=== PATIENT | female | born 1955 | race African-American/Black ===

== ENCOUNTER 2017-02-14 10:30 | Inpatient (IN) | payer BC ==
[2017-02-09 10:42] VITALS: BMI 22.9
[2017-02-24] MEDS ORDERED: ceFAZolin SODIUM 1 GM VIAL ONE (11:12)
[2017-02-24] MEDS ORDERED: TRANEXAMIC ACID 1000 MG/10 ML VIAL ONE (11:14)
[2017-02-24] MEDS ORDERED: ROPIVICAINE 0.2%/MORPH PF/KETOROLAC - 51ML DISP.SYRINGE IA ONE ×2 (11:14→11:28)
[2017-02-24] MEDS ORDERED: VANCOMYCIN 1,000 MG VIAL (RESTRICTED TO ID ONLY) ONE (11:14)
[2017-02-24] MEDS ORDERED: CEFAZOLIN 1 GM/D5W 50 ML IVPB ONE (11:28)
[2017-02-24] MEDS ORDERED: CELECOXIB 200 MG CAPSULE PO ONE (11:28)
[2017-02-24] MEDS ORDERED: GABAPENTIN 300 MG CAPSULE (FP) PO ONE (11:28)
[2017-02-24] MEDS ORDERED: TRANEXAMIC ACID 1000 MG/10 ML VIAL IVPUSH ONE (11:28)
[2017-02-24] MEDS: oxyCODONE HCL 10 MG SUSTAINED ACTING TABLET PO ONE ×2 (11:45→20:48)
[2017-02-24] MEDS ORDERED: EPINEPHrine/PF 1 MG/1 ML (1:1,000) AMPULE ONE (11:47)
[2017-02-24] MEDS ORDERED: LIDOCAINE 1% P/F 10 MG/ML VIAL ONE (11:48)
[2017-02-24] MEDS ORDERED: MIDAZOLAM HCL 2 MG/2 ML SINGLE DOSE VIAL ONE (11:48)
[2017-02-24] MEDS ORDERED: DEXAMETHASONE SOD PHOSPHATE/PF 10 MG/ML SDV ONE (11:48)
[2017-02-24] MEDS ORDERED: oxyCODONE HCL 5 MG TABLET PO PRN ×2 (13:41)
[2017-02-24] MEDS ORDERED: ONDANSETRON 4 MG/2 ML VIAL IVPUSH PRN (13:41)
[2017-02-24] MEDS ORDERED: ACETAMINOPHEN 1000 MG/100 ML VIAL (NON FORMULARY) IVPB ONE (13:41)
[2017-02-24] MEDS ORDERED: MAG HYDROX/AL HYDROX/SIMETH 30 ML UNIT-DOSE CUP PO PRN (18:01)
[2017-02-24] MEDS ORDERED: ONDANSETRON 4 MG/2 ML VIAL IVPB PRN (18:01)
[2017-02-24] MEDS ORDERED: MAGNESIUM HYDROX 2400MG/30ML ORAL SUSPENSION 30 ML CUP PO PRN (18:01)
[2017-02-24] MEDS ORDERED: LACTATED RINGERS SOLUTION 1,000 ML IV SCH (18:15)
--- NOTE | 2017-02-24 18:15 | OP ---
Operative Note - Note: Operative Date: 02/24/17 Pre-Operative Diagnosis: right hip avascular necrosis Operation: right total hip replacement Post-Operative Diagnosis: Same as Pre-op Surgeon: Beka Vuong Medical Parasitologist: Odalys Wright Anesthesia: Spinal Estimated Blood Loss (mls): 200
[2017-02-24] MEDS ORDERED: ACETAMINOPHEN INJECTION 100 ML IVPB ONE (18:40)
[2017-02-24] MEDS: traMADol HCL 50 MG TABLET PO SCH (18:40)
[2017-02-24] MEDS: KETOROLAC TROMETHAMINE 30 MG/1 ML VIAL IVPUSH SCH (18:40)
[2017-02-24] MEDS: LACTATED RINGERS SOLUTION 1,000 ML IV SCH (20:49)
[2017-02-24] MEDS: ACETAMINOPHEN 325 MG TABLET (FP) PO SCH (20:49)
[2017-02-24] MEDS: oxyCODONE HCL 10 MG SUSTAINED ACTING TABLET PO SCH (21:26)
[2017-02-24] MEDS: SENNOSIDES/DOCUSATE COMBO (SENNA PLUS) TABLET (UD) PO SCH (21:26)
[2017-02-24] MEDS: FERROUS SO4 325 MG TABLET (FP) PO SCH (21:27)
[2017-02-24] MEDS: ASCORBIC ACID 500 MG TABLET (FP) PO SCH (21:27)
[2017-02-24] MEDS: GABAPENTIN 300 MG CAPSULE (FP) PO SCH (21:27)
[2017-02-24] MEDS: CEFAZOLIN 1 GM/D5W 50 ML IVPB SCH (21:28)
[2017-02-24] MEDS ORDERED: GABAPENTIN 300 MG CAPSULE (FP) PO SCH (22:00)
[2017-02-25] MEDS: KETOROLAC TROMETHAMINE 30 MG/1 ML VIAL IVPUSH SCH ×3 (00:15→12:15)
[2017-02-25] MEDS: ACETAMINOPHEN 325 MG TABLET (FP) PO SCH ×4 (00:20→20:12)
[2017-02-25] MEDS: traMADol HCL 50 MG TABLET PO SCH ×4 (00:20→18:37)
[2017-02-25] MEDS: CEFAZOLIN 1 GM/D5W 50 ML IVPB SCH (05:25)
[2017-02-25 08:59] LABS: MCH 25.2 pg (25.7-33.7); MCHC 31.7 g/dl (32.0-36.0); MEAN CELL VOLUME 79.5 fl (80-96); MEAN PLT VOLUME 8.8 fl (7.5-11.1); PLATELET COUNT 286 K/MM3 (134-434); RDW 15.3 % (11.6-15.6); WHITE BLOOD COUNT 16.8 K/mm3 (4.0-10.0)
[2017-02-25 09:11] LABS: CALCIUM 10.1 mg/dl (8.4-10.2); CREATININE 1.1 mg/dl (0.6-1.3)
[2017-02-25] MEDS: SENNOSIDES/DOCUSATE COMBO (SENNA PLUS) TABLET (UD) PO SCH ×2 (10:56→21:30)
[2017-02-25] MEDS: MULTIVITAMINS (DAILY MVI) TABLET (FP) PO SCH (10:56)
[2017-02-25] MEDS: ASCORBIC ACID 500 MG TABLET (FP) PO SCH ×2 (10:56→21:28)
[2017-02-25] MEDS: PANTOPRAZOLE 40 MG TABLET (FP) PO SCH (10:57)
[2017-02-25] MEDS: amLODIPine BESYLATE 5 MG TABLET (FP) PO SCH (10:57)
[2017-02-25] MEDS: oxyCODONE HCL 10 MG SUSTAINED ACTING TABLET PO SCH ×2 (10:57→21:30)
[2017-02-25] MEDS: APIXABAN 5 MG TABLET PO SCH ×2 (10:57→21:29)
[2017-02-25] MEDS: FERROUS SO4 325 MG TABLET (FP) PO SCH ×2 (10:57→21:29)
[2017-02-25] MEDS: FOLIC ACID 1 MG TABLET (FP) PO SCH (10:57)
[2017-02-25] MEDS: METOPROLOL SUCCINATE 25 MG TAB.SR.24H (FP) PO SCH (10:59)
[2017-02-25] MEDS: GABAPENTIN 300 MG CAPSULE (FP) PO SCH ×2 (10:59→21:29)
[2017-02-25] MEDS: predniSONE 5 MG TABLET (UD) PO SCH (10:59)
[2017-02-25] MEDS: LACTATED RINGERS SOLUTION 1,000 ML IV SCH (13:56)
--- NOTE | 2017-02-25 14:47 | PN ---
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 (short form) - Note 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: pod #1 s/p THR, with paravert block pt ambulating, with min ginger pain no nausea avss 5/5 motor hip and knee con't with orals for pain
[2017-02-26] MEDS: ACETAMINOPHEN 325 MG TABLET (FP) PO SCH ×3 (01:59→15:07)
[2017-02-26] MEDS: traMADol HCL 50 MG TABLET PO SCH ×3 (02:00→12:00)
--- NOTE | 2017-02-26 06:59 | PN ---
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 (short form) - Note 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: Pt seen and examined yesterday evening (Tuesday). Doing well, pain 5/5. Ambulated several hundred feet. AVSS Selected Entries 02/26/17 05:49 Temperature 99.0 F Pulse Rate 85 Respiratory 18 Rate Blood Pressure 97/50 O2 Sat by Pulse 95 Oximetry (%) Laboratory Tests 02/25/17 02/25/17 08:20 08:20 WBC 16.8 H D Hgb 10.1 L Hct 31.9 L Plt Count 286 Sodium 131 L Potassium 5.5 H D Chloride 97 L Carbon Dioxide 23 Anion Gap 11 BUN 22 H D Creatinine 1.1 Random Glucose 114 H Calcium 10.1 Gen: NAD, AAO RLE: c/d/i, NVID A/P 61yo female s/p right GARY for AVN 1. PT/OOB - WBAT RLE 2. Eliquis BID x 35 days for DVT ppx 3. D/C home after PT today. F/U in office in 2 weeks.
--- NOTE | 2017-02-26 07:18 | DS ---
Physical Examination Vital Signs: Vital Signs Temperature 99.0 F 02/26/17 05:49 Pulse Rate 85 02/26/17 05:49 Respiratory Rate 18 02/26/17 05:49 Blood Pressure 97/50 02/26/17 05:49 O2 Sat by Pulse Oximetry (%) 95 02/26/17 05:49 Labs: CBC, BMP 02/25/17 08:20 02/25/17 08:20 Discharge Summary Reason For Visit: UNILATERAL PRIMARY OSTEOARTHRITIS, LEFT HIP right hip AVN Procedures: Principal: right total hip replacement Hospital Course: Admitted for elective surgery. Procedure performed without complications. Pt received postoperative antibiotic prophylaxis and DVT ppx. Ambulated with physical therapy. Stable for discharge home with outpatient followup. Condition: Stable - Instructions Diet, Activity, Other Instructions: Dr Vuong - Hip Replacement Instructions Keep the Aquacel dressing on until removed by Dr. Vuong in 10-14 days - it is antibacterial and waterproof and you can shower with it on. Call the office for a follow-up appointment with Dr. Vuong in 10-14 days. [phone] Take ELIQUIS twice daily for 35 days to prevent blood clots in your legs. Take one Pantoprazole (instead of omeprazole) 40mg daily for 6 weeks to protect against heartburn and ulcers. For pain: *Mild pain (1-3/10): Take 1 Tramadol tablet every 4 hours as needed. Moderate pain (4-6/10): Take 1 Tramadol tablet and 1 Percocet tablet every 4 hours as needed. Severe pain (7-10/10): Take 1 Tramadol tablet and 2 Percocet tablets every 4 hours as needed. Activity: You can put as much weight on the operative leg as you want. For the first 6 weeks, all you need to do is walk around the house, go up/down stairs, and sit down/get up. After 6 weeks when everything is healed (and bone has grown into the implant) you will be sent for more intensive outpatient physical therapy. Always use a walker or cane for balance and to prevent falls. Disposition: VNS/HOME HEALTH CARE - Home Medications Comprehensive Discharge Medication List: Ambulatory Orders Prednisone 2.5 mg PO DAILY tablet 06/19/13 Amlodipine Besylate [Norvasc -] 5 mg PO DAILY 08/27/16 Apixaban [Eliquis -] 5 mg PO BID 08/27/16 Folic Acid - 1 mg PO DAILY 08/27/16 Metoprolol Succinate [Toprol XL -] 12.5 mg PO DAILY 08/27/16 Methotrexate Sodium [Methotrexate] 2.5 mg PO ASDIR 02/09/17 Apixaban [Eliquis -] 5 mg PO BID #35 tablet 02/26/17 Ascorbic Acid [Vitamin C -] 500 mg PO BID tablet 02/26/17 Multivitamins [Multivit ([facility] Formulary)] 1 tab PO DAILY tab 02/26/17 Oxycodone HCl/Acetaminophen [Percocet 5-325 mg Tablet] 1 - 2 tab PO Q4H PRN #60 tablet MDD 8 02/26/17 Pantoprazole Sodium [Protonix -] 40 mg PO DAILY #40 tablet.ec 02/26/17 Sennosides/Docusate Sodium [Pericolace -] 1 tablet PO BID tablet 02/26/17 Tramadol HCl [Ultram -] 50 mg PO Q4H PRN #90 tablet MDD 6 02/26/17
[2017-02-26] MEDS: APIXABAN 5 MG TABLET PO SCH (11:00)
[2017-02-26] MEDS: amLODIPine BESYLATE 5 MG TABLET (FP) PO SCH (11:00)
[2017-02-26] MEDS: SENNOSIDES/DOCUSATE COMBO (SENNA PLUS) TABLET (UD) PO SCH (11:00)
[2017-02-26] MEDS: GABAPENTIN 300 MG CAPSULE (FP) PO SCH (11:00)
[2017-02-26] MEDS: FERROUS SO4 325 MG TABLET (FP) PO SCH (11:00)
[2017-02-26] MEDS: ASCORBIC ACID 500 MG TABLET (FP) PO SCH (11:00)
[2017-02-26] MEDS: oxyCODONE HCL 10 MG SUSTAINED ACTING TABLET PO SCH (11:00)
[2017-02-26] MEDS: MULTIVITAMINS (DAILY MVI) TABLET (FP) PO SCH (11:00)
[2017-02-26] MEDS: FOLIC ACID 1 MG TABLET (FP) PO SCH (11:00)
[2017-02-26] MEDS: predniSONE 5 MG TABLET (UD) PO SCH (11:48)
[2017-02-26] MEDS: PANTOPRAZOLE 40 MG TABLET (FP) PO SCH (11:51)
[2017-02-26] MEDS: METOPROLOL SUCCINATE 25 MG TAB.SR.24H (FP) PO SCH (11:52)
[2017-02-26 18:37] VITALS: BP 125/62; PULSE 86; TEMP 98.6
--- NOTE | 2017-02-28 11:37 | SURG ---
Surgery Baseball Player Note Baseball Player: Odalys Wright PA-C Date of Service: 02/24/17 Diagnosis: right hip avascular necrosis Procedure: right total hip replacement I was present for the entirety of the operative procedure. For further detail, please refer to operative report. Visit type - Case Type Case Type: Scheduled Admission
--- NOTE | 2017-03-01 11:15 | PATH ---
Surgical Pathology Report Patient Name: KATIE DUVALL Med. Rec. #: [id number] /Age/Gender: 1955 (Age: 61) / F Account: [id number] Location: [facility] MED-SURG Taken: 02/24/2017 Received: 02/24/2017 Reported: 03/01/2017 Physicians: Beka Vuong M.D. Specimen(s) Received RIGHT FEMORAL HEAD Clinical History Unilateral primary osteoarthritis right hip Final Diagnosis BONE, RIGHT FEMORAL HEAD, REPLACEMENT: DEGENERATIVE JOINT DISEASE. Electronically Signed Ralf Conner M.D. Gross Description Received in formalin, labeled "right femoral head," is a 4.0 x 4.0 x 3.6 cm. femoral head with a 1.0 cm in length portion of femoral neck attached. The margin of resection is smooth. No areas of eburnation are identified. The remaining articular surface is marino-yellow and focally granular. The underlying trabecular bone is yellow and hard. A field representatives director section is submitted in one cassette, following decalcification. 02/28/2017 [facility]02/28/2017
--- NOTE | 2017-04-14 20:43 | SPEC ---
DATE OF OPERATION: 02/24/2017 PREOPERATIVE DIAGNOSIS: Right hip avascular necrosis. POSTOPERATIVE DIAGNOSIS: Right hip avascular necrosis. PROCEDURE: Right total hip replacement with MAKOplasty robotic navigation. ATTENDING: Bandar Drummond MD LOAN SECRETARY: SERVANDO Dean ANESTHESIA: Spinal plus sedation. ESTIMATED BLOOD LOSS: 200 mL. INDICATIONS: This is a 61-year-old female who is a long-time patient of mine, who initially presented to the office with severe right hip pain. Radiographs and MRI showed avascular necrosis of the right hip without collapse. The patient has a history of rheumatoid arthritis and long-term steroid use and this was thought to be the causative factor which led to the osteonecrosis. The patient initially underwent a core decompression of the right hip to try to restore blood flow to the femoral head and prevent collapse. She did well postoperatively though she did develop a deep venous thrombosis in the ipsilateral lower leg. The patient continued to have hip pain and, although it was slowly improving, 8 months after the onset she still could not return to work and could barely walk. Radiographs showed no collapse of the femoral head, though there was evidence of mild osteoarthritis. Because of the patient's severe pain and ambulatory dysfunction, we elected to proceed with a total hip replacement rather than continuing to wait for the hip to recover because at the rate at which it was improving, it would take potentially years before she would walk normally without pain and she would be unable to work until that time. In addition, the patient was losing muscle mass and becoming weak because of her limited mobility. The risks, benefits and alternatives to the hip replacement were explained to the patient and her entire family in several conversations at length and in great detail and they elected to proceed with the surgery. On the day of surgery, the patient was taken to the operating room and placed on the OR table. Spinal anesthesia was administered by the anesthesiologist. The patient was then positioned in the lateral decubitus position on the table and all bony prominences were padded. An axillary roll was placed. The operative hip was then prepped and draped in the usual sterile fashion and intravenous antibiotics were given for infection prophylaxis. A surgical time-out was then performed with the team, and the patients identity, procedure, side, availability of implants, and the administration of antibiotics was confirmed. An approximately 15cm longitudinal incision was made through the skin centered on the greater trochanter of the hip. This dissection was carried down through the subcutaneous tissues to the deep fascia. This fascia was then incised and a cobra was placed around the inferior femoral neck. Electrocautery was used to reflect the anterior 40% of the gluteus medius and minimus starting at the musculotendinous junction and leaving a cuff for closure. This was reflected to reveal the capsule of the hip joint. An anterior capsulectomy was performed and the femoral head and neck was visualized. Grade 4 changes were noted diffusely throughout the joint. At this point, three small stab incisions were made superior to the main incision along the iliac crest. Three self-drilling Trinity pins were then placed and the [employer] pelvic array was attached. Reference points on the limb were then entered into the robotic device and the limb length deficiency, offset, and femoral neck resection level were then calculated by the software. The hip was then dislocated with traction and external rotation, an oscillating saw was used to make the femoral neck cut at the level previously templated, and the femoral head was removed. Attention was then turned to the acetabulum. Retractors were then placed around the acetabulum and the labrum was removed. An acetabular checkpoint pin and the [employer] software was used to register the contours of the acetabulum. The acetabulum was then reamed in a single stage to the preoperatively templated size using the [employer] robotic arm. The appropriately sized cup was then impacted and had solid fixation as well as the preset inclination and version of 40 and 20 degrees, respectively. A polyethylene liner was then placed in the cup. Attention was then turned back to the femur, which was externally rotated for improved visualization. A femoral neck elevator was used to present the femoral neck cut, a box osteotome was used to enter the femoral canal, and a canal finder was used to go down the femoral shaft. The Frantz broaches were used sequentially until the optimal scratch fit was achieved. This correlated to the preoperatively templated size. From here, several different offset head and neck configurations were tested until excellent stability and length was obtained. These measurements were quantified using the [employer] software. All trial components were then removed, the femur was copiously irrigated, and the final components were placed. Leg length and stability were checked again and found to be excellent. Irrigation was performed again. Wound closure was started by repairing the abductor muscles with a No. 2 Fiberwire stitch in a [place] configuration passed through bone tunnels in the greater trochanter and tied over a bony bridge. This repair was then reinforced with a 0 VLoc 180 barbed suture. Next, No. 1 Polysorb and 0 VLoc 180 was used to close the fascia. The deep subcutaneous tissue was closed with No. 1 Polysorb sutures, and 2-0 Polysorb was used for the superficial subcutaneous tissue. The skin was closed using both 3-0 VLoc 90 suture in a running subcuticular fashion and SwiftSet skin adhesive. The Frantz array and pins were removed from the iliac crest and the stab incision sites were irrigated and closed with 4-0 Polysorb sutures and Swift[employer] skin adhesive. Once this was completed a sterile dressing was applied. The patient was then awakened and taken to the PACU in stable condition. ADDENDUM: After placement of final implants, the hip was thoroughly irrigated with normal saline via pulsatile lavage. A 3-minute dilute Betadine lavage was then performed according to the BALL[facility] protocol. The wound was again thoroughly irrigated with normal saline after this, and then wound closure was begun. BANDAR DRUMMOND M.D. [id number]
== END 2017-02-26 18:30 | disposition home health service (06) | DRG 470 ==
LOC: FM/S 02-24 10:27
PROVIDERS: ADMIT Student in an Organized Health Care Education/Training Program; ATTEND Student in an Organized Health Care Education/Training Program
PROC: 8E0Y0CZ Robotic Assisted Procedure of Lower Extremity, Open Approach (ICD-10-PCS; 2017-02-24)
PROC: 0SR902A Replacement of Right Hip Joint with Metal on Polyethylene Synthetic Substitute, Uncemented, Open Approach (ICD-10-PCS; principal; 2017-02-24 12:30)
DX: M87.851 Other osteonecrosis, right femur (principal); M06.9 Rheumatoid arthritis, unspecified; D64.9 Anemia, unspecified; I48.0 Paroxysmal atrial fibrillation; Z86.718 Personal history of other venous thrombosis and embolism; Z79.01 Long term (current) use of anticoagulants; I10 Essential (primary) hypertension; K21.9 Gastro-esophageal reflux disease without esophagitis
CPT/HCPCS: 36415; 73502-TC-RT; 80048; 85027; 88304-TC; 88311-TC; 94010; 94760; 97116-GP; 97162-PG

== ENCOUNTER 2020-08-18 16:05 | Inpatient (IN) | payer OTHER, BC ==
--- NOTE | 2020-08-18 17:47 | PDOC ---
History of Present Illness - General Chief Complaint: Altered Mental Status Stated Complaint: Diarrhea Time Seen by Provider: 08/18/20 17:31 Past History - Medical History Allergies/Adverse Reactions: Allergies Allergy/AdvReac Type Severity Reaction Status Date / Time No Known Drug Allergies Allergy Verified 08/27/16 15:07 Home Medications: Ambulatory Orders Folic Acid - 1 mg PO DAILY 08/27/16 Metoprolol Succinate [Toprol XL -] 12.5 mg PO DAILY 08/27/16 Methotrexate Sodium [Methotrexate] 2.5 mg PO ASDIR 02/09/17 Apixaban [Eliquis -] 5 mg PO BID #35 tablet 02/26/17 Multivitamins [Multivit ([facility] Formulary)] 1 tab PO DAILY tab 02/26/17 Pantoprazole Sodium [Protonix -] 40 mg PO DAILY #40 tablet.ec 02/26/17 Acetaminophen [Tylenol .Regular Strength -] 650 mg PO Q6H PRN tablet 08/29/20 Metoprolol Succinate [Toprol XL -] 25 mg PO DAILY tab.sr.24h 08/29/20 Sertraline HCl [Zoloft -] 50 mg PO DAILY tablet 08/29/20 Anemia: No Asthma: No Cancer: No Cardiac Disorders: Yes (HX "FAST" ARRYTHMIA) CVA: No COPD: No CHF: No Dementia: No Diabetes: No GI Disorders: Yes (GERD) Disorders: No HTN: Yes Hypercholesterolemia: No Liver Disease: No Psychiatric Problems: Yes (ANXIETY) Seizures: No Thyroid Disease: No - Surgical History Abdominal Surgery: No Appendectomy: No Cardiac Surgery: No Cholecystectomy: No Lung Surgery: No Neurologic Surgery: No Orthopedic Surgery: No - Reproductive History Is Patient Now?: No - Immunization History Immunization Up to Date: Yes - Psycho-Social/Smoking History Smoking History: Never smoked Have you smoked in the past 12 months: No Information on smoking cessation initiated: No - Substance Abuse Hx (Audit-C & DAST Scrn) How often the patient has a drink containing alcohol: Never Score: In Men: 4 or > Positive; In Women: 3 or > Positive: 0 Screen Result (Pos requires Nsg. Audit-10AR): Negative In the last yr the pt used illegal drug/Rx for NonMed reason: No Score: Yes response is considered Positive: 0 Screen Result (Positive result requires Nsg. DAST-10): Negative *Physical Exam - Vital Signs Last Vital Signs Temp Pulse Resp BP Pulse Ox 99.8 F H 107 H 20 125/81 94 L 08/18/20 16:38 08/18/20 16:38 08/18/20 16:38 08/18/20 16:38 08/18/20 16:38 ED Treatment Course - LABORATORY CBC & Chemistry Diagram: 08/29/20 05:58 08/29/20 05:58 Medical Decision Making - Medical Decision Making 08/18/20 17:45 HPI: 64yo F hx RA, DVTs on eliquis, spinal stenosis and multiple spinal surgeries presents to ED from home with sister for 1 day difficulty following commands and confusion. Baseline alert and completely oriented; no hx dementia. Endorses ch ills, constipation x3 days then diarrhea today, and months thigh pain. 1x emesis today after eating. History per sister, pt unaware why here. PCP - Beka De La Torre ROS: unable to assess 2/2 AMS PE: Gen: Alert, NAD, comfortable-appearing, warm skin HEENT: PERRL, EOMI, dry MM, NCAT. No conjunctival pallor. Sclera are non- icteric. CV: Regular rate and rhythm. No murmurs, rubs, or gallops. PULM: No resp distress. CTAB, no wheezes, rales, or rhonchi. ABD: soft, NT/ND, no rebound tenderness or guarding, no CVA tenderness. BACK: No TTP of c/t/l-spine. No step-offs or deformities. MSK: No bony deformities. 2+ pulses in all extremities. NEURO: Alert. Slow to follow commands, oriented to place and person but not to situation or date. PERRL. CN 2-12 intact. 5/5 strength in all extremities. Sensation to light touch intact in all extremities. No abnormal nystagmus. EXTREMITIES: No cyanosis. No clubbing. No edema. No calf tenderness. TTP inner thighs. PSYCH: Normal mood and thought pattern. SKIN: Warm and dry. Normal capillary refill. L anterior suarez 2cm scab/healing ulcer. No jaundice. MDM: Ddx: infection, metabolic derangement, anemia Tachycardic, 94% on RA, otherwise hemodynamically stable, afebrile, slow to follow commands, oriented to place and person but not to situation or date but otherwise neurologically intact. -EKG -CTH -CTAP -Sepsis labs -1L NS -Ofirmev -Dispo: likely admit Lact elevated 3.4 -2nd L NS Admit AMS CTH neg -Vanc/Zosyn for presumed infection []CTAP read, signed out to Dr Coe Discharge - Discharge Information Problems reviewed: Yes Clinical Impression/Diagnosis: AMS (altered mental status), Vomiting, Diarrhea, Elevated lactic acid level Condition: Good - Admission Yes - Follow up/Referral - Patient Discharge Instructions - Post Discharge Activity
--- NOTE | 2020-08-18 18:39 | PDOC ---
Documentation entered by Cecilia Mace SCRIBE, acting as scribe for Jovita Fink MD. Jovita Fink MD: This documentation has been prepared by the scribe, Cecilia Do SCRIBE, under my direction and personally reviewed by me in its entirety. I confirm that the documentation accurately reflects all work, treatment, procedures, and medical decision making performed by me. Attending Attestation - Resident Resident Name: Dianna Rodas - ED Attending Attestation I have performed the following: I have examined & evaluated the patient, The case was reviewed & discussed with the resident, I agree w/resident's findings & plan, Exceptions are as noted - HPI HPI: 08/18/20 18:08 The patient is a 64 year old with a significant PMH of RA, DVTs (on eliquis) and spinal stenosis (with multiple spinal surgeries) who presents to the ED for evaluation of 1 day of not following commands and being progressively more confused. The patient is accompanied by sister on the bedside, who gave the history. Patient endorses 3 days of chills and constipation however had diarrhea today and 1 episode of vomiting. Social Hx: Coming from home, no hx of dementia PCP: Marie - Physicial Exam PE: 08/18/20 18:35 General: non-toxic appearing HEENT: NCAT Neck: supple, FROM Abdomen: soft, nt, no rebound, no guarding Neuro: Aox2, no focal deficits - Medical Decision Making 08/18/20 18:36 64 yo F with n/v/d, report of fever at home and AMS, no headache or nuchal rigidity to suggest bacterial meningitis, possible gastroenteritis vs. UTI vs. PNA (O2 sat 94% although patient denies cough or SOB) vs. ICH (pt is on eliquis but denies headache) vs. lower suspicion for viral meningitis or encephalitis as patient without headache) vs. COVID. Plan: -labs -COVID testing -urine -cxr -CT head -if cxr negative likely CT a/p -IVF -rectal temp -reassess This clinical encounter is taking place during a federal and state health care emergency attributable to the novel [place] Virus pandemic. The Leasing Consultant of the Department of Health and Human Services has declared, pursuant to the Public Health Service Act 319F-3 (42 U.S.C. 247d-6d), that a covered persons activities related to medical countermeasures against COVID-19 will be immune from liability under Federal and State law. Pt. signed out to incoming night team. Discharge - Discharge Information Problems reviewed: Yes Clinical Impression/Diagnosis: AMS (altered mental status), Vomiting, Diarrhea, Elevated lactic acid level Condition: Fair - Follow up/Referral - Patient Discharge Instructions - Post Discharge Activity
[2020-08-18] MEDS ORDERED: ACETAMINOPHEN 1000 MG/100 ML VIAL (NON FORMULARY) IVPB ONE (19:01)
[2020-08-18] MEDS ORDERED: SODIUM CHLORIDE 0.9% 500 ML INFUS.BAG IV ONE ×2 (19:01→21:05)
[2020-08-18 19:40] LABS: URINE APPEARANCE CLEAR; URINE BILIRUBIN NEGATIVE (NEGATIVE); URINE COLOR YELLOW; URINE GLUCOSE (UA) NEGATIVE (NEGATIVE); URINE KETONE NEGATIVE (NEGATIVE); URINE LEUK ESTERASE NEGATIVE (NEGATIVE); URINE NITRITE NEGATIVE (NEGATIVE); URINE PROTEIN NEGATIVE (NEGATIVE); URINE UROBILINOGEN 0.2 mg/dL (0.2-1.0)
[2020-08-18 19:41] LABS: BASO % 0.5 % (0-2.0); EOS % 0.3 % (0-4.5); HEMATOCRIT 37.3 % (32.4-45.2); HEMOGLOBIN 11.9 GM/dL (10.7-15.3); LYMPH % 7.4 % (8-40); MCH 26.4 pg (25.7-33.7); MEAN CELL VOLUME 82.5 fl (80-96); MEAN PLT VOLUME 8.7 fl (7.5-11.1); MONO % 12.1 % (3.8-10.2); NEUT % 79.7 % (42.8-82.8); PLATELET COUNT 134 K/MM3 (134-434); RBC 4.51 M/mm3 (3.60-5.2); RDW 18.5 % (11.6-15.6); WHITE BLOOD COUNT 11.3 K/mm3 (4.0-10.0)
[2020-08-18 20:11] LABS: ALBUMIN 3.7 g/dl (3.4-5.0); BILIRUBIN,TOTAL 0.5 mg/dL (0.2-1); BLOOD UREA NITROGEN 20.1 mg/dL (7-18); CALCIUM 9.8 mg/dL (8.5-10.1); CREATININE 1.2 mg/dL (0.55-1.3); POTASSIUM 4.4 mmol/L (3.5-5.1); TOT PROT 6.9 g/dl (6.4-8.2)
[2020-08-18 20:38] LABS: MAGNESIUM 2.1 mg/dL (1.8-2.4); PHOSPHOROUS 2.5 mg/dL (2.5-4.9)
[2020-08-18] MEDS ORDERED: ACETAMINOPHEN INJECTION 100 ML IVPB ONE (20:57)
[2020-08-18 21:30] LABS: ANISOCYTOSIS 2+; PLATELET ESTIMATE DECREASED
--- OUTSIDE RECORDS SUMMARY | 2020-08-19 00:31 | XMS ---
:1955 [facility] Name Relationship Address Phone RE, RETIRED Unavailable Unavailable Unavailable RE Unavailable Unavailable Unavailable SAMUEL DUVALL SISTER [address] [place] [address] Re-disclosure Warning The records that you are about to access may contain information from federally- assisted alcohol or drug abuse programs. If such information is present, then the following federally mandated warning applies: This information has been disclosed to you from records protected by federal confidentiality rules (42 CFR part 2). The federal rules prohibit you from making any further disclosure of this information unless further disclosure is expressly permitted by the written consent of the person to whom it pertains or as otherwise permitted by 42 CFR part 2. A general authorization for the release of medical or other information is NOT sufficient for this purpose. The Federal rules restrict any use of the information to criminally investigate or prosecute any alcohol or drug abuse patient.The records that you are about to access may contain highly sensitive health information, the redisclosure of which is protected by Article 27-F of the [facility] Public Health law. If you continue you may haveaccess to information: Regarding HIV / AIDS; Provided by facilities licensed or operated by the [facility] Office of Mental Health; or Provided by the [facility] Office for People With Developmental Disabilities. If such information is present, then the following [facility] mandated warning applies: This information has been disclosed to you from confidential records which are protected by state law. State law prohibits you from making any further disclosure of this information without the specific written consent of the person to whom it pertains, or as otherwise permitted by law. Any unauthorized further disclosure in violation of state law may result in a fine or mcc sentence or both. A general authorization for the release of medical or other information is NOT sufficient authorization for further disclosure. Insurance Providers Payer name Policy type Policy ID Covered Covered republican's Policy P shahnaz / Coverage republican ID relationship to To Inf ormation type to BC PPO [id number] SP [id number] MEDICARE [id number] SP [id number] Results ID Date Data Source [id number] 07/30/2020 02:35:00 PM EDT [facility] Name Value Range Interpretation Description Data Sup porting Code Source(s) Document(s ) 2019 Novel [facility] Coronavirus RNA Interpretation Unspecified Specimen Qualitative CHASE Probe Detection This lab was ordered by [facility] and reported by [facility]. Procedure
[2020-08-19] MEDS ORDERED: PIPERACILLIN/TAZOB 3.375 GM 3.375 GM in DEXTROSE 5%-WATER - 50 ML IVPB ONE (00:37)
[2020-08-19] MEDS ORDERED: VANCOMYCIN 1,000 MG in DEXTROSE 5%-WATER - 250 ML IVPB ONE (00:37)
[2020-08-19] MEDS ORDERED: PIPERACILLIN/TAZOB 3.375 GM 3.375 GM/50 ML BAG IVPB ONE ×3 (00:55→17:49)
[2020-08-19] MEDS ORDERED: VANCOMYCIN 1 GRAM (PRE-DOCKED) 1,000 MG/250 ML BAG IVPB ONE ×2 (01:51→13:12)
[2020-08-19 01:59] LABS: INR 1.14 (0.83-1.09); PROTHROMBIN TIME (PATIENT) 13.5 SEC (9.7-13.0)
[2020-08-19 02:02] LABS: ACTIVATED PTT 25.4 SECONDS (25.2-36.5)
[2020-08-19] MEDS ORDERED: traMADol HCL 50 MG TABLET PO PRN (05:09)
[2020-08-19] MEDS ORDERED: traMADol HCL 50 MG TABLET ONE (05:13)
[2020-08-19] MEDS ORDERED: VANCOMYCIN 1 GM PREMIX - 1 GM/200 ML BAG IVPB SCH (05:15)
[2020-08-19] MEDS ORDERED: VANCOMYCIN 1 GRAM (PRE-DOCKED) 1,000 MG/250 ML BAG IVPB SCH ×2 (06:00→13:00)
[2020-08-19] MEDS ORDERED: PANTOPRAZOLE 40 MG TABLET ONE (06:02)
[2020-08-19] MEDS: PANTOPRAZOLE 40 MG TABLET PO SCH (06:06)
[2020-08-19] MEDS: DEXTROSE 5%-0.45% SALINE 1,000 ML IV SCH (06:06)
[2020-08-19] MEDS: ONDANSETRON 4 MG/2 ML VIAL IVPUSH PRN (07:49)
[2020-08-19] MEDS ORDERED: APIXABAN 5 MG TABLET ONE (09:08)
[2020-08-19] MEDS ORDERED: MULTIVITAMINS (DAILY MVI) TABLET (FP) ONE (09:08)
[2020-08-19] MEDS ORDERED: metoPROLOL SUCCINATE 25 MG TAB.SR.24H (FP) ONE (09:09)
[2020-08-19] MEDS ORDERED: FOLIC ACID 1 MG TABLET (FP) ONE (09:09)
[2020-08-19] MEDS: metoPROLOL SUCCINATE 25 MG TAB.SR.24H (FP) PO SCH (09:32)
[2020-08-19] MEDS: APIXABAN 2.5 MG TABLET PO SCH (09:32)
[2020-08-19] MEDS: FOLIC ACID 1 MG TABLET (FP) PO SCH (09:32)
[2020-08-19] MEDS: MULTIVITAMINS (DAILY MVI) TABLET (FP) PO SCH (09:32)
[2020-08-19] MEDS: PIPERACILLIN/TAZOB 3.375 GM 3.375 GM in DEXTROSE 5%-WATER - 50 ML IVPB SCH ×2 (09:33→17:54)
--- NOTE | 2020-08-19 09:39 | EKG ---
Test Reason : Blood Pressure : / mmHG Vent. Rate : 120 BPM Atrial Rate : 120 BPM P-R Int : 144 ms QRS Dur : 058 ms QT Int : 304 ms P-R-T Axes : 068 031 054 degrees QTc Int : 429 ms POOR DATA QUALITY, INTERPRETATION MAY BE ADVERSELY AFFECTED SINUS TACHYCARDIA POSSIBLE LEFT ATRIAL ENLARGEMENT BORDERLINE ECG WHEN COMPARED WITH ECG OF 27-AUG-2016 15:17, NO SIGNIFICANT CHANGE WAS FOUND Confirmed by Matt Nguyen ([id number]) on 08/19/2020 9:39:17 AM Referred By: Confirmed By:Matt Nguyen
[2020-08-19] MEDS ORDERED: PIPERACILLIN/TAZOB 3.375 GM 3.375 GM in DEXTROSE 5%-WATER - 50 ML IVPB SCH (10:00)
[2020-08-19] MEDS ORDERED: morphine CARPU-JECT 2 MG/1 ML DISP.SYRIN IVPUSH ONE (10:21)
[2020-08-19] MEDS ORDERED: MORPHINE SULFATE 2 MG/ML VIAL ONE (10:34)
[2020-08-19 11:10] LABS: BASO % 0.6 % (0-2.0); EOS % 0.5 % (0-4.5); HEMATOCRIT 33.3 % (32.4-45.2); HEMOGLOBIN 10.4 GM/dL (10.7-15.3); LYMPH % 3.5 % (8-40); MCH 25.6 pg (25.7-33.7); MCHC 31.3 g/dl (32.0-36.0); MEAN CELL VOLUME 81.8 fl (80-96); MEAN PLT VOLUME 7.9 fl (7.5-11.1); MONO % 10.3 % (3.8-10.2); NEUT % 85.1 % (42.8-82.8); PLATELET COUNT 125 K/MM3 (134-434); RBC 4.07 M/mm3 (3.60-5.2); WHITE BLOOD COUNT 10.6 K/mm3 (4.0-10.0)
[2020-08-19 11:33] LABS: BILIRUBIN,TOTAL 0.7 mg/dL (0.2-1); BLOOD UREA NITROGEN 14.1 mg/dL (7-18); CALCIUM 8.9 mg/dL (8.5-10.1); CREATININE 1.3 mg/dL (0.55-1.3); POTASSIUM 4.5 mmol/L (3.5-5.1)
--- NOTE | 2020-08-19 15:02 | CON.ID ---
Consult Consult Specialty:: infectious diseases Referred by:: Reason for Consultation:: ams,confusion,r/o uti - History of Present Illness Chief Complaint: confusion History of Present Illness: 64 year old with a significant PMH of RA, DVTs (on eliquis) and spinal stenosis (with multiple spinal surgeries) who presents to the ED for evaluation of 1 day of not following commands and being progressively more confused. The patient is accompanied by sister on the bedside, who gave the history. Patient endorses 3 days of chills and constipation however had diarrhea today and 1 episode of vomiting. patient still a bit confused and not able to give much more history - History Source History Provided By: Medical Record Limitations to Obtaining History: Other (confusion) - Past Medical History Cardio/Vascular: Yes: HTN, Other (Carotid plaque/stenosis, PSVT) ...: No Rheumatology: Yes: Rheumatoid Arthritis - Past Surgical History Past Surgical History: Yes: None - Alcohol/Substance Use Hx Alcohol Use: No - Smoking History Smoking history: Never smoked Have you smoked in the past 12 months: No Home Medications - Allergies Allergies/Adverse Reactions: Allergies Allergy/AdvReac Type Severity Reaction Status Date / Time No Known Drug Allergies Allergy Verified 08/27/16 15:07 - Home Medications Home Medications: Ambulatory Orders Prednisone 2.5 mg PO DAILY tablet 06/19/13 Folic Acid - 1 mg PO DAILY 08/27/16 Metoprolol Succinate [Toprol XL -] 12.5 mg PO DAILY 08/27/16 Methotrexate Sodium [Methotrexate] 2.5 mg PO ASDIR 02/09/17 Apixaban [Eliquis -] 5 mg PO BID #35 tablet 02/26/17 Multivitamins [Multivit ([facility])] 1 tab PO DAILY tab 02/26/17 Pantoprazole Sodium [Protonix -] 40 mg PO DAILY #40 tablet.ec 02/26/17 traMADol HCL [Ultram -] 50 mg PO Q4H PRN #90 tablet MDD 6 02/26/17 Review of Systems Unable to obtain ROS, reason: unable to obtain Physical Exam Vital Signs: Vital Signs Temperature 98.8 F 08/19/20 08:20 Pulse Rate 83 08/19/20 14:16 Respiratory Rate 14 08/19/20 14:16 Blood Pressure 130/80 08/19/20 14:16 O2 Sat by Pulse Oximetry (%) 95 08/19/20 14:16 Constitutional: Yes: No Distress, Calm Eyes: Yes: Conjunctiva Clear HENT: Yes: Atraumatic, Normocephalic Neck: Yes: Supple, Trachea Midline Cardiovascular: Yes: Regular Rate and Rhythm Respiratory: Yes: Regular, CTA Bilaterally Gastrointestinal: Yes: Normal Bowel Sounds, Soft Musculoskeletal: Yes: WNL Extremities: Yes: WNL Neurological: Yes: Alert, Confusion Psychiatric: Yes: Other Labs: CBC, BMP 08/19/20 10:35 08/19/20 10:35 Imaging - Results Chest X-ray: Report Reviewed, Image Reviewed Cat Scan: Report Reviewed, Image Reviewed Assessment/Plan confusion fever weakness plan will start empiric abx await for all cx reports rest as per the team
--- NOTE | 2020-08-19 17:44 | HP ---
Admitting History and Physical - Past Medical History Cardiovascular: Yes: HTN, Other (Carotid plaque/stenosis, PSVT) ...: No Rheumatology: Yes: Rheumatoid Arthritis - Past Surgical History Past Surgical History: Yes: None - Smoking History Smoking history: Never smoked Have you smoked in the past 12 months: No - Alcohol/Substance Use Hx Alcohol Use: No Home Medications - Allergies Allergies/Adverse Reactions: Allergies Allergy/AdvReac Type Severity Reaction Status Date / Time No Known Drug Allergies Allergy Verified 08/27/16 15:07 - Home Medications Home Medications: Ambulatory Orders Prednisone 2.5 mg PO DAILY tablet 06/19/13 Folic Acid - 1 mg PO DAILY 08/27/16 Metoprolol Succinate [Toprol XL -] 12.5 mg PO DAILY 08/27/16 Methotrexate Sodium [Methotrexate] 2.5 mg PO ASDIR 02/09/17 Apixaban [Eliquis -] 5 mg PO BID #35 tablet 02/26/17 Multivitamins [Multivit ([facility])] 1 tab PO DAILY tab 02/26/17 Pantoprazole Sodium [Protonix -] 40 mg PO DAILY #40 tablet.ec 02/26/17 traMADol HCL [Ultram -] 50 mg PO Q4H PRN #90 tablet MDD 6 02/26/17 Physical Examination Vital Signs: Vital Signs Temperature 98.8 F 08/19/20 08:20 Pulse Rate 83 08/19/20 14:16 Respiratory Rate 14 08/19/20 14:16 Blood Pressure 130/80 08/19/20 14:16 O2 Sat by Pulse Oximetry (%) 95 08/19/20 14:16 Labs: CBC, BMP 08/19/20 10:35 08/19/20 10:35
[2020-08-20] MEDS: DEXTROSE 5%-0.45% SALINE 1,000 ML IV SCH ×3 (00:14→22:58)
[2020-08-20] MEDS: APIXABAN 2.5 MG TABLET PO SCH ×3 (00:15→21:30)
[2020-08-20] MEDS ORDERED: PIPERACILLIN/TAZOBACTAM 3.375 GM VIAL IVPB ONE ×4 (01:51→17:09)
[2020-08-20] MEDS ORDERED: DEXTROSE 5%-WATER - 50 ML IVPB ONE ×4 (01:52→17:09)
[2020-08-20] MEDS: PIPERACILLIN/TAZOB 3.375 GM 3.375 GM in DEXTROSE 5%-WATER - 50 ML IVPB SCH ×3 (02:01→17:24)
[2020-08-20] MEDS: ACETAMINOPHEN 1000 MG/100 ML VIAL (NON FORMULARY) IVPB PRN ×3 (03:12→17:18)
[2020-08-20] MEDS: PANTOPRAZOLE 40 MG TABLET PO SCH (06:17)
--- NOTE | 2020-08-20 11:16 | PN ---
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, Physician History of Present Illness: patient feels slightly better spiked a fever cx reports noted - Current Medication List Current Medications: Active Medications Acetaminophen (Ofirmev Injection -) 1,000 mg IVPB Q6H PRN PRN Reason: PAIN LEVEL 1-5 Stop: 08/20/20 19:27 Last Admin: 08/20/20 03:12 Dose: 1,000 mg Documented by: Apixaban (Eliquis -) 5 mg PO BID [facility] Last Admin: 08/20/20 00:15 Dose: 5 mg Documented by: Folic Acid (Folic Acid -) 1 mg PO DAILY [facility] Last Admin: 08/19/20 09:32 Dose: 1 mg Documented by: Dextrose/Sodium Chloride (D5-1/2ns -) 1,000 mls @ 75 mls/hr IV ASDIR [facility] Last Admin: 08/20/20 06:15 Dose: Not Given Documented by: Piperacillin Sod/Tazobactam (Sod 3.375 gm/ Dextrose) 50 mls @ 100 mls/hr IVPB Q8H-IV [facility]; Protocol Metoprolol Succinate (Toprol Xl -) 12.5 mg PO DAILY [facility] Last Admin: 08/19/20 09:32 Dose: 12.5 mg Documented by: Multivitamins/Minerals/Vitamin C (Tab-A-Vit -) 1 tab PO DAILY [facility] Last Admin: 08/19/20 09:32 Dose: 1 tab Documented by: Ondansetron HCl (Zofran Injection) 4 mg IVPUSH Q6H PRN PRN Reason: NAUSEA Last Admin: 08/19/20 07:49 Dose: 4 mg Documented by: Pantoprazole Sodium (Protonix -) 40 mg PO ACBK [facility] Last Admin: 08/20/20 06:17 Dose: 40 mg Documented by: - Objective Vital Signs: Vital Signs Temperature 98.9 F 08/20/20 06:00 Pulse Rate 94 H 08/20/20 06:00 Respiratory Rate 18 08/20/20 06:00 Blood Pressure 142/81 08/20/20 06:00 O2 Sat by Pulse Oximetry (%) 93 L 08/20/20 06:00 Constitutional: Yes: No Distress Cardiovascular: Yes: S1, S2 Respiratory: Yes: Regular, CTA Bilaterally Gastrointestinal: Yes: Normal Bowel Sounds, Soft Musculoskeletal: Yes: WNL Extremities: Yes: WNL Neurological: Yes: Alert Psychiatric: Yes: Alert Labs: CBC, BMP 08/19/20 10:35 08/19/20 10:35 INR, PTT INR 1.14 (0.83-1.09) H 08/19/20 01:07 Assessment/Plan confusion fever weakness plan continue abx for now monitor fever nutrition rest as per the team
[2020-08-20] MEDS: FOLIC ACID 1 MG TABLET (FP) PO SCH (11:38)
[2020-08-20] MEDS: MULTIVITAMINS (DAILY MVI) TABLET (FP) PO SCH (11:38)
[2020-08-20] MEDS: metoPROLOL SUCCINATE 25 MG TAB.SR.24H (FP) PO SCH (11:39)
[2020-08-20 11:48] LABS: BASO % 0.7 % (0-2.0); EOS % 2.1 % (0-4.5); HEMATOCRIT 35.9 % (32.4-45.2); HEMOGLOBIN 11.4 GM/dL (10.7-15.3); LYMPH % 8.6 % (8-40); MCH 26.6 pg (25.7-33.7); MCHC 31.8 g/dl (32.0-36.0); MEAN CELL VOLUME 83.8 fl (80-96); MEAN PLT VOLUME 8.3 fl (7.5-11.1); MONO % 15.1 % (3.8-10.2); NEUT % 73.5 % (42.8-82.8); PLATELET COUNT 117 K/MM3 (134-434); RBC 4.29 M/mm3 (3.60-5.2); RDW 18.4 % (11.6-15.6); WHITE BLOOD COUNT 8.1 K/mm3 (4.0-10.0)
[2020-08-20 12:15] LABS: ALBUMIN 3.1 g/dl (3.4-5.0); BILIRUBIN,TOTAL 0.6 mg/dL (0.2-1); BLOOD UREA NITROGEN 11.9 mg/dL (7-18); CALCIUM 9.5 mg/dL (8.5-10.1); CREATININE 1.3 mg/dL (0.55-1.3); POTASSIUM 4.2 mmol/L (3.5-5.1); TOT PROT 6.2 g/dl (6.4-8.2)
--- NOTE | 2020-08-20 17:23 | PN ---
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, Physician History of Present Illness: feeling better no diarrhea or vomitting - Current Medication List Current Medications: Active Medications Acetaminophen (Ofirmev Injection -) 1,000 mg IVPB Q6H PRN PRN Reason: PAIN LEVEL 1-5 Stop: 08/20/20 19:27 Last Admin: 08/20/20 11:40 Dose: 1,000 mg Documented by: Apixaban (Eliquis -) 5 mg PO BID [facility] Last Admin: 08/20/20 11:38 Dose: 5 mg Documented by: Folic Acid (Folic Acid -) 1 mg PO DAILY [facility] Last Admin: 08/20/20 11:38 Dose: 1 mg Documented by: Dextrose/Sodium Chloride (D5-1/2ns -) 1,000 mls @ 75 mls/hr IV ASDIR [facility] Last Admin: 08/20/20 06:15 Dose: Not Given Documented by: Piperacillin Sod/Tazobactam (Sod 3.375 gm/ Dextrose) 50 mls @ 100 mls/hr IVPB Q8H-IV [facility]; Protocol Last Admin: 08/20/20 11:39 Dose: 100 mls/hr Documented by: Metoprolol Succinate (Toprol Xl -) 12.5 mg PO DAILY [facility] Last Admin: 08/20/20 11:39 Dose: 12.5 mg Documented by: Multivitamins/Minerals/Vitamin C (Tab-A-Vit -) 1 tab PO DAILY [facility] Last Admin: 08/20/20 11:38 Dose: 1 tab Documented by: Ondansetron HCl (Zofran Injection) 4 mg IVPUSH Q6H PRN PRN Reason: NAUSEA Last Admin: 08/19/20 07:49 Dose: 4 mg Documented by: Pantoprazole Sodium (Protonix -) 40 mg PO ACBK [facility] Last Admin: 08/20/20 06:17 Dose: 40 mg Documented by: - Objective Vital Signs: Vital Signs Temperature 98.4 F 08/20/20 14:51 Pulse Rate 94 H 08/20/20 14:51 Respiratory Rate 08/20/20 14:51 Blood Pressure 133/73 08/20/20 14:51 O2 Sat by Pulse Oximetry (%) 95 08/20/20 14:51 Constitutional: Yes: No Distress HENT: Yes: Atraumatic Neck: Yes: Supple Cardiovascular: Yes: Regular Rate and Rhythm Respiratory: Yes: CTA Bilaterally Gastrointestinal: Yes: Normal Bowel Sounds Extremities: Yes: WNL Neurological: Yes: Alert, Oriented Labs: CBC, BMP 08/20/20 10:55 08/20/20 10:55 INR, PTT INR 1.14 (0.83-1.09) H 08/19/20 01:07 Problem List - Problems (1) AMS (altered mental status) Assessment/Plan: doing much better awaiting neuro consult Code(s): R41.82 - ALTERED MENTAL STATUS, UNSPECIFIED (2) Diarrhea Assessment/Plan: resolved Code(s): R19.7 - DIARRHEA, UNSPECIFIED (3) Vomiting Assessment/Plan: resolved Code(s): R11.10 - VOMITING, UNSPECIFIED (4) Hypertension Assessment/Plan: on meds stable Code(s): I10 - ESSENTIAL (PRIMARY) HYPERTENSION Qualifiers: Hypertension type: essential hypertension Qualified Code(s): I10 - Essential (primary) hypertension Assessment/Plan Cxs negative to date COVERING FOR DR RUBI TODAY
--- NOTE | 2020-08-20 20:39 | CONSULT ---
Consult - text type - Consultation Consultation Note: NEUROLOGY CONSULTATION is greatly appreciated: Events reviewed and discussed with RN. Patient examined. This 64 yo RH, s female lives with her father, sister and daughter. PMH sig for HTN, AFib, "arthritis" and chronic Low back pain, receiving epidurals by "pain management." Maintained on: Prednisone 2.5; Amlodipine; Apixaban; Metoprolol; Methotrexate; Oxycodone Pantoprazole; Docusate; and traMADol HCL 50 mg Q4H Admitted with temps to 101.4, WBC= 11K, lactic acidosis and confusion- No on Zosyn. However, Patient claims she came to the ED because of increased LBP radiating into the left leg and the development of weakness in the left leg. CT of brain (reviewed): Moderate, diffuse weakness with moderate ventricular enlargement and diffuse, chronic, periventricular microvascular disease. SALLY: No head trauma.No fruits. Cor reg, Healed ulcer left medial calf. Neg Bk. Neg Onofre's. + SLR on left at 45 NEURO: Awake, alert, cooperative. Fluent speech O x [place], 2019, Trump. Poor reversals. Recalls 1 of 3 @ 3 mins. CN II-XII: normal Motor: No drift or tremor. Isolated weakness of left knee extension. Normal ankle DF. Reduced left KJ vs R. Reduced AJ's B/L. Toes downgoing. Coord: No FTN dystaxia Sensory: Normal vibration both feet. IMP: 1. Mild B/L cerebral dysfunction (OMS, chronic features) 2, Will worsen with fever/infection- Toxic Metabolic encephalopathy Source of fever still obscure. With left suarez ulcer would consider osteomyelitis? Activation of RA? 3. Left L4 Radiculopathy. SUGGEST: Check ESR, CRP, TSH, B12, RPR, RAINER. RF. Continue antibiotics. Agree with MRI of Brain and LS Spine (Both C-). Bedside PT. Review prior Rheum w/u. Consider Rheum consult. Thank you very much, Neo Thakkar MD
[2020-08-21] MEDS ORDERED: DEXTROSE 5%-WATER - 50 ML IVPB ONE ×2 (02:08→23:22)
[2020-08-21] MEDS ORDERED: PIPERACILLIN/TAZOBACTAM 3.375 GM VIAL IVPB ONE ×2 (02:08→23:22)
[2020-08-21] MEDS: PIPERACILLIN/TAZOB 3.375 GM 3.375 GM in DEXTROSE 5%-WATER - 50 ML IVPB SCH ×2 (02:23→22:15)
[2020-08-21] MEDS ORDERED: ACETAMINOPHEN 1000 MG/100 ML VIAL (NON FORMULARY) IVPB ONE (03:01)
[2020-08-21] MEDS: DEXTROSE 5%-0.45% SALINE 1,000 ML IV SCH (06:04)
[2020-08-21] MEDS: PANTOPRAZOLE 40 MG TABLET PO SCH (06:49)
--- NOTE | 2020-08-21 08:35 | PN ---
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, Physician History of Present Illness: confusion still present slightly better - Current Medication List Current Medications: Active Medications Apixaban (Eliquis -) 5 mg PO BID [facility]PL[facility] BY [facility] Last Admin: 08/20/20 21:30 Dose: 5 mg Documented by: Folic Acid (Folic Acid -) 1 mg PO DAILY [facility] Last Admin: 08/20/20 11:38 Dose: 1 mg Documented by: Dextrose/Sodium Chloride (D5-1/2ns -) 1,000 mls @ 75 mls/hr IV ASDIR REPLACED BY [facility] Last Admin: 08/21/20 06:04 Dose: Not Given Documented by: Piperacillin Sod/Tazobactam (Sod 3.375 gm/ Dextrose) 50 mls @ 100 mls/hr IVPB Q8H-IV [facility]PL[facility]ED [facility]; Protocol Last Admin: 08/21/20 02:23 Dose: 100 mls/hr Documented by: Metoprolol Succinate (Toprol Xl -) 12.5 mg PO DAILY [facility]PL[facility]ED BY [facility] Last Admin: 08/20/20 11:39 Dose: 12.5 mg Documented by: Multivitamins/Minerals/Vitamin C (Tab-A-Vit -) 1 tab PO DAILY REPLACED [facility] Last Admin: 08/20/20 11:38 Dose: 1 tab Documented by: Ondansetron HCl (Zofran Injection) 4 mg IVPUSH Q6H PRN PRN Reason: NAUSEA Last Admin: 08/19/20 07:49 Dose: 4 mg Documented by: Pantoprazole Sodium (Protonix -) 40 mg PO ACBK REPLACED [facility] Last Admin: 08/21/20 06:49 Dose: 40 mg Documented by: - Objective Vital Signs: Vital Signs Temperature 100.2 F H 08/21/20 05:00 Pulse Rate 101 H 08/21/20 05:00 Respiratory Rate 18 08/21/20 05:00 Blood Pressure 118/73 08/21/20 05:00 O2 Sat by Pulse Oximetry (%) 91 L 08/21/20 05:00 Constitutional: Yes: No Distress, Calm Cardiovascular: Yes: S1, S2 Respiratory: Yes: Regular, CTA Bilaterally Gastrointestinal: Yes: Normal Bowel Sounds, Soft Musculoskeletal: Yes: WNL Extremities: Yes: WNL Neurological: Yes: Alert, Confusion Labs: CBC, BMP 08/20/20 10:55 08/20/20 10:55 INR, PTT INR 1.14 (0.83-1.09) H 08/19/20 01:07 Assessment/Plan confusion fever weakness plan will stop abx and monitor rest as per the team
[2020-08-21 10:40] VITALS: BMI 24.7
--- NOTE | 2020-08-21 10:45 | CONSULT ---
Consult - text type - Consultation Consultation Note: NEUROSURGERY CONSULTATION Whitney Beard is a 64 year old female with multiple medical problems and a history of RA who has a history of multiple spine surgeries who is admitted for acute and progressing Left leg radicular pain. Patient has plain films which demonstrate Lumbar degenerative scoliosis. MRI Cervical and Lumbar pending. Will follow
[2020-08-21] MEDS: FOLIC ACID 1 MG TABLET (FP) PO SCH (11:15)
[2020-08-21] MEDS: MULTIVITAMINS (DAILY MVI) TABLET (FP) PO SCH (11:15)
[2020-08-21] MEDS: metoPROLOL SUCCINATE 25 MG TAB.SR.24H (FP) PO SCH (11:15)
[2020-08-21] MEDS: APIXABAN 2.5 MG TABLET PO SCH ×2 (11:15→22:00)
[2020-08-21] MEDS ORDERED: SODIUM CHLORIDE 1,000 ML IV SCH (14:15)
--- NOTE | 2020-08-21 14:20 | PN.NIHSS ---
NIH Stroke Scale - Last Known Well Date/Time & Onset Date Last Known Well: 08/21/20 - Initial Evaluation Level of consciousness: Not alert, requires repeat stimulation to attend Ask patient the month and their age: Both incorrect Ask patient to open & close eyes; make fist and let go: Both incorrect Best gaze (horizontal eye movement): Normal Visual field testing: No visual field loss Facial paresis (Show teeth/raise eyebrows/close eyes tight): Complete paralysis of one or both sides (Upper and lower face) Motor Function: Left Arm: No movement Motor Function: Right Arm: No effort against gravity Motor Function: Left Leg: No movement Motor Function: Right Leg: No effort against gravity Limb Ataxia: Untestable (Joint fused or limb amputated), explain: (pt not responsive) Sensory(Use pinprick test arms,legs,trunk,face/side to side): Normal Best language (Describe picture, name items, read sentences): Mute Dysarthria (read several words): Near unintelligible or unable to speak Extinction and Inattention: Profound xi-inattention or extinction to more than one modality - Total Score NIH Stroke Scale Score: 30
--- NOTE | 2020-08-21 14:30 | RAPID ---
Physical Examination Vital Signs: Vital Signs Temperature 100.2 F H 08/21/20 05:00 Pulse Rate 101 H 08/21/20 05:00 Respiratory Rate 18 08/21/20 05:00 Blood Pressure 118/73 08/21/20 05:00 O2 Sat by Pulse Oximetry (%) 91 L 08/21/20 05:00 Labs: CBC, BMP 08/20/20 10:55 08/20/20 10:55 Rapid Response - Rapid Response Assessment: Rapid response called overhead at 14:01. ICE CRUSHER responded immediately. RN notes that patient was not speaking when the patient was speaking at baseline. Patient was awake and alert but NOT following commands upon arrival. Code Kit was called and stroke protocol was initiated. NIH stroke scale was performed and patient scored 30. Vitals: BP: 148/104 Pulse: 104 O2: 95% A/P CVS vs Seizure vs Metabolic Derangement/Sepsis -stat head CT ordered -blood cultures ordered -stat chest x-ray -urine culture ordered -1 time 1 G Vancomycin given considering recent fever while on Zosyn -Primary team made aware -Family made aware
[2020-08-21] MEDS ORDERED: VANCOMYCIN 1 GM in D5W (PRE-DOCKED) 1,000 MG/250 ML IVPB ONE (15:30)
--- NOTE | 2020-08-21 15:49 | CONSULT ---
Consultation: REQUESTING PROVIDER: Dr. Vigil CONSULT REQUEST: We have been asked to medically evaluate this patient for stroke. HISTORY OF PRESENT ILLNESS: 64F w/ pmhx of rheumatoid arthritis, HTN, Afib, hx of DVT, chronic low back pain presents admitted to the hospital for altered mental status, vomiting/diarrhea, as well as inability to ambulate. Daughter was present at bedside for further history. Pt has a history of worsening b/l lower extremity mobility over the past month requiring use of a rolling walker. She had been receiving epidural injections in her lumbar spine as an outpatient at [facility] due to lower back pain. She had planned surgery in the future. Upon admission, she was found to be febrile at 101.4, WBC 11.3. She was COVID neg. Head CT was neg. In the ED, she was treated empirically with Vanc/Zosyn for her fever, although blood culture and urine cultures were both neg. She was seen by neurology who recommended MRI of brain as well as LC spine; both still pending. Rapid response was called today because pt was found by nursing staff not responding to commands, which was different from her baseline mental status yesterday. Pt was awake and alert during time of rapid. Per rapid response note, NIHSS 30. Repeat CT head was neg for acute pathology. Request for ICU consult wa s made by primary team for further evaluation. PSh: R hip replacement FHx: DM, HTN, CHF; no hx of stroke, cancer, or heart disease All: NKDA REVIEW OF SYSTEMS: Unable to obtain as patient is minimally conversational during interview. PHYSICAL EXAMINATION Vital Signs - 24 hr 08/20/20 08/20/20 08/20/20 18:00 21:00 21:40 Temperature 98.6 F 99.7 F H Pulse Rate 99 H 93 H Respiratory 96 H 18 Rate Blood Pressure 125/83 132/74 O2 Sat by Pulse 96 98 98 Oximetry (%) 08/21/20 08/21/20 01:52 05:00 Temperature 102.8 F H 100.2 F H Pulse Rate 116 H 101 H Respiratory 18 18 Rate Blood Pressure 147/81 118/73 O2 Sat by Pulse 94 L 91 L Oximetry (%) GENERAL: AAOx3 (name, place, time - knows [facility], own name, and 2020). NAD. Resting comfortably in bed. Slurred speech. HEENT: AT/NC. EOMI. Closes and opens eyes spontaneously, but does not follow commands when asked when assessing facial muscles NECK: Normal range of motion, supple without lymphadenopathy, JVD, or masses. - nuchal rigidity LUNGS: CTA b/l, No wheezes/rales noted. HEART: RRR, normal S1, S2. No murmurs noted. ABDOMEN: Soft, NT/ND. normoactive bowel sounds noted. MUSCULOSKELETAL: +2/5 muscle strength b/l u/l LE; weak b/l hand hub bander, L weaker than R UPPER EXTREMITIES: 2+ pulses, warm, well-perfused. No cyanosis. No clubbing. Cap refill <2 seconds. No peripheral edema. LOWER EXTREMITIES: 2+ DP pulses b/l, moves b/l toes upon command; +2/5 b/l hip extension. B/l sensation intact NEUROLOGICAL: Minimally conversational. -Kernig sign, -Brudzinski sign SKIN: Quarter-sized circumferential dry hyperpigmented lesion on L anterior suarez, non-erythematous, non-purulent. Laboratory Results - last 24 hr 08/21/20 08/21/20 08/21/20 07:29 07:29 07:29 ESR 22 POC Glucometer C-Reactive Protein 6.6 H Vitamin B12 352 TSH 0.82 Syphilis Serology Non-reactive 08/21/20 14:02 ESR POC Glucometer 93 C-Reactive Protein Vitamin B12 TSH Syphilis Serology Active Medications Generic Name Dose Route Start Last Admin Trade Name Freq PRN Reason Stop Dose Admin Apixaban 5 mg 08/19/20 10:00 08/21/20 11:15 Eliquis - PO 5 mg BID JESSICA Administration Folic Acid 1 mg 08/19/20 10:00 08/21/20 11:15 Folic Acid - PO 1 mg DAILY JESSICA Administration Sodium Chloride 1,000 mls @ 42 mls/hr 08/21/20 14:15 Normal Saline - IV ASDIR JESSICA Metoprolol Succinate 12.5 mg 08/19/20 10:00 08/21/20 11:15 Toprol Xl - PO 12.5 mg DAILY JESSICA Administration Multivitamins/Minerals/Vitamin C 1 tab 08/19/20 10:00 08/21/20 11:15 Tab-A-Vit - PO 1 tab DAILY JESSICA Administration Ondansetron HCl 4 mg 08/19/20 05:12 08/19/20 07:49 Zofran Injection IVPUSH 4 mg Q6H PRN Administration NAUSEA Pantoprazole Sodium 40 mg 08/19/20 07:00 08/21/20 06:49 Protonix - PO 40 mg ACBK JESSICA Administration ASSESSMENT/PLAN: 64F w/ pmhx of rheumatoid arthritis, HTN, Afib, hx of DVT, chronic low back pain presents admitted to the hospital for altered mental status/aphasia, vomiting/diarrhea, as well as inability to ambulate. Neurology #Acute Metabolic Encephalopathy #R/o Stroke #Lower Back Pain #Left L4 Radiculopathy -Neuro checks -Neurosurg following -Neuro following -Repeat CT head neg -Brain MRI, C-spine, LS-spine pending -Echo, carotid duplex -NPO, bedside PT -Syphilis serology neg, B12 nl, lipid panel nl Cardiology #Hx of HTN #Hx of Afib -Rate-controlled -Cont home meds: Eliquis 5 BID, Metoprolol 12.5 BID Pulmonary #Hx of COPD; stable. ID #Fever, unknown origin -Remains febrile 101.9 -BCx/UCx/UA neg, lactate 2.6 -Was given Vanc/Zosyn -ID following; cont Zosyn GI -Speech and swallow eval -NPO Heme #Hx of DVT #Thrombocytopenia -Cont to monitor Pl -Cont home med: Eliquis 5 BID Rheumatology #RA -Elevated CRP -Currently on MTX and Prednisone -Consider rheum consult Prophylaxis DVT: Cont home Eliquis GI: Cont home Protonix FEN -IVf -recheck lytes in AM -Bedside swallow eval prior to restarting PO diet Dispo -Pt does not need ICU level of care at this time and can be monitored on telemetry unit. If pt requires pressor support due to hemodynamic instability or respiratory support, please reconsult Visit type - Medication Review Med list reviewed for High Risk Meds patients 65 and older: Yes - Emergency Visit Emergency Visit: Yes ED Registration Date: 08/18/20 Care time: The patient presented to the Emergency Department on the above date and was hospitalized for further evaluation of their emergent condition. - New Patient This patient is new to me today: Yes Date on this admission: 08/20/20 - Critical Care Critical Care patient: No ATTENDING PHYSICIAN STATEMENT I saw and evaluated the patient. I reviewed the resident's note and discussed the case with the resident. I agree with the resident's findings and plan as documented. SUBJECTIVE: OBJECTIVE: ASSESSMENT AND PLAN:
--- NOTE | 2020-08-21 16:10 | EKG ---
Test Reason : Blood Pressure : / mmHG Vent. Rate : 107 BPM Atrial Rate : 107 BPM P-R Int : 154 ms QRS Dur : 062 ms QT Int : 320 ms P-R-T Axes : 071 012 033 degrees QTc Int : 427 ms SINUS TACHYCARDIA SEPTAL INFARCT , AGE UNDETERMINED ABNORMAL ECG WHEN COMPARED WITH ECG OF 18-AUG-2020 18:13, NO SIGNIFICANT CHANGE WAS FOUND Confirmed by TONJA GUDINO MD ([id number]) on 08/21/2020 4:09:57 PM Referred By: Confirmed By:TONJA GUDINO MD
[2020-08-21] MEDS: SODIUM CHLORIDE 1,000 ML IV SCH (17:00)
[2020-08-21 17:53] LABS: INR 1.68 (0.83-1.09); PROTHROMBIN TIME (PATIENT) 19.9 SEC (9.7-13.0)
[2020-08-21 17:57] LABS: ACTIVATED PTT 29.4 SECONDS (25.2-36.5)
--- NOTE | 2020-08-21 21:43 | PN ---
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, Physician - Current Medication List Current Medications: Active Medications Apixaban (Eliquis -) 5 mg PO BID [facility] Last Admin: 08/21/20 11:15 Dose: 5 mg Documented by: Folic Acid (Folic Acid -) 1 mg PO DAILY [facility] Last Admin: 08/21/20 11:15 Dose: 1 mg Documented by: Sodium Chloride (Normal Saline -) 1,000 mls @ 75 mls/hr IV ASDIR [facility] Metoprolol Succinate (Toprol Xl -) 12.5 mg PO DAILY [facility] Last Admin: 08/21/20 11:15 Dose: 12.5 mg Documented by: Multivitamins/Minerals/Vitamin C (Tab-A-Vit -) 1 tab PO DAILY [facility] Last Admin: 08/21/20 11:15 Dose: 1 tab Documented by: Ondansetron HCl (Zofran Injection) 4 mg IVPUSH Q6H PRN PRN Reason: NAUSEA Last Admin: 08/19/20 07:49 Dose: 4 mg Documented by: Pantoprazole Sodium (Protonix -) 40 mg PO ACBK [facility] Last Admin: 08/21/20 06:49 Dose: 40 mg Documented by: - Objective Vital Signs: Vital Signs Temperature 101.9 F H 08/21/20 15:30 Pulse Rate 101 H 08/21/20 18:00 Respiratory Rate 22 H 08/21/20 18:00 Blood Pressure 134/89 08/21/20 18:00 O2 Sat by Pulse Oximetry (%) 100 08/21/20 18:00 Labs: CBC, BMP 08/20/20 10:55 08/20/20 10:55 INR, PTT INR 1.68 (0.83-1.09) H 08/21/20 17:00
[2020-08-22] MEDS: PIPERACILLIN/TAZOB 3.375 GM 3.375 GM in DEXTROSE 5%-WATER - 50 ML IVPB SCH ×3 (02:00→16:59)
[2020-08-22] MEDS ORDERED: PIPERACILLIN/TAZOBACTAM 3.375 GM VIAL IVPB ONE ×3 (04:12→16:53)
[2020-08-22] MEDS ORDERED: DEXTROSE 5%-WATER - 50 ML IVPB ONE ×3 (04:13→16:53)
[2020-08-22] MEDS: PANTOPRAZOLE 40 MG TABLET PO SCH (07:35)
[2020-08-22] MEDS: APIXABAN 2.5 MG TABLET PO SCH ×2 (09:11→21:21)
[2020-08-22] MEDS: MULTIVITAMINS (DAILY MVI) TABLET (FP) PO SCH (09:12)
[2020-08-22] MEDS: metoPROLOL SUCCINATE 25 MG TAB.SR.24H (FP) PO SCH (09:12)
[2020-08-22] MEDS: FOLIC ACID 1 MG TABLET (FP) PO SCH (09:18)
[2020-08-22] MEDS ORDERED: ASPIRIN 81 MG CHEWABLE TABLETS PO SCH (10:00)
--- NOTE | 2020-08-22 11:52 | PN ---
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, Physician - Current Medication List Current Medications: Active Medications Apixaban (Eliquis -) 5 mg PO BID [facility] Last Admin: 08/22/20 09:11 Dose: 5 mg Documented by: Folic Acid (Folic Acid -) 1 mg PO DAILY [facility] Last Admin: 08/22/20 09:18 Dose: 1 mg Documented by: Sodium Chloride (Normal Saline -) 1,000 mls @ 75 mls/hr IV ASDIR [facility] Last Admin: 08/21/20 17:00 Dose: 75 mls/hr Documented by: Piperacillin Sod/Tazobactam (Sod 3.375 gm/ Dextrose) 50 mls @ 100 mls/hr IVPB Q8H-IV JESSICA; Protocol Last Admin: 08/22/20 09:11 Dose: 100 mls/hr Documented by: Metoprolol Succinate (Toprol Xl -) 12.5 mg PO DAILY [facility] Last Admin: 08/22/20 09:12 Dose: 12.5 mg Documented by: Multivitamins/Minerals/Vitamin C (Tab-A-Vit -) 1 tab PO DAILY [facility] Last Admin: 08/22/20 09:12 Dose: 1 tab Documented by: Ondansetron HCl (Zofran Injection) 4 mg IVPUSH Q6H PRN PRN Reason: NAUSEA Last Admin: 08/19/20 07:49 Dose: 4 mg Documented by: Pantoprazole Sodium (Protonix -) 40 mg PO ACBK [facility] Last Admin: 08/22/20 07:35 Dose: 40 mg Documented by: - Objective Vital Signs: Vital Signs Temperature 97.5 F L 08/22/20 06:00 Pulse Rate 94 H 08/22/20 06:00 Respiratory Rate 22 H 08/22/20 06:00 Blood Pressure 120/76 08/22/20 06:00 O2 Sat by Pulse Oximetry (%) 100 08/22/20 06:00 Labs: CBC, BMP 08/20/20 10:55 08/20/20 10:55 INR, PTT INR 1.68 (0.83-1.09) H 08/21/20 17:00
--- NOTE | 2020-08-22 12:23 | PN ---
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 (short form) - Note 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: 64 F, rheumatoid arthritis, HTN, Afib, hx of DVT, and chronic low back pain. Admitted via the ER due to altered mental status, vomiting/diarrhea, as well as inability to ambulate. Acute CVA not suspcted by Neuro. Suspected metabolic encephalopathy due to a febrile illness possibly due to osteomyelitis. CT Head (-). Intake & Output 08/19/20 08/20/20 08/21/20 08/22/20 23:59 23:59 23:59 23:59 Intake Total 625 622 2761 1000 Output Total 550 200 Balance 320 273 0210 1000 Weight 149 lb 8 oz 149 lb Last Vital Signs Temp Pulse Resp BP Pulse Ox 97.5 F L 94 H 22 H 120/76 100 08/22/20 06:00 08/22/20 06:00 08/22/20 06:00 08/22/20 06:00 08/22/20 06:00 Active Medications Apixaban (Eliquis -) 5 mg PO BID [facility] Last Admin: 08/22/20 09:11 Dose: 5 mg Documented by: Folic Acid (Folic Acid -) 1 mg PO DAILY [facility] Last Admin: 08/22/20 09:18 Dose: 1 mg Documented by: Sodium Chloride (Normal Saline -) 1,000 mls @ 75 mls/hr IV ASDIR [facility] Last Admin: 08/21/20 17:00 Dose: 75 mls/hr Documented by: Piperacillin Sod/Tazobactam (Sod 3.375 gm/ Dextrose) 50 mls @ 100 mls/hr IVPB Q8H-IV JESSICA; Protocol Last Admin: 08/22/20 09:11 Dose: 100 mls/hr Documented by: Metoprolol Succinate (Toprol Xl -) 12.5 mg PO DAILY [facility] Last Admin: 08/22/20 09:12 Dose: 12.5 mg Documented by: Multivitamins/Minerals/Vitamin C (Tab-A-Vit -) 1 tab PO DAILY [facility] Last Admin: 08/22/20 09:12 Dose: 1 tab Documented by: Ondansetron HCl (Zofran Injection) 4 mg IVPUSH Q6H PRN PRN Reason: NAUSEA Last Admin: 08/19/20 07:49 Dose: 4 mg Documented by: Pantoprazole Sodium (Protonix -) 40 mg PO ACBK [facility] Last Admin: 08/22/20 07:35 Dose: 40 mg Documented by: GENERAL: Awake, confused, non-focal HEENT: AT/NC. EOMI. Closes and opens eyes spontaneously, but does not follow commands when asked when assessing facial muscles NECK: Normal range of motion, supple without lymphadenopathy, JVD, or masses. - nuchal rigidity LUNGS: CTA b/l, No wheezes/rales noted. HEART: RRR, normal S1, S2. No murmurs noted. ABDOMEN: Soft, NT/ND. normoactive bowel sounds noted. MUSCULOSKELETAL: +2/5 muscle strength b/l u/l LE; weak b/l hand grape crusher, L weaker than R UPPER EXTREMITIES: 2+ pulses, warm, well-perfused. No cyanosis. No clubbing. Cap refill <2 seconds. No peripheral edema. LOWER EXTREMITIES: 2+ DP pulses b/l, moves b/l toes upon command; +2/5 b/l hip extension. B/l sensation intact NEUROLOGICAL: Confused, non-focal SKIN: Quarter-sized circumferential dry hyperpigmented lesion on L anterior suarez, non-erythematous, non-purulent. Laboratory Results - last 24 hr 08/21/20 08/21/20 08/21/20 07:29 14:02 15:50 ESR PT with INR INR PTT (Actin FS) POC Glucometer 93 158 C-Reactive Protein 6.6 H Triglycerides 115 Cholesterol 164 Total LDL Cholesterol 91 HDL Cholesterol 54 Vitamin B12 352 TSH 0.82 08/21/20 08/22/20 17:00 05:36 ESR 37 H PT with INR 19.90 H INR 1.68 H PTT (Actin FS) 29.4 POC Glucometer C-Reactive Protein Triglycerides Cholesterol Total LDL Cholesterol HDL Cholesterol Vitamin B12 TSH ASSESSMENT/PLAN: Suspected Metabolic Encephalopathy due to infetcion (R/O Osteomyelitis). Rheumatoid arthritis HTN AFib Hx of DVT Chronic low back pain ABX per ID Aspiration precautions Supplemental O2 as needed Follow Neuro exam VTE prophylaxis Dr Perez
--- NOTE | 2020-08-22 14:04 | PN ---
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 (short form) - Note 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: NEUROLOGY PROGRESS: Patient in MRI last night, unavailable for exam. Patient examined this AM. Events and imaging reviewed and discussed with Ana Lamas and Moira Dubon RN. On Zosyn for lactic acidosis, Leukocytosis Patient had episode of reduced responsiveness last PM and "didn't follow commands." Transferred to telemetry after Code [place]. Vital signs normal throughout. MRI of brain (reviewed): Moderately severe, diffuse atrophy, cavum septum pellucidum, severe, diffuse chronic microvascular changes. B12= 352 pf%; TSH= 0.82; ESR= 37 mm/hr; CRP= 6.6 mg% MRI of LS spine: Right lumbar scoliosis. Severe, diffuse, DJD. Moderately severe LS Spinal stenosis at L2L3 and L3L4 SALLY: Neck supple. Neg Kernigs, Healing scar left suarez. NEURO: Awake, but lethargic. Poorly attentive Ox [facility]. Sparse, fluent speech. Full max to threat. Full EOM's. No facial No drift. Symmetrical grasps. Pt cannot cooperate with muscle testing in the legs. IMP: Moderately severe, B/L cerebral dysfunction No obvious focality to suggest CVA. Suspect worsening Toxic-Metabolic encephalopathy. SUGGEST: Continue hydration and antibiotics. Await blood culture results. Thank you very much, Neo Thakkar MD
[2020-08-22] MEDS: ACETAMINOPHEN 1000 MG/100 ML VIAL (NON FORMULARY) IVPB PRN ×2 (14:15→22:06)
--- NOTE | 2020-08-22 15:57 | PN ---
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, Physician - Current Medication List Current Medications: Active Medications Acetaminophen (Ofirmev Injection -) 1,000 mg IVPB Q6H PRN PRN Reason: PAIN Stop: 08/23/20 13:46 Last Admin: 08/22/20 14:15 Dose: 1,000 mg Documented by: Apixaban (Eliquis -) 5 mg PO BID [facility] Last Admin: 08/22/20 09:11 Dose: 5 mg Documented by: Folic Acid (Folic Acid -) 1 mg PO DAILY [facility] Last Admin: 08/22/20 09:18 Dose: 1 mg Documented by: Sodium Chloride (Normal Saline -) 1,000 mls @ 75 mls/hr IV ASDIR [facility] Last Admin: 08/21/20 17:00 Dose: 75 mls/hr Documented by: Piperacillin Sod/Tazobactam (Sod 3.375 gm/ Dextrose) 50 mls @ 100 mls/hr IVPB Q8H-IV JESSICA; Protocol Last Admin: 08/22/20 09:11 Dose: 100 mls/hr Documented by: Metoprolol Succinate (Toprol Xl -) 12.5 mg PO DAILY [facility] Last Admin: 08/22/20 09:12 Dose: 12.5 mg Documented by: Multivitamins/Minerals/Vitamin C (Tab-A-Vit -) 1 tab PO DAILY [facility] Last Admin: 08/22/20 09:12 Dose: 1 tab Documented by: Ondansetron HCl (Zofran Injection) 4 mg IVPUSH Q6H PRN PRN Reason: NAUSEA Last Admin: 08/19/20 07:49 Dose: 4 mg Documented by: Pantoprazole Sodium (Protonix -) 40 mg PO ACBK [facility] Last Admin: 08/22/20 07:35 Dose: 40 mg Documented by: - Objective Vital Signs: Vital Signs Temperature 97.6 F 08/22/20 10:00 Pulse Rate 102 H 08/22/20 12:00 Respiratory Rate 20 08/22/20 12:00 Blood Pressure 115/94 08/22/20 12:00 O2 Sat by Pulse Oximetry (%) 95 08/22/20 12:00 HENT: Yes: Atraumatic Neck: Yes: Supple Cardiovascular: Yes: Regular Rate and Rhythm Respiratory: Yes: CTA Bilaterally Gastrointestinal: Yes: Normal Bowel Sounds Extremities: Yes: WNL Neurological: Yes: Alert, Oriented Labs: CBC, BMP 08/20/20 10:55 08/20/20 10:55 INR, PTT INR 1.68 (0.83-1.09) H 08/21/20 17:00 Problem List - Problems (1) AMS (altered mental status) Assessment/Plan: doing well Code(s): R41.82 - ALTERED MENTAL STATUS, UNSPECIFIED (2) Diarrhea Assessment/Plan: resolved Code(s): R19.7 - DIARRHEA, UNSPECIFIED (3) Vomiting Assessment/Plan: resolved Code(s): R11.10 - VOMITING, UNSPECIFIED (4) Hypertension Assessment/Plan: on meds stable Code(s): I10 - ESSENTIAL (PRIMARY) HYPERTENSION Qualifiers: Hypertension type: essential hypertension Qualified Code(s): I10 - Essential (primary) hypertension Assessment/Plan Cxs negative to date COVERING FOR DR RUBI TODAY
[2020-08-22] MEDS: SODIUM CHLORIDE 1,000 ML IV SCH ×2 (16:59→23:00)
[2020-08-22] MEDS ORDERED: ATORVASTATIN CA 80 MG TABLET (FP) PO ONE (22:00)
[2020-08-23] MEDS ORDERED: DEXTROSE 5%-WATER - 50 ML IVPB ONE ×3 (01:09→16:39)
[2020-08-23] MEDS ORDERED: PIPERACILLIN/TAZOBACTAM 3.375 GM VIAL IVPB ONE ×3 (01:09→16:39)
[2020-08-23] MEDS: PIPERACILLIN/TAZOB 3.375 GM 3.375 GM in DEXTROSE 5%-WATER - 50 ML IVPB SCH ×3 (01:14→17:35)
[2020-08-23] MEDS: PANTOPRAZOLE 40 MG TABLET PO SCH (06:06)
[2020-08-23] MEDS: ACETAMINOPHEN 1000 MG/100 ML VIAL (NON FORMULARY) IVPB PRN ×2 (06:34→14:36)
--- NOTE | 2020-08-23 07:25 | CON.CARD ---
Consult Consult Specialty:: Cardiology - History of Present Illness History of Present Illness: 64F w/ pmhx of rheumatoid arthritis, HTN, Afib, hx of DVT, chronic low back pain presents admitted to the hospital for altered mental status, vomiting/diarrhea, as well as inability to ambulate. Daughter was present at bedside for further history. Pt has a history of worsening b/l lower extremity mobility over the past month requiring use of a rolling walker. She had been receiving epidural injections in her lumbar spine as an outpatient at [facility] due to lower back pain. She had planned surgery in the future. Upon admission, she was found to be febrile at 101.4, WBC 11.3. She was COVID neg. Head CT was neg. In the ED, she was treated empirically with Vanc/Zosyn for her fever, although blood culture and urine cultures were both neg. She was seen by neurology who recommended MRI of brain as well as LC spine; both still pending. Rapid response was called today because pt was found by nursing staff not responding to commands, which was different from her baseline mental status yesterday. Pt was awake and alert during time of rapid. Per rapid response note, NIHSS 30. Repeat CT head was neg for acute pathology. Request for ICU consult was made by primary team for further evaluation. - History Source History Provided By: Patient, Medical Record - Past Medical History Cardio/Vascular: Yes: AFIB, HTN, Other (Carotid plaque/stenosis, PSVT) ...: No Rheumatology: Yes: Rheumatoid Arthritis - Past Surgical History Past Surgical History: Yes: None - Alcohol/Substance Use Hx Alcohol Use: No - Smoking History Smoking history: Never smoked Have you smoked in the past 12 months: No Home Medications - Allergies Allergies/Adverse Reactions: Allergies Allergy/AdvReac Type Severity Reaction Status Date / Time No Known Drug Allergies Allergy Verified 08/27/16 15:07 - Home Medications Home Medications: Ambulatory Orders Prednisone 2.5 mg PO DAILY tablet 06/19/13 Folic Acid - 1 mg PO DAILY 08/27/16 Metoprolol Succinate [Toprol XL -] 12.5 mg PO DAILY 08/27/16 Methotrexate Sodium [Methotrexate] 2.5 mg PO ASDIR 02/09/17 Apixaban [Eliquis -] 5 mg PO BID #35 tablet 02/26/17 Multivitamins [Multivit ([facility] Formulary)] 1 tab PO DAILY tab 02/26/17 Pantoprazole Sodium [Protonix -] 40 mg PO DAILY #40 tablet.ec 02/26/17 traMADol HCL [Ultram -] 50 mg PO Q4H PRN #90 tablet MDD 6 02/26/17 Review of Systems - Review of Systems Constitutional: reports: No Symptoms Eyes: reports: No Symptoms HENT: reports: No Symptoms Neck: reports: No Symptoms Cardiovascular: reports: No Symptoms Gastrointestinal: reports: No Symptoms Genitourinary: reports: No Symptoms Breasts: reports: No Symptoms Reported Musculoskeletal: reports: No Symptoms Integumentary: reports: No Symptoms Neurological: reports: Confusion Endocrine: reports: No Symptoms Hematology/Lymphatic: reports: No Symptoms Psychiatric: reports: No Symptoms Vital Signs: Vital Signs Temperature 101.1 F H 08/23/20 06:00 Pulse Rate 106 H 08/23/20 06:00 Respiratory Rate 21 H 08/23/20 06:00 Blood Pressure 144/81 08/23/20 06:00 O2 Sat by Pulse Oximetry (%) 94 L 08/23/20 06:00 Constitutional: Yes: Well Nourished, No Distress, Calm Eyes: Yes: WNL, Conjunctiva Clear, EOM Intact HENT: Yes: WNL, Atraumatic, Normocephalic Neck: Yes: WNL, Supple, Trachea Midline Respiratory: Yes: WNL, Regular, CTA Bilaterally Gastrointestinal: Yes: WNL, Normal Bowel Sounds Renal/: Yes: WNL Cardiovascular: Yes: WNL, Regular Rate and Rhythm Musculoskeletal: Yes: WNL Extremities: Yes: Erythema Integumentary: Yes: WNL Neurological: Yes: Alert Psychiatric: Yes: Alert - Other Data Labs, Other Data: CBC, BMP 08/20/20 10:55 08/20/20 10:55 INR, PTT INR 1.68 (0.83-1.09) H 08/21/20 17:00 Imaging - Results Chest X-ray: Image Reviewed (cm increased markings) EKG: Image Reviewed ( s tachycardia , septal infarct) Problem List - Problems (1) AMS (altered mental status) Code(s): R41.82 - ALTERED MENTAL STATUS, UNSPECIFIED (2) Diarrhea Code(s): R19.7 - DIARRHEA, UNSPECIFIED (3) Elevated lactic acid level Code(s): R79.89 - OTHER SPECIFIED ABNORMAL FINDINGS OF BLOOD CHEMISTRY (4) Vomiting Code(s): R11.10 - VOMITING, UNSPECIFIED (5) Abnormal CT of the chest Code(s): R93.8 - ABNORMAL FINDINGS ON DIAGNOSTIC IMAGING OF FABIAN * DO NOT USE * (6) Atypical chest pain Code(s): R07.89 - OTHER CHEST PAIN (7) Avascular necrosis of bone of right hip Code(s): M87.051 - IDIOPATHIC ASEPTIC NECROSIS OF RIGHT FEMUR (8) Dehydration, mild Code(s): E86.0 - DEHYDRATION (9) Hypertension Code(s): I10 - ESSENTIAL (PRIMARY) HYPERTENSION Qualifiers: Hypertension type: essential hypertension Qualified Code(s): I10 - Esse ntial (primary) hypertension (10) Palpitations Code(s): R00.2 - PALPITATIONS (11) Syncope Code(s): R55 - SYNCOPE AND COLLAPSE Assessment/Plan Metabolic Encephalopathy due to infection (R/O Osteomyelitis) Sepsis Lactic Acidosis Rheumatoid arthritis HTN AFib Hx of DVT Chronic low back pain Plan; Cont AC Increase Toprol to 25 QD ABX per ID ICU monitoring DVT PLX CC time spent 70 min
[2020-08-23] MEDS: APIXABAN 2.5 MG TABLET PO SCH ×2 (11:34→21:04)
[2020-08-23] MEDS: MULTIVITAMINS (DAILY MVI) TABLET (FP) PO SCH (11:34)
[2020-08-23] MEDS: FOLIC ACID 1 MG TABLET (FP) PO SCH (11:34)
[2020-08-23] MEDS: metoPROLOL SUCCINATE 25 MG TAB.SR.24H (FP) PO SCH ×2 (11:35→14:37)
--- NOTE | 2020-08-23 11:52 | PN ---
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, Physician History of Present Illness: 64F w/ pmhx of rheumatoid arthritis, HTN, Afib, hx of DVT, chronic low back pain presents admitted to the hospital for altered mental status, vomiting/diarrhea, as well as inability to ambulate. Daughter was present at bedside for further history. Pt has a history of worsening b/l lower extremity mobility over the past month requiring use of a rolling walker. She had been receiving epidural injections in her lumbar spine as an outpatient at [facility] due to lower back pain. She had planned surgery in the future. Upon admission, she was found to be febrile at 101.4, WBC 11.3. She was COVID neg. Head CT was neg. In the ED, she was treated empirically with Vanc/Zosyn for her fever, although blood culture and urine cultures were both neg. She was seen by neurology who recommended MRI of brain as well as LC spine; both still pending. Rapid response was called today because pt was found by nursing staff not responding to commands, which was different from her baseline mental status yesterday. Pt was awake and alert during time of rapid. Per rapid response note, NIHSS 30. Repeat CT head was neg for acute pathology. Request for ICU consult was made by primary team for further evaluation. - Current Medication List Current Medications: Active Medications Acetaminophen (Ofirmev Injection -) 1,000 mg IVPB Q6H PRN PRN Reason: PAIN Stop: 08/23/20 13:46 Last Admin: 08/23/20 06:34 Dose: 1,000 mg Documented by: Apixaban (Eliquis -) 5 mg PO BID [facility] Last Admin: 08/23/20 11:34 Dose: 5 mg Documented by: Folic Acid (Folic Acid -) 1 mg PO DAILY [facility] Last Admin: 08/23/20 11:34 Dose: 1 mg Documented by: Sodium Chloride (Normal Saline -) 1,000 mls @ 75 mls/hr IV ASDIR [facility] Last Admin: 08/22/20 23:00 Dose: 75 mls/hr Documented by: Piperacillin Sod/Tazobactam (Sod 3.375 gm/ Dextrose) 50 mls @ 100 mls/hr IVPB Q8H-IV JESSICA; Protocol Last Admin: 08/23/20 11:35 Dose: 100 mls/hr Documented by: Metoprolol Succinate (Toprol Xl -) 25 mg PO DAILY [facility] Multivitamins/Minerals/Vitamin C (Tab-A-Vit -) 1 tab PO DAILY [facility] Last Admin: 08/23/20 11:34 Dose: 1 tab Documented by: Ondansetron HCl (Zofran Injection) 4 mg IVPUSH Q6H PRN PRN Reason: NAUSEA Last Admin: 08/19/20 07:49 Dose: 4 mg Documented by: Pantoprazole Sodium (Protonix -) 40 mg PO ACBK [facility] Last Admin: 08/23/20 06:06 Dose: 40 mg Documented by: - Objective Vital Signs: Vital Signs Temperature 101.1 F H 08/23/20 06:00 Pulse Rate 106 H 08/23/20 06:00 Respiratory Rate 21 H 08/23/20 06:00 Blood Pressure 144/81 08/23/20 06:00 O2 Sat by Pulse Oximetry (%) 94 L 08/23/20 06:00 Eyes: Yes: WNL, Conjunctiva Clear, EOM Intact HENT: Yes: WNL, Atraumatic, Normocephalic Neck: Yes: WNL, Supple, Trachea Midline Cardiovascular: Yes: WNL, Regular Rate and Rhythm Respiratory: Yes: WNL, Regular, CTA Bilaterally Gastrointestinal: Yes: WNL, Normal Bowel Sounds Genitourinary: Yes: WNL Musculoskeletal: Yes: WNL Extremities: Yes: WNL, Erythema Edema: No Integumentary: Yes: WNL Neurological: Yes: Alert Psychiatric: Yes: Alert Labs: CBC, BMP 08/20/20 10:55 08/20/20 10:55 INR, PTT INR 1.68 (0.83-1.09) H 08/21/20 17:00 Problem List - Problems (1) AMS (altered mental status) Code(s): R41.82 - ALTERED MENTAL STATUS, UNSPECIFIED (2) Diarrhea Code(s): R19.7 - DIARRHEA, UNSPECIFIED (3) Elevated lactic acid level Code(s): R79.89 - OTHER SPECIFIED ABNORMAL FINDINGS OF BLOOD CHEMISTRY (4) Vomiting Code(s): R11.10 - VOMITING, UNSPECIFIED (5) Abnormal CT of the chest Code(s): R93.8 - ABNORMAL FINDINGS ON DIAGNOSTIC IMAGING OF FABIAN * DO NOT USE * (6) Atypical chest pain Code(s): R07.89 - OTHER CHEST PAIN (7) Avascular necrosis of bone of right hip Code(s): M87.051 - IDIOPATHIC ASEPTIC NECROSIS OF RIGHT FEMUR (8) Dehydration, mild Code(s): E86.0 - DEHYDRATION (9) Hypertension Code(s): I10 - ESSENTIAL (PRIMARY) HYPERTENSION Qualifiers: Hypertension type: essential hypertension Qualified Code(s): I10 - Essential (primary) hypertension (10) Palpitations Code(s): R00.2 - PALPITATIONS (11) Syncope Code(s): R55 - SYNCOPE AND COLLAPSE Assessment/Plan Metabolic Encephalopathy due to infection (R/O Osteomyelitis) Sepsis Lactic Acidosis Rheumatoid arthritis HTN AFib Hx of DVT Chronic low back pain Plan; Cont AC Increase Toprol to 25 QD ABX per ID ICU monitoring DVT PLX CC time spent 35 min
[2020-08-23] MEDS: traMADol HCL 50 MG TABLET PO PRN ×2 (14:36→19:48)
[2020-08-23] MEDS: VANCOMYCIN 1 GRAM (PRE-DOCKED) 1,000 MG/250 ML BAG IVPB SCH (17:16)
--- NOTE | 2020-08-23 18:01 | PN ---
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, Physician History of Present Illness: Events noted. Pt seen in ICU, daughter at bedside. Currently patient is fully responsive, AAO x 3 and states she feels well. Daughter states that her mother is back to her normal mental status. Fevers still recurrent. All culture results/imaging reviewed. Pt denies abd pain/n/v/d, SOB/cough, RODRIGUEZ, dysuria. - Current Medication List Current Medications: Active Medications Apixaban (Eliquis -) 5 mg PO BID [facility] Last Admin: 08/23/20 11:34 Dose: 5 mg Documented by: Folic Acid (Folic Acid -) 1 mg PO DAILY [facility] Last Admin: 08/23/20 11:34 Dose: 1 mg Documented by: Sodium Chloride (Normal Saline -) 1,000 mls @ 75 mls/hr IV ASDIR [facility] Last Admin: 08/22/20 23:00 Dose: 75 mls/hr Documented by: Piperacillin Sod/Tazobactam (Sod 3.375 gm/ Dextrose) 50 mls @ 100 mls/hr IVPB Q8H-IV [facility]; Protocol Last Admin: 08/23/20 17:35 Dose: 100 mls/hr Documented by: Vancomycin HCl (Vancomycin (Pre-Docked)) 1,000 mg in 250 mls @ 166.667 mls/hr IVPB 0500,1700 [facility]; Protocol Last Admin: 08/23/20 17:16 Dose: 166.667 mls/hr Documented by: Metoprolol Succinate (Toprol Xl -) 25 mg PO DAILY [facility] Last Admin: 08/23/20 14:37 Dose: 25 mg Documented by: Multivitamins/Minerals/Vitamin C (Tab-A-Vit -) 1 tab PO DAILY [facility] Last Admin: 08/23/20 11:34 Dose: 1 tab Documented by: Ondansetron HCl (Zofran Injection) 4 mg IVPUSH Q6H PRN PRN Reason: NAUSEA Last Admin: 08/19/20 07:49 Dose: 4 mg Documented by: Pantoprazole Sodium (Protonix -) 40 mg PO ACBK [facility] Last Admin: 08/23/20 06:06 Dose: 40 mg Documented by: Tramadol HCl (Ultram -) 50 mg PO Q4H PRN PRN Reason: PAIN LEVEL 6-10 Last Admin: 08/23/20 14:36 Dose: 50 mg Documented by: - Objective Vital Signs: Vital Signs Temperature 101.1 F H 08/23/20 06:00 Pulse Rate 95 H 08/23/20 16:00 Respiratory Rate 20 08/23/20 16:00 Blood Pressure 133/72 08/23/20 16:00 O2 Sat by Pulse Oximetry (%) 100 08/23/20 16:00 Constitutional: Yes: No Distress, Calm Eyes: Yes: Conjunctiva Clear HENT: Yes: Atraumatic Neck: Yes: Supple Cardiovascular: Yes: Regular Rate and Rhythm Respiratory: Yes: CTA Bilaterally, Other (although poor inspiratory effort) Gastrointestinal: Yes: Normal Bowel Sounds, Soft Genitourinary: Yes: WNL Musculoskeletal: Yes: Back Pain Extremities: Yes: WNL Wound/Incision: Yes: Other (Lt suarez ulcer dry without drainage or surrounding erythema/edema/pain) Neurological: Yes: Alert, Oriented Labs: CBC, BMP 08/20/20 10:55 08/20/20 10:55 INR, PTT INR 1.68 (0.83-1.09) H 08/21/20 17:00 Microbiology 08/21/20 17:00 Blood - Peripheral Venous Blood Culture - Preliminary NO GROWTH OBTAINED AFTER 48 HOURS, INCUBATION TO CONTINUE FOR 3 DAYS. 08/21/20 17:00 Blood - Peripheral Venous Blood Culture - Preliminary NO GROWTH OBTAINED AFTER 48 HOURS, INCUBATION TO CONTINUE FOR 3 DAYS. 08/18/20 18:30 Blood - Peripheral Venous Blood Culture - Preliminary NO GROWTH OBTAINED AFTER 96 HOURS, INCUBATION TO CONTINUE FOR 1 DAYS. 08/18/20 18:30 Blood - Peripheral Venous Blood Culture - Preliminary NO GROWTH OBTAINED AFTER 96 HOURS, INCUBATION TO CONTINUE FOR 1 DAYS. 08/18/20 18:30 Urine - Urine - Catheterized Urine Culture - Final NO GROWTH OBTAINED Laboratory Last Values WBC 8.1 K/mm3 (4.0-10.0) 08/20/20 10:55 RBC 4.29 M/mm3 (3.60-5.2) 08/20/20 10:55 Hgb 11.4 GM/dL (10.7-15.3) 08/20/20 10:55 Hct 35.9 % (32.4-45.2) 08/20/20 10:55 MCV 83.8 fl (80-96) 08/20/20 10:55 MCH 26.6 pg (25.7-33.7) 08/20/20 10:55 MCHC 31.8 g/dl (32.0-36.0) L 08/20/20 10:55 RDW 18.4 % (11.6-15.6) H 08/20/20 10:55 Plt Count 117 K/MM3 (134-434) L 08/20/20 10:55 MPV 8.3 fl (7.5-11.1) 08/20/20 10:55 Absolute Neuts (auto) 5.9 K/mm3 (1.5-8.0) 08/20/20 10:55 Total Counted 100 08/18/20 18:30 Neutrophils % 73.5 % (42.8-82.8) 08/20/20 10:55 Neutrophils % (Manual) 72.0 % (42.8-82.8) 08/18/20 18:30 Band Neutrophils % 5.0 % 08/18/20 18:30 Lymphocytes % 8.6 % (8-40) D 08/20/20 10:55 Lymphocytes % (Manual) 12.0 % (8-40) 08/18/20 18:30 Monocytes % 15.1 % (3.8-10.2) H 08/20/20 10:55 Monocytes % (Manual) 11 % (3.8-10.2) H 08/18/20 18:30 Eosinophils % 2.1 % (0-4.5) D 08/20/20 10:55 Basophils % 0.7 % (0-2.0) 08/20/20 10:55 Nucleated RBC % 0 % (0-0) 08/20/20 10:55 Hypochromia 1+ 08/18/20 18:30 Platelet Estimate Decreased 08/18/20 18:30 Platelet Comment No clumping noted 08/18/20 18:30 Polychromasia 1+ 08/18/20 18:30 Anisocytosis 2+ 08/18/20 18:30 Microcytosis 1+ 08/18/20 18:30 ESR 37 mm/hr (0-30) H 08/22/20 05:36 PT with INR 19.90 SEC (9.7-13.0) H 08/21/20 17:00 INR 1.68 (0.83-1.09) H 08/21/20 17:00 PTT (Actin FS) 29.4 SECONDS (25.2-36.5) 08/21/20 17:00 Sodium 141 mmol/L (136-145) 08/20/20 10:55 Potassium 4.2 mmol/L (3.5-5.1) 08/20/20 10:55 Chloride 107 mmol/L (98-107) 08/20/20 10:55 Carbon Dioxide 25 mmol/L (21-32) 08/20/20 10:55 Anion Gap 9 MMOL/L (8-16) 08/20/20 10:55 BUN 11.9 mg/dL (7-18) 08/20/20 10:55 Creatinine 1.3 mg/dL (0.55-1.3) 08/20/20 10:55 Est GFR (CKD-EPI)AfAm 49.86 08/20/20 10:55 Est GFR (CKD-EPI)NonAf 43.02 08/20/20 10:55 POC Glucometer 158 UNITS (80-120) 08/21/20 15:50 Random Glucose 96 mg/dL (74-106) 08/20/20 10:55 Lactic Acid 2.6 mmol/L (0.4-2.0) H* 08/20/20 09:46 Calcium 9.5 mg/dL (8.5-10.1) 08/20/20 10:55 Phosphorus 2.5 mg/dL (2.5-4.9) 08/18/20 18:30 Magnesium 2.1 mg/dL (1.8-2.4) 08/18/20 18:30 Total Bilirubin 0.6 mg/dL (0.2-1) 08/20/20 10:55 AST 41 U/L (15-37) H 08/20/20 10:55 ALT 34 U/L (13-61) 08/20/20 10:55 Alkaline Phosphatase 54 U/L (45-117) 08/20/20 10:55 Creatine Kinase 180 U/L (26-192) 08/18/20 17:52 Creatine Kinase Index 1.9 % (0.0-5.0) 08/18/20 17:52 CK-MB (CK-2) 3.5 ng/mL (0.5-3.6) 08/18/20 17:52 Troponin I 0.03 ng/ml (0.00-0.05) 08/18/20 18:30 C-Reactive Protein 6.6 MG/DL (0.00-0.3) H 08/21/20 07:29 Total Protein 6.2 g/dl (6.4-8.2) L 08/20/20 10:55 Albumin 3.1 g/dl (3.4-5.0) L 08/20/20 10:55 Triglycerides 115 mg/dL (0-150) 08/21/20 07:29 Cholesterol 164 mg/dL (50-200) 08/21/20 07:29 Total LDL Cholesterol 91 mg/dL (5-100) 08/21/20 07: HDL Cholesterol 54 mg/dL (40-60) 08/21/20 07: Lipase 81 U/L (73-393) 08/18/20 18:30 Vitamin B12 352 pg/ml (193-986) 08/21/20 07: TSH 0.82 uIU/ml (0.358-3.74) 08/21/20 07:29 Urine Color Yellow 08/18/20 18:30 Urine Appearance Clear 08/18/20 18:30 Urine pH 6.0 (5.0-8.0) 08/18/20 18:30 Ur Specific [place] 1.023 (1.010-1.035) 08/18/20 18:30 Urine Protein Negative (NEGATIVE) 08/18/20 18:30 Urine Glucose (UA) Negative (NEGATIVE) 08/18/20 18:30 Urine Ketones Negative (NEGATIVE) 08/18/20 18:30 Urine Blood Negative (NEGATIVE) 08/18/20 18:30 Urine Nitrite Negative (NEGATIVE) 08/18/20 18:30 Urine Bilirubin Negative (NEGATIVE) 08/18/20 18:30 Urine Urobilinogen 0.2 mg/dL (0.2-1.0) 08/18/20 18:30 Ur Leukocyte Esterase Negative (NEGATIVE) 08/18/20 18:30 Rheumatoid Arth Biomark 14.3 IU/mL (0.0-13.9) H 08/22/20 05:36 Syphilis Serology Non-reactive (NONREACTIVE) 08/21/20 07:29 COVID-19 (CHASE) Not detected (Not Detected) 08/19/20 01:07 - ....Imaging Chest X-ray: Report Reviewed Cat Scan: Report Reviewed MRI: Report Reviewed Problem List - Problems (1) AMS (altered mental status) Code(s): R41.82 - ALTERED MENTAL STATUS, UNSPECIFIED (2) Elevated lactic acid level Code(s): R79.89 - OTHER SPECIFIED ABNORMAL FINDINGS OF BLOOD CHEMISTRY (3) Avascular necrosis of bone of right hip Code(s): M87.051 - IDIOPATHIC ASEPTIC NECROSIS OF RIGHT FEMUR (4) Hypertension Code(s): I10 - ESSENTIAL (PRIMARY) HYPERTENSION Qualifiers: Hypertension type: essential hypertension Qualified Code(s): I10 - Essential (primary) hypertension Assessment/Plan AMS Recurrent fevers - unclear etiology Lactic acidosis Spinal stenosis/Chronic back pain RA DVT -- chart and imaging results reviewed -- Pt with fever today 101.1F, but currently fully alert and responsive, without leukocytosis -- Lumbar imaging without evidence of abscess/OM, CT abd/Pelvis neg, MRI of brain results noted. No acute infarcts per Neurology -- cultures negative to date -- Lt suarez ulcer healed, no evidence of infection at site -- CXR with possible early infiltrate, ? PNA -- continue Zosyn for now, will add Vancomycin empirically, monitor closely cc: 38 min
--- NOTE | 2020-08-23 22:10 | PN ---
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, Physician - Current Medication List Current Medications: Active Medications Apixaban (Eliquis -) 5 mg PO BID [facility] Last Admin: 08/23/20 21:04 Dose: 5 mg Documented by: Folic Acid (Folic Acid -) 1 mg PO DAILY [facility] Last Admin: 08/23/20 11:34 Dose: 1 mg Documented by: Sodium Chloride (Normal Saline -) 1,000 mls @ 75 mls/hr IV ASDIR [facility] Last Admin: 08/22/20 23:00 Dose: 75 mls/hr Documented by: Piperacillin Sod/Tazobactam (Sod 3.375 gm/ Dextrose) 50 mls @ 100 mls/hr IVPB Q8H-IV [facility]; Protocol Last Admin: 08/23/20 17:35 Dose: 100 mls/hr Documented by: Vancomycin HCl (Vancomycin (Pre-Docked)) 1,000 mg in 250 mls @ 166.667 mls/hr IVPB 0500,1700 [facility]; Protocol Last Admin: 08/23/20 17:16 Dose: 166.667 mls/hr Documented by: Metoprolol Succinate (Toprol Xl -) 25 mg PO DAILY [facility] Last Admin: 08/23/20 14:37 Dose: 25 mg Documented by: Multivitamins/Minerals/Vitamin C (Tab-A-Vit -) 1 tab PO DAILY [facility] Last Admin: 08/23/20 11:34 Dose: 1 tab Documented by: Ondansetron HCl (Zofran Injection) 4 mg IVPUSH Q6H PRN PRN Reason: NAUSEA Last Admin: 08/19/20 07:49 Dose: 4 mg Documented by: Pantoprazole Sodium (Protonix -) 40 mg PO ACBK [facility] Last Admin: 08/23/20 06:06 Dose: 40 mg Documented by: Tramadol HCl (Ultram -) 50 mg PO Q4H PRN PRN Reason: PAIN LEVEL 6-10 Last Admin: 08/23/20 19:48 Dose: 50 mg Documented by: - Objective Vital Signs: Vital Signs Temperature 101.1 F H 08/23/20 06:00 Pulse Rate 97 H 08/23/20 20:00 Respiratory Rate 22 H 08/23/20 20:00 Blood Pressure 142/86 08/23/20 20:00 O2 Sat by Pulse Oximetry (%) 96 08/23/20 20:33 Labs: CBC, BMP 08/20/20 10:55 08/20/20 10:55 INR, PTT INR 1.68 (0.83-1.09) H 08/21/20 17:00
[2020-08-24] MEDS ORDERED: DEXTROSE 5%-WATER - 50 ML IVPB ONE ×3 (01:05→17:14)
[2020-08-24] MEDS ORDERED: PIPERACILLIN/TAZOBACTAM 3.375 GM VIAL IVPB ONE ×3 (01:05→17:14)
[2020-08-24] MEDS: PIPERACILLIN/TAZOB 3.375 GM 3.375 GM in DEXTROSE 5%-WATER - 50 ML IVPB SCH ×3 (01:17→17:31)
[2020-08-24] MEDS: VANCOMYCIN 1 GRAM (PRE-DOCKED) 1,000 MG/250 ML BAG IVPB SCH ×2 (05:55→17:31)
[2020-08-24] MEDS: PANTOPRAZOLE 40 MG TABLET PO SCH (06:12)
[2020-08-24 06:57] LABS: BASO % 0.9 % (0-2.0); EOS % 2.8 % (0-4.5); HEMATOCRIT 28.9 % (32.4-45.2); HEMOGLOBIN 9.1 GM/dL (10.7-15.3); LYMPH % 30.6 % (8-40); MCH 25.9 pg (25.7-33.7); MCHC 31.5 g/dl (32.0-36.0); MEAN CELL VOLUME 82.2 fl (80-96); MEAN PLT VOLUME 8.4 fl (7.5-11.1); MONO % 14.5 % (3.8-10.2); NEUT % 51.2 % (42.8-82.8); PLATELET COUNT 169 K/MM3 (134-434); RBC 3.52 M/mm3 (3.60-5.2); WHITE BLOOD COUNT 8.5 K/mm3 (4.0-10.0)
[2020-08-24 07:17] LABS: ALBUMIN 2.1 g/dl (3.4-5.0); BILIRUBIN,TOTAL 0.3 mg/dL (0.2-1); BLOOD UREA NITROGEN 9.2 mg/dL (7-18); CALCIUM 8.6 mg/dL (8.5-10.1); POTASSIUM 3.7 mmol/L (3.5-5.1); TOT PROT 5.1 g/dl (6.4-8.2)
[2020-08-24 08:26] LABS: ANISOCYTOSIS 1+; MACROCYTOSIS 0; PLATELET ESTIMATE NORMAL
[2020-08-24] MEDS: MULTIVITAMINS (DAILY MVI) TABLET (FP) PO SCH (09:22)
[2020-08-24] MEDS: FOLIC ACID 1 MG TABLET (FP) PO SCH (09:22)
[2020-08-24] MEDS: metoPROLOL SUCCINATE 25 MG TAB.SR.24H (FP) PO SCH (09:22)
[2020-08-24] MEDS: APIXABAN 2.5 MG TABLET PO SCH ×2 (09:22→22:10)
--- NOTE | 2020-08-24 10:18 | PN ---
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, Physician History of Present Illness: 64F w/ pmhx of rheumatoid arthritis, HTN, Afib, hx of DVT, chronic low back pain presents admitted to the hospital for altered mental status, vomiting/diarrhea, as well as inability to ambulate. Daughter was present at bedside for further history. Pt has a history of worsening b/l lower extremity mobility over the past month requiring use of a rolling walker. She had been receiving epidural injections in her lumbar spine as an outpatient at [facility] due to lower back pain. She had planned surgery in the future. Upon admission, she was found to be febrile at 101.4, WBC 11.3. She was COVID neg. Head CT was neg. In the ED, she was treated empirically with Vanc/Zosyn for her fever, although blood culture and urine cultures were both neg. She was seen by neurology who recommended MRI of brain as well as LC spine; both still pending. Rapid response was called today because pt was found by nursing staff not responding to commands, which was different from her baseline mental status yesterday. Pt was awake and alert during time of rapid. Per rapid response note, NIHSS 30. Repeat CT head was neg for acute pathology. Request for ICU consult was made by primary team for further evaluation. - Current Medication List Current Medications: Active Medications Apixaban (Eliquis -) 5 mg PO BID [facility] Last Admin: 08/24/20 09:22 Dose: 5 mg Documented by: Folic Acid (Folic Acid -) 1 mg PO DAILY [facility] Last Admin: 08/24/20 09:22 Dose: 1 mg Documented by: Sodium Chloride (Normal Saline -) 1,000 mls @ 75 mls/hr IV ASDIR [facility] Last Admin: 08/22/20 23:00 Dose: 75 mls/hr Documented by: Piperacillin Sod/Tazobactam (Sod 3.375 gm/ Dextrose) 50 mls @ 100 mls/hr IVPB Q8H-IV [facility]; Protocol Last Admin: 08/24/20 09:22 Dose: 100 mls/hr Documented by: Vancomycin HCl (Vancomycin (Pre-Docked)) 1,000 mg in 250 mls @ 166.667 mls/hr IVPB 0500,1700 [facility]; Protocol Last Admin: 08/24/20 05:55 Dose: 166.667 mls/hr Documented by: Metoprolol Succinate (Toprol Xl -) 25 mg PO DAILY [facility] Last Admin: 08/24/20 09:22 Dose: 25 mg Documented by: Multivitamins/Minerals/Vitamin C (Tab-A-Vit -) 1 tab PO DAILY [facility] Last Admin: 08/24/20 09:22 Dose: 1 tab Documented by: Ondansetron HCl (Zofran Injection) 4 mg IVPUSH Q6H PRN PRN Reason: NAUSEA Last Admin: 08/19/20 07:49 Dose: 4 mg Documented by: Pantoprazole Sodium (Protonix -) 40 mg PO ACBK [facility] Last Admin: 08/24/20 06:12 Dose: 40 mg Documented by: Tramadol HCl (Ultram -) 50 mg PO Q4H PRN PRN Reason: PAIN LEVEL 6-10 Last Admin: 08/23/20 19:48 Dose: 50 mg Documented by: - Objective Vital Signs: Vital Signs Temperature 98.9 F 08/24/20 06:00 Pulse Rate 97 H 08/24/20 08:00 Respiratory Rate 20 08/24/20 08:00 Blood Pressure 125/73 08/24/20 08:00 O2 Sat by Pulse Oximetry (%) 95 08/24/20 08:55 Eyes: Yes: WNL, Conjunctiva Clear, EOM Intact HENT: Yes: WNL, Atraumatic, Normocephalic Neck: Yes: WNL, Supple, Trachea Midline Cardiovascular: Yes: WNL, Regular Rate and Rhythm Respiratory: Yes: WNL, Regular, CTA Bilaterally Gastrointestinal: Yes: WNL, Normal Bowel Sounds Genitourinary: Yes: WNL Musculoskeletal: Yes: WNL Extremities: Yes: WNL Edema: No Integumentary: Yes: WNL Neurological: Yes: WNL, Alert, Oriented ...Motor Strength: WNL Psychiatric: Yes: WNL Labs: CBC, BMP 08/24/20 05:55 08/24/20 05:55 INR, PTT INR 1.68 (0.83-1.09) H 08/21/20 17:00 Problem List - Problems (1) AMS (altered mental status) Code(s): R41.82 - ALTERED MENTAL STATUS, UNSPECIFIED (2) Diarrhea Code(s): R19.7 - DIARRHEA, UNSPECIFIED (3) Elevated lactic acid level Code(s): R79.89 - OTHER SPECIFIED ABNORMAL FINDINGS OF BLOOD CHEMISTRY (4) Vomiting Code(s): R11.10 - VOMITING, UNSPECIFIED (5) Abnormal CT of the chest Code(s): R93.8 - ABNORMAL FINDINGS ON DIAGNOSTIC IMAGING OF FABIAN * DO NOT USE * (6) Atypical chest pain Code(s): R07.89 - OTHER CHEST PAIN (7) Avascular necrosis of bone of right hip Code(s): M87.051 - IDIOPATHIC ASEPTIC NECROSIS OF RIGHT FEMUR (8) Dehydration, mild Code(s): E86.0 - DEHYDRATION (9) Hypertension Code(s): I10 - ESSENTIAL (PRIMARY) HYPERTENSION Qualifiers: Hypertension type: essential hypertension Qualified Code(s): I10 - Essential (primary) hypertension (10) Palpitations Code(s): R00.2 - PALPITATIONS (11) Syncope Code(s): R55 - SYNCOPE AND COLLAPSE Assessment/Plan Metabolic Encephalopathy due to infection (R/O Osteomyelitis) Sepsis Lactic Acidosis Rheumatoid arthritis HTN AFib Hx of DVT Chronic low back pain Plan; Cont AC Cont Toprol to 25 QD ABX per ID ICU monitoring DVT PLX CC time spent 35 min
[2020-08-24] MEDS: traMADol HCL 50 MG TABLET PO PRN ×3 (11:58→22:10)
--- NOTE | 2020-08-24 13:33 | PN ---
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, Physician History of Present Illness: Pt is alert and fully responsive, currently eating lunch. Tmax 99.9F, afebrile today. Vancomycin IV added yesterday empirically due to temp of >101 the night before. No distress noted. Denies diarrhea/vomiting/abd pain. No SOB. - Current Medication List Current Medications: Active Medications Apixaban (Eliquis -) 5 mg PO BID [facility] Last Admin: 08/24/20 09:22 Dose: 5 mg Documented by: Folic Acid (Folic Acid -) 1 mg PO DAILY [facility] Last Admin: 08/24/20 09:22 Dose: 1 mg Documented by: Sodium Chloride (Normal Saline -) 1,000 mls @ 75 mls/hr IV ASDIR [facility] Last Admin: 08/22/20 23:00 Dose: 75 mls/hr Documented by: Piperacillin Sod/Tazobactam (Sod 3.375 gm/ Dextrose) 50 mls @ 100 mls/hr IVPB Q8H-IV [facility]; Protocol Last Admin: 08/24/20 09:22 Dose: 100 mls/hr Documented by: Vancomycin HCl (Vancomycin (Pre-Docked)) 1,000 mg in 250 mls @ 166.667 mls/hr IVPB 0500,1700 [facility]; Protocol Last Admin: 08/24/20 05:55 Dose: 166.667 mls/hr Documented by: Metoprolol Succinate (Toprol Xl -) 25 mg PO DAILY [facility] Last Admin: 08/24/20 09:22 Dose: 25 mg Documented by: Multivitamins/Minerals/Vitamin C (Tab-A-Vit -) 1 tab PO DAILY [facility] Last Admin: 08/24/20 09:22 Dose: 1 tab Documented by: Ondansetron HCl (Zofran Injection) 4 mg IVPUSH Q6H PRN PRN Reason: NAUSEA Last Admin: 08/19/20 07:49 Dose: 4 mg Documented by: Pantoprazole Sodium (Protonix -) 40 mg PO ACBK [facility] Last Admin: 08/24/20 06:12 Dose: 40 mg Documented by: Tramadol HCl (Ultram -) 50 mg PO Q4H PRN PRN Reason: PAIN LEVEL 6-10 Last Admin: 08/24/20 11:58 Dose: 50 mg Documented by: - Objective Vital Signs: Vital Signs Temperature 98 F 08/24/20 10:00 Pulse Rate 99 H 08/24/20 12:00 Respiratory Rate 22 H 08/24/20 12:00 Blood Pressure 148/92 08/24/20 12:00 O2 Sat by Pulse Oximetry (%) 96 08/24/20 12:00 Constitutional: Yes: No Distress, Calm Cardiovascular: Yes: Regular Rate and Rhythm Respiratory: Yes: CTA Bilaterally Gastrointestinal: Yes: Normal Bowel Sounds, Soft Genitourinary: Yes: WNL Edema: No Integumentary: Yes: Other (healed Lt suarez ulcer) Neurological: Yes: Alert, Oriented Labs: CBC, BMP 08/24/20 05:55 08/24/20 05:55 INR, PTT INR 1.68 (0.83-1.09) H 08/21/20 17:00 Laboratory Last Values WBC 8.5 K/mm3 (4.0-10.0) 08/24/20 05:55 RBC 3.52 M/mm3 (3.60-5.2) L 08/24/20 05:55 Hgb 9.1 GM/dL (10.7-15.3) L 08/24/20 05:55 Hct 28.9 % (32.4-45.2) L D 08/24/20 05:55 MCV 82.2 fl (80-96) 08/24/20 05:55 MCH 25.9 pg (25.7-33.7) 08/24/20 05:55 MCHC 31.5 g/dl (32.0-36.0) L 08/24/20 05:55 RDW 18.0 % (11.6-15.6) H 08/24/20 05:55 Plt Count 169 K/MM3 (134-434) D 08/24/20 05:55 MPV 8.4 fl (7.5-11.1) 08/24/20 05:55 Absolute Neuts (auto) 4.3 K/mm3 (1.5-8.0) 08/24/20 05:55 Total Counted 100 08/18/20 18:30 Neutrophils % 51.2 % (42.8-82.8) D 08/24/20 05:55 Neutrophils % (Manual) 57.0 % (42.8-82.8) 08/24/20 05:55 Band Neutrophils % 0.0 % 08/24/20 05:55 Lymphocytes % 30.6 % (8-40) D 08/24/20 05:55 Lymphocytes % (Manual) 20.0 % (8-40) D 08/24/20 05:55 Monocytes % 14.5 % (3.8-10.2) H 08/24/20 05:55 Monocytes % (Manual) 13 % (3.8-10.2) H 08/24/20 05:55 Eosinophils % 2.8 % (0-4.5) 08/24/20 05:55 Eosinophils % (Manual) 4.0 % (0-4.5) 08/24/20 05:55 Basophils % 0.9 % (0-2.0) 08/24/20 05:55 Basophils % (Manual) 0.0 % (0-2.0) 08/24/20 05:55 Myelocytes % (Man) 0 % (0-2) 08/24/20 05:55 Promyelocytes % (Man) 0 % (0-2) 08/24/20 05:55 Blast Cells % (Manual) 0 % (0-0) 08/24/20 05:55 Nucleated RBC % 1 % (0-0) H 08/24/20 05:55 Metamyelocytes 0 % (0-2) 08/24/20 05:55 Hypochromia 0 08/24/20 05:55 Platelet Estimate Normal 08/24/20 05:55 Platelet Comment No clumping noted 08/18/20 18:30 Polychromasia 1+ 08/24/20 05:55 Poikilocytosis 0 08/24/20 05:55 Anisocytosis 1+ 08/24/20 05:55 Microcytosis 1+ 08/24/20 05:55 Macrocytosis 0 08/24/20 05:55 ESR 37 mm/hr (0-30) H 08/22/20 05:36 PT with INR 19.90 SEC (9.7-13.0) H 08/21/20 17:00 INR 1.68 (0.83-1.09) H 08/21/20 17:00 PTT (Actin FS) 29.4 SECONDS (25.2-36.5) 08/21/20 17:00 Sodium 139 mmol/L (136-145) 08/24/20 05:55 Potassium 3.7 mmol/L (3.5-5.1) 08/24/20 05:55 Chloride 106 mmol/L (98-107) 08/24/20 05:55 Carbon Dioxide 24 mmol/L (21-32) 08/24/20 05:55 Anion Gap 8 MMOL/L (8-16) 08/24/20 05:55 BUN 9.2 mg/dL (7-18) 08/24/20 05:55 Creatinine 1.0 mg/dL (0.55-1.3) 08/24/20 05:55 Est GFR (CKD-EPI)AfAm 68.47 08/24/20 05:55 Est GFR (CKD-EPI)NonAf 59.07 08/24/20 05:55 POC Glucometer 158 UNITS (80-120) 08/21/20 15:50 Random Glucose 88 mg/dL (74-106) 08/24/20 05:55 Lactic Acid 1.3 mmol/L (0.4-2.0) 08/24/20 05:55 Calcium 8.6 mg/dL (8.5-10.1) 08/24/20 05:55 Phosphorus 2.5 mg/dL (2.5-4.9) 08/18/20 18:30 Magnesium 2.1 mg/dL (1.8-2.4) 08/18/20 18:30 Total Bilirubin 0.3 mg/dL (0.2-1) 08/24/20 05:55 AST 28 U/L (15-37) 08/24/20 05:55 ALT 35 U/L (13-61) 08/24/20 05:55 Alkaline Phosphatase 41 U/L (45-117) L 08/24/20 05:55 Creatine Kinase 180 U/L (26-192) 08/18/20 17:52 Creatine Kinase Index 1.9 % (0.0-5.0) 08/18/20 17:52 CK-MB (CK-2) 3.5 ng/mL (0.5-3.6) 08/18/20 17:52 Troponin I 0.03 ng/ml (0.00-0.05) 08/18/20 18:30 C-Reactive Protein 6.6 MG/DL (0.00-0.3) H 08/21/20 07:29 Total Protein 5.1 g/dl (6.4-8.2) L 08/24/20 05:55 Albumin 2.1 g/dl (3.4-5.0) L 08/24/20 05:55 Triglycerides 115 mg/dL (0-150) 08/21/20 07:29 Cholesterol 164 mg/dL (50-200) 08/21/20 07:29 Total LDL Cholesterol 91 mg/dL (5-100) 08/21/20 07:29 HDL Cholesterol 54 mg/dL (40-60) 08/21/20 07:29 Lipase 81 U/L (73-393) 08/18/20 18:30 Vitamin B12 352 pg/ml (193-986) 08/21/20 07: TSH 0.82 uIU/ml (0.358-3.74) 08/21/20 07:29 Urine Color Yellow 08/18/20 18:30 Urine Appearance Clear 08/18/20 18:30 Urine pH 6.0 (5.0-8.0) 08/18/20 18:30 Ur Specific [place] 1.023 (1.010-1.035) 08/18/20 18:30 Urine Protein Negative (NEGATIVE) 08/18/20 18:30 Urine Glucose (UA) Negative (NEGATIVE) 08/18/20 18:30 Urine Ketones Negative (NEGATIVE) 08/18/20 18:30 Urine Blood Negative (NEGATIVE) 08/18/20 18:30 Urine Nitrite Negative (NEGATIVE) 08/18/20 18:30 Urine Bilirubin Negative (NEGATIVE) 08/18/20 18:30 Urine Urobilinogen 0.2 mg/dL (0.2-1.0) 08/18/20 18:30 Ur Leukocyte Esterase Negative (NEGATIVE) 08/18/20 18:30 Rheumatoid Arth Biomark 14.3 IU/mL (0.0-13.9) H 08/22/20 05:36 RAINER Screen Negative (.) 08/22/20 05:36 Syphilis Serology Non-reactive (NONREACTIVE) 08/21/20 07:29 COVID-19 (CHASE) Not detected (Not Detected) 08/19/20 01:07 Microbiology 08/18/20 18:30 Blood - Peripheral Venous Blood Culture - Final NO GROWTH AFTER 5 DAYS INCUBATION 08/18/20 18:30 Blood - Peripheral Venous Blood Culture - Final NO GROWTH AFTER 5 DAYS INCUBATION 08/21/20 17:00 Blood - Peripheral Venous Blood Culture - Preliminary NO GROWTH OBTAINED AFTER 48 HOURS, INCUBATION TO CONTINUE FOR 3 DAYS. 08/21/20 17:00 Blood - Peripheral Venous Blood Culture - Preliminary NO GROWTH OBTAINED AFTER 48 HOURS, INCUBATION TO CONTINUE FOR 3 DAYS. 08/18/20 18:30 Urine - Urine - Catheterized Urine Culture - Final NO GROWTH OBTAINED Problem List - Problems (1) AMS (altered mental status) Code(s): R41.82 - ALTERED MENTAL STATUS, UNSPECIFIED (2) Elevated lactic acid level Code(s): R79.89 - OTHER SPECIFIED ABNORMAL FINDINGS OF BLOOD CHEMISTRY (3) Avascular necrosis of bone of right hip Code(s): M87.051 - IDIOPATHIC ASEPTIC NECROSIS OF RIGHT FEMUR (4) Hypertension Code(s): I10 - ESSENTIAL (PRIMARY) HYPERTENSION Qualifiers: Hypertension type: essential hypertension Qualified Code(s): I10 - Essential (primary) hypertension Assessment/Plan AMS Recurrent fevers - unclear etiology Lactic acidosis Spinal stenosis/Chronic back pain RA DVT -- pt with Tmax 99F, lactic acid/wbc normal -- Lumbar imaging without evidence of abscess/OM, CT abd/Pelvis neg, MRI of brain results noted. No acute infarcts per Neurology -- routine cultures negative to date -- Lt suarez ulcer healed, no evidence of infection at site -- ? early infiltrate per latest CXR -- continue Zosyn and Vancomycin IV for now with monitoring of renal function cc time: 35 min
--- NOTE | 2020-08-24 15:03 | EKG ---
Test Reason : Blood Pressure : / mmHG Vent. Rate : 088 BPM Atrial Rate : 088 BPM P-R Int : 168 ms QRS Dur : 078 ms QT Int : 360 ms P-R-T Axes : 072 009 034 degrees QTc Int : 435 ms SINUS RHYTHM WITH PREMATURE ATRIAL COMPLEXES SEPTAL INFARCT (CITED ON OR BEFORE 21-AUG-2020) ABNORMAL ECG WHEN COMPARED WITH ECG OF 21-AUG-2020 15:13, PREMATURE ATRIAL COMPLEXES ARE NOW PRESENT Confirmed by MD Trent, Colby ([id number]) on 08/24/2020 3:03:14 PM Referred By: Nenita KRISHNAMURTHY Confirmed By:Colby Newman MD
[2020-08-24] MEDS: SODIUM CHLORIDE 1,000 ML IV SCH ×2 (18:07→18:08)
--- NOTE | 2020-08-24 22:23 | PN ---
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, Physician History of Present Illness: Pt still febrile Pt complains of a cough - Current Medication List Current Medications: Active Medications Apixaban (Eliquis -) 5 mg PO BID [facility] Last Admin: 08/24/20 22:10 Dose: 5 mg Documented by: Folic Acid (Folic Acid -) 1 mg PO DAILY [facility] Last Admin: 08/24/20 09:22 Dose: 1 mg Documented by: Sodium Chloride (Normal Saline -) 1,000 mls @ 75 mls/hr IV ASDIR [facility] Last Admin: 08/24/20 18:08 Dose: 75 mls/hr Documented by: Piperacillin Sod/Tazobactam (Sod 3.375 gm/ Dextrose) 50 mls @ 100 mls/hr IVPB Q8H-IV [facility]; Protocol Last Admin: 08/24/20 17:31 Dose: 100 mls/hr Documented by: Vancomycin HCl (Vancomycin (Pre-Docked)) 1,000 mg in 250 mls @ 166.667 mls/hr IVPB 0500,1700 [facility]; Protocol Last Admin: 08/24/20 17:31 Dose: 166.667 mls/hr Documented by: Metoprolol Succinate (Toprol Xl -) 25 mg PO DAILY [facility] Last Admin: 08/24/20 09:22 Dose: 25 mg Documented by: Multivitamins/Minerals/Vitamin C (Tab-A-Vit -) 1 tab PO DAILY [facility] Last Admin: 08/24/20 09:22 Dose: 1 tab Documented by: Ondansetron HCl (Zofran Injection) 4 mg IVPUSH Q6H PRN PRN Reason: NAUSEA Last Admin: 08/19/20 07:49 Dose: 4 mg Documented by: Pantoprazole Sodium (Protonix -) 40 mg PO ACBK [facility] Last Admin: 08/24/20 06:12 Dose: 40 mg Documented by: Tramadol HCl (Ultram -) 50 mg PO Q4H PRN PRN Reason: PAIN LEVEL 6-10 Last Admin: 08/24/20 22:10 Dose: 50 mg Documented by: - Objective Vital Signs: Vital Signs Temperature 98.7 F 08/24/20 18:00 Pulse Rate 109 H 08/24/20 18:00 Respiratory Rate 28 H 08/24/20 18:00 Blood Pressure 142/86 08/24/20 18:00 O2 Sat by Pulse Oximetry (%) 95 08/24/20 16:00 Neck: Yes: WNL, Supple Cardiovascular: Yes: WNL, Regular Rate and Rhythm Respiratory: Yes: WNL, Regular, CTA Bilaterally Gastrointestinal: Yes: WNL, Normal Bowel Sounds, Soft Labs: CBC, BMP 08/24/20 05:55 08/24/20 05:55 INR, PTT INR 1.68 (0.83-1.09) H 08/21/20 17:00 Problem List - Problems (1) AMS (altered mental status) Assessment/Plan: MRI brain showed 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9 - DORSALGIA, UNSPECIFIED; G89.29 - OTHER CHRONIC PAIN
[2020-08-25] MEDS ORDERED: DEXTROSE 5%-WATER - 50 ML IVPB ONE ×3 (01:52→16:06)
[2020-08-25] MEDS ORDERED: PIPERACILLIN/TAZOBACTAM 3.375 GM VIAL IVPB ONE ×3 (01:52→16:06)
[2020-08-25] MEDS: PIPERACILLIN/TAZOB 3.375 GM 3.375 GM in DEXTROSE 5%-WATER - 50 ML IVPB SCH ×3 (02:22→17:29)
[2020-08-25] MEDS: VANCOMYCIN 1 GRAM (PRE-DOCKED) 1,000 MG/250 ML BAG IVPB SCH ×2 (05:15→16:39)
[2020-08-25] MEDS: PANTOPRAZOLE 40 MG TABLET PO SCH (06:19)
[2020-08-25 06:44] LABS: BASO % 0.9 % (0-2.0); EOS % 3.9 % (0-4.5); HEMATOCRIT 29.1 % (32.4-45.2); HEMOGLOBIN 9.2 GM/dL (10.7-15.3); LYMPH % 31.3 % (8-40); MCH 25.9 pg (25.7-33.7); MCHC 31.6 g/dl (32.0-36.0); MEAN PLT VOLUME 8.2 fl (7.5-11.1); MONO % 15.1 % (3.8-10.2); NEUT % 48.8 % (42.8-82.8); PLATELET COUNT 189 K/MM3 (134-434); RBC 3.55 M/mm3 (3.60-5.2); RDW 18.4 % (11.6-15.6); WHITE BLOOD COUNT 8.6 K/mm3 (4.0-10.0)
[2020-08-25 07:36] LABS: ALBUMIN 2.2 g/dl (3.4-5.0); BILIRUBIN,TOTAL 0.4 mg/dL (0.2-1); BLOOD UREA NITROGEN 7.4 mg/dL (7-18); CALCIUM 8.7 mg/dL (8.5-10.1); CREATININE 0.9 mg/dL (0.55-1.3); POTASSIUM 3.6 mmol/L (3.5-5.1); TOT PROT 5.3 g/dl (6.4-8.2)
--- NOTE | 2020-08-25 09:19 | PN ---
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, Physician History of Present Illness: 64F w/ pmhx of rheumatoid arthritis, HTN, Afib, hx of DVT, chronic low back pain presents admitted to the hospital for altered mental status, vomiting/diarrhea, as well as inability to ambulate. Daughter was present at bedside for further history. Pt has a history of worsening b/l lower extremity mobility over the past month requiring use of a rolling walker. She had been receiving epidural injections in her lumbar spine as an outpatient at [facility] due to lower back pain. She had planned surgery in the future. Upon admission, she was found to be febrile at 101.4, WBC 11.3. She was COVID neg. Head CT was neg. In the ED, she was treated empirically with Vanc/Zosyn for her fever, although blood culture and urine cultures were both neg. She was seen by neurology who recommended MRI of brain as well as LC spine; both still pending. Rapid response was called today because pt was found by nursing staff not responding to commands, which was different from her baseline mental status yesterday. Pt was awake and alert during time of rapid. Per rapid response note, NIHSS 30. Repeat CT head was neg for acute pathology. Request for ICU consult was made by primary team for further evaluation. - Current Medication List Current Medications: Active Medications Apixaban (Eliquis -) 5 mg PO BID [facility] Last Admin: 08/24/20 22:10 Dose: 5 mg Documented by: Folic Acid (Folic Acid -) 1 mg PO DAILY [facility] Last Admin: 08/24/20 09:22 Dose: 1 mg Documented by: Piperacillin Sod/Tazobactam (Sod 3.375 gm/ Dextrose) 50 mls @ 100 mls/hr IVPB Q8H-IV [facility]; Protocol Last Admin: 08/25/20 02:22 Dose: 100 mls/hr Documented by: Vancomycin HCl (Vancomycin (Pre-Docked)) 1,000 mg in 250 mls @ 166.667 mls/hr IVPB 0500,1700 [facility]; Protocol Last Admin: 08/25/20 05:15 Dose: 166.667 mls/hr Documented by: Metoprolol Succinate (Toprol Xl -) 25 mg PO DAILY [facility] Last Admin: 08/24/20 09:22 Dose: 25 mg Documented by: Multivitamins/Minerals/Vitamin C (Tab-A-Vit -) 1 tab PO DAILY [facility] Last Admin: 08/24/20 09:22 Dose: 1 tab Documented by: Ondansetron HCl (Zofran Injection) 4 mg IVPUSH Q6H PRN PRN Reason: NAUSEA Last Admin: 08/19/20 07:49 Dose: 4 mg Documented by: Pantoprazole Sodium (Protonix -) 40 mg PO ACBK [facility] Last Admin: 08/25/20 06:19 Dose: 40 mg Documented by: Tramadol HCl (Ultram -) 50 mg PO Q4H PRN PRN Reason: PAIN LEVEL 6-10 Last Admin: 08/24/20 22:10 Dose: 50 mg Documented by: - Objective Vital Signs: Vital Signs Temperature 98.8 F 08/25/20 06:00 Pulse Rate 93 H 08/25/20 08:00 Respiratory Rate 22 H 08/25/20 08:00 Blood Pressure 142/89 08/25/20 08:00 O2 Sat by Pulse Oximetry (%) 95 08/25/20 08:00 Eyes: Yes: WNL, Conjunctiva Clear, EOM Intact HENT: Yes: WNL, Atraumatic, Normocephalic Neck: Yes: WNL, Supple, Trachea Midline Cardiovascular: Yes: WNL, Regular Rate and Rhythm Respiratory: Yes: WNL, Regular, CTA Bilaterally Gastrointestinal: Yes: WNL, Normal Bowel Sounds Genitourinary: Yes: WNL Musculoskeletal: Yes: WNL Extremities: Yes: WNL Edema: No Integumentary: Yes: WNL Neurological: Yes: WNL, Alert, Oriented ...Motor Strength: WNL Psychiatric: Yes: WNL Labs: CBC, BMP 08/25/20 05:25 08/25/20 05:25 INR, PTT INR 1.68 (0.83-1.09) H 08/21/20 17:00 Problem List - Problems (1) AMS (altered mental status) Code(s): R41.82 - ALTERED MENTAL STATUS, UNSPECIFIED (2) Diarrhea Code(s): R19.7 - DIARRHEA, UNSPECIFIED (3) Elevated lactic acid level Code(s): R79.89 - OTHER SPECIFIED ABNORMAL FINDINGS OF BLOOD CHEMISTRY (4) Vomiting Code(s): R11.10 - VOMITING, UNSPECIFIED (5) Abnormal CT of the chest Code(s): R93.8 - ABNORMAL FINDINGS ON DIAGNOSTIC IMAGING OF FABIAN * DO NOT USE * (6) Atypical chest pain Code(s): R07.89 - OTHER CHEST PAIN (7) Avascular necrosis of bone of right hip Code(s): M87.051 - IDIOPATHIC ASEPTIC NECROSIS OF RIGHT FEMUR (8) Dehydration, mild Code(s): E86.0 - DEHYDRATION (9) Hypertension Code(s): I10 - ESSENTIAL (PRIMARY) HYPERTENSION Qualifiers: Hypertension type: essential hypertension Qualified Code(s): I10 - Essential (primary) hypertension (10) Palpitations Code(s): R00.2 - PALPITATIONS (11) Syncope Code(s): R55 - SYNCOPE AND COLLAPSE Assessment/Plan Metabolic Encephalopathy due to infection (R/O Osteomyelitis) Sepsis Lactic Acidosis Rheumatoid arthritis HTN AFib Hx of DVT Chronic low back pain Plan; Cont AC Cont Toprol to 25 QD ABX per ID ICU monitoring DVT PLX CC time spent 35 min
[2020-08-25] MEDS: APIXABAN 2.5 MG TABLET PO SCH ×2 (09:21→21:11)
[2020-08-25] MEDS: FOLIC ACID 1 MG TABLET (FP) PO SCH (09:22)
[2020-08-25] MEDS: MULTIVITAMINS (DAILY MVI) TABLET (FP) PO SCH (09:22)
[2020-08-25] MEDS: metoPROLOL SUCCINATE 25 MG TAB.SR.24H (FP) PO SCH (09:22)
--- NOTE | 2020-08-25 14:49 | PN ---
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, Physician - Current Medication List Current Medications: Active Medications Apixaban (Eliquis -) 5 mg PO BID [facility] Last Admin: 08/25/20 09:21 Dose: 5 mg Documented by: Folic Acid (Folic Acid -) 1 mg PO DAILY [facility] Last Admin: 08/25/20 09:22 Dose: 1 mg Documented by: Piperacillin Sod/Tazobactam (Sod 3.375 gm/ Dextrose) 50 mls @ 100 mls/hr IVPB Q8H-IV [facility]; Protocol Last Admin: 08/25/20 09:21 Dose: 100 mls/hr Documented by: Vancomycin HCl (Vancomycin (Pre-Docked)) 1,000 mg in 250 mls @ 166.667 mls/hr IVPB 0500,1700 [facility]; Protocol Last Admin: 08/25/20 05:15 Dose: 166.667 mls/hr Documented by: Metoprolol Succinate (Toprol Xl -) 25 mg PO DAILY [facility] Last Admin: 08/25/20 09:22 Dose: 25 mg Documented by: Multivitamins/Minerals/Vitamin C (Tab-A-Vit -) 1 tab PO DAILY [facility] Last Admin: 08/25/20 09:22 Dose: 1 tab Documented by: Ondansetron HCl (Zofran Injection) 4 mg IVPUSH Q6H PRN PRN Reason: NAUSEA Last Admin: 08/19/20 07:49 Dose: 4 mg Documented by: Pantoprazole Sodium (Protonix -) 40 mg PO ACBK [facility] Last Admin: 08/25/20 06:19 Dose: 40 mg Documented by: Tramadol HCl (Ultram -) 50 mg PO Q4H PRN PRN Reason: PAIN LEVEL 6-10 Last Admin: 08/24/20 22:10 Dose: 50 mg Documented by: - Objective Vital Signs: Vital Signs Temperature 98 F 08/25/20 10:00 Pulse Rate 100 H 08/25/20 12:00 Respiratory Rate 20 08/25/20 12:00 Blood Pressure 141/97 08/25/20 12:00 O2 Sat by Pulse Oximetry (%) 95 08/25/20 12:00 Labs: CBC, BMP 08/25/20 05:25 08/25/20 05:25 INR, PTT INR 1.68 (0.83-1.09) H 08/21/20 17:00
--- NOTE | 2020-08-25 15:26 | ECHO ---
Name: KATIE DUVALL Exam:Adult Echocardiogram Study Date: 08/25/2020 11:20 AM Age: 64 yrs Height: 65 in Weight: 149 lb BSA: 1.7 m2 BP: 130/80 mmHg MMode/2D Measurements & Calculations RVDd: 2.5 cm Ao root diam: 2.7 cm IVSd: 0.82 cm LA dimension: 1.8 cm LVIDd: 3.2 cm ACS: 1.9 cm LVIDs: 2.0 cm LVPWd: 0.81 cm EDV(Teich): 42.5 ml LVOT diam: 2.0 cm ESV(Teich): 13.5 ml TAPSE: 1.7 cm RV S Luis: 16.5 cm/sec Doppler Measurements & Calculations MV E max luis: 111.1 cm/sec Ao V2 max: 115.4 cm/sec MV A max luis: 122.6 cm/sec Ao max P.3 mmHg MV E/A: 0.91 Ao V2 mean: 82.4 cm/sec MV dec time: 0.17 sec Ao mean P.0 mmHg Ao V2 VTI: 19.2 cm KENNETH(I,D): 3.4 cm2 KENNETH(V,D): 3.2 cm2 LV V1 max P.1 mmHg SV(LVOT): 64.4 ml LV V1 mean P.2 mmHg LV V1 max: 112.9 cm/sec LV V1 mean: 69.9 cm/sec LV V1 VTI: 19.9 cm TR max luis: 241.6 cm/sec PA V2 max: 86.9 cm/sec TR max P.4 mmHg PA max P.0 mmHg PA acc slope: 881.1 cm/sec2 PA acc time: 0.07 sec Med Peak E' Luis: 5.0 cm/sec PA pr(Accel): 45.7 mmHg Med E/e': 22.4 Lat Peak E' Luis: 8.5 cm/sec Lat E/e': 13.1 Tech Comments TDS. Patient scanned sitting up. Possible extra-cardiac structure vs. Ao outside of LA. Procedure A complete two-dimensional transthoracic echocardiogram was performed (2D, M-mode, Doppler and color flow Doppler). Left Ventricle The left ventricle is normal in size. Left ventricular systolic function is normal. Ejection Fraction = 65- 70%. LV diastology reveals impaired relaxation with elevated filling pressure (E/e' 20). No regional wall motion abnormalities noted. Right Ventricle The right ventricle is normal size. The right ventricular systolic function is normal. Atria The left atrial size is normal. Right atrial size is normal. Mitral Valve There is mild mitral valve thickening. There is mild mitral regurgitation. Tricuspid Valve The tricuspid valve is normal in structure and function. There is mild tricuspid regurgitation. Right ventricular systolic pressure is normal. Aortic Valve There is mild aortic sclerosis.;. No aortic regurgitation is present. Pulmonic Valve The pulmonic valve is not well visualized. Great Vessels The aortic root is normal size. Pericardium/Pleura There is no pericardial effusion. There is a pleural effusion present. Interpretation Summary The left ventricle is normal in size. Left ventricular systolic function is normal. No regional wall motion abnormalities noted. Ejection Fraction = 65-70%. LV diastology reveals impaired relaxation with elevated filling pressure (E/e' 20) There is mild mitral valve thickening. There is mild mitral regurgitation. There is mild tricuspid regurgitation. There is mild aortic sclerosis. There is no pericardial effusion. There is a pleural effusion present. Bebeto Avalos MD 08/25/2020 03:25 PM
[2020-08-25] MEDS: traMADol HCL 50 MG TABLET PO PRN (17:25)
[2020-08-25] MEDS ORDERED: PNEUMOC 13-VAL CONJ-DIP CRM/PF 0.5 ML DISP.SYRIN IM ONE (17:30)
[2020-08-25] MEDS ORDERED: ACETAMINOPHEN 325 MG TABLET (FP) PO ONE (20:00)
--- NOTE | 2020-08-25 20:06 | PN ---
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, Physician History of Present Illness: feeling better no diarrhea or vomitting - Current Medication List Current Medications: Active Medications Apixaban (Eliquis -) 5 mg PO BID [facility] Last Admin: 08/25/20 09:21 Dose: 5 mg Documented by: Folic Acid (Folic Acid -) 1 mg PO DAILY [facility] Last Admin: 08/25/20 09:22 Dose: 1 mg Documented by: Piperacillin Sod/Tazobactam (Sod 3.375 gm/ Dextrose) 50 mls @ 100 mls/hr IVPB Q8H-IV [facility]; Protocol Last Admin: 08/25/20 17:29 Dose: 100 mls/hr Documented by: Vancomycin HCl (Vancomycin (Pre-Docked)) 1,000 mg in 250 mls @ 166.667 mls/hr IVPB 0500,1700 [facility]; Protocol Last Admin: 08/25/20 16:39 Dose: 166.667 mls/hr Documented by: Metoprolol Succinate (Toprol Xl -) 25 mg PO DAILY [facility] Last Admin: 08/25/20 09:22 Dose: 25 mg Documented by: Multivitamins/Minerals/Vitamin C (Tab-A-Vit -) 1 tab PO DAILY [facility] Last Admin: 08/25/20 09:22 Dose: 1 tab Documented by: Ondansetron HCl (Zofran Injection) 4 mg IVPUSH Q6H PRN PRN Reason: NAUSEA Last Admin: 08/19/20 07:49 Dose: 4 mg Documented by: Pantoprazole Sodium (Protonix -) 40 mg PO ACBK [facility] Last Admin: 08/25/20 06:19 Dose: 40 mg Documented by: Tramadol HCl (Ultram -) 50 mg PO Q4H PRN PRN Reason: PAIN LEVEL 6-10 Last Admin: 08/25/20 17:25 Dose: 50 mg Documented by: - Objective Vital Signs: Vital Signs Temperature 98.2 F 08/25/20 14:00 Pulse Rate 97 H 08/25/20 14:00 Respiratory Rate 08/25/20 16:00 Blood Pressure 138/82 08/25/20 16:00 O2 Sat by Pulse Oximetry (%) 98 08/25/20 14:00 Constitutional: Yes: No Distress HENT: Yes: Atraumatic Neck: Yes: Supple Cardiovascular: Yes: Regular Rate and Rhythm Respiratory: Yes: Rhonchi Gastrointestinal: Yes: Normal Bowel Sounds Extremities: Yes: WNL Edema: LLE: Trace, RLE: Trace Peripheral Pulses WNL: Yes Neurological: Yes: Alert, Oriented Labs: CBC, BMP 08/25/20 05:25 08/25/20 05:25 INR, PTT INR 1.68 (0.83-1.09) H 08/21/20 17:00 Problem List - Problems (1) AMS (altered mental status) Assessment/Plan: doing well Code(s): R41.82 - ALTERED MENTAL STATUS, UNSPECIFIED (2) Diarrhea Assessment/Plan: resolved Code(s): R19.7 - DIARRHEA, UNSPECIFIED (3) Vomiting Assessment/Plan: resolved Code(s): R11.10 - VOMITING, UNSPECIFIED (4) Hypertension Assessment/Plan: on meds stable Code(s): I10 - ESSENTIAL (PRIMARY) HYPERTENSION Qualifiers: Hypertension type: essential hypertension Qualified Code(s): I10 - Essentia l (primary) hypertension (5) Chronic back pain Code(s): M54.9 - DORSALGIA, UNSPECIFIED; G89.29 - OTHER CHRONIC PAIN (6) DVT (deep venous thrombosis) Assessment/Plan: on eliquis Code(s): I82.409 - ACUTE EMBOLISM AND THOMBOS UNSP DEEP VN UNSP LOWER EXTREMITY Assessment/Plan Cxs negative to date COVERING FOR DR RUBI TODAY....CC TIME 35 MIN
[2020-08-26] MEDS ORDERED: DEXTROSE 5%-WATER - 50 ML IVPB ONE ×3 (02:34→16:56)
[2020-08-26] MEDS ORDERED: PIPERACILLIN/TAZOBACTAM 3.375 GM VIAL IVPB ONE ×3 (02:34→16:56)
[2020-08-26] MEDS: traMADol HCL 50 MG TABLET PO PRN (02:49)
[2020-08-26] MEDS: PIPERACILLIN/TAZOB 3.375 GM 3.375 GM in DEXTROSE 5%-WATER - 50 ML IVPB SCH ×3 (03:40→18:05)
[2020-08-26] MEDS: VANCOMYCIN 1 GRAM (PRE-DOCKED) 1,000 MG/250 ML BAG IVPB SCH ×2 (05:39→17:00)
[2020-08-26] MEDS: PANTOPRAZOLE 40 MG TABLET PO SCH (06:31)
[2020-08-26 08:33] LABS: N-TERMINAL BNP 882.7 pg/ml (5-125)
[2020-08-26] MEDS: APIXABAN 2.5 MG TABLET PO SCH ×2 (09:15→22:40)
[2020-08-26] MEDS: FOLIC ACID 1 MG TABLET (FP) PO SCH (09:15)
[2020-08-26] MEDS: MULTIVITAMINS (DAILY MVI) TABLET (FP) PO SCH (09:15)
[2020-08-26] MEDS: metoPROLOL SUCCINATE 25 MG TAB.SR.24H (FP) PO SCH (09:21)
[2020-08-26] MEDS: ONDANSETRON 4 MG/2 ML VIAL IVPUSH PRN (09:25)
[2020-08-26 18:05] LABS: BASO % 0.7 % (0-2.0); EOS % 1.8 % (0-4.5); HEMATOCRIT 32.5 % (32.4-45.2); LYMPH % 30.7 % (8-40); MCH 25.7 pg (25.7-33.7); MCHC 30.9 g/dl (32.0-36.0); MEAN CELL VOLUME 83.2 fl (80-96); NEUT % 53.8 % (42.8-82.8); PLATELET COUNT 240 K/MM3 (134-434); RDW 18.2 % (11.6-15.6); WHITE BLOOD COUNT 11.7 K/mm3 (4.0-10.0)
[2020-08-26 18:29] LABS: ALBUMIN 2.5 g/dl (3.4-5.0); BILIRUBIN,TOTAL 0.5 mg/dL (0.2-1); BLOOD UREA NITROGEN 7.5 mg/dL (7-18); CALCIUM 9.6 mg/dL (8.5-10.1); POTASSIUM 3.8 mmol/L (3.5-5.1); TOT PROT 6.6 g/dl (6.4-8.2)
--- NOTE | 2020-08-26 22:30 | PN ---
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, Physician - Current Medication List Current Medications: Active Medications Acetaminophen (Tylenol -) 650 mg PO Q6H PRN PRN Reason: FEVER Apixaban (Eliquis -) 5 mg PO BID [facility] Last Admin: 08/26/20 09:15 Dose: 5 mg Documented by: Folic Acid (Folic Acid -) 1 mg PO DAILY [facility] Last Admin: 08/26/20 09:15 Dose: 1 mg Documented by: Piperacillin Sod/Tazobactam (Sod 3.375 gm/ Dextrose) 50 mls @ 100 mls/hr IVPB Q8H-IV [facility]; Protocol Last Admin: 08/26/20 18:05 Dose: 100 mls/hr Documented by: Vancomycin HCl (Vancomycin (Pre-Docked)) 1,000 mg in 250 mls @ 166.667 mls/hr IVPB 0500,1700 [facility]; Protocol Last Admin: 08/26/20 17:00 Dose: 166.667 mls/hr Documented by: Metoprolol Succinate (Toprol Xl -) 25 mg PO DAILY [facility] Last Admin: 08/26/20 09:21 Dose: 25 mg Documented by: Multivitamins/Minerals/Vitamin C (Tab-A-Vit -) 1 tab PO DAILY [facility] Last Admin: 08/26/20 09:15 Dose: 1 tab Documented by: Ondansetron HCl (Zofran Injection) 4 mg IVPUSH Q6H PRN PRN Reason: NAUSEA Last Admin: 08/26/20 09:25 Dose: 4 mg Documented by: Pantoprazole Sodium (Protonix -) 40 mg PO ACBK [facility] Last Admin: 08/26/20 06:31 Dose: 40 mg Documented by: - Objective Vital Signs: Vital Signs Temperature 98.5 F 08/26/20 16:00 Pulse Rate 98 H 08/26/20 20:00 Respiratory Rate 17 08/26/20 20:00 Blood Pressure 128/60 08/26/20 20:00 O2 Sat by Pulse Oximetry (%) 95 08/26/20 20:00 Labs: CBC, BMP 08/26/20 17:00 08/26/20 17:00 INR, PTT INR 1.68 (0.83-1.09) H 08/21/20 17:00 Problem List - Problems (1) AMS (altered mental status) Code(s): R41.82 - ALTERED MENTAL STATUS, UNSPECIFIED (2) Lactic acid acidosis Code(s): E87.2 - ACIDOSIS (3) Hypertension Code(s): I10 - ESSENTIAL (PRIMARY) HYPERTENSION Qualifiers: Hypertension type: essential hypertension Qualified Code(s): I10 - Essential (primary) hypertension (4) DVT (deep venous thrombosis) Code(s): I82.409 - ACUTE EMBOLISM AND THOMBOS UNSP DEEP VN UNSP LOWER EXTREMITY (5) Chronic back pain Code(s): M54.9 - DORSALGIA, UNSPECIFIED; G89.29 - OTHER CHRONIC PAIN
[2020-08-27] MEDS ORDERED: PIPERACILLIN/TAZOBACTAM 3.375 GM VIAL IVPB ONE ×2 (01:59→09:01)
[2020-08-27] MEDS ORDERED: DEXTROSE 5%-WATER - 50 ML IVPB ONE ×2 (02:00→09:02)
[2020-08-27] MEDS: PIPERACILLIN/TAZOB 3.375 GM 3.375 GM in DEXTROSE 5%-WATER - 50 ML IVPB SCH ×2 (02:44→09:04)
[2020-08-27] MEDS: VANCOMYCIN 1 GRAM (PRE-DOCKED) 1,000 MG/250 ML BAG IVPB SCH (04:27)
[2020-08-27] MEDS: PANTOPRAZOLE 40 MG TABLET PO SCH (06:23)
[2020-08-27 07:39] LABS: BASO % 1.2 % (0-2.0); EOS % 2.2 % (0-4.5); HEMATOCRIT 27.9 % (32.4-45.2); HEMOGLOBIN 9.1 GM/dL (10.7-15.3); LYMPH % 27.6 % (8-40); MCH 26.8 pg (25.7-33.7); MCHC 32.5 g/dl (32.0-36.0); MEAN CELL VOLUME 82.4 fl (80-96); MEAN PLT VOLUME 8.2 fl (7.5-11.1); MONO % 13.9 % (3.8-10.2); NEUT % 55.1 % (42.8-82.8); PLATELET COUNT 239 K/MM3 (134-434); RBC 3.38 M/mm3 (3.60-5.2); RDW 17.6 % (11.6-15.6); WHITE BLOOD COUNT 9.6 K/mm3 (4.0-10.0)
--- NOTE | 2020-08-27 07:43 | PN ---
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, Physician - Current Medication List Current Medications: Active Medications Acetaminophen (Tylenol -) 650 mg PO Q6H PRN PRN Reason: FEVER Apixaban (Eliquis -) 5 mg PO BID [facility] Last Admin: 08/26/20 22:40 Dose: 5 mg Documented by: Folic Acid (Folic Acid -) 1 mg PO DAILY [facility] Last Admin: 08/26/20 09:15 Dose: 1 mg Documented by: Piperacillin Sod/Tazobactam (Sod 3.375 gm/ Dextrose) 50 mls @ 100 mls/hr IVPB Q8H-IV [facility]; Protocol Last Admin: 08/27/20 02:44 Dose: 100 mls/hr Documented by: Vancomycin HCl (Vancomycin (Pre-Docked)) 1,000 mg in 250 mls @ 166.667 mls/hr IVPB 0500,1700 [facility]; Protocol Last Admin: 08/27/20 04:27 Dose: 166.667 mls/hr Documented by: Metoprolol Succinate (Toprol Xl -) 25 mg PO DAILY [facility] Last Admin: 08/26/20 09:21 Dose: 25 mg Documented by: Multivitamins/Minerals/Vitamin C (Tab-A-Vit -) 1 tab PO DAILY [facility] Last Admin: 08/26/20 09:15 Dose: 1 tab Documented by: Ondansetron HCl (Zofran Injection) 4 mg IVPUSH Q6H PRN PRN Reason: NAUSEA Last Admin: 08/26/20 09:25 Dose: 4 mg Documented by: Pantoprazole Sodium (Protonix -) 40 mg PO ACBK [facility] Last Admin: 08/27/20 06:23 Dose: 40 mg Documented by: - Objective Vital Signs: Vital Signs Temperature 99.8 F H 08/27/20 06:00 Pulse Rate 90 08/27/20 06:00 Respiratory Rate 18 08/27/20 06:00 Blood Pressure 110/78 08/27/20 06:00 O2 Sat by Pulse Oximetry (%) 98 08/27/20 07:16 Constitutional: Yes: Calm Eyes: Yes: WNL HENT: Yes: WNL Neck: Yes: Supple Cardiovascular: Yes: S1, S2 Respiratory: Yes: Regular Gastrointestinal: Yes: Soft ...Rectal Exam: Yes: Deferred Genitourinary: No: Anuria Breast(s): Yes: WNL Musculoskeletal: Yes: Joint Stiffness, Muscle Weakness Extremities: Yes: Cool Edema: No Peripheral Pulses WNL: Yes Integumentary: Yes: WNL Neurological: Yes: Alert, Oriented Psychiatric: Yes: WNL, Alert, Oriented Labs: INR, PTT INR 1.68 (0.83-1.09) H 08/21/20 17:00 - ....Imaging Chest X-ray: Image Reviewed EKG: Image Reviewed Assessment/Plan Metabolic Encephalopathy due to infection (R/O Osteomyelitis) Sepsis Lactic Acidosis anemia Diastolic CHF AF; hx DVT Rheumatoid arthritis HTN Chronic low back pain Plan; Cont AC (on apixaban). Cont Toprol 25 QD for HR and BP control. Antibiotics per ID Is and Os, daily weight; BUN/Cr; electrolytes. CC time spent 35 min
[2020-08-27 08:02] LABS: ALBUMIN 2.1 g/dl (3.4-5.0); BILIRUBIN,TOTAL 0.8 mg/dL (0.2-1); BLOOD UREA NITROGEN 11.2 mg/dL (7-18); CALCIUM 9.2 mg/dL (8.5-10.1); CREATININE 1.7 mg/dL (0.55-1.3); POTASSIUM 3.5 mmol/L (3.5-5.1); TOT PROT 5.6 g/dl (6.4-8.2)
[2020-08-27] MEDS: metoPROLOL SUCCINATE 25 MG TAB.SR.24H (FP) PO SCH (09:03)
[2020-08-27] MEDS: APIXABAN 2.5 MG TABLET PO SCH ×2 (09:03→21:27)
[2020-08-27] MEDS: MULTIVITAMINS (DAILY MVI) TABLET (FP) PO SCH (09:03)
[2020-08-27] MEDS: FOLIC ACID 1 MG TABLET (FP) PO SCH (09:03)
--- NOTE | 2020-08-27 10:25 | PN ---
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, Physician History of Present Illness: stable confusion improving - Current Medication List Current Medications: Active Medications Acetaminophen (Tylenol -) 650 mg PO Q6H PRN PRN Reason: FEVER Apixaban (Eliquis -) 5 mg PO BID [facility] Last Admin: 08/27/20 09:03 Dose: 5 mg Documented by: Folic Acid (Folic Acid -) 1 mg PO DAILY [facility] Last Admin: 08/27/20 09:03 Dose: 1 mg Documented by: Piperacillin Sod/Tazobactam (Sod 3.375 gm/ Dextrose) 50 mls @ 100 mls/hr IVPB Q8H-IV [facility]; Protocol Last Admin: 08/27/20 09:04 Dose: 100 mls/hr Documented by: Vancomycin HCl (Vancomycin (Pre-Docked)) 1,000 mg in 250 mls @ 166.667 mls/hr IVPB 0500,1700 [facility]; Protocol Last Admin: 08/27/20 04:27 Dose: 166.667 mls/hr Documented by: Metoprolol Succinate (Toprol Xl -) 25 mg PO DAILY [facility] Last Admin: 08/27/20 09:03 Dose: 25 mg Documented by: Multivitamins/Minerals/Vitamin C (Tab-A-Vit -) 1 tab PO DAILY [facility] Last Admin: 08/27/20 09:03 Dose: 1 tab Documented by: Ondansetron HCl (Zofran Injection) 4 mg IVPUSH Q6H PRN PRN Reason: NAUSEA Last Admin: 08/26/20 09:25 Dose: 4 mg Documented by: Pantoprazole Sodium (Protonix -) 40 mg PO ACBK [facility] Last Admin: 08/27/20 06:23 Dose: 40 mg Documented by: - Objective Vital Signs: Vital Signs Temperature 99.6 F 08/27/20 09:54 Pulse Rate 84 08/27/20 09:54 Respiratory Rate 18 08/27/20 09:54 Blood Pressure 130/79 08/27/20 08:00 O2 Sat by Pulse Oximetry (%) 98 08/27/20 07:16 Constitutional: Yes: No Distress, Calm Cardiovascular: Yes: S1, S2 Respiratory: Yes: Regular, CTA Bilaterally Gastrointestinal: Yes: Normal Bowel Sounds, Soft Musculoskeletal: Yes: WNL Extremities: Yes: WNL Neurological: Yes: Alert, Confusion Labs: CBC, BMP 08/27/20 05:45 08/27/20 05:45 INR, PTT INR 1.68 (0.83-1.09) H 08/21/20 17:00 Assessment/Plan confusion fever weakness plan continue current mgmt rest as per the team
--- NOTE | 2020-08-27 10:26 | PN ---
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, Physician History of Present Illness: patient looking much better looks like abck to baseline - Current Medication List Current Medications: Active Medications Acetaminophen (Tylenol -) 650 mg PO Q6H PRN PRN Reason: FEVER Apixaban (Eliquis -) 5 mg PO BID [facility] Last Admin: 08/27/20 09:03 Dose: 5 mg Documented by: Folic Acid (Folic Acid -) 1 mg PO DAILY [facility] Last Admin: 08/27/20 09:03 Dose: 1 mg Documented by: Metoprolol Succinate (Toprol Xl -) 25 mg PO DAILY [facility] Last Admin: 08/27/20 09:03 Dose: 25 mg Documented by: Multivitamins/Minerals/Vitamin C (Tab-A-Vit -) 1 tab PO DAILY [facility] Last Admin: 08/27/20 09:03 Dose: 1 tab Documented by: Ondansetron HCl (Zofran Injection) 4 mg IVPUSH Q6H PRN PRN Reason: NAUSEA Last Admin: 08/26/20 09:25 Dose: 4 mg Documented by: Pantoprazole Sodium (Protonix -) 40 mg PO ACBK [facility] Last Admin: 08/27/20 06:23 Dose: 40 mg Documented by: - Objective Vital Signs: Vital Signs Temperature 99.6 F 08/27/20 09:54 Pulse Rate 84 08/27/20 09:54 Respiratory Rate 18 08/27/20 09:54 Blood Pressure 130/79 08/27/20 08:00 O2 Sat by Pulse Oximetry (%) 98 08/27/20 07:16 Constitutional: Yes: No Distress, Calm HENT: Yes: Atraumatic, Normocephalic Neck: Yes: Supple, Trachea Midline Cardiovascular: Yes: S1, S2 Respiratory: Yes: Regular, CTA Bilaterally Gastrointestinal: Yes: Normal Bowel Sounds, Soft Musculoskeletal: Yes: WNL Extremities: Yes: WNL Labs: CBC, BMP 08/27/20 05:45 08/27/20 05:45 INR, PTT INR 1.68 (0.83-1.09) H 08/21/20 17:00 Assessment/Plan Problem List - Problems (1) AMS (altered mental status) Assessment/Plan: doing well Code(s): R41.82 - ALTERED MENTAL STATUS, UNSPECIFIED (2) Diarrhea Assessment/Plan: resolved Code(s): R19.7 - DIARRHEA, UNSPECIFIED (3) Vomiting Assessment/Plan: resolved Code(s): R11.10 - VOMITING, UNSPECIFIED (4) Hypertension Assessment/Plan: on meds stable Code(s): I10 - ESSENTIAL (PRIMARY) HYPERTENSION Qualifiers: Hypertension type: essential hypertension Qualified Code(s): I10 - Essential (primary) hypertension (5) Chronic back pain Code(s): M54.9 - DORSALGIA, UNSPECIFIED; G89.29 - OTHER CHRONIC PAIN (6) DVT (deep venous thrombosis) Assessment/Plan: on eliquis Code(s): I82.409 - ACUTE EMBOLISM AND THOMBOS UNSP DEEP VN UNSP LOWER EXTREMITY Assessment/Plan all cx reports negative will stop all abx and monitor rest as per the team
[2020-08-27 10:35] LABS: ANISOCYTOSIS 1+; MACROCYTOSIS 0; PLATELET ESTIMATE NORMAL; TEAR DROP CELLS 1+
--- NOTE | 2020-08-27 11:15 | PN ---
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, Physician History of Present Illness: 64F w/ pmhx of rheumatoid arthritis, HTN, Afib, hx of DVT, chronic low back pain presents admitted to the hospital for altered mental status, vomiting/diarrhea, as well as inability to ambulate. Daughter was present at bedside for further history. Pt has a history of worsening b/l lower extremity mobility over the past month requiring use of a rolling walker. She had been receiving epidural injections in her lumbar spine as an outpatient at [facility] due to lower back pain. She had planned surgery in the future. Upon admission, she was found to be febrile at 101.4, WBC 11.3. She was COVID neg. Head CT was neg. In the ED, she was treated empirically with Vanc/Zosyn for her fever, although blood culture and urine cultures were both neg. She was seen by neurology who recommended MRI of brain as well as LC spine; both still pending. Rapid response was called today because pt was found by nursing staff not responding to commands, which was different from her baseline mental status yesterday. Pt was awake and alert during time of rapid. Per rapid response note, NIHSS 30. Repeat CT head was neg for acute pathology. Request for ICU consult was made by primary team for further evaluation. - Current Medication List Current Medications: Active Medications Acetaminophen (Tylenol -) 650 mg PO Q6H PRN PRN Reason: FEVER Apixaban (Eliquis -) 5 mg PO BID [facility] Last Admin: 08/27/20 09:03 Dose: 5 mg Documented by: Folic Acid (Folic Acid -) 1 mg PO DAILY [facility] Last Admin: 08/27/20 09:03 Dose: 1 mg Documented by: Metoprolol Succinate (Toprol Xl -) 25 mg PO DAILY [facility] Last Admin: 08/27/20 09:03 Dose: 25 mg Documented by: Multivitamins/Minerals/Vitamin C (Tab-A-Vit -) 1 tab PO DAILY [facility] Last Admin: 08/27/20 09:03 Dose: 1 tab Documented by: Ondansetron HCl (Zofran Injection) 4 mg IVPUSH Q6H PRN PRN Reason: NAUSEA Last Admin: 08/26/20 09:25 Dose: 4 mg Documented by: Pantoprazole Sodium (Protonix -) 40 mg PO ACBK [facility] Last Admin: 08/27/20 06:23 Dose: 40 mg Documented by: - Objective Vital Signs: Vital Signs Temperature 99.6 F 08/27/20 09:54 Pulse Rate 84 08/27/20 09:54 Respiratory Rate 18 08/27/20 09:54 Blood Pressure 130/79 08/27/20 08:00 O2 Sat by Pulse Oximetry (%) 98 08/27/20 07:16 Eyes: Yes: WNL, Conjunctiva Clear, EOM Intact HENT: Yes: WNL, Atraumatic, Normocephalic Neck: Yes: WNL, Supple, Trachea Midline Cardiovascular: Yes: WNL, Regular Rate and Rhythm Respiratory: Yes: WNL, Regular, CTA Bilaterally Gastrointestinal: Yes: WNL, Normal Bowel Sounds Genitourinary: Yes: WNL Musculoskeletal: Yes: WNL Extremities: Yes: WNL Edema: No Integumentary: Yes: WNL Neurological: Yes: WNL, Alert, Oriented ...Motor Strength: WNL Psychiatric: Yes: WNL Labs: CBC, BMP 08/27/20 05:45 08/27/20 05:45 INR, PTT INR 1.68 (0.83-1.09) H 08/21/20 17:00 Problem List - Problems (1) AMS (altered mental status) Code(s): R41.82 - ALTERED MENTAL STATUS, UNSPECIFIED (2) Diarrhea Code(s): R19.7 - DIARRHEA, UNSPECIFIED (3) Elevated lactic acid level Code(s): R79.89 - OTHER SPECIFIED ABNORMAL FINDINGS OF BLOOD CHEMISTRY (4) Vomiting Code(s): R11.10 - VOMITING, UNSPECIFIED (5) Abnormal CT of the chest Code(s): R93.8 - ABNORMAL FINDINGS ON DIAGNOSTIC IMAGING OF FABIAN * DO NOT USE * (6) Atypical chest pain Code(s): R07.89 - OTHER CHEST PAIN (7) Avascular necrosis of bone of right hip Code(s): M87.051 - IDIOPATHIC ASEPTIC NECROSIS OF RIGHT FEMUR (8) Dehydration, mild Code(s): E86.0 - DEHYDRATION (9) Hypertension Code(s): I10 - ESSENTIAL (PRIMARY) HYPERTENSION Qualifiers: Hypertension type: essential hypertension Qualified Code(s): I10 - Essential (primary) hypertension (10) Palpitations Code(s): R00.2 - PALPITATIONS (11) Syncope Code(s): R55 - SYNCOPE AND COLLAPSE Assessment/Plan Metabolic Encephalopathy due to infection (R/O Osteomyelitis) Sepsis Lactic Acidosis anemia Diastolic CHF AF; hx DVT Rheumatoid arthritis HTN Chronic low back pain ECHO nl EF diastolic dysfunction Plan; Cont AC (on apixaban). Cont Toprol 25 QD for HR and BP control. Antibiotics per ID Is and Os, daily weight; BUN/Cr; electrolytes. CC time spent 35 min
--- NOTE | 2020-08-27 18:08 | CON.PSY ---
Psychiatry Consult Chief Complaint: Asked to see Mrs Beard for rule out depression/anxiety History of Present Problem: Med chart reviewed RN input provided Meds reviewed sister at bedside who gave supplemental information Ms. Beard is a 64 year old female with many medical issues . Sister states that she was driving prior to this hospitalization Patient is crying, depressed "I can't walk!" she says. Reports adequate sleep. poor appetite. Sister reports that patient has been depressed over several months now when her health started to fail. Symptoms: reports: Depressed Mood, Appetite Disturbance - Current Medications Current Medications: Active Medications Acetaminophen (Tylenol -) 650 mg PO Q6H PRN PRN Reason: FEVER Apixaban (Eliquis -) 5 mg PO BID [facility] Last Admin: 08/27/20 09:03 Dose: 5 mg Documented by: Folic Acid (Folic Acid -) 1 mg PO DAILY [facility] Last Admin: 08/27/20 09:03 Dose: 1 mg Documented by: Metoprolol Succinate (Toprol Xl -) 25 mg PO DAILY [facility] Last Admin: 08/27/20 09:03 Dose: 25 mg Documented by: Multivitamins/Minerals/Vitamin C (Tab-A-Vit -) 1 tab PO DAILY [facility] Last Admin: 08/27/20 09:03 Dose: 1 tab Documented by: Ondansetron HCl (Zofran Injection) 4 mg IVPUSH Q6H PRN PRN Reason: NAUSEA Last Admin: 08/26/20 09:25 Dose: 4 mg Documented by: Pantoprazole Sodium (Protonix -) 40 mg PO ACBK [facility] Last Admin: 08/27/20 06:23 Dose: 40 mg Documented by: - Allergies Allergies: Allergies Allergy/AdvReac Type Severity Reaction Status Date / Time No Known Drug Allergies Allergy Verified 08/27/16 15:07 - Current Living Status Usual Living Arrangement: Other (lives with her sister, her daughter and her 97 year old father) - Current Mental Status Evaluation Appearance: Other (Lying in bed tearful at times. ) Attitude: Other - Affect Appropriateness: Appropriate to Content - Mood Mood: Depressed - Speech/Language Expressive: Coherent, Delayed (able to talk in short sentences. not spontaneous.) Receptive: Age Appropriate Comprehension of Spoken Words (s/p cva ) - Psychomotor Activity Psychomotor Activity: Other (cva) - Thought Content Hallucinations: Absent Delusions: Absent - Self Perception Self Perception: No Impairment - Cognition Attention: Alert Orientation: Time, Person, Place Memory, Immediate Recall: Impaired - Concentration Simple Calculations Intact: Yes - Insight Insight: Intact - Suicidal Ideation Suicidal Ideation: No (not cooperative with further assess.) Assessment/Plan Patient is depressed - lost of independence . Expecting to get admitted to [facility]. SSIR lexapro for now
--- NOTE | 2020-08-27 22:08 | PN ---
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, Physician History of Present Illness: No new complaints - Current Medication List Current Medications: Active Medications Acetaminophen (Tylenol -) 650 mg PO Q6H PRN PRN Reason: FEVER Apixaban (Eliquis -) 5 mg PO BID [facility] Last Admin: 08/27/20 21:27 Dose: 5 mg Documented by: Folic Acid (Folic Acid -) 1 mg PO DAILY [facility] Last Admin: 08/27/20 09:03 Dose: 1 mg Documented by: Metoprolol Succinate (Toprol Xl -) 25 mg PO DAILY [facility] Last Admin: 08/27/20 09:03 Dose: 25 mg Documented by: Multivitamins/Minerals/Vitamin C (Tab-A-Vit -) 1 tab PO DAILY [facility] Last Admin: 08/27/20 09:03 Dose: 1 tab Documented by: Ondansetron HCl (Zofran Injection) 4 mg IVPUSH Q6H PRN PRN Reason: NAUSEA Last Admin: 08/26/20 09:25 Dose: 4 mg Documented by: Pantoprazole Sodium (Protonix -) 40 mg PO ACBK [facility] Last Admin: 08/27/20 06:23 Dose: 40 mg Documented by: Sertraline HCl (Zoloft -) 50 mg PO DAILY [facility] - Objective Vital Signs: Vital Signs Temperature 98.9 F 08/27/20 20:00 Pulse Rate 103 H 08/27/20 20:00 Respiratory Rate 21 H 08/27/20 20:00 Blood Pressure 124/81 08/27/20 20:00 O2 Sat by Pulse Oximetry (%) 94 L 08/27/20 21:00 Neck: Yes: WNL, Supple Cardiovascular: Yes: WNL, Regular Rate and Rhythm Respiratory: Yes: WNL, Regular, CTA Bilaterally Gastrointestinal: Yes: WNL, Normal Bowel Sounds, Soft Labs: CBC, BMP 08/27/20 05:45 08/27/20 05:45 INR, PTT INR 1.68 (0.83-1.09) H 08/21/20 17:00 Problem List - Problems (1) AMS (altered mental status) Assessment/Plan: Due to CVA MRI brain showed acute frontal verdin radiata b/l and lt post temproal cortex infarcts Monitor BP Physical therapy Toxic Metabolic Encephalopathy Code(s): R41.82 - ALTERED MENTAL STATUS, UNSPECIFIED (2) Lactic acid acidosis Assessment/Plan: Resolved Code(s): E87.2 - ACIDOSIS (3) Hypertension Code(s): I10 - ESSENTIAL (PRIMARY) HYPERTENSION Qualifiers: Hypertension type: essential hypertension Qualified Code(s): I10 - Essential (primary) hypertension (4) DVT (deep venous thrombosis) Assessment/Plan: Cont eliquis Code(s): I82.409 - ACUTE EMBOLISM AND THOMBOS UNSP DEEP VN UNSP LOWER EXTREMITY (5) Chronic back pain Assessment/Plan: Physical therapy Code(s): M54.9 - DORSALGIA, UNSPECIFIED; G89.29 - OTHER CHRONIC PAIN
[2020-08-27] MEDS: ACETAMINOPHEN 325 MG TABLET (FP) PO PRN (22:47)
[2020-08-28] MEDS: PANTOPRAZOLE 40 MG TABLET PO SCH (06:05)
--- NOTE | 2020-08-28 07:29 | PN ---
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, Physician Chief Complaint: Pt alert; denies chest pain or dyspnea History of Present Illness: Ms. Beard is a 64 black woman w/ pmhx of rheumatoid arthritis, HTN, Afib, hx of DVT, diastolic CHF, chronic low back pain, now admitted for altered mental status, vomiting/diarrhea, inability to ambulate. Daughter was present at bedside for further history in ER. Worsening b/l lower extremity mobility over the past month requiring use of a rolling walker. She had been receiving epidural injections in her lumbar spine as an outpatient at [facility] due to lower back pain. She had planned surgery in the future. Upon admission, she was found to be febrile at 101.4, WBC 11.3. She was COVID neg. Head CT was neg. In the ED, she was treated empirically with Vanc/Zosyn for her fever, although blood culture and urine cultures were both neg. She was seen by neurology who recommended MRI of brain as well as LC spine. Rapid response was called 08/21/20 because pt was found by nursing staff not responding to commands, which was different from her baseline mental status. Pt was awake and alert during time of rapid response; NIHSS 30. Repeat CT head was neg for acute pathology. Pt was transferred to ICU. - Current Medication List Current Medications: Active Medications Acetaminophen (Tylenol -) 650 mg PO Q6H PRN PRN Reason: FEVER Last Admin: 08/27/20 22:47 Dose: 650 mg Documented by: Apixaban (Eliquis -) 5 mg PO BID [facility] Last Admin: 08/27/20 21:27 Dose: 5 mg Documented by: Folic Acid (Folic Acid -) 1 mg PO DAILY [facility] Last Admin: 08/27/20 09:03 Dose: 1 mg Documented by: Metoprolol Succinate (Toprol Xl -) 25 mg PO DAILY [facility] Last Admin: 08/27/20 09:03 Dose: 25 mg Documented by: Multivitamins/Minerals/Vitamin C (Tab-A-Vit -) 1 tab PO DAILY [facility] Last Admin: 08/27/20 09:03 Dose: 1 tab Documented by: Ondansetron HCl (Zofran Injection) 4 mg IVPUSH Q6H PRN PRN Reason: NAUSEA Last Admin: 08/26/20 09:25 Dose: 4 mg Documented by: Pantoprazole Sodium (Protonix -) 40 mg PO ACBK [facility] Last Admin: 08/28/20 06:05 Dose: 40 mg Documented by: Sertraline HCl (Zoloft -) 50 mg PO DAILY [facility] - Objective Vital Signs: Vital Signs Temperature 98.7 F 08/28/20 06:00 Pulse Rate 87 08/28/20 06:00 Respiratory Rate 17 08/28/20 06:00 Blood Pressure 111/74 08/28/20 06:00 O2 Sat by Pulse Oximetry (%) 95 08/28/20 06:00 Constitutional: Yes: Anxious Eyes: Yes: WNL HENT: Yes: WNL Neck: Yes: Decreased ROM Cardiovascular: Yes: Regular Rate and Rhythm Respiratory: Yes: Regular Gastrointestinal: Yes: Soft ...Rectal Exam: Yes: Deferred Genitourinary: No: Anuria Breast(s): Yes: WNL Musculoskeletal: Yes: Muscle Weakness Extremities: Yes: Cool Edema: No Peripheral Pulses WNL: Yes Integumentary: Yes: WNL Neurological: Yes: Alert, Oriented, Weakness Psychiatric: Yes: Alert, Oriented, Other (depression) Labs: CBC, BMP 08/27/20 05:45 08/27/20 05:45 INR, PTT INR 1.68 (0.83-1.09) H 08/21/20 17:00 Abnormal Lab Results 08/28/20 08/28/20 08/29/20 07:37 09:29 05:58 WBC 12.2 H RBC 3.57 L Hgb 9.7 L Hct 30.2 L RDW 17.6 H Monocytes % 11.4 H Nucleated RBC % 1 H Anion Gap 7 L 6 L BUN 20.6 H 23.1 H Creatinine 2.6 H 2.8 H Random Glucose 112 H Total Protein 6.2 L Albumin 2.2 L 08/29/20 05:58 WBC 12.2 H RBC 3.17 L Hgb 8.9 L Hct 27.8 L RDW 17.6 H Monocytes % Nucleated RBC % Anion Gap BUN Creatinine Random Glucose Total Protein Albumin - ....Imaging Chest X-ray: Image Reviewed EKG: Image Reviewed Assessment/Plan Acute renal dysfunction Metabolic Encephalopathy due to infection (R/O Osteomyelitis) Sepsis Lactic Acidosis anemia Diastolic CHF AF; hx DVT Rheumatoid arthritis HTN Chronic low back pain depression Plan: Is and Os, daily weight; BUN/Cr (acute increase in Cr 08/27/20); electrolytes, UA. Continue AC (on apixaban). Continue Toprol 25 QD for HR and BP control. F/u EKG Antibiotics per ID; temp 99.9F overnight Now on SSRI per psychiatrist CC time spent 35 min
[2020-08-28] MEDS: APIXABAN 2.5 MG TABLET PO SCH ×2 (09:24→21:47)
[2020-08-28] MEDS: SERTRALINE HCL 50 MG TABLET (FP) PO SCH (09:25)
[2020-08-28] MEDS: FOLIC ACID 1 MG TABLET (FP) PO SCH (09:25)
[2020-08-28] MEDS: MULTIVITAMINS (DAILY MVI) TABLET (FP) PO SCH (09:25)
[2020-08-28] MEDS: metoPROLOL SUCCINATE 25 MG TAB.SR.24H (FP) PO SCH (09:25)
[2020-08-28 09:39] LABS: BASO % 0.7 % (0-2.0); EOS % 1.9 % (0-4.5); HEMATOCRIT 30.2 % (32.4-45.2); HEMOGLOBIN 9.7 GM/dL (10.7-15.3); LYMPH % 24.3 % (8-40); MCH 27.1 pg (25.7-33.7); MEAN CELL VOLUME 84.7 fl (80-96); MEAN PLT VOLUME 8.2 fl (7.5-11.1); MONO % 11.4 % (3.8-10.2); NEUT % 61.7 % (42.8-82.8); PLATELET COUNT 262 K/MM3 (134-434); RBC 3.57 M/mm3 (3.60-5.2); RDW 17.6 % (11.6-15.6); WHITE BLOOD COUNT 12.2 K/mm3 (4.0-10.0)
--- NOTE | 2020-08-28 09:53 | EKG ---
Test Reason : Blood Pressure : / mmHG Vent. Rate : 093 BPM Atrial Rate : 093 BPM P-R Int : 160 ms QRS Dur : 064 ms QT Int : 348 ms P-R-T Axes : 058 001 020 degrees QTc Int : 432 ms NORMAL SINUS RHYTHM CANNOT RULE OUT ANTERIOR INFARCT (CITED ON OR BEFORE 21-AUG-2020) ABNORMAL ECG WHEN COMPARED WITH ECG OF 24-AUG-2020 09:09, PREMATURE ATRIAL COMPLEXES ARE NO LONGER PRESENT Confirmed by TONJA GUDINO MD ([id number]) on 08/28/2020 9:53:11 AM Referred By: LOKI Confirmed By:TONJA GUDINO MD
--- NOTE | 2020-08-28 10:01 | PN ---
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, Physician - Current Medication List Current Medications: Active Medications Acetaminophen (Tylenol -) 650 mg PO Q6H PRN PRN Reason: FEVER Last Admin: 08/27/20 22:47 Dose: 650 mg Documented by: Apixaban (Eliquis -) 5 mg PO BID [facility] Last Admin: 08/28/20 09:24 Dose: 5 mg Documented by: Folic Acid (Folic Acid -) 1 mg PO DAILY [facility] Last Admin: 08/28/20 09:25 Dose: 1 mg Documented by: Metoprolol Succinate (Toprol Xl -) 25 mg PO DAILY [facility] Last Admin: 08/28/20 09:25 Dose: 25 mg Documented by: Multivitamins/Minerals/Vitamin C (Tab-A-Vit -) 1 tab PO DAILY [facility] Last Admin: 08/28/20 09:25 Dose: 1 tab Documented by: Ondansetron HCl (Zofran Injection) 4 mg IVPUSH Q6H PRN PRN Reason: NAUSEA Last Admin: 08/26/20 09:25 Dose: 4 mg Documented by: Pantoprazole Sodium (Protonix -) 40 mg PO ACBK [facility] Last Admin: 08/28/20 06:05 Dose: 40 mg Documented by: Sertraline HCl (Zoloft -) 50 mg PO DAILY [facility] Last Admin: 08/28/20 09:25 Dose: 50 mg Documented by: - Objective Vital Signs: Vital Signs Temperature 98.7 F 08/28/20 06:00 Pulse Rate 87 08/28/20 06:00 Respiratory Rate 17 08/28/20 06:00 Blood Pressure 111/74 08/28/20 06:00 O2 Sat by Pulse Oximetry (%) 95 08/28/20 06:00 Labs: CBC, BMP 08/28/20 09:29 INR, PTT INR 1.68 (0.83-1.09) H 08/21/20 17:00
[2020-08-28 10:05] LABS: BLOOD UREA NITROGEN 20.6 mg/dL (7-18); CALCIUM 9.7 mg/dL (8.5-10.1); CREATININE 2.6 mg/dL (0.55-1.3); MAGNESIUM 2.4 mg/dL (1.8-2.4); POTASSIUM 3.5 mmol/L (3.5-5.1)
[2020-08-28 12:08] LABS: ANISOCYTOSIS 1+; MACROCYTOSIS 0; OVALOCYTE 1+; PLATELET ESTIMATE NORMAL; TEAR DROP CELLS 1+
[2020-08-28] MEDS: ACETAMINOPHEN 325 MG TABLET (FP) PO PRN (15:22)
--- NOTE | 2020-08-28 17:56 | PN ---
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, Physician History of Present Illness: feeling better - Current Medication List Current Medications: Active Medications Acetaminophen (Tylenol -) 650 mg PO Q6H PRN PRN Reason: FEVER Last Admin: 08/28/20 15:22 Dose: 650 mg Documented by: Apixaban (Eliquis -) 5 mg PO BID [facility] Last Admin: 08/28/20 09:24 Dose: 5 mg Documented by: Folic Acid (Folic Acid -) 1 mg PO DAILY [facility] Last Admin: 08/28/20 09:25 Dose: 1 mg Documented by: Metoprolol Succinate (Toprol Xl -) 25 mg PO DAILY [facility] Last Admin: 08/28/20 09:25 Dose: 25 mg Documented by: Multivitamins/Minerals/Vitamin C (Tab-A-Vit -) 1 tab PO DAILY [facility] Last Admin: 08/28/20 09:25 Dose: 1 tab Documented by: Ondansetron HCl (Zofran Injection) 4 mg IVPUSH Q6H PRN PRN Reason: NAUSEA Last Admin: 08/26/20 09:25 Dose: 4 mg Documented by: Pantoprazole Sodium (Protonix -) 40 mg PO ACBK [facility] Last Admin: 08/28/20 06:05 Dose: 40 mg Documented by: Sertraline HCl (Zoloft -) 50 mg PO DAILY [facility] Last Admin: 08/28/20 09:25 Dose: 50 mg Documented by: - Objective Vital Signs: Vital Signs Temperature 99.4 F 08/28/20 10:00 Pulse Rate 91 H 08/28/20 12:00 Respiratory Rate 18 08/28/20 12:00 Blood Pressure 134/80 08/28/20 12:00 O2 Sat by Pulse Oximetry (%) 95 08/28/20 10:00 Constitutional: Yes: No Distress HENT: Yes: Atraumatic Neck: Yes: Supple Cardiovascular: Yes: Regular Rate and Rhythm Respiratory: Yes: Rhonchi Gastrointestinal: Yes: Normal Bowel Sounds Extremities: Yes: WNL Neurological: Yes: Alert, Oriented Labs: CBC, BMP 08/28/20 09:29 08/28/20 07:37 INR, PTT INR 1.68 (0.83-1.09) H 08/21/20 17:00 Problem List - Problems (1) AMS (altered mental status) Assessment/Plan: stable s/p cva supra/infra tentorial infarcT metabolic encephalopathy awaiting to be placed at [facility] Code(s): R41.82 - ALTERED MENTAL STATUS, UNSPECIFIED (2) Diarrhea Assessment/Plan: resolved Code(s): R19.7 - DIARRHEA, UNSPECIFIED (3) Vomiting Assessment/Plan: resolved Code(s): R11.10 - VOMITING, UNSPECIFIED (4) Hypertension Assessment/Plan: on meds stable Code(s): I10 - ESSENTIAL (PRIMARY) HYPERTENSION Qualifiers: Hypertension type: essential hypertension Qualified Code(s): I10 - Essential (primary) hypertension (5) Chronic back pain Code(s): M54.9 - DORSALGIA, UNSPECIFIED; G89.29 - OTHER CHRONIC PAIN (6) DVT (deep venous thrombosis) Assessment/Plan: on eliquis Code(s): I82.409 - ACUTE EMBOLISM AND THOMBOS UNSP DEEP VN UNSP LOWER EXTREMITY Assessment/Plan Cxs negative to date COVERING FOR DR RUBI TODAY.... critical care time spent in reviewing chart, evaluating patient and formulating plan 35 min
[2020-08-29] MEDS: PANTOPRAZOLE 40 MG TABLET PO SCH (06:25)
[2020-08-29 06:36] LABS: HEMATOCRIT 27.8 % (32.4-45.2); HEMOGLOBIN 8.9 GM/dL (10.7-15.3); MCH 28.1 pg (25.7-33.7); MCHC 32.1 g/dl (32.0-36.0); MEAN CELL VOLUME 87.5 fl (80-96); PLATELET COUNT 261 K/MM3 (134-434); RBC 3.17 M/mm3 (3.60-5.2); RDW 17.6 % (11.6-15.6); WHITE BLOOD COUNT 12.2 K/mm3 (4.0-10.0)
[2020-08-29 06:59] LABS: ALBUMIN 2.2 g/dl (3.4-5.0); BILIRUBIN,TOTAL 0.4 mg/dL (0.2-1); BLOOD UREA NITROGEN 23.1 mg/dL (7-18); CALCIUM 9.4 mg/dL (8.5-10.1); CREATININE 2.8 mg/dL (0.55-1.3); MAGNESIUM 2.3 mg/dL (1.8-2.4); PHOSPHOROUS 4.1 mg/dL (2.5-4.9); POTASSIUM 3.7 mmol/L (3.5-5.1); TOT PROT 6.2 g/dl (6.4-8.2)
[2020-08-29] MEDS: APIXABAN 2.5 MG TABLET PO SCH ×2 (09:14→21:24)
[2020-08-29] MEDS: SERTRALINE HCL 50 MG TABLET (FP) PO SCH (09:14)
[2020-08-29] MEDS: MULTIVITAMINS (DAILY MVI) TABLET (FP) PO SCH (09:14)
[2020-08-29] MEDS: metoPROLOL SUCCINATE 25 MG TAB.SR.24H (FP) PO SCH (09:15)
[2020-08-29] MEDS: FOLIC ACID 1 MG TABLET (FP) PO SCH (09:15)
--- NOTE | 2020-08-29 09:33 | PN ---
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, Physician History of Present Illness: 64F w/ pmhx of rheumatoid arthritis, HTN, Afib, hx of DVT, chronic low back pain presents admitted to the hospital for altered mental status, vomiting/diarrhea, as well as inability to ambulate. Daughter was present at bedside for further history. Pt has a history of worsening b/l lower extremity mobility over the past month requiring use of a rolling walker. She had been receiving epidural injections in her lumbar spine as an outpatient at [facility] due to lower back pain. She had planned surgery in the future. Upon admission, she was found to be febrile at 101.4, WBC 11.3. She was COVID neg. Head CT was neg. In the ED, she was treated empirically with Vanc/Zosyn for her fever, although blood culture and urine cultures were both neg. She was seen by neurology who recommended MRI of brain as well as LC spine; both still pending. Rapid response was called today because pt was found by nursing staff not responding to commands, which was different from her baseline mental status yesterday. Pt was awake and alert during time of rapid. Per rapid response note, NIHSS 30. Repeat CT head was neg for acute pathology. Request for ICU consult was made by primary team for further evaluation. - Current Medication List Current Medications: Active Medications Acetaminophen (Tylenol -) 650 mg PO Q6H PRN PRN Reason: FEVER Last Admin: 08/28/20 15:22 Dose: 650 mg Documented by: Apixaban (Eliquis -) 5 mg PO BID [facility] Last Admin: 08/29/20 09:14 Dose: 5 mg Documented by: Folic Acid (Folic Acid -) 1 mg PO DAILY [facility] Last Admin: 08/29/20 09:15 Dose: 1 mg Documented by: Metoprolol Succinate (Toprol Xl -) 25 mg PO DAILY [facility] Last Admin: 08/29/20 09:15 Dose: 25 mg Documented by: Multivitamins/Minerals/Vitamin C (Tab-A-Vit -) 1 tab PO DAILY [facility] Last Admin: 08/29/20 09:14 Dose: 1 tab Documented by: Ondansetron HCl (Zofran Injection) 4 mg IVPUSH Q6H PRN PRN Reason: NAUSEA Last Admin: 08/26/20 09:25 Dose: 4 mg Documented by: Pantoprazole Sodium (Protonix -) 40 mg PO ACBK [facility] Last Admin: 10/02/20 06:25 Dose: 40 mg Documented by: Sertraline HCl (Zoloft -) 50 mg PO DAILY [facility] Last Admin: 08/29/20 09:14 Dose: 50 mg Documented by: - Objective Vital Signs: Vital Signs Temperature 98.9 F 08/28/20 19:11 Pulse Rate 99 H 08/29/20 06:34 Respiratory Rate 19 08/29/20 09:00 Blood Pressure 134/84 08/29/20 06:34 O2 Sat by Pulse Oximetry (%) 96 08/29/20 09:00 Eyes: Yes: WNL, Conjunctiva Clear, EOM Intact HENT: Yes: WNL, Atraumatic, Normocephalic Neck: Yes: WNL, Supple, Trachea Midline Cardiovascular: Yes: WNL, Regular Rate and Rhythm Respiratory: Yes: WNL, Regular, CTA Bilaterally Gastrointestinal: Yes: WNL, Normal Bowel Sounds Genitourinary: Yes: WNL Musculoskeletal: Yes: WNL Extremities: Yes: WNL Edema: No Integumentary: Yes: WNL Neurological: Yes: WNL, Alert, Oriented ...Motor Strength: WNL Psychiatric: Yes: WNL Labs: CBC, BMP 08/29/20 05:58 08/29/20 05:58 INR, PTT INR 1.68 (0.83-1.09) H 08/21/20 17:00 Problem List - Problems (1) AMS (altered mental status) Code(s): R41.82 - ALTERED MENTAL STATUS, UNSPECIFIED (2) Diarrhea Code(s): R19.7 - DIARRHEA, UNSPECIFIED (3) Elevated lactic acid level Code(s): R79.89 - OTHER SPECIFIED ABNORMAL FINDINGS OF BLOOD CHEMISTRY (4) Vomiting Code(s): R11.10 - VOMITING, UNSPECIFIED (5) Abnormal CT of the chest Code(s): R93.8 - ABNORMAL FINDINGS ON DIAGNOSTIC IMAGING OF FABIAN * DO NOT USE * (6) Atypical chest pain Code(s): R07.89 - OTHER CHEST PAIN (7) Avascular necrosis of bone of right hip Code(s): M87.051 - IDIOPATHIC ASEPTIC NECROSIS OF RIGHT FEMUR (8) Dehydration, mild Code(s): E86.0 - DEHYDRATION (9) Hypertension Code(s): I10 - ESSENTIAL (PRIMARY) HYPERTENSION Qualifiers: Hypertension type: essential hypertension Qualified Code(s): I10 - Esse ntial (primary) hypertension (10) Palpitations Code(s): R00.2 - PALPITATIONS (11) Syncope Code(s): R55 - SYNCOPE AND COLLAPSE Assessment/Plan Acute renal dysfunction Metabolic Encephalopathy due to infection (R/O Osteomyelitis) Sepsis Lactic Acidosis anemia Diastolic CHF AF; hx DVT Rheumatoid arthritis HTN Chronic low back pain depression Plan: Is and Os, daily weight; BUN/Cr (acute increase in Cr 08/27/20); electrolytes, UA. Continue AC (on apixaban). Continue Toprol 25 QD for HR and BP control. F/u EKG Antibiotics per ID; temp 99.9F overnight Now on SSRI per psychiatrist CC time spent 35 min
--- NOTE | 2020-08-29 11:42 | DS ---
Physical Examination Vital Signs: Vital Signs Temperature 98.7 F 08/29/20 08:00 Pulse Rate 94 H 08/29/20 08:00 Respiratory Rate 19 08/29/20 09:00 Blood Pressure 123/74 08/29/20 08:00 O2 Sat by Pulse Oximetry (%) 96 08/29/20 09:00 Labs: CBC, BMP 08/29/20 05:58 08/29/20 05:58 Discharge Summary Problems reviewed: Yes Reason For Visit: DIARRHEA, ALTERED MENTAL STATUS, INCREASED LACTIC Current Active Problems AMS (altered mental status) (Acute) Chronic back pain (Acute) DVT (deep venous thrombosis) (Acute) Diarrhea (Acute) Lactic acid acidosis (Acute) Vomiting (Acute) CVA RA HTN Hospital Course: pT IS A 64 Y/O FEMALE W/ pmh SIGNIFIACNT FOR htn, afib, dvt, ra, CHRONIC back pain/spinal stenosis and has received multiple epidural injections for this. Pt presented to ER w/ her sister bc of altered mental status, weakness in her legs and diarrhea. Pt initially had CT scan head wc did not show any acute pathology. However pt than again had altered mental status and MRI brain was done wc showed acute infarct frontal verdin radiata b/l and lt post temporal cortex infarcts. Pt was on tele and was seen by neuro/cardio/infectious dz. pt was febrile and had elevated lactic acid. pt treated w/ IV antibxs however BC and urine culture/CXR were all negative. Antibiotics were stopped and pt has been afebrile Condition: Good - Instructions Diet, Activity, Other Instructions: 2 GRAM SODIUM DIET Referrals: Dianna Vigil MD [Primary Care Provider] - Disposition: [facility] - Home Medications Comprehensive Discharge Medication List: Ambulatory Orders Folic Acid - 1 mg PO DAILY 08/27/16 Metoprolol Succinate [Toprol XL -] 12.5 mg PO DAILY 08/27/16 Methotrexate Sodium [Methotrexate] 2.5 mg PO ASDIR 02/09/17 Apixaban [Eliquis -] 5 mg PO BID #35 tablet 02/26/17 Multivitamins [Multivit ([facility] Formulary)] 1 tab PO DAILY tab 02/26/17 Pantoprazole Sodium [Protonix -] 40 mg PO DAILY #40 tablet.ec 02/26/17 Acetaminophen [Tylenol .Regular Strength -] 650 mg PO Q6H PRN tablet 08/29/20 Metoprolol Succinate [Toprol XL -] 25 mg PO DAILY tab.sr.24h 08/29/20 Sertraline HCl [Zoloft -] 50 mg PO DAILY tablet 08/29/20
--- NOTE | 2020-08-29 12:38 | PN ---
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, Physician History of Present Illness: stable no new issues - Current Medication List Current Medications: Active Medications Acetaminophen (Tylenol -) 650 mg PO Q6H PRN PRN Reason: FEVER Last Admin: 08/28/20 15:22 Dose: 650 mg Documented by: Apixaban (Eliquis -) 5 mg PO BID [facility] Last Admin: 08/29/20 09:14 Dose: 5 mg Documented by: Folic Acid (Folic Acid -) 1 mg PO DAILY [facility] Last Admin: 08/29/20 09:15 Dose: 1 mg Documented by: Metoprolol Succinate (Toprol Xl -) 25 mg PO DAILY [facility] Last Admin: 08/29/20 09:15 Dose: 25 mg Documented by: Multivitamins/Minerals/Vitamin C (Tab-A-Vit -) 1 tab PO DAILY [facility] Last Admin: 08/29/20 09:14 Dose: 1 tab Documented by: Ondansetron HCl (Zofran Injection) 4 mg IVPUSH Q6H PRN PRN Reason: NAUSEA Last Admin: 08/26/20 09:25 Dose: 4 mg Documented by: Pantoprazole Sodium (Protonix -) 40 mg PO ACBK [facility] Last Admin: 08/29/20 06:25 Dose: 40 mg Documented by: Sertraline HCl (Zoloft -) 50 mg PO DAILY [facility] Last Admin: 08/29/20 09:14 Dose: 50 mg Documented by: - Objective Vital Signs: Vital Signs Temperature 98.7 F 08/29/20 08:00 Pulse Rate 94 H 08/29/20 08:00 Respiratory Rate 19 08/29/20 09:00 Blood Pressure 123/74 08/29/20 08:00 O2 Sat by Pulse Oximetry (%) 96 08/29/20 09:00 Constitutional: Yes: No Distress, Calm Cardiovascular: Yes: S1, S2 Respiratory: Yes: Regular, CTA Bilaterally Gastrointestinal: Yes: Normal Bowel Sounds, Soft Musculoskeletal: Yes: WNL Extremities: Yes: WNL Neurological: Yes: Alert Labs: CBC, BMP 08/29/20 05:58 08/29/20 05:58 INR, PTT INR 1.68 (0.83-1.09) H 08/21/20 17:00 Assessment/Plan Problem List - Problems (1) AMS (altered mental status) Assessment/Plan: doing well Code(s): R41.82 - ALTERED MENTAL STATUS, UNSPECIFIED (2) Diarrhea Assessment/Plan: resolved Code(s): R19.7 - DIARRHEA, UNSPECIFIED (3) Vomiting Assessment/Plan: resolved Code(s): R11.10 - VOMITING, UNSPECIFIED (4) Hypertension Assessment/Plan: on meds stable Code(s): I10 - ESSENTIAL (PRIMARY) HYPERTENSION Qualifiers: Hypertension type: essential hypertension Qualified Code(s): I10 - Essential (primary) hypertension (5) Chronic back pain Code(s): M54.9 - DORSALGIA, UNSPECIFIED; G89.29 - OTHER CHRONIC PAIN (6) DVT (deep venous thrombosis) Assessment/Plan: on eliquis Code(s): I82.409 - ACUTE EMBOLISM AND THOMBOS UNSP DEEP VN UNSP LOWER EXTREMITY Assessment/Plan continue current mgmt 'rest as per the team
--- NOTE | 2020-08-29 21:24 | PN ---
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, Physician - Current Medication List Current Medications: Active Medications Acetaminophen (Tylenol -) 650 mg PO Q6H PRN PRN Reason: FEVER Last Admin: 08/28/20 15:22 Dose: 650 mg Documented by: Apixaban (Eliquis -) 5 mg PO BID [facility] Last Admin: 08/29/20 09:14 Dose: 5 mg Documented by: Folic Acid (Folic Acid -) 1 mg PO DAILY [facility] Last Admin: 08/29/20 09:15 Dose: 1 mg Documented by: Metoprolol Succinate (Toprol Xl -) 25 mg PO DAILY [facility] Last Admin: 08/29/20 09:15 Dose: 25 mg Documented by: Multivitamins/Minerals/Vitamin C (Tab-A-Vit -) 1 tab PO DAILY [facility] Last Admin: 08/29/20 09:14 Dose: 1 tab Documented by: Ondansetron HCl (Zofran Injection) 4 mg IVPUSH Q6H PRN PRN Reason: NAUSEA Last Admin: 08/26/20 09:25 Dose: 4 mg Documented by: Pantoprazole Sodium (Protonix -) 40 mg PO ACBK [facility] Last Admin: 08/29/20 06:25 Dose: 40 mg Documented by: Sertraline HCl (Zoloft -) 50 mg PO DAILY [facility] Last Admin: 08/29/20 09:14 Dose: 50 mg Documented by: - Objective Vital Signs: Vital Signs Temperature 100.4 F H 08/29/20 19:24 Pulse Rate 102 H 08/29/20 19:24 Respiratory Rate 29 H 08/29/20 19:26 Blood Pressure 140/82 08/29/20 19:24 O2 Sat by Pulse Oximetry (%) 97 08/29/20 19:26 Labs: CBC, BMP 08/29/20 05:58 08/29/20 05:58 INR, PTT INR 1.68 (0.83-1.09) H 08/21/20 17:00 Problem List - Problems (1) AMS (altered mental status) Code(s): R41.82 - ALTERED MENTAL STATUS, UNSPECIFIED (2) Lactic acid acidosis Code(s): E87.2 - ACIDOSIS (3) Hypertension Code(s): I10 - ESSENTIAL (PRIMARY) HYPERTENSION Qualifiers: Hypertension type: essential hypertension Qualified Code(s): I10 - Essential (primary) hypertension (4) DVT (deep venous thrombosis) Code(s): I82.409 - ACUTE EMBOLISM AND THOMBOS UNSP DEEP VN UNSP LOWER EXTREMITY (5) Chronic back pain Code(s): M54.9 - DORSALGIA, UNSPECIFIED; G89.29 - OTHER CHRONIC PAIN
[2020-08-30] MEDS: PANTOPRAZOLE 40 MG TABLET PO SCH (06:33)
[2020-08-30] MEDS: APIXABAN 2.5 MG TABLET PO SCH ×2 (09:11→22:14)
[2020-08-30] MEDS: SERTRALINE HCL 50 MG TABLET (FP) PO SCH (09:12)
[2020-08-30] MEDS: FOLIC ACID 1 MG TABLET (FP) PO SCH (09:12)
[2020-08-30] MEDS: metoPROLOL SUCCINATE 25 MG TAB.SR.24H (FP) PO SCH (09:12)
[2020-08-30] MEDS: MULTIVITAMINS (DAILY MVI) TABLET (FP) PO SCH (09:12)
--- NOTE | 2020-08-30 12:20 | PN ---
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, Physician - Current Medication List Current Medications: Active Medications Acetaminophen (Tylenol -) 650 mg PO Q6H PRN PRN Reason: FEVER Last Admin: 08/28/20 15:22 Dose: 650 mg Documented by: Apixaban (Eliquis -) 5 mg PO BID [facility] Last Admin: 08/30/20 09:11 Dose: 5 mg Documented by: Folic Acid (Folic Acid -) 1 mg PO DAILY [facility] Last Admin: 08/30/20 09:12 Dose: 1 mg Documented by: Metoprolol Succinate (Toprol Xl -) 25 mg PO DAILY [facility] Last Admin: 08/30/20 09:12 Dose: 25 mg Documented by: Multivitamins/Minerals/Vitamin C (Tab-A-Vit -) 1 tab PO DAILY [facility] Last Admin: 08/30/20 09:12 Dose: 1 tab Documented by: Ondansetron HCl (Zofran Injection) 4 mg IVPUSH Q6H PRN PRN Reason: NAUSEA Last Admin: 08/26/20 09:25 Dose: 4 mg Documented by: Pantoprazole Sodium (Protonix -) 40 mg PO ACBK [facility] Last Admin: 08/30/20 06:33 Dose: 40 mg Documented by: Sertraline HCl (Zoloft -) 50 mg PO DAILY [facility] Last Admin: 08/30/20 09:12 Dose: 50 mg Documented by: - Objective Vital Signs: Vital Signs Temperature 99.8 F H 08/29/20 22:50 Pulse Rate 84 08/30/20 08:00 Respiratory Rate 18 08/30/20 09:00 Blood Pressure 142/76 08/30/20 08:00 O2 Sat by Pulse Oximetry (%) 96 08/30/20 09:00 Labs: CBC, BMP 08/29/20 05:58 08/29/20 05:58 INR, PTT INR 1.68 (0.83-1.09) H 08/21/20 17:00
[2020-08-30] MEDS ORDERED: PT OWN MED DRAWER 7, Y5N ONE (20:04)
[2020-08-30] MEDS: DEXTROSE 5%-0.45% SALINE 1,000 ML IV SCH (22:14)
--- NOTE | 2020-08-30 23:34 | PN ---
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, Physician History of Present Illness: No new complaints - Current Medication List Current Medications: Active Medications Acetaminophen (Tylenol -) 650 mg PO Q6H PRN PRN Reason: FEVER Last Admin: 08/28/20 15:22 Dose: 650 mg Documented by: Apixaban (Eliquis -) 5 mg PO BID [facility] Last Admin: 08/30/20 22:14 Dose: 5 mg Documented by: Folic Acid (Folic Acid -) 1 mg PO DAILY [facility] Last Admin: 08/30/20 09:12 Dose: 1 mg Documented by: Dextrose/Sodium Chloride (D5-1/2ns -) 1,000 mls @ 75 mls/hr IV ASDIR [facility] Last Admin: 08/30/20 22:14 Dose: 75 mls/hr Documented by: Metoprolol Succinate (Toprol Xl -) 25 mg PO DAILY [facility] Last Admin: 08/30/20 09:12 Dose: 25 mg Documented by: Multivitamins/Minerals/Vitamin C (Tab-A-Vit -) 1 tab PO DAILY [facility] Last Admin: 08/30/20 09:12 Dose: 1 tab Documented by: Ondansetron HCl (Zofran Injection) 4 mg IVPUSH Q6H PRN PRN Reason: NAUSEA Last Admin: 08/26/20 09:25 Dose: 4 mg Documented by: Pantoprazole Sodium (Protonix -) 40 mg PO ACBK [facility] Last Admin: 08/30/20 06:33 Dose: 40 mg Documented by: Sertraline HCl (Zoloft -) 50 mg PO DAILY [facility] Last Admin: 08/30/20 09:12 Dose: 50 mg Documented by: - Objective Vital Signs: Vital Signs Temperature 99.8 F H 08/29/20 22:50 Pulse Rate 98 H 08/30/20 22:00 Respiratory Rate 19 08/30/20 22:00 Blood Pressure 159/84 08/30/20 22:00 O2 Sat by Pulse Oximetry (%) 94 L 08/30/20 21:00 Cardiovascular: Yes: WNL, Regular Rate and Rhythm Respiratory: Yes: WNL, Regular, CTA Bilaterally Gastrointestinal: Yes: WNL, Normal Bowel Sounds, Soft Labs: CBC, BMP 08/29/20 05:58 08/29/20 05:58 INR, PTT INR 1.68 (0.83-1.09) H 08/21/20 17:00 Problem List - Problems (1) ARF (acute renal failure) Assessment/Plan: Increae bun/creatinine Pt on IVF Renal consult Monitor labs Code(s): N17.9 - ACUTE KIDNEY FAILURE, UNSPECIFIED (2) Leukocytosis Assessment/Plan: Monitor WBC Pt is now off antibxs Cultures have been negative Code(s): D72.829 - ELEVATED WHITE BLOOD CELL COUNT, UNSPECIFIED (3) AMS (altered mental status) Assessment/Plan: Due to CVA MRI brain showed acute frontal verdin radiata b/l and lt post temproal cortex infarcts Monitor BP Physical therapy Toxic Metabolic Encephalopathy Code(s): R41.82 - ALTERED MENTAL STATUS, UNSPECIFIED (4) Lactic acid acidosis Assessment/Plan: Resolved Code(s): E87.2 - ACIDOSIS (5) Hypertension Code(s): I10 - ESSENTIAL (PRIMARY) HYPERTENSION Qualifiers: Hypertension type: essential hypertension Qualified Code(s): I10 - Essential (primary) hypertension (6) DVT (deep venous thrombosis) Assessment/Plan: Cont eliquis Code(s): I82.409 - ACUTE EMBOLISM AND THOMBOS UNSP DEEP VN UNSP LOWER EXTREMITY (7) Chronic back pain Assessment/Plan: Physical therapy Code(s): M54.9 - DORSALGIA, UNSPECIFIED; G89.29 - OTHER CHRONIC PAIN
[2020-08-31] MEDS ORDERED: PT OWN MED DRAWER 7, Y5N ONE ×2 (01:39→22:16)
[2020-08-31] MEDS: PANTOPRAZOLE 40 MG TABLET PO SCH (06:38)
[2020-08-31 06:49] LABS: EOS % 1.3 % (0-4.5); HEMATOCRIT 26.2 % (32.4-45.2); HEMOGLOBIN 8.5 GM/dL (10.7-15.3); MCHC 32.4 g/dl (32.0-36.0); MEAN CELL VOLUME 86.3 fl (80-96); MEAN PLT VOLUME 8.2 fl (7.5-11.1); MONO % 11.6 % (3.8-10.2); NEUT % 67.1 % (42.8-82.8); PLATELET COUNT 289 K/MM3 (134-434); RBC 3.03 M/mm3 (3.60-5.2); WHITE BLOOD COUNT 10.6 K/mm3 (4.0-10.0)
[2020-08-31 06:56] LABS: ALBUMIN 2.2 g/dl (3.4-5.0); BILIRUBIN,TOTAL 0.4 mg/dL (0.2-1); BLOOD UREA NITROGEN 26.9 mg/dL (7-18); CALCIUM 9.6 mg/dL (8.5-10.1); CREATININE 2.9 mg/dL (0.55-1.3); POTASSIUM 3.9 mmol/L (3.5-5.1); TOT PROT 6.6 g/dl (6.4-8.2)
[2020-08-31] MEDS: MULTIVITAMINS (DAILY MVI) TABLET (FP) PO SCH (09:23)
[2020-08-31] MEDS: SERTRALINE HCL 50 MG TABLET (FP) PO SCH (09:23)
[2020-08-31] MEDS: APIXABAN 2.5 MG TABLET PO SCH ×2 (09:23→22:13)
[2020-08-31] MEDS: FOLIC ACID 1 MG TABLET (FP) PO SCH (09:23)
[2020-08-31] MEDS: metoPROLOL SUCCINATE 25 MG TAB.SR.24H (FP) PO SCH (09:23)
--- NOTE | 2020-08-31 15:22 | CONSULT ---
Consult Consult Specialty:: Nephrology Reason for Consultation:: KWAN - History of Present Illness Chief Complaint: initially presented with altered mental status History of Present Illness: Pt is a 64 year old female with pmhx of RA, DVT, a-fib, spinal stenosis who initially presents with confusion. SHe was found to have an acute cva. A few days it was noted that her guest associate started to rise. She was started on fluids but did not respond. I was called to evaluate her. She denies history of ckd. She denies dysuria or hematuria. She denies chest pain or shortness of breath. - History Source History Provided By: Patient, Medical Record - Past Medical History Cardio/Vascular: Yes: AFIB, HTN, Other (Carotid plaque/stenosis, PSVT) ...: No Rheumatology: Yes: Rheumatoid Arthritis - Past Surgical History Past Surgical History: Yes: None - Alcohol/Substance Use Hx Alcohol Use: No - Smoking History Smoking history: Never smoked Have you smoked in the past 12 months: No - Social History Usual Living Arrangement: Other (lives with her sister, her daughter and her 97 year old father) Home Medications - Allergies Allergies/Adverse Reactions: Allergies Allergy/AdvReac Type Severity Reaction Status Date / Time No Known Drug Allergies Allergy Verified 08/27/16 15:07 - Home Medications Home Medications: Ambulatory Orders Folic Acid - 1 mg PO DAILY 08/27/16 Metoprolol Succinate [Toprol XL -] 12.5 mg PO DAILY 08/27/16 Methotrexate Sodium [Methotrexate] 2.5 mg PO ASDIR 02/09/17 Apixaban [Eliquis -] 5 mg PO BID #35 tablet 02/26/17 Multivitamins [Multivit ([facility] Formulary)] 1 tab PO DAILY tab 02/26/17 Pantoprazole Sodium [Protonix -] 40 mg PO DAILY #40 tablet.ec 02/26/17 Acetaminophen [Tylenol .Regular Strength -] 650 mg PO Q6H PRN tablet 08/29/20 Metoprolol Succinate [Toprol XL -] 25 mg PO DAILY tab.sr.24h 08/29/20 Sertraline HCl [Zoloft -] 50 mg PO DAILY tablet 08/29/20 Family Medical History Family History: Denies Review of Systems - Review of Systems Constitutional: reports: No Symptoms Eyes: reports: No Symptoms HENT: reports: No Symptoms Neck: reports: No Symptoms Cardiovascular: reports: No Symptoms Respiratory: reports: No Symptoms Gastrointestinal: reports: No Symptoms Genitourinary: reports: No Symptoms Musculoskeletal: reports: No Symptoms Integumentary: reports: No Symptoms Neurological: reports: No Symptoms Endocrine: reports: No Symptoms Hematology/Lymphatic: reports: No Symptoms Psychiatric: reports: No Symptoms Physical Exam Vital Signs: Vital Signs Temperature 98.2 F 08/31/20 15:00 Pulse Rate 86 08/31/20 15:00 Respiratory Rate 08/31/20 15:00 Blood Pressure 154/86 08/31/20 15:00 O2 Sat by Pulse Oximetry (%) 96 08/31/20 12:00 Constitutional: Yes: Calm Eyes: Yes: Conjunctiva Clear HENT: Yes: Atraumatic Neck: Yes: Supple Cardiovascular: Yes: S1, S2 Respiratory: Yes: CTA Bilaterally Gastrointestinal: Yes: Soft Renal/: Yes: Incontinence Edema: No Neurological: Yes: Oriented Labs: CBC, BMP 08/31/20 05:45 08/31/20 05:45 Laboratory Tests 08/25/20 08/26/20 08/27/20 05:25 17:00 05:45 Creatinine 0.9 1.0 1.7 H 08/28/20 08/29/20 08/31/20 07:37 05:58 05:45 Creatinine 2.6 H 2.8 H 2.9 H Imaging - Results MRI: Report Reviewed Problem List - Problems (1) AMS (altered mental status) Code(s): R41.82 - ALTERED MENTAL STATUS, UNSPECIFIED (2) ARF (acute renal failure) Code(s): N17.9 - ACUTE KIDNEY FAILURE, UNSPECIFIED Assessment/Plan Current Medications Generic Name Dose Route Start Last Admin Trade Name Freq PRN Reason Stop Dose Admin Acetaminophen 650 mg 08/25/20 20:52 08/28/20 15:22 Tylenol - PO 650 mg Q6H PRN Administration FEVER Apixaban 5 mg 08/19/20 10:00 08/31/20 09:23 Eliquis - PO 5 mg BID JESSICA Administration Folic Acid 1 mg 08/19/20 10:00 08/31/20 09:23 Folic Acid - PO 1 mg DAILY JESSICA Administration Dextrose/Sodium Chloride 1,000 mls @ 75 mls/hr 08/30/20 17:45 08/30/20 22:14 D5-1/2ns - IV 75 mls/hr ASDIR JESSICA Administration Metoprolol Succinate 25 mg 08/23/20 12:00 08/31/20 09:23 Toprol Xl - PO 25 mg DAILY JESSICA Administration Multivitamins/Minerals/Vitamin C 1 tab 08/19/20 10:00 08/31/20 09:23 Tab-A-Vit - PO 1 tab DAILY JESSICA Administration Ondansetron HCl 4 mg 08/19/20 05:12 08/26/20 09:25 Zofran Injection IVPUSH 4 mg Q6H PRN Administration NAUSEA Pantoprazole Sodium 40 mg 08/19/20 07:00 08/31/20 06:38 Protonix - PO Not Given ACBK JESSICA Sertraline HCl 50 mg 08/28/20 10:00 08/31/20 09:23 Zoloft - PO 50 mg DAILY JESSICA Administration Impression 1. KWAN 2. cva 3. a-fib 4. dvt 5. altered mental status 6. lactic acidosis Plan - cont fluids - check ua - check urine lytes and guest associate to calc fena - r/o obstruction - spoke to nurse to call me with results - repeat labs in am- - will order further workup depending on prelim results
[2020-08-31 19:38] LABS: EPI CELLS 18 /uL (0-25.1); HYALINE CASTS 2 /uL (0-3.1); PH,URINE 7.5 (5.0-8.0); URINE APPEARANCE CLEAR; URINE BACTERIA 128 /uL (0-1359); URINE BILIRUBIN NEGATIVE (NEGATIVE); URINE COLOR YELLOW; URINE GLUCOSE (UA) NEGATIVE (NEGATIVE); URINE KETONE NEGATIVE (NEGATIVE); URINE LEUK ESTERASE TRACE (NEGATIVE); URINE NITRITE NEGATIVE (NEGATIVE); URINE PROTEIN TRACE (NEGATIVE); URINE RBC 22 /uL (0-23.9); URINE UROBILINOGEN 0.2 mg/dL (0.2-1.0); URINE WBC 41 /uL (0-25.8)
[2020-08-31] MEDS: DEXTROSE 5%-0.45% SALINE 1,000 ML IV SCH (22:13)
--- NOTE | 2020-08-31 23:41 | PN ---
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, Physician - Current Medication List Current Medications: Active Medications Acetaminophen (Tylenol -) 650 mg PO Q6H PRN PRN Reason: FEVER Last Admin: 08/28/20 15:22 Dose: 650 mg Documented by: Apixaban (Eliquis -) 5 mg PO BID [facility] Last Admin: 08/31/20 22:13 Dose: Not Given Documented by: Folic Acid (Folic Acid -) 1 mg PO DAILY [facility] Last Admin: 08/31/20 09:23 Dose: 1 mg Documented by: Dextrose/Sodium Chloride (D5-1/2ns -) 1,000 mls @ 75 mls/hr IV ASDIR [facility] Last Admin: 08/31/20 22:13 Dose: 75 mls/hr Documented by: Metoprolol Succinate (Toprol Xl -) 25 mg PO DAILY [facility] Last Admin: 08/31/20 09:23 Dose: 25 mg Documented by: Multivitamins/Minerals/Vitamin C (Tab-A-Vit -) 1 tab PO DAILY [facility] Last Admin: 08/31/20 09:23 Dose: 1 tab Documented by: Ondansetron HCl (Zofran Injection) 4 mg IVPUSH Q6H PRN PRN Reason: NAUSEA Last Admin: 08/26/20 09:25 Dose: 4 mg Documented by: Pantoprazole Sodium (Protonix -) 40 mg PO ACBK [facility] Last Admin: 08/31/20 06:38 Dose: Not Given Documented by: Sertraline HCl (Zoloft -) 50 mg PO DAILY [facility] Last Admin: 08/31/20 09:23 Dose: 50 mg Documented by: - Objective Vital Signs: Vital Signs Temperature 98.5 F 08/31/20 18:00 Pulse Rate 84 08/31/20 23:00 Respiratory Rate 38 H 08/31/20 23:00 Blood Pressure 153/87 08/31/20 23:00 O2 Sat by Pulse Oximetry (%) 92 L 08/31/20 23:00 Labs: CBC, BMP 08/31/20 05:45 08/31/20 05:45 INR, PTT INR 1.68 (0.83-1.09) H 08/21/20 17:00 Problem List - Problems (1) ARF (acute renal failure) Code(s): N17.9 - ACUTE KIDNEY FAILURE, UNSPECIFIED (2) Leukocytosis Code(s): D72.829 - ELEVATED WHITE BLOOD CELL COUNT, UNSPECIFIED (3) AMS (altered mental status) Code(s): R41.82 - ALTERED MENTAL STATUS, UNSPECIFIED (4) Lactic acid acidosis Code(s): E87.2 - ACIDOSIS (5) Hypertension Code(s): I10 - ESSENTIAL (PRIMARY) HYPERTENSION Qualifiers: Hypertension type: essential hypertension Qualified Code(s): I10 - Es sential (primary) hypertension (6) DVT (deep venous thrombosis) Code(s): I82.409 - ACUTE EMBOLISM AND THOMBOS UNSP DEEP VN UNSP LOWER EXTREMITY (7) Chronic back pain Code(s): M54.9 - DORSALGIA, UNSPECIFIED; G89.29 - OTHER CHRONIC PAIN
[2020-09-01] MEDS ORDERED: PT OWN MED DRAWER 7, Y5N ONE (07:37)
[2020-09-01 07:56] LABS: ALBUMIN 2.2 g/dl (3.4-5.0); BILIRUBIN,TOTAL 0.4 mg/dL (0.2-1); BLOOD UREA NITROGEN 22.5 mg/dL (7-18); CALCIUM 9.5 mg/dL (8.5-10.1); CREATININE 2.5 mg/dL (0.55-1.3); TOT PROT 6.7 g/dl (6.4-8.2)
--- NOTE | 2020-09-01 09:44 | PN ---
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, Physician History of Present Illness: 64F w/ pmhx of rheumatoid arthritis, HTN, Afib, hx of DVT, chronic low back pain presents admitted to the hospital for altered mental status, vomiting/diarrhea, as well as inability to ambulate. Daughter was present at bedside for further history. Pt has a history of worsening b/l lower extremity mobility over the past month requiring use of a rolling walker. She had been receiving epidural injections in her lumbar spine as an outpatient at [facility] due to lower back pain. She had planned surgery in the future. Upon admission, she was found to be febrile at 101.4, WBC 11.3. She was COVID neg. Head CT was neg. In the ED, she was treated empirically with Vanc/Zosyn for her fever, although blood culture and urine cultures were both neg. She was seen by neurology who recommended MRI of brain as well as LC spine; both still pending. Rapid response was called today because pt was found by nursing staff not responding to commands, which was different from her baseline mental status yesterday. Pt was awake and alert during time of rapid. Per rapid response note, NIHSS 30. Repeat CT head was neg for acute pathology. Request for ICU consult was made by primary team for further evaluation. - Current Medication List Current Medications: Active Medications Acetaminophen (Tylenol -) 650 mg PO Q6H PRN PRN Reason: FEVER Last Admin: 08/28/20 15:22 Dose: 650 mg Documented by: Apixaban (Eliquis -) 5 mg PO BID [facility] Last Admin: 08/31/20 22:13 Dose: Not Given Documented by: Folic Acid (Folic Acid -) 1 mg PO DAILY [facility] Last Admin: 08/31/20 09:23 Dose: 1 mg Documented by: Dextrose/Sodium Chloride (D5-1/2ns -) 1,000 mls @ 75 mls/hr IV ASDIR [facility] Last Admin: 08/31/20 22:13 Dose: 75 mls/hr Documented by: Metoprolol Succinate (Toprol Xl -) 25 mg PO DAILY [facility] Last Admin: 08/31/20 09:23 Dose: 25 mg Documented by: Multivitamins/Minerals/Vitamin C (Tab-A-Vit -) 1 tab PO DAILY [facility] Last Admin: 08/31/20 09:23 Dose: 1 tab Documented by: Ondansetron HCl (Zofran Injection) 4 mg IVPUSH Q6H PRN PRN Reason: NAUSEA Last Admin: 08/26/20 09:25 Dose: 4 mg Documented by: Pantoprazole Sodium (Protonix -) 40 mg PO ACBK [facility] Last Admin: 08/31/20 06:38 Dose: Not Given Documented by: Sertraline HCl (Zoloft -) 50 mg PO DAILY [facility] Last Admin: 08/31/20 09:23 Dose: 50 mg Documented by: - Objective Vital Signs: Vital Signs Temperature 98.5 F 08/31/20 18:00 Pulse Rate 87 09/01/20 08:00 Respiratory Rate 22 H 09/01/20 08:00 Blood Pressure 162/97 09/01/20 08:00 O2 Sat by Pulse Oximetry (%) 92 L 08/31/20 23:00 Eyes: Yes: WNL, Conjunctiva Clear, EOM Intact HENT: Yes: WNL, Atraumatic, Normocephalic Neck: Yes: WNL, Supple, Trachea Midline Cardiovascular: Yes: WNL, Regular Rate and Rhythm Respiratory: Yes: WNL, Regular, CTA Bilaterally Gastrointestinal: Yes: WNL, Normal Bowel Sounds Genitourinary: Yes: WNL Musculoskeletal: Yes: WNL Extremities: Yes: WNL Edema: No Integumentary: Yes: WNL Neurological: Yes: WNL, Alert, Oriented ...Motor Strength: WNL Psychiatric: Yes: WNL Labs: CBC, BMP 08/31/20 05:45 09/01/20 05:46 INR, PTT INR 1.68 (0.83-1.09) H 08/21/20 17:00 Problem List - Problems (1) AMS (altered mental status) Code(s): R41.82 - ALTERED MENTAL STATUS, UNSPECIFIED (2) Diarrhea Code(s): R19.7 - DIARRHEA, UNSPECIFIED (3) Elevated lactic acid level Code(s): R79.89 - OTHER SPECIFIED ABNORMAL FINDINGS OF BLOOD CHEMISTRY (4) Vomiting Code(s): R11.10 - VOMITING, UNSPECIFIED (5) Abnormal CT of the chest Code(s): R93.8 - ABNORMAL FINDINGS ON DIAGNOSTIC IMAGING OF FABIAN * DO NOT USE * (6) Atypical chest pain Code(s): R07.89 - OTHER CHEST PAIN (7) Avascular necrosis of bone of right hip Code(s): M87.051 - IDIOPATHIC ASEPTIC NECROSIS OF RIGHT FEMUR (8) Dehydration, mild Code(s): E86.0 - DEHYDRATION (9) Hypertension Code(s): I10 - ESSENTIAL (PRIMARY) HYPERTENSION Qualifiers: Hypertension type: essential hypertension Qualified Code(s): I10 - Essential (primary) hypertension (10) Palpitations Code(s): R00.2 - PALPITATIONS (11) Syncope Code(s): R55 - SYNCOPE AND COLLAPSE Assessment/Plan Acute renal dysfunction Metabolic Encephalopathy due to infection (R/O Osteomyelitis) Sepsis Lactic Acidosis anemia Diastolic CHF AF; hx DVT Rheumatoid arthritis HTN Chronic low back pain depression Plan: Is and Os, daily weight; BUN/Cr (acute increase in Cr 08/27/20); electrolytes, UA. Continue AC (on apixaban). Continue Toprol 25 QD for HR and BP control. F/u EKG Antibiotics per ID; temp 99.9F overnight Now on SSRI per psychiatrist CC time spent 35 min
[2020-09-01] MEDS: FOLIC ACID 1 MG TABLET (FP) PO SCH (09:55)
[2020-09-01] MEDS: PANTOPRAZOLE 40 MG TABLET PO SCH (09:55)
[2020-09-01] MEDS: metoPROLOL SUCCINATE 25 MG TAB.SR.24H (FP) PO SCH (09:55)
[2020-09-01] MEDS: SERTRALINE HCL 50 MG TABLET (FP) PO SCH (09:55)
[2020-09-01] MEDS: MULTIVITAMINS (DAILY MVI) TABLET (FP) PO SCH (09:56)
--- NOTE | 2020-09-01 10:19 | CONSULT ---
Admitting History and Physical - Admission History of Present Illness: 64 year old female with pmhx of RA, DVT, a-fib, spinal stenosis who initially presented with confusion, and found to have an acute cva MRI brain showed acute frontal verdin radiata b/l and lt post temproal cortex infarcts Toxic Metabolic Encephalopathy-AMS reported to have improved. Selected Entries 08/31/20 08/31/20 08/31/20 00:00 04:00 06:00 Breakfast Diet Tolerated Fair Lunch Supper 50% Temperature 97.4 F L 97.9 F Pulse Rate 99 H 99 H 96 H Blood Pressure 141/85 150/85 154/86 08/31/20 08/31/20 08/31/20 08:00 12:00 14:26 Breakfast 50% Diet Tolerated Lunch 50% Supper Temperature 98.5 F Pulse Rate 92 H 86 Blood Pressure 149/90 159/93 08/31/20 08/31/20 08/31/20 15:00 18:00 19:41 Breakfast Diet Tolerated Lunch Supper Temperature 98.2 F 98.5 F Pulse Rate 86 80 87 Blood Pressure 154/86 148/82 136/82 08/31/20 09/01/20 09/01/20 23:00 08:00 10:00 Breakfast 50% 25% Diet Tolerated Poor Lunch 75% Supper Temperature Pulse Rate 84 87 Blood Pressure 153/87 162/97 Laboratory Tests 08/19/20 08/21/20 08/28/20 01:07 07:29 09:29 WBC 12.2 H Syphilis Serology Non-reactive COVID-19 (CHASE) Not detected 08/29/20 08/31/20 05:58 05:45 WBC 12.2 H 10.6 H Syphilis Serology COVID-19 (CHASE) on reg diet/thin liquids. Limited dentition History Source: Patient Limitations to Obtaining History: Clinical Condition - Past Medical History Cardiovascular: Yes: AFIB, HTN, Other (Carotid plaque/stenosis, PSVT) ...: No Rheumatology: Yes: Rheumatoid Arthritis - Past Surgical History Past Surgical History: Yes: None - Smoking History Smoking history: Never smoked Have you smoked in the past 12 months: No - Alcohol/Substance Use Hx Alcohol Use: No History - Admission Reason For Visit: DIARRHEA, ALTERED MENTAL STATUS, INCREASED LACTIC - Diagnostics X-ray: Report Reviewed CT Scan: Report Reviewed MRI: Report Reviewed - General Mental Status: Awake and Alert, Able to Follow Commands, Forgetful, Intermittently Confused, Flat Affect Attention: Distractible, Moderate Impairment Ability to Follow Directions: Fair Head/Neck Control: Good - Hearing Hearing: Normal Speech Evaluation - Communication Primary Language: WELSH Communication: Yes: Within Normal Limits Oral Expression Ability: Yes: No Impairment - Speech Production Able to Make Needs Known: Yes: WNL Intelligibility: Yes: WNL - Speech Characteristics Voice Loudness: Normal Voice Pitch: Yes: Normal Voice Phonatory-based Quality: Yes: Normal Speech Pattern: Normal Speech Clarity: < 100% Nasal Resonance: Normal Articulation: Yes: Precise - Language/Auditory Comprehension Follows: Yes: 1 Stage Simple Commands Observation: Able to respond to yes/no queries: Yes - Swallow Evaluation/Bedside Assessment Current Nutritional Intake: Regular, Dysphagia Pureed, Thin Liquids Dentition: Yes: Missing Teeth Facial Symmetry at Rest: Symmetrical Facial Symmetry on Retraction: Symmetrical Against Resistance Opening: Normal Against Resistance Closing: Normal Pucker Lips: Normal Smile: Normal Lingual Movement: Symmetric Lingual Speed of Movement: Normal Lingual Movement Strgth Against Opposition: Normal Lingual Movement Characteristics: Normal Laryngeal Elevation: WFL Laryngeal Movement: Able to Palpate Rate of Intake: Slow/Holding Bolus Size: Small Labial Seal: WFL Chewing: Impaired (extended for long time-Chewed small bite of banana for 3 minutes) Oral Prep Time: Increased A-P Transit: Impaired Timing of Swallow: Delayed Coughing/Throat Clear: No Change in Voice: No Recommendations - Speech Evaluation, Impression/Plan Impression: Swallows liquids well. Very distractible, missing dentition, chews indefinitely (small piece of banana chewed for 3 minutes). Pt reports that she is a "picky eater" but would try chopped foods, chicken salad - Disposition Discharge to: Care Home Facility, To be Determined - Dysphagia Impressions/Plan Swallowing Skills: Impaired Dysphagia Impressions: Mild Impairment, Moderate Impairment *Silent aspiration: cannot be R/O at bedside Dysphagia Treatment Plan: Small Bites, Clear Pocket Food, Facilitative Feeding, Safe Rate, 1/2 tsp. at a time, Elevate HOB during feed, Other (assist with meals, aleternate soft, maSHED OR CHOPPED FOOD WITH SIP OF LIQUID) - Recommendations Diet Consistency: Dysphagia Minced, 1 - 2 Soft Items, Other (add tuna, chicken salad, pancakes with syrup) Medication Administration: Crushed with applesauce Liquids: Thin Liquids Supplement: Ensure, Magic Cup, Ensure Pudding
[2020-09-01 11:20] LABS: INR 1.35 (0.83-1.09)
[2020-09-01 11:23] LABS: ACTIVATED PTT 29.3 SECONDS (25.2-36.5)
[2020-09-01 11:45] LABS: ALBUMIN 2.4 g/dl (3.4-5.0); BILIRUBIN,TOTAL 0.4 mg/dL (0.2-1); BLOOD UREA NITROGEN 21.8 mg/dL (7-18); CALCIUM 9.7 mg/dL (8.5-10.1); CREATININE 2.5 mg/dL (0.55-1.3); MAGNESIUM 2.3 mg/dL (1.8-2.4); PHOSPHOROUS 3.3 mg/dL (2.5-4.9); TOT PROT 7.2 g/dl (6.4-8.2)
[2020-09-01 12:14] LABS: BASO % 0.7 % (0-2.0); EOS % 2.4 % (0-4.5); LYMPH % 18.2 % (8-40); MCH 27.3 pg (25.7-33.7); MCHC 32.1 g/dl (32.0-36.0); MEAN CELL VOLUME 84.8 fl (80-96); MEAN PLT VOLUME 7.7 fl (7.5-11.1); MONO % 9.4 % (3.8-10.2); NEUT % 69.3 % (42.8-82.8); PLATELET COUNT 312 K/MM3 (134-434); RDW 17.5 % (11.6-15.6); WHITE BLOOD COUNT 9.4 K/mm3 (4.0-10.0)
--- NOTE | 2020-09-01 13:37 | PN ---
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, Physician History of Present Illness: Pt seen and examined at bedside. She is awake and alert. She complains of poor po intake. - Current Medication List Current Medications: Active Medications Acetaminophen (Tylenol -) 650 mg PO Q6H PRN PRN Reason: FEVER Last Admin: 08/28/20 15:22 Dose: 650 mg Documented by: Apixaban (Eliquis -) 5 mg PO BID [facility] Last Admin: 08/31/20 22:13 Dose: Not Given Documented by: Folic Acid (Folic Acid -) 1 mg PO DAILY [facility] Last Admin: 09/01/20 09:55 Dose: 1 mg Documented by: Dextrose/Sodium Chloride (D5-1/2ns -) 1,000 mls @ 75 mls/hr IV ASDIR [facility] Last Admin: 08/31/20 22:13 Dose: 75 mls/hr Documented by: Metoprolol Succinate (Toprol Xl -) 25 mg PO DAILY [facility] Last Admin: 09/01/20 09:55 Dose: 25 mg Documented by: Multivitamins/Minerals/Vitamin C (Tab-A-Vit -) 1 tab PO DAILY [facility] Last Admin: 09/01/20 09:56 Dose: Not Given Documented by: Ondansetron HCl (Zofran Injection) 4 mg IVPUSH Q6H PRN PRN Reason: NAUSEA Last Admin: 08/26/20 09:25 Dose: 4 mg Documented by: Pantoprazole Sodium (Protonix -) 40 mg PO ACBK [facility] Last Admin: 09/01/20 09:55 Dose: 40 mg Documented by: Sertraline HCl (Zoloft -) 50 mg PO DAILY [facility] Last Admin: 09/01/20 09:55 Dose: 50 mg Documented by: - Objective Vital Signs: Vital Signs Temperature 98.9 F 09/01/20 10:00 Pulse Rate 85 09/01/20 10:00 Respiratory Rate 20 09/01/20 10:00 Blood Pressure 151/97 09/01/20 10:00 O2 Sat by Pulse Oximetry (%) 95 09/01/20 09:00 Constitutional: Yes: Calm Eyes: Yes: Conjunctiva Clear HENT: Yes: Atraumatic Neck: Yes: Supple Cardiovascular: Yes: S1, S2 Respiratory: Yes: CTA Bilaterally Gastrointestinal: Yes: Normal Bowel Sounds, Soft Genitourinary: Yes: WNL Musculoskeletal: Yes: WNL Edema: No Neurological: Yes: Oriented Psychiatric: Yes: Oriented Labs: CBC, BMP 09/01/20 10:50 09/01/20 10:50 INR, PTT INR 1.35 (0.83-1.09) H 09/01/20 10:50 Problem List - Problems (1) AMS (altered mental status) Code(s): R41.82 - ALTERED MENTAL STATUS, UNSPECIFIED (2) ARF (acute renal failure) Code(s): N17.9 - ACUTE KIDNEY FAILURE, UNSPECIFIED Assessment/Plan Current Medications Generic Name Dose Route Start Last Admin Trade Name Freq PRN Reason Stop Dose Admin Acetaminophen 650 mg 08/25/20 20:52 08/28/20 15:22 Tylenol - PO 650 mg Q6H PRN Administration FEVER Apixaban 5 mg 08/19/20 10:00 08/31/20 22:13 Eliquis - PO Not Given BID [facility] Folic Acid 1 mg 08/19/20 10:00 09/01/20 09:55 Folic Acid - PO 1 mg DAILY [facility] Administration Dextrose/Sodium Chloride 1,000 mls @ 75 mls/hr 08/30/20 17:45 08/31/20 22:13 D5-1/2ns - IV 75 mls/hr ASDIR [facility] Administration Metoprolol Succinate 25 mg 08/23/20 12:00 09/01/20 09:55 Toprol Xl - PO 25 mg DAILY [facility] Administration Multivitamins/Minerals/Vitamin C 1 tab 08/19/20 10:00 09/01/20 09:56 Tab-A-Vit - PO Not Given DAILY [facility] Ondansetron HCl 4 mg 08/19/20 05:12 08/26/20 09:25 Zofran Injection IVPUSH 4 mg Q6H PRN Administration NAUSEA Pantoprazole Sodium 40 mg 08/19/20 07:00 09/01/20 09:55 Protonix - PO 40 mg ACBK [facility] Administration Sertraline HCl 50 mg 08/28/20 10:00 09/01/20 09:55 Zoloft - PO 50 mg DAILY [facility] Administration Laboratory Tests 08/22/20 08/31/20 05:36 17:40 Urine Protein Trace Urine Blood Negative RAINER Screen Negative Impression 1. KWAN 2. cva 3. a-fib 4. dvt 5. altered mental status 6. lactic acidosis Plan - ua with trace protein and neg blood - repeat labs in am - cont with fluids - renal ultrasound reviewed - fena is about 3.6 which is consistent with atn - cont to trend exercise instructor
--- NOTE | 2020-09-01 14:05 | PN ---
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, Physician - Current Medication List Current Medications: Active Medications Acetaminophen (Tylenol -) 650 mg PO Q6H PRN PRN Reason: FEVER Last Admin: 08/28/20 15:22 Dose: 650 mg Documented by: Apixaban (Eliquis -) 5 mg PO BID [facility] Last Admin: 08/31/20 22:13 Dose: Not Given Documented by: Folic Acid (Folic Acid -) 1 mg PO DAILY [facility] Last Admin: 09/01/20 09:55 Dose: 1 mg Documented by: Dextrose/Sodium Chloride (D5-1/2ns -) 1,000 mls @ 75 mls/hr IV ASDIR [facility] Last Admin: 08/31/20 22:13 Dose: 75 mls/hr Documented by: Metoprolol Succinate (Toprol Xl -) 25 mg PO DAILY [facility] Last Admin: 09/01/20 09:55 Dose: 25 mg Documented by: Multivitamins/Minerals/Vitamin C (Tab-A-Vit -) 1 tab PO DAILY [facility] Last Admin: 09/01/20 09:56 Dose: Not Given Documented by: Ondansetron HCl (Zofran Injection) 4 mg IVPUSH Q6H PRN PRN Reason: NAUSEA Last Admin: 08/26/20 09:25 Dose: 4 mg Documented by: Pantoprazole Sodium (Protonix -) 40 mg PO ACBK [facility] Last Admin: 09/01/20 09:55 Dose: 40 mg Documented by: Sertraline HCl (Zoloft -) 50 mg PO DAILY [facility] Last Admin: 09/01/20 09:55 Dose: 50 mg Documented by: - Objective Vital Signs: Vital Signs Temperature 98.9 F 09/01/20 10:00 Pulse Rate 85 09/01/20 10:00 Respiratory Rate 20 09/01/20 10:00 Blood Pressure 151/97 09/01/20 10:00 O2 Sat by Pulse Oximetry (%) 95 09/01/20 09:00 Labs: CBC, BMP 09/01/20 10:50 09/01/20 10:50 INR, PTT INR 1.35 (0.83-1.09) H 09/01/20 10:50
--- NOTE | 2020-09-01 18:51 | PN ---
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 (short form) - Note 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: NEUROLOGY PROGRESS: Events reviewed. Patient examined. MRI reviewed: Moderate, diffuse atrophy and diffuse microvascular changes. EXAM: Awake, alert, cooperative. O x [facility]. 2019 Hypophonic speech. Masked facies Rigid tone with prominent cogwheel rigidity. No obvious focality. IMP: Parkinson's disease Mild OMS TME- improved. SUGGEST: Begin Sinemet CR 25/100: 1/2 PO TID x 4 days then 1 PO TID after meals. Mobilize OO Bed to chair and PT for gait with walker Neuro f/u as out patient. Thank you very much. Neo Thakkar MD
[2020-09-01] MEDS: DEXTROSE 5%-0.45% SALINE 1,000 ML IV SCH (21:27)
--- NOTE | 2020-09-01 23:26 | PN ---
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, Physician History of Present Illness: No new complaints - Current Medication List Current Medications: Active Medications Acetaminophen (Tylenol -) 650 mg PO Q6H PRN PRN Reason: FEVER Last Admin: 08/28/20 15:22 Dose: 650 mg Documented by: Apixaban (Eliquis -) 5 mg PO BID [facility] Last Admin: 08/31/20 22:13 Dose: Not Given Documented by: Carbidopa/Levodopa (Sinemet *Cr* 25/100 -) 0.5 combo PO TIDCM [facility] Stop: 09/04/20 12:01 Last Admin: 09/01/20 21:27 Dose: 0.5 combo Documented by: Carbidopa/Levodopa (Sinemet *Cr* 25/100 -) 1 combo PO TIDCM [facility] Folic Acid (Folic Acid -) 1 mg PO DAILY [facility] Last Admin: 09/01/20 09:55 Dose: 1 mg Documented by: Dextrose/Sodium Chloride (D5-1/2ns -) 1,000 mls @ 75 mls/hr IV ASDIR [facility] Last Admin: 09/01/20 21:27 Dose: 75 mls/hr Documented by: Metoprolol Succinate (Toprol Xl -) 25 mg PO DAILY [facility] Last Admin: 09/01/20 09:55 Dose: 25 mg Documented by: Multivitamins/Minerals/Vitamin C (Tab-A-Vit -) 1 tab PO DAILY [facility] Last Admin: 09/01/20 09:56 Dose: Not Given Documented by: Ondansetron HCl (Zofran Injection) 4 mg IVPUSH Q6H PRN PRN Reason: NAUSEA Last Admin: 08/26/20 09:25 Dose: 4 mg Documented by: Pantoprazole Sodium (Protonix -) 40 mg PO ACBK [facility] Last Admin: 09/01/20 09:55 Dose: 40 mg Documented by: Sertraline HCl (Zoloft -) 50 mg PO DAILY [facility] Last Admin: 09/01/20 09:55 Dose: 50 mg Documented by: - Objective Vital Signs: Vital Signs Temperature 98.9 F 09/01/20 22:00 Pulse Rate 84 09/01/20 22:00 Respiratory Rate 20 09/01/20 22:00 Blood Pressure 157/105 H 09/01/20 22:00 O2 Sat by Pulse Oximetry (%) 97 09/01/20 22:00 Neck: Yes: WNL, Supple Cardiovascular: Yes: WNL, Regular Rate and Rhythm Respiratory: Yes: WNL, Regular, CTA Bilaterally Gastrointestinal: Yes: WNL, Normal Bowel Sounds, Soft Labs: CBC, BMP 09/01/20 10:50 09/01/20 10:50 INR, PTT INR 1.35 (0.83-1.09) H 09/01/20 10:50 Problem List - Problems (1) ARF (acute renal failure) Assessment/Plan: Slight decrease in bun/creatinine Pt on IVF Renal consult noted ?ATN Monitor labs Code(s): N17.9 - ACUTE KIDNEY FAILURE, UNSPECIFIED (2) Leukocytosis Assessment/Plan: Monitor WBC Pt is now off antibxs Cultures have been negative Code(s): D72.829 - ELEVATED WHITE BLOOD CELL COUNT, UNSPECIFIED (3) AMS (altered mental status) Assessment/Plan: Due to CVA MRI brain showed acute frontal verdin radiata b/l and lt post temproal cortex infarcts Monitor BP Physical therapy Toxic Metabolic Encephalopathy Code(s): R41.82 - ALTERED MENTAL STATUS, UNSPECIFIED (4) Lactic acid acidosis Assessment/Plan: Resolved Code(s): E87.2 - ACIDOSIS (5) Hypertension Code(s): I10 - ESSENTIAL (PRIMARY) HYPERTENSION Qualifiers: Hypertension type: essential hypertension Qualified Code(s): I10 - Essential (primary) hypertension (6) DVT (deep venous thrombosis) Assessment/Plan: Eliquis was on hold today due to episode of epitaxis yesterday Will restart eliquis in am and observe Code(s): I82.409 - ACUTE EMBOLISM AND THOMBOS UNSP DEEP VN UNSP LOWER EXTREMITY (7) Chronic back pain Assessment/Plan: Physical therapy Code(s): M54.9 - DORSALGIA, UNSPECIFIED; G89.29 - OTHER CHRONIC PAIN
[2020-09-02] MEDS: PANTOPRAZOLE 40 MG TABLET PO SCH (06:45)
[2020-09-02 07:46] LABS: BILIRUBIN,TOTAL 0.2 mg/dL (0.2-1); BLOOD UREA NITROGEN 18.5 mg/dL (7-18); CREATININE 2.4 mg/dL (0.55-1.3); POTASSIUM 3.5 mmol/L (3.5-5.1); TOT PROT 6.3 g/dl (6.4-8.2)
--- NOTE | 2020-09-02 08:24 | PN ---
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, Physician Chief Complaint: Pt alert; tearful, saying she does not want to go to a rehab facitily. She has little appetite (says she does not like hospital food). C/o left leg pain; denies chest pain or dyspnea History of Present Illness: Ms. Beard is a 64 black woman w/ pmhx of rheumatoid arthritis, HTN, Afib, hx of DVT, diastolic CHF, chronic low back pain, now admitted for altered mental status, vomiting/diarrhea, inability to ambulate. Daughter was present at bedside for further history in ER. Worsening b/l lower extremity mobility over the past month requiring use of a rolling walker. She had been receiving epidural injections in her lumbar spine as an outpatient at [facility] due to lower back pain. She had planned surgery in the future. Upon admission, she was found to be febrile at 101.4, WBC 11.3. She was COVID neg. Head CT was neg. In the ED, she was treated empirically with Vanc/Zosyn for her fever, although blood culture and urine cultures were both neg. She was seen by neurology who recommended MRI of brain as well as LC spine. Rapid response was called 08/21/20 because pt was found by nursing staff not responding to commands, which was different from her baseline mental status. Pt was awake and alert during time of rapid response; NIHSS 30. Repeat CT head was neg for acute pathology. Pt was transferred to ICU. - Current Medication List Current Medications: Active Medications Acetaminophen (Tylenol -) 650 mg PO Q6H PRN PRN Reason: FEVER Last Admin: 08/28/20 15:22 Dose: 650 mg Documented by: Apixaban (Eliquis -) 5 mg PO BID [facility] Last Admin: 08/31/20 22:13 Dose: Not Given Documented by: Carbidopa/Levodopa (Sinemet *Cr* 25/100 -) 0.5 combo PO TIDCM [facility] Stop: 09/04/20 12:01 Last Admin: 09/01/20 21:27 Dose: 0.5 combo Documented by: Carbidopa/Levodopa (Sinemet *Cr* 25/100 -) 1 combo PO TIDCM [facility] Folic Acid (Folic Acid -) 1 mg PO DAILY [facility] Last Admin: 09/01/20 09:55 Dose: 1 mg Documented by: Dextrose/Sodium Chloride (D5-1/2ns -) 1,000 mls @ 75 mls/hr IV ASDIR [facility] Last Admin: 09/01/20 21:27 Dose: 75 mls/hr Documented by: Metoprolol Succinate (Toprol Xl -) 25 mg PO DAILY [facility] Last Admin: 09/01/20 09:55 Dose: 25 mg Documented by: Multivitamins/Minerals/Vitamin C (Tab-A-Vit -) 1 tab PO DAILY [facility] Last Admin: 09/01/20 09:56 Dose: Not Given Documented by: Ondansetron HCl (Zofran Injection) 4 mg IVPUSH Q6H PRN PRN Reason: NAUSEA Last Admin: 08/26/20 09:25 Dose: 4 mg Documented by: Pantoprazole Sodium (Protonix -) 40 mg PO ACBK [facility] Last Admin: 09/02/20 06:45 Dose: 40 mg Documented by: Sertraline HCl (Zoloft -) 50 mg PO DAILY [facility] Last Admin: 09/01/20 09:55 Dose: 50 mg Documented by: - Objective Vital Signs: Vital Signs Temperature 99.9 F H 09/02/20 06:00 Pulse Rate 86 09/02/20 06:00 Respiratory Rate 18 09/02/20 06:00 Blood Pressure 131/80 09/02/20 06:00 O2 Sat by Pulse Oximetry (%) 95 09/02/20 06:00 Constitutional: Yes: Anxious, Mild Distress Eyes: Yes: WNL HENT: Yes: WNL Labs: CBC, BMP 09/01/20 10:50 09/02/20 06:00 INR, PTT INR 1.35 (0.83-1.09) H 09/01/20 10:50 Assessment/Plan Acute renal dysfunction Metabolic Encephalopathy due to infection (R/O Osteomyelitis) Sepsis Lactic Acidosis anemia Diastolic CHF AF; hx DVT Rheumatoid arthritis HTN Chronic low back pain depression Parkinson's disease; mild OMS (neurology w/u noted) Plan: Is and Os, daily weight; BUN/Cr (increased Cr); electrolytes, UA. Continue AC (on apixaban). Continue Toprol 25 QD for HR and BP control. (May increase dose, or add 2nd agent for better BP control). Temp 99.9F again overnight; WBCs downtrending, and WNL. Now on SSRI per psychiatrist On Sinemet. CC time spent 35 min
[2020-09-02] MEDS ORDERED: PT OWN MED DRAWER 7, Y5N ONE ×2 (09:21→13:05)
--- NOTE | 2020-09-02 09:55 | PN ---
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, [employer] - Note 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: Selected Entries 09/01/20 09/01/20 09/01/20 10:00 15:00 19:37 Breakfast 25% Diet Tolerated Poor Poor Poor Lunch 25% Supper 25% Temperature Pulse Rate Blood Pressure 09/02/20 09/02/20 09/02/20 00:11 02:15 06:00 Breakfast Diet Tolerated Lunch Supper Temperature 99.5 F 99.9 F H Pulse Rate 83 81 86 Blood Pressure 161/88 151/88 131/80 Laboratory Tests 09/01/20 10:50 WBC 9.4 Neuro IMP: Parkinson's disease Mild OMS TME- improved. Sinemet ordered Pt on reg chopped diet. Poor intake continues. Swallows liquids well. Very distractible, missing dentition, chews indefinitely. Pt admits to increased difficulty chewing that she says is not related to dentition. She handled solids at home without difficulty. - Recommendations Diet Consistency: Dysphagia Minced, 1 - 2 Soft Items, Other (add tuna, chicken salad, pancakes with syrup) Medication Administration: Crushed with applesauce Liquids: Thin Liquids Supplement: Ensure, Magic Cup, Ensure Pudding Small Bites, Clear Pocket Food, Facilitative Feeding, Safe Rate, 1/2 tsp. at a time, Elevate HOB during feed, Other assist with meals, alternate soft, maSHED OR CHOPPED FOOD WITH SIP OF LIQUID
[2020-09-02] MEDS: APIXABAN 2.5 MG TABLET PO SCH ×2 (10:42→22:03)
[2020-09-02] MEDS: SERTRALINE HCL 50 MG TABLET (FP) PO SCH (10:42)
[2020-09-02] MEDS: FOLIC ACID 1 MG TABLET (FP) PO SCH (10:42)
[2020-09-02] MEDS: metoPROLOL SUCCINATE 25 MG TAB.SR.24H (FP) PO SCH (10:42)
[2020-09-02] MEDS: MULTIVITAMINS (DAILY MVI) TABLET (FP) PO SCH (10:42)
--- NOTE | 2020-09-02 13:47 | PN ---
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, Physician - Current Medication List Current Medications: Active Medications Acetaminophen (Tylenol -) 650 mg PO Q6H PRN PRN Reason: FEVER Last Admin: 08/28/20 15:22 Dose: 650 mg Documented by: Apixaban (Eliquis -) 5 mg PO BID [facility] Last Admin: 09/02/20 10:42 Dose: 5 mg Documented by: Carbidopa/Levodopa (Sinemet *Cr* 25/100 -) 0.5 combo PO TIDCM [facility] Stop: 09/04/20 12:01 Last Admin: 09/02/20 09:41 Dose: 0.5 combo Documented by: Carbidopa/Levodopa (Sinemet *Cr* 25/100 -) 1 combo PO TIDCM [facility] Folic Acid (Folic Acid -) 1 mg PO DAILY [facility] Last Admin: 09/02/20 10:42 Dose: 1 mg Documented by: Dextrose/Sodium Chloride (D5-1/2ns -) 1,000 mls @ 75 mls/hr IV ASDIR [facility] Last Admin: 09/01/20 21:27 Dose: 75 mls/hr Documented by: Metoprolol Succinate (Toprol Xl -) 25 mg PO DAILY [facility] Last Admin: 09/02/20 10:42 Dose: 25 mg Documented by: Multivitamins/Minerals/Vitamin C (Tab-A-Vit -) 1 tab PO DAILY [facility] Last Admin: 09/02/20 10:42 Dose: 1 tab Documented by: Ondansetron HCl (Zofran Injection) 4 mg IVPUSH Q6H PRN PRN Reason: NAUSEA Last Admin: 08/26/20 09:25 Dose: 4 mg Documented by: Pantoprazole Sodium (Protonix -) 40 mg PO ACBK [facility] Last Admin: 09/02/20 06:45 Dose: 40 mg Documented by: Sertraline HCl (Zoloft -) 50 mg PO DAILY [facility] Last Admin: 09/02/20 10:42 Dose: 50 mg Documented by: - Objective Vital Signs: Vital Signs Temperature 99.9 F H 09/02/20 06:00 Pulse Rate 91 H 09/02/20 10:00 Respiratory Rate 18 09/02/20 10:00 Blood Pressure 150/97 09/02/20 10:00 O2 Sat by Pulse Oximetry (%) 98 09/02/20 10:00 Labs: CBC, BMP 09/01/20 10:50 09/02/20 06:00 INR, PTT INR 1.35 (0.83-1.09) H 09/01/20 10:50
--- NOTE | 2020-09-02 15:08 | PN ---
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, Physician History of Present Illness: Pt seen and examined at bedside. She is awake and alert. She denies shortness of breath. - Current Medication List Current Medications: Active Medications Acetaminophen (Tylenol -) 650 mg PO Q6H PRN PRN Reason: FEVER Last Admin: 08/28/20 15:22 Dose: 650 mg Documented by: Apixaban (Eliquis -) 5 mg PO BID [facility] Last Admin: 09/02/20 10:42 Dose: 5 mg Documented by: Carbidopa/Levodopa (Sinemet *Cr* 25/100 -) 0.5 combo PO TIDCM [facility] Stop: 09/04/20 12:01 Last Admin: 09/02/20 09:41 Dose: 0.5 combo Documented by: Carbidopa/Levodopa (Sinemet *Cr* 25/100 -) 1 combo PO TIDCM [facility] Folic Acid (Folic Acid -) 1 mg PO DAILY [facility] Last Admin: 09/02/20 10:42 Dose: 1 mg Documented by: Dextrose/Sodium Chloride (D5-1/2ns -) 1,000 mls @ 75 mls/hr IV ASDIR [facility] Last Admin: 09/01/20 21:27 Dose: 75 mls/hr Documented by: Metoprolol Succinate (Toprol Xl -) 25 mg PO DAILY [facility] Last Admin: 09/02/20 10:42 Dose: 25 mg Documented by: Multivitamins/Minerals/Vitamin C (Tab-A-Vit -) 1 tab PO DAILY [facility] Last Admin: 09/02/20 10:42 Dose: 1 tab Documented by: Ondansetron HCl (Zofran Injection) 4 mg IVPUSH Q6H PRN PRN Reason: NAUSEA Last Admin: 08/26/20 09:25 Dose: 4 mg Documented by: Pantoprazole Sodium (Protonix -) 40 mg PO ACBK [facility] Last Admin: 09/02/20 06:45 Dose: 40 mg Documented by: Sertraline HCl (Zoloft -) 50 mg PO DAILY [facility] Last Admin: 09/02/20 10:42 Dose: 50 mg Documented by: - Objective Vital Signs: Vital Signs Temperature 99.9 F H 09/02/20 06:00 Pulse Rate 91 H 09/02/20 10:00 Respiratory Rate 18 09/02/20 10:00 Blood Pressure 150/97 09/02/20 10:00 O2 Sat by Pulse Oximetry (%) 98 09/02/20 10:00 Constitutional: Yes: Calm Eyes: Yes: Conjunctiva Clear HENT: Yes: Atraumatic Neck: Yes: Supple Cardiovascular: Yes: S1, S2 Respiratory: Yes: CTA Bilaterally Gastrointestinal: Yes: Normal Bowel Sounds, Soft Genitourinary: Yes: WNL Musculoskeletal: Yes: WNL Edema: No Integumentary: Yes: WNL Neurological: Yes: Oriented Labs: CBC, BMP 09/01/20 10:50 09/02/20 06:00 INR, PTT INR 1.35 (0.83-1.09) H 09/01/20 10:50 Problem List - Problems (1) AMS (altered mental status) Code(s): R41.82 - ALTERED MENTAL STATUS, UNSPECIFIED (2) ARF (acute renal failure) Code(s): N17.9 - ACUTE KIDNEY FAILURE, UNSPECIFIED Assessment/Plan Current Medications Generic Name Dose Route Start Last Admin Trade Name Freq PRN Reason Stop Dose Admin Acetaminophen 650 mg 08/25/20 20:52 08/28/20 15:22 Tylenol - PO 650 mg Q6H PRN Administration FEVER Apixaban 5 mg 08/19/20 10:00 09/02/20 10:42 Eliquis - PO 5 mg BID [facility] Administration Carbidopa/Levodopa 0.5 combo 09/01/20 18:54 09/02/20 09:41 Sinemet *Cr* 25/100 - PO 09/04/20 12:01 0.5 combo TIDCM [facility] Administration Carbidopa/Levodopa 1 combo 09/04/20 17:30 Sinemet *Cr* 25/100 - PO TIDCM [facility] Folic Acid 1 mg 08/19/20 10:00 09/02/20 10:42 Folic Acid - PO 1 mg DAILY [facility] Administration Dextrose/Sodium Chloride 1,000 mls @ 75 mls/hr 08/30/20 17:45 09/01/20 21:27 D5-1/2ns - IV 75 mls/hr ASDIR [facility] Administration Metoprolol Succinate 25 mg 08/23/20 12:00 09/02/20 10:42 Toprol Xl - PO 25 mg DAILY [facility] Administration Multivitamins/Minerals/Vitamin C 1 tab 08/19/20 10:00 09/02/20 10:42 Tab-A-Vit - PO 1 tab DAILY [facility] Administration Ondansetron HCl 4 mg 08/19/20 05:12 08/26/20 09:25 Zofran Injection IVPUSH 4 mg Q6H PRN Administration NAUSEA Pantoprazole Sodium 40 mg 08/19/20 07:00 09/02/20 06:45 Protonix - PO 40 mg ACBK [facility] Administration Sertraline HCl 50 mg 08/28/20 10:00 09/02/20 10:42 Zoloft - PO 50 mg DAILY [facility] Administration Impression 1. KWAN 2. cva 3. a-fib 4. dvt 5. altered mental status 6. lactic acidosis Plan - repeat labs in am - cont fluids - robotics technician improving - fena is about 3.6 which is consistent with atn - cont to trend robotics technician
[2020-09-02] MEDS: POTASSIUM CHLORIDE 10 MEQ in SODIUM CHLORIDE 0.45% 1,000 ML IVPB SCH (16:46)
--- NOTE | 2020-09-02 16:53 | PN ---
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, Physician History of Present Illness: feeling better - Current Medication List Current Medications: Active Medications Acetaminophen (Tylenol -) 650 mg PO Q6H PRN PRN Reason: FEVER Last Admin: 08/28/20 15:22 Dose: 650 mg Documented by: Apixaban (Eliquis -) 5 mg PO BID [facility] Last Admin: 09/02/20 10:42 Dose: 5 mg Documented by: Carbidopa/Levodopa (Sinemet *Cr* 25/100 -) 0.5 combo PO TIDCM [facility] Stop: 09/04/20 12:01 Last Admin: 09/02/20 12:00 Dose: 0.5 combo Documented by: Carbidopa/Levodopa (Sinemet *Cr* 25/100 -) 1 combo PO TIDCM [facility] Folic Acid (Folic Acid -) 1 mg PO DAILY [facility] Last Admin: 09/02/20 10:42 Dose: 1 mg Documented by: Potassium Chloride 10 meq/ (Sodium Chloride) 1,005 mls @ 100 mls/hr IVPB Q10H [facility] Metoprolol Succinate (Toprol Xl -) 25 mg PO DAILY [facility] Last Admin: 09/02/20 10:42 Dose: 25 mg Documented by: Multivitamins/Minerals/Vitamin C (Tab-A-Vit -) 1 tab PO DAILY [facility] Last Admin: 09/02/20 10:42 Dose: 1 tab Documented by: Ondansetron HCl (Zofran Injection) 4 mg IVPUSH Q6H PRN PRN Reason: NAUSEA Last Admin: 08/26/20 09:25 Dose: 4 mg Documented by: Pantoprazole Sodium (Protonix -) 40 mg PO ACBK [facility] Last Admin: 09/02/20 06:45 Dose: 40 mg Documented by: Sertraline HCl (Zoloft -) 50 mg PO DAILY [facility] Last Admin: 09/02/20 10:42 Dose: 50 mg Documented by: - Objective Vital Signs: Vital Signs Temperature 99.9 F H 09/02/20 06:00 Pulse Rate 91 H 09/02/20 10:00 Respiratory Rate 18 09/02/20 10:00 Blood Pressure 150/97 09/02/20 10:00 O2 Sat by Pulse Oximetry (%) 98 09/02/20 10:00 Constitutional: Yes: No Distress HENT: Yes: Atraumatic Neck: Yes: Supple Cardiovascular: Yes: Regular Rate and Rhythm Respiratory: Yes: Rhonchi Gastrointestinal: Yes: Normal Bowel Sounds Extremities: Yes: WNL Neurological: Yes: Alert Labs: CBC, BMP 09/01/20 10:50 09/02/20 06:00 INR, PTT INR 1.35 (0.83-1.09) H 09/01/20 10:50 Problem List - Problems (1) AMS (altered mental status) Assessment/Plan: stable s/p cva supra/infra tentorial infarcT metabolic encephalopathy awaiting to be placed at snf Code(s): R41.82 - ALTERED MENTAL STATUS, UNSPECIFIED (2) Diarrhea Assessment/Plan: resolved Code(s): R19.7 - DIARRHEA, UNSPECIFIED (3) Vomiting Assessment/Plan: resolved Code(s): R11.10 - VOMITING, UNSPECIFIED (4) Hypertension Assessment/Plan: on meds stable Code(s): I10 - ESSENTIAL (PRIMARY) HYPERTENSION Qualifiers: Hypertension type: essential hypertension Qualified Code(s): I10 - E ssential (primary) hypertension (5) Chronic back pain Code(s): M54.9 - DORSALGIA, UNSPECIFIED; G89.29 - OTHER CHRONIC PAIN (6) DVT (deep venous thrombosis) Assessment/Plan: on eliquis Code(s): I82.409 - ACUTE EMBOLISM AND THOMBOS UNSP DEEP VN UNSP LOWER EXTREMITY (7) ARF (acute renal failure) Assessment/Plan: on ivf monitor cr Code(s): N17.9 - ACUTE KIDNEY FAILURE, UNSPECIFIED Assessment/Plan Cxs negative to date COVERING FOR DR RUBI TODAY....
[2020-09-03] MEDS: POTASSIUM CHLORIDE 10 MEQ in SODIUM CHLORIDE 0.45% 1,000 ML IVPB SCH ×3 (03:33→22:29)
[2020-09-03] MEDS: PANTOPRAZOLE 40 MG TABLET PO SCH (06:07)
[2020-09-03 07:55] LABS: ALBUMIN 2.2 g/dl (3.4-5.0); BILIRUBIN,TOTAL 0.5 mg/dL (0.2-1); BLOOD UREA NITROGEN 16.8 mg/dL (7-18); CALCIUM 9.4 mg/dL (8.5-10.1); CREATININE 2.3 mg/dL (0.55-1.3); POTASSIUM 3.9 mmol/L (3.5-5.1); TOT PROT 6.4 g/dl (6.4-8.2)
[2020-09-03] MEDS: FOLIC ACID 1 MG TABLET (FP) PO SCH (09:50)
[2020-09-03] MEDS: APIXABAN 2.5 MG TABLET PO SCH ×2 (09:50→22:29)
[2020-09-03] MEDS: MULTIVITAMINS (DAILY MVI) TABLET (FP) PO SCH (09:50)
[2020-09-03] MEDS: SERTRALINE HCL 50 MG TABLET (FP) PO SCH (09:50)
[2020-09-03] MEDS: metoPROLOL SUCCINATE 25 MG TAB.SR.24H (FP) PO SCH (09:50)
[2020-09-03] MEDS ORDERED: PT OWN MED DRAWER 7, Y5N ONE ×2 (09:52→14:30)
--- NOTE | 2020-09-03 09:59 | PN ---
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, Physician History of Present Illness: 64F w/ pmhx of rheumatoid arthritis, HTN, Afib, hx of DVT, chronic low back pain presents admitted to the hospital for altered mental status, vomiting/diarrhea, as well as inability to ambulate. Daughter was present at bedside for further history. Pt has a history of worsening b/l lower extremity mobility over the past month requiring use of a rolling walker. She had been receiving epidural injections in her lumbar spine as an outpatient at [facility] due to lower back pain. She had planned surgery in the future. Upon admission, she was found to be febrile at 101.4, WBC 11.3. She was COVID neg. Head CT was neg. In the ED, she was treated empirically with Vanc/Zosyn for her fever, although blood culture and urine cultures were both neg. She was seen by neurology who recommended MRI of brain as well as LC spine; both still pending. Rapid response was called today because pt was found by nursing staff not responding to commands, which was different from her baseline mental status yesterday. Pt was awake and alert during time of rapid. Per rapid response note, NIHSS 30. Repeat CT head was neg for acute pathology. Request for ICU consult was made by primary team for further evaluation. - Current Medication List Current Medications: Active Medications Acetaminophen (Tylenol -) 650 mg PO Q6H PRN PRN Reason: FEVER Last Admin: 08/28/20 15:22 Dose: 650 mg Documented by: Apixaban (Eliquis -) 5 mg PO BID [facility] Last Admin: 09/03/20 09:50 Dose: 5 mg Documented by: Carbidopa/Levodopa (Sinemet *Cr* 25/100 -) 0.5 combo PO TIDCM [facility] Stop: 09/04/20 12:01 Last Admin: 09/03/20 09:50 Dose: 0.5 combo Documented by: Carbidopa/Levodopa (Sinemet *Cr* 25/100 -) 1 combo PO TIDCM [facility] Folic Acid (Folic Acid -) 1 mg PO DAILY [facility] Last Admin: 09/03/20 09:50 Dose: 1 mg Documented by: Potassium Chloride 10 meq/ (Sodium Chloride) 1,005 mls @ 100 mls/hr IVPB Q10H [facility] Last Admin: 09/03/20 03:33 Dose: 100 mls/hr Documented by: Metoprolol Succinate (Toprol Xl -) 25 mg PO DAILY [facility] Last Admin: 09/03/20 09:50 Dose: 25 mg Documented by: Multivitamins/Minerals/Vitamin C (Tab-A-Vit -) 1 tab PO DAILY [facility] Last Admin: 09/03/20 09:50 Dose: 1 tab Documented by: Ondansetron HCl (Zofran Injection) 4 mg IVPUSH Q6H PRN PRN Reason: NAUSEA Last Admin: 08/26/20 09:25 Dose: 4 mg Documented by: Pantoprazole Sodium (Protonix -) 40 mg PO ACBK [facility] Last Admin: 09/03/20 06:07 Dose: 40 mg Documented by: Sertraline HCl (Zoloft -) 50 mg PO DAILY [facility] Last Admin: 09/03/20 09:50 Dose: 50 mg Documented by: - Objective Vital Signs: Vital Signs Temperature 98 F 09/03/20 09:41 Pulse Rate 99 H 09/03/20 09:41 Respiratory Rate 20 09/03/20 09:41 Blood Pressure 158/94 09/03/20 08:00 O2 Sat by Pulse Oximetry (%) 98 09/03/20 06:00 Eyes: Yes: WNL, Conjunctiva Clear, EOM Intact HENT: Yes: WNL, Atraumatic, Normocephalic Neck: Yes: WNL, Supple, Trachea Midline Cardiovascular: Yes: WNL, Regular Rate and Rhythm Respiratory: Yes: WNL, Regular, CTA Bilaterally Gastrointestinal: Yes: WNL, Normal Bowel Sounds Genitourinary: Yes: WNL Musculoskeletal: Yes: WNL Extremities: Yes: WNL Edema: No Integumentary: Yes: WNL Neurological: Yes: WNL, Alert, Oriented ...Motor Strength: WNL Psychiatric: Yes: WNL Labs: CBC, BMP 09/01/20 10:50 09/03/20 05:45 INR, PTT INR 1.35 (0.83-1.09) H 09/01/20 10:50 Problem List - Problems (1) AMS (altered mental status) Code(s): R41.82 - ALTERED MENTAL STATUS, UNSPECIFIED (2) Diarrhea Code(s): R19.7 - DIARRHEA, UNSPECIFIED (3) Elevated lactic acid level Code(s): R79.89 - OTHER SPECIFIED ABNORMAL FINDINGS OF BLOOD CHEMISTRY (4) Vomiting Code(s): R11.10 - VOMITING, UNSPECIFIED (5) Abnormal CT of the chest Code(s): R93.8 - ABNORMAL FINDINGS ON DIAGNOSTIC IMAGING OF FABIAN * DO NOT USE * (6) Atypical chest pain Code(s): R07.89 - OTHER CHEST PAIN (7) Avascular necrosis of bone of right hip Code(s): M87.051 - IDIOPATHIC ASEPTIC NECROSIS OF RIGHT FEMUR (8) Dehydration, mild Code(s): E86.0 - DEHYDRATION (9) Hypertension Code(s): I10 - ESSENTIAL (PRIMARY) HYPERTENSION Qualifiers: Hypertension type: essential hypertension Qualified Code(s): I10 - Essential (primary) hypertension (10) Palpitations Code(s): R00.2 - PALPITATIONS (11) Syncope Code(s): R55 - SYNCOPE AND COLLAPSE Assessment/Plan Acute renal dysfunction Metabolic Encephalopathy due to infection (R/O Osteomyelitis) Sepsis Lactic Acidosis anemia Diastolic CHF AF; hx DVT Rheumatoid arthritis HTN Chronic low back pain depression Parkinson's disease; mild OMS (neurology w/u noted) Plan: Is and Os, daily weight; BUN/Cr (increased Cr); electrolytes, UA. Continue AC (on apixaban). Continue Toprol 25 QD for HR and BP control. (May increase dose, or add 2nd agent for better BP control). Temp 99.9F again overnight; WBCs downtrending, and WNL. Now on SSRI per psychiatrist On Sinemet. CC time spent 35 min
--- NOTE | 2020-09-03 10:59 | PN ---
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: Selected Entries 09/01/20 09/01/20 09/01/20 10:00 15:00 19:37 Breakfast 25% Diet Tolerated Poor Poor Poor Lunch 25% Supper 25% Temperature Pulse Rate Blood Pressure 09/02/20 09/02/20 09/02/20 00:11 02:15 06:00 Breakfast Diet Tolerated Lunch Supper Temperature 99.5 F 99.9 F H Pulse Rate 83 81 86 Blood Pressure 161/88 151/88 131/80 Laboratory Tests 09/01/20 10:50 WBC 9.4 Selected Entries 09/02/20 09/02/20 09/03/20 06:00 13:00 00:26 Breakfast 25% Diet Tolerated Poor Poor Lunch 25% Supper 25% Temperature Pulse Rate 103 H Blood Pressure 155/95 O2 Sat by Pulse 97 Oximetry (%) 09/03/20 09/03/20 09/03/20 02:00 06:00 08:00 Breakfast Diet Tolerated Lunch Supper Temperature 97.1 F L Pulse Rate 100 H 99 H 99 H Blood Pressure 161/90 144/87 158/94 O2 Sat by Pulse 98 98 Oximetry (%) 09/03/20 09:41 Breakfast Diet Tolerated Lunch Supper Temperature 98 F Pulse Rate 99 H Blood Pressure O2 Sat by Pulse Oximetry (%) Laboratory Tests 09/01/20 10:50 WBC 9.4 Diet modified. Poor intake with some improvement with diet modification Diet Consistency: Dysphagia Minced, 1 - 2 Soft Items, Other (add tuna, chicken salad, pancakes with syrup) Medication Administration: Crushed with applesauce Liquids: Thin Liquids Supplement: Ensure, Magic Cup, Ensure Pudding Small Bites, Clear Pocket Food, Facilitative Feeding, Safe Rate, 1/2 tsp. at a time, Elevate HOB during feed, Other assist with meals, alternate soft, maSHED OR CHOPPED FOOD WITH SIP OF LIQUID Pt admits to persistent difficulty chewing, which she reports she did not experience at home. Possibly related to Parkinson's, per Dr. Thakkar's dx. She prefers the well-chopped, Dys ground items and tolerated breakfast better than yesterday with increased intake. Continue Dys ground foods. I added a couple of soft solids per tray, as she is a picky eater. Observe for tolerance of soft solids eg banana- if more difficult/not accepting, downgrade to all dys ground consistencies. Assist with meals. Feed slowly, alternate solid with liquids.
--- NOTE | 2020-09-03 13:35 | PN ---
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, Physician History of Present Illness: Pt seen and examined at bedside. She is awake and alert. - Current Medication List Current Medications: Active Medications Acetaminophen (Tylenol -) 650 mg PO Q6H PRN PRN Reason: FEVER Last Admin: 08/28/20 15:22 Dose: 650 mg Documented by: Apixaban (Eliquis -) 5 mg PO BID [facility] Last Admin: 09/03/20 09:50 Dose: 5 mg Documented by: Carbidopa/Levodopa (Sinemet *Cr* 25/100 -) 0.5 combo PO TIDCM [facility] Stop: 09/04/20 12:01 Last Admin: 09/03/20 09:50 Dose: 0.5 combo Documented by: Carbidopa/Levodopa (Sinemet *Cr* 25/100 -) 1 combo PO TIDCM [facility] Folic Acid (Folic Acid -) 1 mg PO DAILY [facility] Last Admin: 09/03/20 09:50 Dose: 1 mg Documented by: Potassium Chloride 10 meq/ (Sodium Chloride) 1,005 mls @ 100 mls/hr IVPB Q10H [facility] Last Admin: 09/03/20 03:33 Dose: 100 mls/hr Documented by: Metoprolol Succinate (Toprol Xl -) 25 mg PO DAILY [facility] Last Admin: 09/03/20 09:50 Dose: 25 mg Documented by: Multivitamins/Minerals/Vitamin C (Tab-A-Vit -) 1 tab PO DAILY [facility] Last Admin: 09/03/20 09:50 Dose: 1 tab Documented by: Nystatin (Nystop Powder -) 1 applic TP DAILY [facility] Ondansetron HCl (Zofran Injection) 4 mg IVPUSH Q6H PRN PRN Reason: NAUSEA Last Admin: 08/26/20 09:25 Dose: 4 mg Documented by: Pantoprazole Sodium (Protonix -) 40 mg PO ACBK [facility] Last Admin: 09/03/20 06:07 Dose: 40 mg Documented by: Sertraline HCl (Zoloft -) 50 mg PO DAILY [facility] Last Admin: 09/03/20 09:50 Dose: 50 mg Documented by: - Objective Vital Signs: Vital Signs Temperature 98 F 09/03/20 10:00 Pulse Rate 98 H 09/03/20 12:07 Respiratory Rate 20 09/03/20 10:00 Blood Pressure 131/75 09/03/20 12:07 O2 Sat by Pulse Oximetry (%) 98 09/03/20 06:00 Constitutional: Yes: Calm Eyes: Yes: Conjunctiva Clear HENT: Yes: Atraumatic Neck: Yes: Supple Cardiovascular: Yes: S1, S2 Respiratory: Yes: CTA Bilaterally Gastrointestinal: Yes: Normal Bowel Sounds, Soft Genitourinary: Yes: WNL Edema: No Neurological: Yes: Oriented Psychiatric: Yes: Oriented Labs: CBC, BMP 09/01/20 10:50 09/03/20 05:45 INR, PTT INR 1.35 (0.83-1.09) H 09/01/20 10:50 Problem List - Problems (1) AMS (altered mental status) Code(s): R41.82 - ALTERED MENTAL STATUS, UNSPECIFIED (2) ARF (acute renal failure) Code(s): N17.9 - ACUTE KIDNEY FAILURE, UNSPECIFIED Assessment/Plan Current Medications Generic Name Dose Route Start Last Admin Trade Name Freq PRN Reason Stop Dose Admin Acetaminophen 650 mg 08/25/20 20:52 08/28/20 15:22 Tylenol - PO 650 mg Q6H PRN Administration FEVER Apixaban 5 mg 08/19/20 10:00 09/03/20 09:50 Eliquis - PO 5 mg BID [facility] Administration Carbidopa/Levodopa 0.5 combo 09/01/20 18:54 09/03/20 09:50 Sinemet *Cr* 25/100 - PO 09/04/20 12:01 0.5 combo TIDCM [facility] Administration Carbidopa/Levodopa 1 combo 09/04/20 17:30 Sinemet *Cr* 25/100 - PO TIDCM [facility] Folic Acid 1 mg 08/19/20 10:00 09/03/20 09:50 Folic Acid - PO 1 mg DAILY [facility] Administration Potassium Chloride 10 meq/ 1,005 mls @ 100 mls/hr 09/02/20 15:15 09/03/20 03:33 Sodium Chloride IVPB 100 mls/hr Q10H [facility] Administration Metoprolol Succinate 25 mg 08/23/20 12:00 09/03/20 09:50 Toprol Xl - PO 25 mg DAILY [facility] Administration Multivitamins/Minerals/Vitamin C 1 tab 08/19/20 10:00 09/03/20 09:50 Tab-A-Vit - PO 1 tab DAILY [facility] Administration Nystatin 1 applic 09/03/20 13:00 Nystop Powder - TP DAILY [facility] Ondansetron HCl 4 mg 08/19/20 05:12 08/26/20 09:25 Zofran Injection IVPUSH 4 mg Q6H PRN Administration NAUSEA Pantoprazole Sodium 40 mg 08/19/20 07:00 09/03/20 06:07 Protonix - PO 40 mg ACBK [facility] Administration Sertraline HCl 50 mg 08/28/20 10:00 09/03/20 09:50 Zoloft - PO 50 mg DAILY [facility] Administration Impression 1. KWAN 2. cva 3. a-fib 4. dvt 5. altered mental status 6. 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
--- NOTE | 2020-09-03 13:46 | PN ---
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, Physician - Current Medication List Current Medications: Active Medications Acetaminophen (Tylenol -) 650 mg PO Q6H PRN PRN Reason: FEVER Last Admin: 08/28/20 15:22 Dose: 650 mg Documented by: Apixaban (Eliquis -) 5 mg PO BID [facility] Last Admin: 09/03/20 09:50 Dose: 5 mg Documented by: Carbidopa/Levodopa (Sinemet *Cr* 25/100 -) 0.5 combo PO TIDCM [facility] Stop: 09/04/20 12:01 Last Admin: 09/03/20 09:50 Dose: 0.5 combo Documented by: Carbidopa/Levodopa (Sinemet *Cr* 25/100 -) 1 combo PO TIDCM [facility] Folic Acid (Folic Acid -) 1 mg PO DAILY [facility] Last Admin: 09/03/20 09:50 Dose: 1 mg Documented by: Potassium Chloride 10 meq/ (Sodium Chloride) 1,005 mls @ 100 mls/hr IVPB Q10H [facility] Last Admin: 09/03/20 03:33 Dose: 100 mls/hr Documented by: Metoprolol Succinate (Toprol Xl -) 25 mg PO DAILY [facility] Last Admin: 09/03/20 09:50 Dose: 25 mg Documented by: Multivitamins/Minerals/Vitamin C (Tab-A-Vit -) 1 tab PO DAILY [facility] Last Admin: 09/03/20 09:50 Dose: 1 tab Documented by: Nystatin (Nystop Powder -) 1 applic TP DAILY [facility] Ondansetron HCl (Zofran Injection) 4 mg IVPUSH Q6H PRN PRN Reason: NAUSEA Last Admin: 08/26/20 09:25 Dose: 4 mg Documented by: Pantoprazole Sodium (Protonix -) 40 mg PO ACBK [facility] Last Admin: 09/03/20 06:07 Dose: 40 mg Documented by: Sertraline HCl (Zoloft -) 50 mg PO DAILY [facility] Last Admin: 09/03/20 09:50 Dose: 50 mg Documented by: - Objective Vital Signs: Vital Signs Temperature 98 F 09/03/20 10:00 Pulse Rate 98 H 09/03/20 12:07 Respiratory Rate 20 09/03/20 10:00 Blood Pressure 131/75 09/03/20 12:07 O2 Sat by Pulse Oximetry (%) 98 09/03/20 06:00 Labs: CBC, BMP 09/01/20 10:50 09/03/20 05:45 INR, PTT INR 1.35 (0.83-1.09) H 09/01/20 10:50
[2020-09-03] MEDS: NYSTATIN POWDER 100,000 UNITS/GM - 15 GM TOPICAL POWDER TP SCH (22:29)
--- NOTE | 2020-09-03 23:41 | PN ---
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, Physician History of Present Illness: No new complaints - Current Medication List Current Medications: Active Medications Acetaminophen (Tylenol -) 650 mg PO Q6H PRN PRN Reason: FEVER Last Admin: 08/28/20 15:22 Dose: 650 mg Documented by: Apixaban (Eliquis -) 5 mg PO BID [facility] Last Admin: 09/03/20 22:29 Dose: 5 mg Documented by: Carbidopa/Levodopa (Sinemet *Cr* 25/100 -) 0.5 combo PO TIDCM [facility] Stop: 09/04/20 12:01 Last Admin: 09/03/20 18:46 Dose: 0.5 combo Documented by: Carbidopa/Levodopa (Sinemet *Cr* 25/100 -) 1 combo PO TIDCM [facility] Folic Acid (Folic Acid -) 1 mg PO DAILY [facility] Last Admin: 09/03/20 09:50 Dose: 1 mg Documented by: Potassium Chloride 10 meq/ (Sodium Chloride) 1,005 mls @ 100 mls/hr IVPB Q10H [facility] Last Admin: 09/03/20 22:29 Dose: Not Given Documented by: Metoprolol Succinate (Toprol Xl -) 25 mg PO DAILY [facility] Last Admin: 09/03/20 09:50 Dose: 25 mg Documented by: Multivitamins/Minerals/Vitamin C (Tab-A-Vit -) 1 tab PO DAILY [facility] Last Admin: 09/03/20 09:50 Dose: 1 tab Documented by: Nystatin (Nystop Powder -) 1 applic TP DAILY [facility] Last Admin: 09/03/20 22:29 Dose: 1 applic Documented by: Ondansetron HCl (Zofran Injection) 4 mg IVPUSH Q6H PRN PRN Reason: NAUSEA Last Admin: 08/26/20 09:25 Dose: 4 mg Documented by: Pantoprazole Sodium (Protonix -) 40 mg PO ACBK [facility] Last Admin: 09/03/20 06:07 Dose: 40 mg Documented by: Sertraline HCl (Zoloft -) 50 mg PO DAILY [facility] Last Admin: 09/03/20 09:50 Dose: 50 mg Documented by: - Objective Vital Signs: Vital Signs Temperature 97.8 F 09/03/20 14:00 Pulse Rate 94 H 09/03/20 18:46 Respiratory Rate 20 09/03/20 18:46 Blood Pressure 160/89 09/03/20 18:46 O2 Sat by Pulse Oximetry (%) 100 09/03/20 18:46 Cardiovascular: Yes: WNL, Regular Rate and Rhythm Respiratory: Yes: WNL, Regular, CTA Bilaterally Gastrointestinal: Yes: WNL, Normal Bowel Sounds, Soft Labs: CBC, BMP 09/01/20 10:50 09/03/20 05:45 INR, PTT INR 1.35 (0.83-1.09) H 09/01/20 10:50 Problem List - Problems (1) ARF (acute renal failure) Assessment/Plan: Slight decrease in bun/creatinine Check labs in am Possible dc planning to SNF in am Will need to f/u creatinine as outpt Pt on IVF Renal consult noted ?ATN Code(s): N17.9 - ACUTE KIDNEY FAILURE, UNSPECIFIED (2) Leukocytosis Assessment/Plan: Monitor WBC Pt is now off antibxs Cultures have been negative Code(s): D72.829 - ELEVATED WHITE BLOOD CELL COUNT, UNSPECIFIED (3) AMS (altered mental status) Assessment/Plan: Due to CVA MRI brain showed acute frontal verdin radiata b/l and lt post temproal cortex infarcts Monitor BP Physical therapy Toxic Metabolic Encephalopathy Code(s): R41.82 - ALTERED MENTAL STATUS, UNSPECIFIED (4) Lactic acid acidosis Assessment/Plan: Resolved Code(s): E87.2 - ACIDOSIS (5) Hypertension Code(s): I10 - ESSENTIAL (PRIMARY) HYPERTENSION Qualifiers: Hypertension type: essential hypertension Qualified Code(s): I10 - Essential (primary) hypertension (6) DVT (deep venous thrombosis) Assessment/Plan: Eliquis was on hold today due to episode of epitaxis yesterday Will restart eliquis in am and observe Code(s): I82.409 - ACUTE EMBOLISM AND THOMBOS UNSP DEEP VN UNSP LOWER EXTREMITY (7) Chronic back pain Assessment/Plan: Physical therapy Code(s): M54.9 - DORSALGIA, UNSPECIFIED; G89.29 - OTHER CHRONIC PAIN
[2020-09-04] MEDS: POTASSIUM CHLORIDE 10 MEQ in SODIUM CHLORIDE 0.45% 1,000 ML IVPB SCH (06:42)
[2020-09-04] MEDS: PANTOPRAZOLE 40 MG TABLET PO SCH ×2 (08:56→09:54)
[2020-09-04] MEDS ORDERED: METOPROLOL TARTRATE 25 MG TABLET (FP) PO SCH (10:00)
[2020-09-04] MEDS: APIXABAN 2.5 MG TABLET PO SCH (10:29)
[2020-09-04] MEDS: FOLIC ACID 1 MG TABLET (FP) PO SCH (10:29)
[2020-09-04] MEDS: MULTIVITAMINS (DAILY MVI) TABLET (FP) PO SCH ×2 (10:30→10:35)
[2020-09-04] MEDS: SERTRALINE HCL 50 MG TABLET (FP) PO SCH (10:30)
--- NOTE | 2020-09-04 10:30 | PN ---
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, [employer]CH[employer]IAN - Note 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: Selected Entries 09/01/20 09/01/20 09/01/20 10:00 15:00 19:37 Breakfast 25% Diet Tolerated Poor Poor Poor Lunch 25% Supper 25% Temperature Pulse Rate Blood Pressure 09/02/20 09/02/20 09/02/20 00:11 02:15 06:00 Breakfast Diet Tolerated Lunch Supper Temperature 99.5 F 99.9 F H Pulse Rate 83 81 86 Blood Pressure 161/88 151/88 131/80 Laboratory Tests 09/01/20 10:50 WBC 9.4 Selected Entries 09/02/20 09/02/20 09/03/20 06:00 13:00 00:26 Breakfast 25% Diet Tolerated Poor Poor Lunch 25% Supper 25% Temperature Pulse Rate 103 H Blood Pressure 155/95 O2 Sat by Pulse 97 Oximetry (%) 09/03/20 09/03/20 09/03/20 02:00 06:00 08:00 Breakfast Diet Tolerated Lunch Supper Temperature 97.1 F L Pulse Rate 100 H 99 H 99 H Blood Pressure 161/90 144/87 158/94 O2 Sat by Pulse 98 98 Oximetry (%) 09/03/20 09:41 Breakfast Diet Tolerated Lunch Supper Temperature 98 F Pulse Rate 99 H Blood Pressure O2 Sat by Pulse Oximetry (%) Laboratory Tests 09/01/20 10:50 WBC 9.4 Selected Entries 09/03/20 09/04/20 09/04/20 09:00 02:00 06:00 Breakfast 100% Lunch 50% Temperature 98.5 F Pulse Rate 99 H 95 H Blood Pressure 154/101 H 150/95 09/04/20 09/04/20 09/04/20 08:00 08:15 10:00 Breakfast Lunch Temperature 98.6 F 98.6 F Pulse Rate 96 H 95 H 96 H Blood Pressure 160/90 160/90 166/90 09/04/20 10:07 Breakfast Lunch Temperature Pulse Rate Blood Pressure Laboratory Tests 09/01/20 10:50 WBC 9.4 Diet modified. Poor intake with some improvement with diet modification Upon inquiry from RD,pt received turkey sandwich yesterday for lunch.(1 soft item) Today's sTAFF DOES NOT KNOW IF SHE WAS ABLE TO CHEW THE SANDWICH, PT SAID SHE ATE "A LITTLE", 1/2 OF SANDWICH NOTED ON BEDSIDE TABLE which I discarded. Today's nurse reports difficullty taking pills. Pt reports that she always crushes meds at home, unable to swallow them whole. Pt has time released pills that can not be crushed. I assisted nursing. We placed Parkinson's medication whole on applesauce. Pt cued to move it to the back of her tongue, aND NECTAR THICK LIQUID GIVEN pT INSTRUCTED TO LET IT MOVE TO THE BACK SHE DRINKS, WITH SUCCESS achieved. Pt was able to swallow whole pill with verbal cues, compensatory technique BreaKFAST TRAY NOTED AT BEDSIDE, UNTOUCHED. Trial of Dysphagia ground, add chicken salad, assist with meals please, alternate bit of food with sip of supplement
[2020-09-04] MEDS: NYSTATIN POWDER 100,000 UNITS/GM - 15 GM TOPICAL POWDER TP SCH (10:31)
[2020-09-04 12:02] LABS: BLOOD UREA NITROGEN 15.8 mg/dL (7-18); CALCIUM 9.8 mg/dL (8.5-10.1); CREATININE 2.2 mg/dL (0.55-1.3); POTASSIUM 3.9 mmol/L (3.5-5.1)
[2020-09-04] MEDS ORDERED: CARBIDOPA/LEVODOPA 25/100 TABLET (FP) PO SCH (14:00)
--- NOTE | 2020-09-04 14:29 | PN ---
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, Physician - Current Medication List Current Medications: Active Medications Acetaminophen (Tylenol -) 650 mg PO Q6H PRN PRN Reason: FEVER Last Admin: 08/28/20 15:22 Dose: 650 mg Documented by: Apixaban (Eliquis -) 5 mg PO BID [facility] Last Admin: 09/04/20 10:29 Dose: 5 mg Documented by: Carbidopa/Levodopa (Sinemet 25/100 -) 1 each PO TID [facility] Folic Acid (Folic Acid -) 1 mg PO DAILY [facility] Last Admin: 09/04/20 10:29 Dose: 1 mg Documented by: Potassium Chloride 10 meq/ (Sodium Chloride) 1,005 mls @ 100 mls/hr IVPB Q10H [facility] Last Admin: 09/04/20 06:42 Dose: 100 mls/hr Documented by: Metoprolol Tartrate (Lopressor -) 25 mg PO BID [facility] Last Admin: 09/04/20 10:29 Dose: 25 mg Documented by: Multivitamins/Minerals/Vitamin C (Tab-A-Vit -) 1 tab PO DAILY [facility] Last Admin: 09/04/20 10:35 Dose: Not Given Documented by: Nystatin (Nystop Powder -) 1 applic TP DAILY [facility] Last Admin: 09/04/20 10:31 Dose: 1 applic Documented by: Ondansetron HCl (Zofran Injection) 4 mg IVPUSH Q6H PRN PRN Reason: NAUSEA Last Admin: 08/26/20 09:25 Dose: 4 mg Documented by: Pantoprazole Sodium (Protonix -) 40 mg PO ACBK [facility] Last Admin: 09/04/20 09:54 Dose: Not Given Documented by: Sertraline HCl (Zoloft -) 50 mg PO DAILY [facility] Last Admin: 09/04/20 10:30 Dose: 50 mg Documented by: - Objective Vital Signs: Vital Signs Temperature 98.6 F 09/04/20 10:00 Pulse Rate 96 H 09/04/20 10:00 Respiratory Rate 18 09/04/20 08:15 Blood Pressure 166/90 09/04/20 10:00 O2 Sat by Pulse Oximetry (%) 98 09/04/20 08:15 Labs: CBC, BMP 09/01/20 10:50 09/04/20 11:05 INR, PTT INR 1.35 (0.83-1.09) H 09/01/20 10:50
--- NOTE | 2020-09-04 15:40 | PN ---
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, Physician History of Present Illness: Pt seen and examined at bedside. She is awake and appears comfortable. - Current Medication List Current Medications: Active Medications Acetaminophen (Tylenol -) 650 mg PO Q6H PRN PRN Reason: FEVER Last Admin: 08/28/20 15:22 Dose: 650 mg Documented by: Apixaban (Eliquis -) 5 mg PO BID [facility] Last Admin: 09/04/20 10:29 Dose: 5 mg Documented by: Carbidopa/Levodopa (Sinemet 25/100 -) 1 each PO TID [facility] Last Admin: 09/04/20 14:24 Dose: Not Given Documented by: Folic Acid (Folic Acid -) 1 mg PO DAILY [facility] Last Admin: 09/04/20 10:29 Dose: 1 mg Documented by: Potassium Chloride 10 meq/ (Sodium Chloride) 1,005 mls @ 100 mls/hr IVPB Q10H [facility] Last Admin: 09/04/20 06:42 Dose: 100 mls/hr Documented by: Metoprolol Tartrate (Lopressor -) 25 mg PO BID [facility] Last Admin: 09/04/20 10:29 Dose: 25 mg Documented by: Multivitamins/Minerals/Vitamin C (Tab-A-Vit -) 1 tab PO DAILY [facility] Last Admin: 09/04/20 10:35 Dose: Not Given Documented by: Nystatin (Nystop Powder -) 1 applic TP DAILY [facility] Last Admin: 09/04/20 10:31 Dose: 1 applic Documented by: Ondansetron HCl (Zofran Injection) 4 mg IVPUSH Q6H PRN PRN Reason: NAUSEA Last Admin: 08/26/20 09:25 Dose: 4 mg Documented by: Pantoprazole Sodium (Protonix -) 40 mg PO ACBK [facility] Last Admin: 09/04/20 09:54 Dose: Not Given Documented by: Sertraline HCl (Zoloft -) 50 mg PO DAILY [facility] Last Admin: 09/04/20 10:30 Dose: 50 mg Documented by: - Objective Vital Signs: Vital Signs Temperature 98.6 F 09/04/20 14:00 Pulse Rate 96 H 09/04/20 14:00 Respiratory Rate 18 09/04/20 08:15 Blood Pressure 166/90 09/04/20 14:00 O2 Sat by Pulse Oximetry (%) 98 09/04/20 08:15 Constitutional: Yes: Calm Eyes: Yes: Conjunctiva Clear HENT: Yes: Atraumatic Neck: Yes: Supple Cardiovascular: Yes: S1, S2 Respiratory: Yes: CTA Bilaterally Gastrointestinal: Yes: Soft Genitourinary: Yes: WNL Musculoskeletal: Yes: WNL Edema: No Neurological: Yes: Oriented Psychiatric: Yes: Oriented Labs: CBC, BMP 09/01/20 10:50 09/04/20 11:05 INR, PTT INR 1.35 (0.83-1.09) H 09/01/20 10:50 Problem List - Problems (1) AMS (altered mental status) Code(s): R41.82 - ALTERED MENTAL STATUS, UNSPECIFIED (2) ARF (acute renal failure) Code(s): N17.9 - ACUTE KIDNEY FAILURE, UNSPECIFIED Assessment/Plan Current Medications Generic Name Dose Route Start Last Admin Trade Name Freq PRN Reason Stop Dose Admin Acetaminophen 650 mg 08/25/20 20:52 08/28/20 15:22 Tylenol - PO 650 mg Q6H PRN Administration FEVER Apixaban 5 mg 08/19/20 10:00 09/04/20 10:29 Eliquis - PO 5 mg BID [facility]ESS[facility] Administration Carbidopa/Levodopa 1 each 09/04/20 14:00 09/04/20 14:24 Sinemet 25/100 - PO Not Given TID [facility] Folic Acid 1 mg 08/19/20 10:00 09/04/20 10:29 Folic Acid - PO 1 mg DAILY [facility] Administration Potassium Chloride 10 meq/ 1,005 mls @ 100 mls/hr 09/02/20 15:15 09/04/20 06:42 Sodium Chloride IVPB 100 mls/hr Q10H [facility] Administration Metoprolol Tartrate 25 mg 09/04/20 10:00 09/04/20 10:29 Lopressor - PO 25 mg BID [facility] Administration Multivitamins/Minerals/Vitamin C 1 tab 08/19/20 10:00 09/04/20 10:35 Tab-A-Vit - PO Not Given DAILY [facility] Nystatin 1 applic 09/03/20 13:00 09/04/20 10:31 Nystop Powder - TP 1 applic DAILY [facility] Administration Ondansetron HCl 4 mg 08/19/20 05:12 08/26/20 09:25 Zofran Injection IVPUSH 4 mg Q6H PRN Administration NAUSEA Pantoprazole Sodium 40 mg 08/19/20 07:00 09/04/20 09:54 Protonix - PO Not Given ACBK [facility] Sertraline HCl 50 mg 08/28/20 10:00 09/04/20 10:30 Zoloft - PO 50 mg DAILY [facility] Administration Impression 1. KWAN 2. cva 3. a-fib 4. dvt 5. altered mental status 6. lactic acidosis Plan - cont fluids - renal function is improving - will need outpt follow up - discussed with medical team - fena is about 3.6 which is consistent with atn - cont to trend [place] farmer
--- NOTE | 2020-09-04 17:30 | DS ---
Physical Examination Vital Signs: Vital Signs Temperature 98.6 F 09/04/20 14:00 Pulse Rate 96 H 09/04/20 14:00 Respiratory Rate 18 09/04/20 08:15 Blood Pressure 166/90 09/04/20 14:00 O2 Sat by Pulse Oximetry (%) 98 09/04/20 08:15 Labs: CBC, BMP 09/01/20 10:50 09/04/20 11:05 Discharge Summary Problems reviewed: Yes Reason For Visit: DIARRHEA, ALTERED MENTAL STATUS, INCREASED LACTIC Current Active Problems AMS (altered mental status) (Acute) ARF (acute renal failure) (Acute) Chronic back pain (Acute) DVT (deep venous thrombosis) (Acute) Diarrhea (Acute) Elevated lactic acid level (Acute) Lactic acid acidosis (Acute) Leukocytosis (Acute) Vomiting (Acute) Hospital Course: pT IS A 64 Y/O FEMALE W/ h SIGNIFIACNT FOR htn, afib, dvt, ra, CHRONIC back pain/spinal stenosis and has received multiple epidural injections for this. Pt presented to ER w/ her sister bc of altered mental status, weakness in her legs and diarrhea. Pt initially had CT scan head wc did not show any acute pathology. However pt than again had altered mental status and MRI brain was done wc showed acute infarct frontal verdin radiata b/l and lt post temporal cortex infarcts. Pt was on tele and was seen by neuro/cardio/infectious dz. pt was febrile and had elevated lactic acid. pt treated w/ IV antibxs however BC and urine culture/CXR were all negative. Antibiotics were stopped and pt has been afebrile Condition: Good - Instructions Diet, Activity, Other Instructions: 2 GRAM SODIUM DIET Patient needs to see resistance brazer in [address] Lan Patient needs to have her creatinine monitored very closely with labs because she developed ARF and her last creatinine was 2.2 on 09/04/20 Crush pills Referrals: Dianna Vigil MD [Primary Care Provider] - Disposition: [facility] - Home Medications Comprehensive Discharge Medication List: Ambulatory Orders Folic Acid - 1 mg PO DAILY 08/27/16 Methotrexate Sodium [Methotrexate] 2.5 mg PO ASDIR 02/09/17 Apixaban [Eliquis -] 5 mg PO BID #35 tablet 02/26/17 Multivitamins [Multivit ([facility] Form[facility])] 1 tab PO DAILY tab 02/26/17 Pantoprazole Sodium [Protonix -] 40 mg PO DAILY #40 tablet.ec 02/26/17 Acetaminophen [Tylenol .Regular Strength -] 650 mg PO Q6H PRN tablet 08/29/20 Metoprolol Succinate [Toprol XL -] 25 mg PO DAILY tab.sr.24h 08/29/20 Sertraline HCl [Zoloft -] 50 mg PO DAILY tablet 08/29/20 Carbidopa/Levodopa 25/100 [Sinemet 25/100 -] 1 each PO TID tablet 09/04/20 Metoprolol Tartrate [Lopressor -] 25 mg PO BID tablet 09/04/20 Nystatin Powder [Nystop Powder -] 1 applic TP DAILY applic 09/04/20
[2020-09-04 18:07] VITALS: BP 161/81; PULSE 98; TEMP 98.7
== END 2020-09-04 18:24 | DRG 64 ==
LOC: JER 16:05 → JERBED 23:29 → J5S 08-19 20:02 → JICU 08-21 14:34
PROVIDERS: ADMIT Internal Medicine; ATTEND Internal Medicine
DX: I63.9 Cerebral infarction, unspecified (principal); G92 Toxic encephalopathy; N17.0 Acute kidney failure with tubular necrosis; E87.2 Acidosis; I50.30 Unspecified diastolic (congestive) heart failure; N17.9 Acute kidney failure, unspecified; R50.9 Fever, unspecified; I10 Essential (primary) hypertension; R41.82 Altered mental status, unspecified; R29.730 NIHSS score 30; D72.829 Elevated white blood cell count, unspecified; G20 Parkinson's disease; D64.9 Anemia, unspecified; I48.91 Unspecified atrial fibrillation; M06.9 Rheumatoid arthritis, unspecified; F41.8 Other specified anxiety disorders
CPT/HCPCS: 36415; 70450-TC; 70551-TC; 71045-TC-FY; 72100-TC-FY; 72141-TC; 72148-TC; 74177-TC; 76775-TC; 76856-TC; 80048; 80053; 80061; 81003; 82436; 82550; 82553; 82565; 82607; 82962; 83605; 83690; 83721; 83735; 83880; 84100; 84133; 84300; 84443; 84484; 85025; 85027; 85610; 85651; 85730; 86038; 86140; 86431; 86780; 86850; 86900; 86901; 87040; 87086; 90670; 93005; 93010; 93306-TC; 97116-GP; 97161-GP; 99285-25; J0131; U0003

== ENCOUNTER 2021-08-17 19:37 | Inpatient (IN) | payer OTHER, BC ==
[2021-08-17] MEDS ORDERED: SODIUM CHLORIDE 0.9% 500 ML INFUS.BAG IV ONE (20:26)
[2021-08-17] MEDS ORDERED: ACETAMINOPHEN 1000 MG/100 ML VIAL (NON FORMULARY) IVPB ONE (20:27)
[2021-08-17] MEDS ORDERED: ACETAMINOPHEN INJECTION 100 ML IVPB ONE (20:33)
[2021-08-17 21:25] LABS: HEMOGLOBIN 10.3 GM/dL (10.7-15.3); MCH 21.9 pg (25.7-33.7); MCHC 31.3 g/dl (32.0-36.0); MEAN CELL VOLUME 70.1 fl (80-96); MEAN PLT VOLUME 8.6 fl (7.5-11.1); PLATELET COUNT 262 10^3/uL (134-434); RDW 20.7 % (11.6-15.6); WHITE BLOOD COUNT 11.7 K/mm3 (4.0-10.0)
[2021-08-17 21:29] LABS: INR 1.59 (0.83-1.09); PROTHROMBIN TIME (PATIENT) 19.7 SEC (9.7-13.0)
[2021-08-17 21:31] LABS: ACTIVATED PTT 36.8 SECONDS (25.2-36.5)
[2021-08-17 21:33] LABS: VENOUS BASE EXCESS 0.3 mmol/L (-2-2); VENOUS O2 SATURATION 37.2 % (70-80); VENOUS PCO2 46.9 mmHg (38-52); VENOUS PH 7.363 (7.310-7.410)
[2021-08-17 21:59] LABS: CHLORIDE 99 mmol/L (98-107); SODIUM 132 mmol/L (136-145)
[2021-08-17 22:01] LABS: ALBUMIN 3.7 g/dl (3.4-5.0); ANION GAP 8 MMOL/L (8-16); BLOOD UREA NITROGEN 13.2 mg/dL (7-18); CALCIUM 9.7 mg/dL (8.5-10.1); CO2 25 mmol/L (21-32)
[2021-08-17 22:02] LABS: GLUCOSE,RANDOM 89 mg/dL (74-106)
[2021-08-17 22:04] LABS: SGPT/ALT < 6 U/L (13-61)
[2021-08-17 22:05] LABS: CREATININE 1.4 mg/dL (0.55-1.3); SGOT/AST 16 U/L (15-37)
[2021-08-17 22:06] LABS: BILIRUBIN,TOTAL 0.8 mg/dL (0.2-1); TOT PROT 9.4 g/dl (6.4-8.2)
[2021-08-17 22:07] LABS: ALK PHOS 147 U/L (45-117)
[2021-08-17 22:20] LABS: URINE APPEARANCE CLEAR; URINE BILIRUBIN NEGATIVE (NEGATIVE); URINE COLOR YELLOW; URINE GLUCOSE (UA) NEGATIVE (NEGATIVE); URINE KETONE NEGATIVE (NEGATIVE); URINE LEUK ESTERASE NEGATIVE (NEGATIVE); URINE NITRITE NEGATIVE (NEGATIVE); URINE PROTEIN NEGATIVE (NEGATIVE); URINE UROBILINOGEN 0.2 mg/dL (0.2-1.0)
[2021-08-17 22:23] LABS: ANISOCYTOSIS 3+; MACROCYTOSIS 0; OVALOCYTE 1+; PLATELET ESTIMATE NORMAL; TEAR DROP CELLS 1+
[2021-08-18] MEDS ORDERED: ONDANSETRON 4 MG TABLET PO PRN (01:01)
[2021-08-18 04:26] VITALS: BMI 24.2
[2021-08-18] MEDS ORDERED: ACETAMINOPHEN 1000 MG/100 ML VIAL (NON FORMULARY) IVPB PRN (05:43)
[2021-08-18] MEDS: CARBIDOPA/LEVODOPA 25/100 TABLET (FP) PO SCH ×3 (06:02→22:46)
[2021-08-18 08:23] LABS: HIV INTERPRETATION NEGATIVE (NEGATIVE)
[2021-08-18 09:26] LABS: HEMATOCRIT 28.7 % (32.4-45.2); HEMOGLOBIN 8.9 GM/dL (10.7-15.3); MCH 21.9 pg (25.7-33.7); MEAN CELL VOLUME 70.7 fl (80-96); MEAN PLT VOLUME 8.1 fl (7.5-11.1); PLATELET COUNT 212 10^3/uL (134-434); RBC 4.05 M/mm3 (3.60-5.2); RDW 20.3 % (11.6-15.6); WHITE BLOOD COUNT 11.8 K/mm3 (4.0-10.0)
[2021-08-18 09:58] LABS: CALCIUM 9.1 mg/dL (8.5-10.1)
[2021-08-18 09:59] LABS: BLOOD UREA NITROGEN 13.8 mg/dL (7-18); MAGNESIUM 2.1 mg/dL (1.8-2.4)
[2021-08-18 10:02] LABS: CREATININE 1.2 mg/dL (0.55-1.3); PHOSPHOROUS 2.7 mg/dL (2.5-4.9)
[2021-08-18] MEDS ORDERED: cefTRIAXone SODIUM 1 GM VIAL ONE (10:32)
[2021-08-18] MEDS ORDERED: DEXTROSE 5%-WATER - 50 ML IVPB ONE (10:33)
[2021-08-18] MEDS: CEFTRIAXONE 1 GM in DEXTROSE 5%-WATER - 50 ML IVPB SCH (10:59)
[2021-08-18] MEDS: PANTOPRAZOLE SODIUM 40 MG VIAL IVPUSH SCH (10:59)
[2021-08-18] MEDS: FAMOTIDINE 20 MG TABLET PO SCH (11:01)
[2021-08-18] MEDS: APIXABAN 5 MG TABLET PO SCH ×2 (11:01→22:46)
[2021-08-18] MEDS: METOPROLOL TARTRATE 25 MG TABLET (FP) PO SCH ×2 (11:02→22:46)
[2021-08-18] MEDS: FERROUS SO4 325 MG TABLET (FP) PO SCH (11:02)
[2021-08-18] MEDS: SERTRALINE HCL 25 MG TABLET (FP) PO SCH (11:02)
[2021-08-18 12:15] LABS: ANISOCYTOSIS 2+; MACROCYTOSIS 0; OVALOCYTE 1+; PLATELET ESTIMATE NORMAL
[2021-08-18] MEDS ORDERED: ACETAMINOPHEN 1000 MG/100 ML VIAL (NON FORMULARY) IVPB ONE (21:52)
[2021-08-19] MEDS: CARBIDOPA/LEVODOPA 25/100 TABLET (FP) PO SCH ×3 (05:28→21:16)
[2021-08-19] MEDS ORDERED: ACETAMINOPHEN 1000 MG/100 ML VIAL (NON FORMULARY) IVPB ONE (05:53)
[2021-08-19 09:01] LABS: BASO % 0.1 % (0-2.0); HEMATOCRIT 27.5 % (32.4-45.2); HEMOGLOBIN 8.5 GM/dL (10.7-15.3); LYMPH % 2.5 % (8-40); MCH 21.7 pg (25.7-33.7); MEAN CELL VOLUME 70.1 fl (80-96); MEAN PLT VOLUME 8.4 fl (7.5-11.1); MONO % 7.6 % (3.8-10.2); NEUT % 89.8 % (42.8-82.8); PLATELET COUNT 216 10^3/uL (134-434); RBC 3.92 M/mm3 (3.60-5.2); RDW 20.3 % (11.6-15.6)
[2021-08-19 09:25] LABS: CHLORIDE 103 mmol/L (98-107); SODIUM 133 mmol/L (136-145)
[2021-08-19 09:31] LABS: CALCIUM 8.8 mg/dL (8.5-10.1); GLUCOSE,RANDOM 83 mg/dL (74-106)
[2021-08-19 09:32] LABS: ANION GAP 7 MMOL/L (8-16); BLOOD UREA NITROGEN 14.9 mg/dL (7-18); CO2 23 mmol/L (21-32); MAGNESIUM 2.1 mg/dL (1.8-2.4)
[2021-08-19 09:33] LABS: CREATININE 1.2 mg/dL (0.55-1.3); SGPT/ALT < 6 U/L (13-61)
[2021-08-19 09:34] LABS: PHOSPHOROUS 2.1 mg/dL (2.5-4.9); SGOT/AST 10 U/L (15-37)
[2021-08-19 09:35] LABS: BILIRUBIN,TOTAL 0.5 mg/dL (0.2-1)
[2021-08-19 09:37] LABS: ALBUMIN 2.4 g/dl (3.4-5.0); ALK PHOS 104 U/L (45-117); TOT PROT 6.7 g/dl (6.4-8.2)
[2021-08-19] MEDS ORDERED: cefTRIAXone SODIUM 1 GM VIAL ONE (10:36)
[2021-08-19] MEDS ORDERED: DEXTROSE 5%-WATER - 50 ML IVPB ONE ×2 (10:37→17:42)
[2021-08-19] MEDS: PANTOPRAZOLE SODIUM 40 MG VIAL IVPUSH SCH (11:34)
[2021-08-19] MEDS: METOPROLOL TARTRATE 25 MG TABLET (FP) PO SCH ×2 (11:35→21:16)
[2021-08-19] MEDS: SERTRALINE HCL 25 MG TABLET (FP) PO SCH (11:35)
[2021-08-19] MEDS: FERROUS SO4 325 MG TABLET (FP) PO SCH ×2 (11:35→13:24)
[2021-08-19] MEDS: FAMOTIDINE 20 MG TABLET PO SCH (11:35)
[2021-08-19] MEDS: APIXABAN 5 MG TABLET PO SCH (11:36)
[2021-08-19] MEDS: CEFTRIAXONE 1 GM in DEXTROSE 5%-WATER - 50 ML IVPB SCH (11:37)
[2021-08-19] MEDS ORDERED: BUPIVACAINE HCL/PF 0.5% (5MG/ML) 10 ML VIAL ONE (12:53)
[2021-08-19] MEDS ORDERED: ACETAMINOPHEN 1000 MG/100 ML VIAL (NON FORMULARY) IVPB PRN (14:58)
[2021-08-19] MEDS ORDERED: PT OWN MED DRAWER 7, Y5N ONE (15:14)
[2021-08-19] MEDS ORDERED: PIPERACILLIN/TAZOBACTAM 3.375 GM VIAL IVPB ONE (17:41)
[2021-08-19] MEDS: PIPERACILLIN/TAZOB 3.375 GM 3.375 GM in DEXTROSE 5%-WATER - 50 ML IVPB SCH (18:17)
[2021-08-20] MEDS ORDERED: DEXTROSE 5%-WATER - 50 ML IVPB ONE ×3 (01:44→16:35)
[2021-08-20] MEDS ORDERED: PIPERACILLIN/TAZOBACTAM 3.375 GM VIAL IVPB ONE ×3 (01:44→16:35)
[2021-08-20] MEDS: PIPERACILLIN/TAZOB 3.375 GM 3.375 GM in DEXTROSE 5%-WATER - 50 ML IVPB SCH ×3 (01:46→17:30)
[2021-08-20] MEDS: CARBIDOPA/LEVODOPA 25/100 TABLET (FP) PO SCH ×3 (06:05→22:17)
[2021-08-20 09:13] LABS: ALBUMIN 2.5 g/dl (3.4-5.0); BILIRUBIN,TOTAL 0.5 mg/dL (0.2-1); BLOOD UREA NITROGEN 16.4 mg/dL (7-18); CALCIUM 8.8 mg/dL (8.5-10.1); CREATININE 1.3 mg/dL (0.55-1.3); MAGNESIUM 2.1 mg/dL (1.8-2.4); PHOSPHOROUS 2.3 mg/dL (2.5-4.9)
[2021-08-20] MEDS: FERROUS SO4 325 MG TABLET (FP) PO SCH (10:03)
[2021-08-20] MEDS: FAMOTIDINE 20 MG TABLET PO SCH (10:03)
[2021-08-20] MEDS: SERTRALINE HCL 25 MG TABLET (FP) PO SCH (10:03)
[2021-08-20] MEDS: METOPROLOL TARTRATE 25 MG TABLET (FP) PO SCH ×2 (10:41→22:17)
[2021-08-20] MEDS: PANTOPRAZOLE SODIUM 40 MG VIAL IVPUSH SCH (10:41)
[2021-08-20] MEDS ORDERED: BUPIVACAINE HCL/PF 0.5% (5MG/ML) 10 ML VIAL ONE (10:51)
[2021-08-20] MEDS ORDERED: ROCURONIUM BROMIDE 50 MG/5 ML SYRINGE ONE (11:36)
[2021-08-20] MEDS ORDERED: PROPOFOL 20 ML ONE (11:36)
[2021-08-20] MEDS ORDERED: DEXAMETHASONE SOD PHOSPHATE 4 MG/1 ML VIAL ONE (11:51)
[2021-08-20] MEDS ORDERED: NEOSTIGMINE METHYLSULFATE 0.5 MG/ML - 10 ML MDV ONE (12:11)
[2021-08-20] MEDS ORDERED: GLYCOPYRROLATE 0.2 MG/1 ML VIAL ONE (12:12)
[2021-08-20] MEDS ORDERED: BUPIVACAINE HCL/PF 0.5% (5MG/ML) 10 ML VIAL IJ ONE (12:15)
[2021-08-20] MEDS ORDERED: ONDANSETRON 4 MG TABLET PO PRN (12:46)
[2021-08-20] MEDS ORDERED: ONDANSETRON 4 MG/2 ML VIAL ONE (13:10)
[2021-08-20] MEDS ORDERED: ONDANSETRON 4 MG/2 ML VIAL IVPUSH ONE (13:13)
[2021-08-20] MEDS ORDERED: ONDANSETRON 4 MG/2 ML VIAL IVPUSH PRN (14:02)
[2021-08-20] MEDS ORDERED: oxyCODONE HCL 5 MG TABLET PO PRN (14:02)
[2021-08-20] MEDS: LACTATED RINGERS SOLUTION 1,000 ML IV SCH (14:24)
[2021-08-20] MEDS: oxyCODONE HCL 5 MG TABLET PO PRN (15:56)
[2021-08-20] MEDS: ACETAMINOPHEN 1000 MG/100 ML VIAL (NON FORMULARY) IVPB PRN (17:26)
[2021-08-21] MEDS ORDERED: PIPERACILLIN/TAZOBACTAM 3.375 GM VIAL IVPB ONE ×3 (00:49→16:14)
[2021-08-21] MEDS ORDERED: DEXTROSE 5%-WATER - 50 ML IVPB ONE ×3 (00:49→16:14)
[2021-08-21] MEDS: LACTATED RINGERS SOLUTION 1,000 ML IV SCH ×4 (01:01→20:11)
[2021-08-21] MEDS: PIPERACILLIN/TAZOB 3.375 GM 3.375 GM in DEXTROSE 5%-WATER - 50 ML IVPB SCH ×3 (01:05→17:00)
[2021-08-21] MEDS: ACETAMINOPHEN 1000 MG/100 ML VIAL (NON FORMULARY) IVPB PRN (01:52)
[2021-08-21] MEDS: CARBIDOPA/LEVODOPA 25/100 TABLET (FP) PO SCH ×3 (05:49→22:10)
[2021-08-21 09:09] LABS: CHLORIDE 103 mmol/L (98-107); SODIUM 134 mmol/L (136-145)
[2021-08-21] MEDS ORDERED: ALBUTEROL SO4 0.083% IH SOL 2.5 MG/3 ML VIAL.NEB. NEB ONE (09:10)
[2021-08-21 09:19] LABS: CALCIUM 9.1 mg/dL (8.5-10.1)
[2021-08-21 09:20] LABS: ALBUMIN 2.3 g/dl (3.4-5.0); ANION GAP 8 MMOL/L (8-16); BLOOD UREA NITROGEN 17.6 mg/dL (7-18); CO2 23 mmol/L (21-32); GLUCOSE,RANDOM 99 mg/dL (74-106); MAGNESIUM 2.3 mg/dL (1.8-2.4)
[2021-08-21 09:23] LABS: CREATININE 1.2 mg/dL (0.55-1.3); HEMATOCRIT 28.2 % (32.4-45.2); HEMOGLOBIN 8.8 GM/dL (10.7-15.3); MCH 21.8 pg (25.7-33.7); MCHC 31.2 g/dl (32.0-36.0); MEAN CELL VOLUME 69.8 fl (80-96); MEAN PLT VOLUME 8.8 fl (7.5-11.1); PHOSPHOROUS 2.3 mg/dL (2.5-4.9); PLATELET COUNT 207 10^3/uL (134-434); RBC 4.03 M/mm3 (3.60-5.2); RDW 21.2 % (11.6-15.6); SGOT/AST 19 U/L (15-37); SGPT/ALT < 6 U/L (13-61); WHITE BLOOD COUNT 14.4 K/mm3 (4.0-10.0)
[2021-08-21 09:24] LABS: BILIRUBIN,TOTAL 0.5 mg/dL (0.2-1); TOT PROT 6.5 g/dl (6.4-8.2)
[2021-08-21 09:25] LABS: ALK PHOS 95 U/L (45-117)
[2021-08-21] MEDS ORDERED: ALBUTEROL SO4 HFA INHALER IH ONE (09:45)
[2021-08-21] MEDS: FAMOTIDINE 20 MG TABLET PO SCH (10:04)
[2021-08-21] MEDS: METOPROLOL TARTRATE 25 MG TABLET (FP) PO SCH ×2 (10:04→22:10)
[2021-08-21] MEDS: FERROUS SO4 325 MG TABLET (FP) PO SCH (10:04)
[2021-08-21] MEDS: PANTOPRAZOLE SODIUM 40 MG VIAL IVPUSH SCH (10:04)
[2021-08-21] MEDS: SERTRALINE HCL 25 MG TABLET (FP) PO SCH (10:04)
[2021-08-21 10:23] LABS: ANISOCYTOSIS 2+; MACROCYTOSIS 0; PLATELET ESTIMATE NORMAL; ROULEAU 1+; TEAR DROP CELLS 1+
[2021-08-21] MEDS: APIXABAN 5 MG TABLET PO SCH ×2 (12:54→22:10)
[2021-08-21] MEDS: oxyCODONE HCL 5 MG TABLET PO PRN (16:50)
[2021-08-21] MEDS ORDERED: ACETAMINOPHEN 1000 MG/100 ML VIAL (NON FORMULARY) IVPB ONE (22:17)
[2021-08-21] MEDS ORDERED: ACETAMINOPHEN INJECTION 100 ML IVPB ONE (22:21)
[2021-08-22] MEDS ORDERED: PIPERACILLIN/TAZOBACTAM 3.375 GM VIAL IVPB ONE ×3 (00:31→17:02)
[2021-08-22] MEDS ORDERED: DEXTROSE 5%-WATER - 50 ML IVPB ONE ×3 (00:31→17:03)
[2021-08-22] MEDS: PIPERACILLIN/TAZOB 3.375 GM 3.375 GM in DEXTROSE 5%-WATER - 50 ML IVPB SCH ×3 (01:25→17:16)
[2021-08-22] MEDS: LACTATED RINGERS SOLUTION 1,000 ML IV SCH (04:53)
[2021-08-22] MEDS: CARBIDOPA/LEVODOPA 25/100 TABLET (FP) PO SCH ×3 (05:45→23:18)
[2021-08-22] MEDS ORDERED: ACETAMINOPHEN INJECTION 100 ML IVPB ONE (07:22)
[2021-08-22] MEDS ORDERED: ACETAMINOPHEN 1000 MG/100 ML VIAL (NON FORMULARY) IVPB ONE (07:26)
[2021-08-22 08:16] LABS: HEMATOCRIT 28.9 % (32.4-45.2); HEMOGLOBIN 8.8 GM/dL (10.7-15.3); MCH 21.3 pg (25.7-33.7); MCHC 30.5 g/dl (32.0-36.0); MEAN CELL VOLUME 69.9 fl (80-96); MEAN PLT VOLUME 8.6 fl (7.5-11.1); PLATELET COUNT 251 10^3/uL (134-434); RBC 4.13 M/mm3 (3.60-5.2); RDW 21.1 % (11.6-15.6); WHITE BLOOD COUNT 19.3 K/mm3 (4.0-10.0)
[2021-08-22 08:37] LABS: ALBUMIN 2.1 g/dl (3.4-5.0); CALCIUM 8.7 mg/dL (8.5-10.1)
[2021-08-22 08:38] LABS: BLOOD UREA NITROGEN 13.6 mg/dL (7-18); MAGNESIUM 1.9 mg/dL (1.8-2.4)
[2021-08-22 08:41] LABS: CREATININE 1.4 mg/dL (0.55-1.3); PHOSPHOROUS 1.6 mg/dL (2.5-4.9)
[2021-08-22 08:42] LABS: BILIRUBIN,TOTAL 0.5 mg/dL (0.2-1); TOT PROT 6.2 g/dl (6.4-8.2)
[2021-08-22 08:53] LABS: LACTIC ACID 2.4 mmol/L (0.4-2.0)
[2021-08-22] MEDS ORDERED: LACTATED RINGERS SOLUTION 1,000 ML/1,000 ML INFUS.BAG IV SCH (09:00)
[2021-08-22] MEDS: FAMOTIDINE 20 MG TABLET PO SCH (11:41)
[2021-08-22] MEDS: APIXABAN 5 MG TABLET PO SCH ×2 (11:41→23:02)
[2021-08-22] MEDS: FERROUS SO4 325 MG TABLET (FP) PO SCH (11:41)
[2021-08-22] MEDS: SERTRALINE HCL 25 MG TABLET (FP) PO SCH (11:42)
[2021-08-22] MEDS: PANTOPRAZOLE SODIUM 40 MG VIAL IVPUSH SCH (11:42)
[2021-08-22 11:57] LABS: ANISOCYTOSIS 1+; MACROCYTOSIS 0; OVALOCYTE 1+; PLATELET ESTIMATE NORMAL
[2021-08-22] MEDS ORDERED: PT OWN MED DRAWER 7, Y5N ONE ×2 (14:23→18:29)
[2021-08-22] MEDS: METOPROLOL TARTRATE 25 MG TABLET (FP) PO SCH ×2 (15:02→23:02)
[2021-08-22] MEDS: ACETAMINOPHEN 1000 MG/100 ML VIAL (NON FORMULARY) IVPB PRN (17:30)
[2021-08-22 17:43] LABS: EPI CELLS >36 /uL (0-25.1); HYALINE CASTS 2 /uL (0-3.1); PH,URINE 5.5 (5.0-8.0); URINE APPEARANCE CLOUDY; URINE BACTERIA 3 /uL (0-1359); URINE BILIRUBIN NEGATIVE (NEGATIVE); URINE COLOR YELLOW; URINE GLUCOSE (UA) NEGATIVE (NEGATIVE); URINE KETONE TRACE (NEGATIVE); URINE LEUK ESTERASE NEGATIVE (NEGATIVE); URINE NITRITE NEGATIVE (NEGATIVE); URINE PROTEIN 2+ (NEGATIVE); URINE RBC 40 /uL (0-23.9); URINE WBC 41 /uL (0-25.8)
[2021-08-22] MEDS: metroNIDAZOLE 500 MG TABLET PO SCH (23:02)
[2021-08-23] MEDS: PIPERACILLIN/TAZOB 3.375 GM 3.375 GM in DEXTROSE 5%-WATER - 50 ML IVPB SCH ×2 (03:30→11:14)
[2021-08-23] MEDS ORDERED: DEXTROSE 5%-WATER - 50 ML IVPB ONE ×2 (03:34→09:16)
[2021-08-23] MEDS ORDERED: PIPERACILLIN/TAZOBACTAM 3.375 GM VIAL IVPB ONE ×2 (03:34→09:16)
[2021-08-23] MEDS ORDERED: PT OWN MED DRAWER 7, Y5N ONE ×3 (05:06→21:25)
[2021-08-23] MEDS: CARBIDOPA/LEVODOPA 25/100 TABLET (FP) PO SCH ×3 (06:39→21:27)
[2021-08-23] MEDS: METOPROLOL TARTRATE 25 MG TABLET (FP) PO SCH ×3 (06:39→21:27)
[2021-08-23] MEDS: metroNIDAZOLE 500 MG TABLET PO SCH ×2 (06:39→13:23)
[2021-08-23 08:16] LABS: HEMATOCRIT 27.7 % (32.4-45.2); HEMOGLOBIN 8.4 GM/dL (10.7-15.3); MCH 21.3 pg (25.7-33.7); MCHC 30.5 g/dl (32.0-36.0); MEAN CELL VOLUME 69.9 fl (80-96); MEAN PLT VOLUME 8.5 fl (7.5-11.1); PLATELET COUNT 251 10^3/uL (134-434); RBC 3.96 M/mm3 (3.60-5.2); RDW 20.7 % (11.6-15.6); WHITE BLOOD COUNT 23.7 K/mm3 (4.0-10.0)
[2021-08-23 08:37] LABS: CALCIUM 8.1 mg/dL (8.5-10.1)
[2021-08-23 08:38] LABS: BLOOD UREA NITROGEN 11.9 mg/dL (7-18)
[2021-08-23 08:41] LABS: CREATININE 1.3 mg/dL (0.55-1.3)
[2021-08-23] MEDS: PANTOPRAZOLE SODIUM 40 MG VIAL IVPUSH SCH (11:20)
[2021-08-23] MEDS: APIXABAN 5 MG TABLET PO SCH ×2 (12:46→21:27)
[2021-08-23] MEDS: SERTRALINE HCL 25 MG TABLET (FP) PO SCH (12:46)
[2021-08-23] MEDS: FERROUS SO4 325 MG TABLET (FP) PO SCH (12:46)
[2021-08-23] MEDS: FAMOTIDINE 20 MG TABLET PO SCH (12:46)
[2021-08-23] MEDS ORDERED: VANCOMYCIN 1 GRAM (PRE-DOCKED) 1,000 MG/250 ML BAG IVPB SCH (15:30)
[2021-08-23] MEDS: ACETAMINOPHEN 1000 MG/100 ML VIAL (NON FORMULARY) IVPB PRN (15:42)
[2021-08-23] MEDS ORDERED: MEROPENEM 1 GM VIAL (RESTRICTED TO ID) IVPB ONE (16:02)
[2021-08-23] MEDS ORDERED: DEXTROSE 5%-WATER 100 ML IVPB ONE (16:02)
[2021-08-23] MEDS: MEROPENEM 1 GM in DEXTROSE 5%-WATER 100 ML IVPB SCH ×2 (16:06→17:14)
[2021-08-23] MEDS: VANCOMYCIN/WATER FOR INJ (PEG) 750 MG/150 ML BAG IVPB SCH (16:16)
[2021-08-23] MEDS: DEXTROSE 5%-NORMAL SALINE 1,000 ML IV SCH (19:44)
[2021-08-24] MEDS ORDERED: MEROPENEM 1 GM VIAL (RESTRICTED TO ID) IVPB ONE ×3 (02:12→17:07)
[2021-08-24] MEDS ORDERED: DEXTROSE 5%-WATER 100 ML IVPB ONE ×3 (02:13→17:07)
[2021-08-24] MEDS: MEROPENEM 1 GM in DEXTROSE 5%-WATER 100 ML IVPB SCH ×3 (02:15→17:11)
[2021-08-24] MEDS ORDERED: ACETAMINOPHEN 1000 MG/100 ML VIAL (NON FORMULARY) IVPB ONE (02:29)
[2021-08-24] MEDS: VANCOMYCIN/WATER FOR INJ (PEG) 750 MG/150 ML BAG IVPB SCH ×2 (06:52→18:09)
[2021-08-24] MEDS: METOPROLOL TARTRATE 25 MG TABLET (FP) PO SCH ×3 (06:52→21:19)
[2021-08-24] MEDS: CARBIDOPA/LEVODOPA 25/100 TABLET (FP) PO SCH ×3 (06:53→21:19)
[2021-08-24 07:16] LABS: HEMATOCRIT 24.1 % (32.4-45.2); HEMOGLOBIN 7.5 GM/dL (10.7-15.3); MCH 21.3 pg (25.7-33.7); MEAN CELL VOLUME 68.7 fl (80-96); MEAN PLT VOLUME 8.2 fl (7.5-11.1); PLATELET COUNT 226 10^3/uL (134-434); RBC 3.51 M/mm3 (3.60-5.2); RDW 20.9 % (11.6-15.6)
[2021-08-24 07:32] LABS: CALCIUM 7.7 mg/dL (8.5-10.1)
[2021-08-24 07:33] LABS: BLOOD UREA NITROGEN 13.7 mg/dL (7-18)
[2021-08-24 07:36] LABS: CREATININE 1.1 mg/dL (0.55-1.3)
[2021-08-24 09:26] LABS: ANISOCYTOSIS 0; MACROCYTOSIS 0; OVALOCYTE 1+; PLATELET ESTIMATE NORMAL
[2021-08-24] MEDS: FERROUS SO4 325 MG TABLET (FP) PO SCH (09:34)
[2021-08-24] MEDS: APIXABAN 5 MG TABLET PO SCH ×2 (09:34→21:19)
[2021-08-24] MEDS: FAMOTIDINE 20 MG TABLET PO SCH (09:34)
[2021-08-24] MEDS: SERTRALINE HCL 25 MG TABLET (FP) PO SCH (09:34)
[2021-08-24] MEDS: PANTOPRAZOLE SODIUM 40 MG VIAL IVPUSH SCH (10:13)
[2021-08-24] MEDS ORDERED: PT OWN MED DRAWER 7, Y5N ONE ×2 (12:46→21:11)
[2021-08-24] MEDS ORDERED: ACETAMINOPHEN INJECTION 100 ML IVPB ONE (18:03)
[2021-08-24] MEDS: DEXTROSE 5%-NORMAL SALINE 1,000 ML IV SCH (20:30)
[2021-08-25] MEDS ORDERED: DEXTROSE 5%-WATER 100 ML IVPB ONE ×3 (01:19→19:02)
[2021-08-25] MEDS ORDERED: MEROPENEM 1 GM VIAL (RESTRICTED TO ID) IVPB ONE ×3 (01:19→19:02)
[2021-08-25] MEDS: MEROPENEM 1 GM in DEXTROSE 5%-WATER 100 ML IVPB SCH ×3 (01:56→19:04)
[2021-08-25] MEDS ORDERED: PT OWN MED DRAWER 7, Y5N ONE ×3 (03:45→21:16)
[2021-08-25] MEDS: VANCOMYCIN/WATER FOR INJ (PEG) 750 MG/150 ML BAG IVPB SCH (03:46)
[2021-08-25] MEDS: CARBIDOPA/LEVODOPA 25/100 TABLET (FP) PO SCH ×3 (06:18→21:53)
[2021-08-25] MEDS: METOPROLOL TARTRATE 25 MG TABLET (FP) PO SCH ×3 (06:18→21:53)
[2021-08-25] MEDS ORDERED: ACETAMINOPHEN 325 MG TABLET (FP) PO PRN (07:15)
[2021-08-25 08:35] LABS: HEMATOCRIT 26.5 % (32.4-45.2); HEMOGLOBIN 8.1 GM/dL (10.7-15.3); MCH 21.4 pg (25.7-33.7); MCHC 30.6 g/dl (32.0-36.0); MEAN CELL VOLUME 69.9 fl (80-96); MEAN PLT VOLUME 8.7 fl (7.5-11.1); PLATELET COUNT 233 10^3/uL (134-434); WHITE BLOOD COUNT 19.3 K/mm3 (4.0-10.0)
[2021-08-25 08:49] LABS: CHLORIDE 105 mmol/L (98-107); SODIUM 138 mmol/L (136-145)
[2021-08-25 08:57] LABS: ANION GAP 6 MMOL/L (8-16); CALCIUM 8.2 mg/dL (8.5-10.1); CO2 27 mmol/L (21-32); GLUCOSE,RANDOM 94 mg/dL (74-106)
[2021-08-25 08:58] LABS: BLOOD UREA NITROGEN 12.8 mg/dL (7-18); MAGNESIUM 2.4 mg/dL (1.8-2.4)
[2021-08-25 08:59] LABS: CREATININE 0.9 mg/dL (0.55-1.3)
[2021-08-25 09:00] LABS: PHOSPHOROUS 1.7 mg/dL (2.5-4.9)
[2021-08-25 09:01] LABS: ALK PHOS 72 U/L (45-117); BILIRUBIN,TOTAL 0.3 mg/dL (0.2-1); SGOT/AST 32 U/L (15-37); TOT PROT 5.4 g/dl (6.4-8.2)
[2021-08-25 09:06] LABS: ALBUMIN 1.5 g/dl (3.4-5.0); SGPT/ALT < 6 U/L (13-61)
[2021-08-25] MEDS: APIXABAN 5 MG TABLET PO SCH ×2 (09:32→21:53)
[2021-08-25] MEDS: FERROUS SO4 325 MG TABLET (FP) PO SCH (09:32)
[2021-08-25] MEDS: FAMOTIDINE 20 MG TABLET PO SCH (09:32)
[2021-08-25] MEDS: SERTRALINE HCL 25 MG TABLET (FP) PO SCH (09:32)
[2021-08-25] MEDS: PANTOPRAZOLE SODIUM 40 MG VIAL IVPUSH SCH (09:41)
[2021-08-25 11:33] LABS: ANISOCYTOSIS 1+; MACROCYTOSIS 0; PLATELET ESTIMATE NORMAL
[2021-08-25] MEDS: DEXTROSE 5%-NORMAL SALINE 1,000 ML IV SCH (18:06)
[2021-08-26] MEDS ORDERED: DEXTROSE 5%-WATER 100 ML IVPB ONE ×4 (02:08→17:13)
[2021-08-26] MEDS ORDERED: MEROPENEM 1 GM VIAL (RESTRICTED TO ID) IVPB ONE ×4 (02:08→17:13)
[2021-08-26] MEDS: MEROPENEM 1 GM in DEXTROSE 5%-WATER 100 ML IVPB SCH ×3 (02:21→18:15)
[2021-08-26] MEDS ORDERED: PT OWN MED DRAWER 7, Y5N ONE ×2 (05:45→21:20)
[2021-08-26] MEDS: METOPROLOL TARTRATE 25 MG TABLET (FP) PO SCH ×3 (06:11→21:59)
[2021-08-26] MEDS: CARBIDOPA/LEVODOPA 25/100 TABLET (FP) PO SCH ×3 (06:11→21:59)
[2021-08-26] MEDS ORDERED: ONDANSETRON 4 MG TABLET PO PRN (07:42)
[2021-08-26] MEDS ORDERED: POTASSIUM CHLORIDE ORAL LIQUID 20 MEQ/15 ML PO ONE (08:15)
[2021-08-26 08:16] LABS: HEMATOCRIT 25.1 % (32.4-45.2); HEMOGLOBIN 7.8 GM/dL (10.7-15.3); MCH 21.5 pg (25.7-33.7); MCHC 31.1 g/dl (32.0-36.0); MEAN CELL VOLUME 69.1 fl (80-96); MEAN PLT VOLUME 8.2 fl (7.5-11.1); PLATELET COUNT 217 10^3/uL (134-434); RBC 3.63 M/mm3 (3.60-5.2); RDW 21.3 % (11.6-15.6); WHITE BLOOD COUNT 14.2 K/mm3 (4.0-10.0)
[2021-08-26 08:21] LABS: ALBUMIN 1.6 g/dl (3.4-5.0); MAGNESIUM 2.4 mg/dL (1.8-2.4)
[2021-08-26 08:23] LABS: BLOOD UREA NITROGEN 11.8 mg/dL (7-18)
[2021-08-26 08:25] LABS: CREATININE 0.8 mg/dL (0.55-1.3)
[2021-08-26 08:26] LABS: PHOSPHOROUS 1.8 mg/dL (2.5-4.9); TOT PROT 5.7 g/dl (6.4-8.2)
[2021-08-26 08:28] LABS: BILIRUBIN,TOTAL 0.3 mg/dL (0.2-1)
[2021-08-26] MEDS: SERTRALINE HCL 25 MG TABLET (FP) PO SCH (09:13)
[2021-08-26] MEDS: FERROUS SO4 325 MG TABLET (FP) PO SCH (09:13)
[2021-08-26] MEDS: APIXABAN 5 MG TABLET PO SCH ×2 (09:13→21:59)
[2021-08-26] MEDS: PANTOPRAZOLE SODIUM 40 MG VIAL IVPUSH SCH (09:13)
[2021-08-26] MEDS: FAMOTIDINE 20 MG TABLET PO SCH (11:28)
[2021-08-26 12:37] LABS: ANISOCYTOSIS 1+; MACROCYTOSIS 0; OVALOCYTE 1+; PLATELET ESTIMATE NORMAL; TEAR DROP CELLS 1+
[2021-08-26] MEDS: NAPH,MB-DB/K PH,MBDB POWDER PACKET PO SCH ×2 (13:55→21:58)
[2021-08-26] MEDS: DEXTROSE 5%-NORMAL SALINE 1,000 ML IV SCH (18:17)
[2021-08-27] MEDS ORDERED: DEXTROSE 5%-WATER 100 ML IVPB ONE ×3 (01:04→17:45)
[2021-08-27] MEDS ORDERED: MEROPENEM 1 GM VIAL (RESTRICTED TO ID) IVPB ONE ×3 (01:04→17:45)
[2021-08-27] MEDS: MEROPENEM 1 GM in DEXTROSE 5%-WATER 100 ML IVPB SCH ×3 (02:53→17:51)
[2021-08-27] MEDS ORDERED: PT OWN MED DRAWER 7, Y5N ONE ×2 (05:45→13:01)
[2021-08-27] MEDS: CARBIDOPA/LEVODOPA 25/100 TABLET (FP) PO SCH ×3 (06:31→22:26)
[2021-08-27] MEDS: NAPH,MB-DB/K PH,MBDB POWDER PACKET PO SCH ×3 (06:31→22:26)
[2021-08-27] MEDS: METOPROLOL TARTRATE 25 MG TABLET (FP) PO SCH ×3 (06:31→22:25)
[2021-08-27 07:40] LABS: HEMATOCRIT 24.7 % (32.4-45.2); HEMOGLOBIN 7.8 GM/dL (10.7-15.3); MCH 21.6 pg (25.7-33.7); MCHC 31.6 g/dl (32.0-36.0); MEAN CELL VOLUME 68.4 fl (80-96); MEAN PLT VOLUME 8.4 fl (7.5-11.1); PLATELET COUNT 234 10^3/uL (134-434); RBC 3.62 M/mm3 (3.60-5.2); RDW 20.9 % (11.6-15.6); WHITE BLOOD COUNT 8.1 K/mm3 (4.0-10.0)
[2021-08-27 08:19] LABS: ALBUMIN 1.4 g/dl (3.4-5.0); CALCIUM 8.2 mg/dL (8.5-10.1)
[2021-08-27 08:20] LABS: BLOOD UREA NITROGEN 11.7 mg/dL (7-18); MAGNESIUM 2.1 mg/dL (1.8-2.4)
[2021-08-27 08:22] LABS: CREATININE 0.8 mg/dL (0.55-1.3)
[2021-08-27 08:23] LABS: PHOSPHOROUS 1.9 mg/dL (2.5-4.9)
[2021-08-27 08:24] LABS: BILIRUBIN,TOTAL 0.6 mg/dL (0.2-1); TOT PROT 5.4 g/dl (6.4-8.2)
[2021-08-27] MEDS: SERTRALINE HCL 25 MG TABLET (FP) PO SCH (09:56)
[2021-08-27] MEDS: PANTOPRAZOLE SODIUM 40 MG VIAL IVPUSH SCH (09:56)
[2021-08-27] MEDS: FERROUS SO4 325 MG TABLET (FP) PO SCH (09:56)
[2021-08-27] MEDS: APIXABAN 5 MG TABLET PO SCH ×2 (09:56→22:25)
[2021-08-27] MEDS: FAMOTIDINE 20 MG TABLET PO SCH (09:57)
[2021-08-27 10:17] LABS: ANISOCYTOSIS 1+; MACROCYTOSIS 0; OVALOCYTE 1+; PLATELET ESTIMATE NORMAL
[2021-08-27] MEDS ORDERED: ONDANSETRON 4 MG TABLET PO PRN (15:55)
[2021-08-27] MEDS ORDERED: DEXTROSE 5%-NORMAL SALINE 1,000 ML IV SCH (15:55)
[2021-08-28] MEDS ORDERED: MEROPENEM 1 GM VIAL (RESTRICTED TO ID) IVPB ONE ×2 (03:08→10:56)
[2021-08-28] MEDS ORDERED: DEXTROSE 5%-WATER 100 ML IVPB ONE ×2 (03:09→10:56)
[2021-08-28] MEDS: MEROPENEM 1 GM in DEXTROSE 5%-WATER 100 ML IVPB SCH ×2 (03:11→11:19)
[2021-08-28] MEDS: CARBIDOPA/LEVODOPA 25/100 TABLET (FP) PO SCH ×3 (05:04→21:43)
[2021-08-28] MEDS: NAPH,MB-DB/K PH,MBDB POWDER PACKET PO SCH ×3 (05:04→21:42)
[2021-08-28] MEDS: METOPROLOL TARTRATE 25 MG TABLET (FP) PO SCH (05:06)
[2021-08-28] MEDS ORDERED: PANTOPRAZOLE SODIUM 40 MG VIAL IVPUSH SCH (10:00)
[2021-08-28] MEDS: FAMOTIDINE 20 MG TABLET PO SCH (11:17)
[2021-08-28] MEDS: SERTRALINE HCL 25 MG TABLET (FP) PO SCH (11:18)
[2021-08-28] MEDS: APIXABAN 5 MG TABLET PO SCH ×2 (11:18→21:42)
[2021-08-28] MEDS: FERROUS SO4 325 MG TABLET (FP) PO SCH (11:18)
[2021-08-29] MEDS: NAPH,MB-DB/K PH,MBDB POWDER PACKET PO SCH ×2 (05:35→15:47)
[2021-08-29] MEDS: CARBIDOPA/LEVODOPA 25/100 TABLET (FP) PO SCH ×2 (05:35→15:47)
[2021-08-29] MEDS: APIXABAN 5 MG TABLET PO SCH (10:10)
[2021-08-29] MEDS: FERROUS SO4 325 MG TABLET (FP) PO SCH (10:10)
[2021-08-29] MEDS: SERTRALINE HCL 25 MG TABLET (FP) PO SCH (10:10)
[2021-08-29] MEDS: FAMOTIDINE 20 MG TABLET PO SCH (10:10)
[2021-08-29 18:39] VITALS: BP 148/84; PULSE 84; TEMP 98.4
== END 2021-08-29 19:16 | disposition home or self-care (01) | DRG 341 ==
LOC: JER 19:37 → JERBED 23:28 → J8W 08-18 04:45 → J4W 08-22 09:09 → J5S 08-27 15:32
PROVIDERS: ADMIT Internal Medicine
PROC: 0DTJ4ZZ Resection of Appendix, Percutaneous Endoscopic Approach (ICD-10-PCS; principal; 2021-08-20 15:00)
DX: K35.80 Unspecified acute appendicitis (principal); J18.9 Pneumonia, unspecified organism; I69.351 Hemiplegia and hemiparesis following cerebral infarction affecting right dominant side; F05 Delirium due to known physiological condition; E87.2 Acidosis; J95.89 Other postprocedural complications and disorders of respiratory system, not elsewhere classified; J98.11 Atelectasis; J90 Pleural effusion, not elsewhere classified; I48.91 Unspecified atrial fibrillation; G20 Parkinson's disease; Y83.9 Surgical procedure, unspecified as the cause of abnormal reaction of the patient, or of later complication, without mention of misadventure at the time of the procedure; I10 Essential (primary) hypertension; R74.01 Elevation of levels of liver transaminase levels; D72.829 Elevated white blood cell count, unspecified; K21.9 Gastro-esophageal reflux disease without esophagitis; K59.00 Constipation, unspecified; F41.8 Other specified anxiety disorders; R50.9 Fever, unspecified; M06.9 Rheumatoid arthritis, unspecified
CPT/HCPCS: 36415; 70450-TC; 70486-TC; 71045-TC-FY; 74176-TC; 74177-TC; 80048; 80053; 80061; 81003; 82550; 82553; 82803; 82962; 83605; 83615; 83735; 83880; 84100; 84155; 84165; 84484; 85025; 85027; 85610; 85651; 85730; 86140; 87040; 87086; 87324; 87389; 87449; 87804; 88304-TC; 93005; 93010; 93306-TC; 94010; 94760; 94761; 97116-GP; 99285-25; C9803; J0131; Q9967; U0003; U0005

== ENCOUNTER 2022-08-18 16:37 | Emergency (ER) | payer OTHER, BC ==
[2022-08-18 16:57] VITALS: BP 143/81; PULSE 73; RESP 18; TEMP 98.4; BMI 24.2
[2022-08-18] MEDS ORDERED: SODIUM PHOSPHATE/NA BIPHOS 133 ML ENEMA PR ONE (17:47)
[2022-08-18 21:43] LABS: INR 1.23 (0.83-1.09); PROTHROMBIN TIME (PATIENT) 14.2 SEC (9.7-13.0)
[2022-08-18 21:46] LABS: ACTIVATED PTT 35.6 SECONDS (25.2-36.5); BASO % 0.4 % (0-2.0); EOS % 1.4 % (0-4.5); HEMATOCRIT 32.6 % (32.4-45.2); LYMPH % 18.6 % (8-40); MCH 23.4 pg (25.7-33.7); MCHC 30.8 g/dl (32.0-36.0); MEAN PLT VOLUME 8.7 fl (7.5-11.1); MONO % 10.7 % (3.8-10.2); NEUT % 68.9 % (42.8-82.8); PLATELET COUNT 261 10^3/uL (134-434); RBC 4.29 M/mm3 (3.60-5.2); RDW 18.2 % (11.6-15.6); WHITE BLOOD COUNT 5.7 K/mm3 (4.0-10.0)
[2022-08-18 21:55] LABS: ALBUMIN 3.6 g/dl (3.4-5.0)
[2022-08-18 21:58] LABS: CREATININE 1.3 mg/dL (0.55-1.3)
[2022-08-18 22:00] LABS: BILIRUBIN,TOTAL 0.4 mg/dL (0.2-1); TOT PROT 7.8 g/dl (6.4-8.2)
[2022-08-18 22:03] LABS: N-TERMINAL BNP 1070.4 pg/ml (5-125)
== END 2022-08-19 00:21 | disposition home or self-care (01) ==
LOC: JER 16:37
DX: K59.00 Constipation, unspecified (principal)
CPT/HCPCS: 0241U-QW; 36415; 71045-TC-FY; 74177-TC; 80053; 83880; 84484; 85025; 85610; 85730; 86850; 86900; 86901; 93005; 93010; 99285-25; Q9967

== ENCOUNTER 2022-12-07 21:27 | Inpatient (IN) | payer OTHER, BC ==
[2022-12-07 21:43] VITALS: BMI 25.7
[2022-12-07 23:08] LABS: VENOUS BASE EXCESS -0.6 mmol/L (-2-2); VENOUS O2 SATURATION 74.5 % (70-80); VENOUS PCO2 40.6 mmHg (38-52); VENOUS PH 7.394 (7.310-7.410)
[2022-12-07 23:15] LABS: BASO % 0.8 % (0-2.0); EOS % 0.3 % (0-4.5); HEMATOCRIT 33.8 % (32.4-45.2); HEMOGLOBIN 10.4 GM/dL (10.7-15.3); INR 1.22 (0.83-1.09); LYMPH % 3.6 % (8-40); MCH 23.3 pg (25.7-33.7); MCHC 30.7 g/dl (32.0-36.0); MEAN CELL VOLUME 75.8 fl (80-96); MEAN PLT VOLUME 8.2 fl (7.5-11.1); MONO % 9.2 % (3.8-10.2); NEUT % 86.1 % (42.8-82.8); PLATELET COUNT 289 10^3/uL (134-434); PROTHROMBIN TIME (PATIENT) 14.1 SEC (9.7-13.0); RBC 4.46 M/mm3 (3.60-5.2); RDW 17.9 % (11.6-15.6)
[2022-12-07 23:17] LABS: ACTIVATED PTT 35.1 SECONDS (25.2-36.5)
[2022-12-07] MEDS ORDERED: ACETAMINOPHEN 1000 MG/100 ML BAG IVPB ONE (23:30)
[2022-12-07] MEDS ORDERED: SODIUM CHLORIDE 0.9% 500 ML INFUS.BAG IV ONE (23:30)
[2022-12-07] MEDS ORDERED: ACETAMINOPHEN INJECTION 100 ML IVPB ONE (23:32)
[2022-12-07 23:33] LABS: CALCIUM 9.8 mg/dL (8.5-10.1)
[2022-12-07 23:34] LABS: ALBUMIN 3.7 g/dl (3.4-5.0); BLOOD UREA NITROGEN 15.9 mg/dL (7-18)
[2022-12-07 23:37] LABS: CREATININE 1.5 mg/dL (0.55-1.3)
[2022-12-07 23:38] LABS: BILIRUBIN,TOTAL 0.3 mg/dL (0.2-1)
[2022-12-07 23:39] LABS: TOT PROT 7.9 g/dl (6.4-8.2)
[2022-12-08] MEDS ORDERED: CEFTRIAXONE 1 GM in DEXTROSE 5%-WATER - 100 ML IVPB ONE (00:38)
[2022-12-08] MEDS ORDERED: AZITHROMYCIN IVPB 500 MG in DEXTROSE 5%-WATER - 250 ML IVPB ONE (00:38)
[2022-12-08] MEDS ORDERED: CEFTRIAXONE 1 GM/50 ML BAG ONE (00:41)
[2022-12-08] MEDS ORDERED: AZITHROMYCIN IVPB 500 MG/250 ML BAG IVPB ONE (00:41)
[2022-12-08 00:57] LABS: PH,URINE 7.5 (5.0-8.0); URINE APPEARANCE CLEAR; URINE BILIRUBIN NEGATIVE (NEGATIVE); URINE COLOR YELLOW; URINE GLUCOSE (UA) NEGATIVE (NEGATIVE); URINE KETONE NEGATIVE (NEGATIVE); URINE LEUK ESTERASE NEGATIVE (NEGATIVE); URINE NITRITE NEGATIVE (NEGATIVE); URINE PROTEIN TRACE (NEGATIVE); URINE UROBILINOGEN 0.2 mg/dL (0.2-1.0)
[2022-12-08] MEDS ORDERED: REMDESIVIR 200 MG in SODIUM CHLORIDE 250 ML IVPB ONE (04:00)
[2022-12-08] MEDS ORDERED: SERTRALINE HCL 50 MG TABLET (FP) ONE (09:37)
[2022-12-08] MEDS ORDERED: AZITHROMYCIN 250 MG TABLET ONE (09:37)
[2022-12-08] MEDS ORDERED: metoPROLOL SUCCINATE 25 MG TAB.SR.24H (FP) PO ONE (09:37)
[2022-12-08] MEDS ORDERED: APIXABAN 2.5 MG TABLET ONE (09:37)
[2022-12-08] MEDS: metoPROLOL SUCCINATE 25 MG TAB.SR.24H (FP) PO SCH (09:38)
[2022-12-08] MEDS: SERTRALINE HCL 50 MG TABLET (FP) PO SCH (09:38)
[2022-12-08] MEDS: APIXABAN 2.5 MG TABLET PO SCH ×2 (09:39→22:15)
[2022-12-08] MEDS: AZITHROMYCIN 250 MG TABLET PO SCH (09:39)
[2022-12-08] MEDS ORDERED: AZITHROMYCIN IVPB 250 MG in DEXTROSE 5%-WATER - 250 ML IVPB SCH (10:00)
[2022-12-08 10:29] LABS: BASO % 0.4 % (0-2.0); EOS % 0.2 % (0-4.5); HEMOGLOBIN 8.9 GM/dL (10.7-15.3); LYMPH % 9.3 % (8-40); MCH 23.9 pg (25.7-33.7); MCHC 31.7 g/dl (32.0-36.0); MEAN CELL VOLUME 75.3 fl (80-96); MEAN PLT VOLUME 7.9 fl (7.5-11.1); MONO % 18.7 % (3.8-10.2); NEUT % 71.4 % (42.8-82.8); PLATELET COUNT 244 10^3/uL (134-434); RBC 3.72 M/mm3 (3.60-5.2); RDW 17.8 % (11.6-15.6); WHITE BLOOD COUNT 3.7 K/mm3 (4.0-10.0)
[2022-12-08 11:00] LABS: CALCIUM 8.9 mg/dL (8.5-10.1)
[2022-12-08 11:01] LABS: BLOOD UREA NITROGEN 14.1 mg/dL (7-18); MAGNESIUM 2.1 mg/dL (1.8-2.4)
[2022-12-08 11:04] LABS: CREATININE 1.2 mg/dL (0.55-1.3); PHOSPHOROUS 3.1 mg/dL (2.5-4.9)
[2022-12-08 11:05] LABS: BILIRUBIN,TOTAL 0.3 mg/dL (0.2-1)
[2022-12-08 11:06] LABS: TOT PROT 6.3 g/dl (6.4-8.2)
[2022-12-08 11:23] LABS: ALBUMIN 2.8 g/dl (3.4-5.0)
[2022-12-08] MEDS: CEFUROXIME AXETIL 500 MG TABLET PO SCH ×2 (12:52→22:15)
[2022-12-08] MEDS ORDERED: ACETAMINOPHEN 325 MG TABLET (FP) PO ONE (20:15)
[2022-12-08] MEDS: ROSUVASTATIN CA 20 MG TABLET PO SCH (22:15)
[2022-12-08] MEDS: CARBIDOPA/LEVODOPA 25/100 TABLET (FP) PO SCH (22:37)
[2022-12-09] MEDS ORDERED: METHOTREXATE 2.5 MG TABLET PO ONE (10:00)
[2022-12-09] MEDS: REMDESIVIR 100 MG in SODIUM CHLORIDE 250 ML IVPB SCH (11:26)
[2022-12-09] MEDS: FOLIC ACID 1 MG TABLET (FP) PO SCH (11:27)
[2022-12-09] MEDS: AZITHROMYCIN 250 MG TABLET PO SCH (11:27)
[2022-12-09] MEDS: metoPROLOL SUCCINATE 25 MG TAB.SR.24H (FP) PO SCH (11:28)
[2022-12-09] MEDS: CEFUROXIME AXETIL 500 MG TABLET PO SCH ×2 (11:28→22:37)
[2022-12-09] MEDS: APIXABAN 2.5 MG TABLET PO SCH ×2 (11:28→22:37)
[2022-12-09] MEDS: CARBIDOPA/LEVODOPA 25/100 TABLET (FP) PO SCH ×2 (11:28→22:37)
[2022-12-09] MEDS: SERTRALINE HCL 50 MG TABLET (FP) PO SCH (11:30)
[2022-12-09 11:47] LABS: HEMOGLOBIN 10.3 GM/dL (10.7-15.3); MCH 23.4 pg (25.7-33.7); MCHC 31.2 g/dl (32.0-36.0); MEAN PLT VOLUME 7.3 fl (7.5-11.1); PLATELET COUNT 246 10^3/uL (134-434); RBC 4.41 M/mm3 (3.60-5.2); RDW 17.9 % (11.6-15.6); WHITE BLOOD COUNT 3.6 K/mm3 (4.0-10.0)
[2022-12-09 12:09] LABS: CALCIUM 9.4 mg/dL (8.5-10.1)
[2022-12-09 12:10] LABS: ALBUMIN 3.2 g/dl (3.4-5.0); BLOOD UREA NITROGEN 18.8 mg/dL (7-18)
[2022-12-09 12:13] LABS: CREATININE 1.3 mg/dL (0.55-1.3)
[2022-12-09 12:14] LABS: BILIRUBIN,TOTAL 0.4 mg/dL (0.2-1); TOT PROT 7.2 g/dl (6.4-8.2)
[2022-12-09 13:44] LABS: ANISOCYTOSIS 3+; MACROCYTOSIS 0; OVALOCYTE 1+; TEAR DROP CELLS 1+
[2022-12-09] MEDS: ROSUVASTATIN CA 20 MG TABLET PO SCH (22:37)
[2022-12-09 23:53] VITALS: RESP 18
[2022-12-10] MEDS ORDERED: METHOTREXATE 2.5 MG TABLET PO SCH (04:39)
[2022-12-10] MEDS ORDERED: METHOTREXATE 2.5 MG TABLET PO ONE (10:00)
[2022-12-10] MEDS: FOLIC ACID 1 MG TABLET (FP) PO SCH (11:13)
[2022-12-10] MEDS: CARBIDOPA/LEVODOPA 25/100 TABLET (FP) PO SCH (11:13)
[2022-12-10] MEDS: SERTRALINE HCL 50 MG TABLET (FP) PO SCH (11:13)
[2022-12-10] MEDS: APIXABAN 2.5 MG TABLET PO SCH (11:13)
[2022-12-10] MEDS: REMDESIVIR 100 MG in SODIUM CHLORIDE 250 ML IVPB SCH (11:13)
[2022-12-10] MEDS: metoPROLOL SUCCINATE 25 MG TAB.SR.24H (FP) PO SCH (11:14)
[2022-12-10 16:20] VITALS: BP 118/71; PULSE 70; TEMP 98.2
== END 2022-12-10 16:37 | disposition home or self-care (01) | DRG 177 ==
LOC: JER 21:27 → JERBED 12-08 00:20 → OBSVTOIN 12-08 04:35 → J5S 12-08 19:54
PROVIDERS: ADMIT Internal Medicine; ATTEND Internal Medicine
PROC: XW033E5 Introduction of Remdesivir Anti-infective into Peripheral Vein, Percutaneous Approach, New Technology Group 5 (ICD-10-PCS; principal; 2022-12-08)
DX: U07.1 COVID-19 (principal); J12.82 Pneumonia due to coronavirus disease 2019; I69.351 Hemiplegia and hemiparesis following cerebral infarction affecting right dominant side; J98.11 Atelectasis; R50.9 Fever, unspecified; I10 Essential (primary) hypertension; I48.91 Unspecified atrial fibrillation; M06.9 Rheumatoid arthritis, unspecified; E78.5 Hyperlipidemia, unspecified; F41.8 Other specified anxiety disorders; Z86.718 Personal history of other venous thrombosis and embolism
CPT/HCPCS: 0241U-QW; 36415; 70450-TC; 71045-TC-FY; 80053; 81003; 82728; 82803; 83540; 83550; 83605; 83735; 84100; 84484; 85025; 85610; 85730; 86140; 86850; 86900; 86901; 87040; 87086; 93005; 93010; 97116-GP; 97161-GP; 99285-25; C9399; G0378; J8610

== ENCOUNTER 2023-03-10 15:26 | Observation (INO) | payer OTHER, BC ==
[2023-03-10 17:02] LABS: BASO % 0.2 % (0-2.0); EOS % 1.4 % (0-4.5); HEMATOCRIT 27.8 % (32.4-45.2); HEMOGLOBIN 8.6 GM/dL (10.7-15.3); LYMPH % 11.9 % (8-40); MCH 22.3 pg (25.7-33.7); MCHC 30.8 g/dl (32.0-36.0); MEAN CELL VOLUME 72.2 fl (80-96); MEAN PLT VOLUME 7.6 fl (7.5-11.1); MONO % 9.3 % (3.8-10.2); NEUT % 77.2 % (42.8-82.8); PLATELET COUNT 257 10^3/uL (134-434); RBC 3.85 M/mm3 (3.60-5.2); RDW 19.7 % (11.6-15.6)
[2023-03-10 17:24] LABS: BLOOD UREA NITROGEN 18.2 mg/dL (7-18); CALCIUM 9.4 mg/dL (8.5-10.1); MAGNESIUM 2.2 mg/dL (1.8-2.4)
[2023-03-10 17:27] LABS: ACTIVATED PTT 27.7 SECONDS (25.2-36.5); INR 1.12 (0.83-1.09)
[2023-03-10 17:28] LABS: CREATININE 1.2 mg/dL (0.55-1.3); PHOSPHOROUS 3.3 mg/dL (2.5-4.9)
[2023-03-10 17:30] LABS: BILIRUBIN,TOTAL 0.2 mg/dL (0.2-1)
[2023-03-10 17:31] LABS: TOT PROT 7.2 g/dl (6.4-8.2)
[2023-03-10 17:49] LABS: PH,URINE 7.5 (5.0-8.0); URINE APPEARANCE CLEAR; URINE BILIRUBIN NEGATIVE (NEGATIVE); URINE COLOR YELLOW; URINE GLUCOSE (UA) NEGATIVE (NEGATIVE); URINE KETONE NEGATIVE (NEGATIVE); URINE LEUK ESTERASE NEGATIVE (NEGATIVE); URINE NITRITE NEGATIVE (NEGATIVE); URINE PROTEIN NEGATIVE (NEGATIVE); URINE UROBILINOGEN 0.2 mg/dL (0.2-1.0)
[2023-03-10] MEDS ORDERED: ACETAMINOPHEN 1000 MG/100 ML BAG IVPB ONE (18:19)
[2023-03-10] MEDS ORDERED: FAMOTIDINE 20 MG/50 ML IVPB 20 MG/50 ML MG IVPB ONE (18:19)
[2023-03-10] MEDS ORDERED: FAMOTIDINE 10 MG/ML VIAL IVPB ONE (18:33)
[2023-03-10] MEDS ORDERED: ACETAMINOPHEN INJECTION 100 ML IVPB ONE (18:33)
[2023-03-10 22:54] VITALS: BMI 25.3
[2023-03-10] MEDS ORDERED: METHOTREXATE 2.5 MG TABLET PO SCH (23:00)
[2023-03-11] MEDS ORDERED: SODIUM CHLORIDE 1,000 ML IV SCH (06:00)
[2023-03-11] MEDS: CARBIDOPA/LEVODOPA 25/100 TABLET (FP) PO SCH ×3 (07:15→21:29)
[2023-03-11 07:37] LABS: BASO % 0.3 % (0-2.0); EOS % 2.2 % (0-4.5); HEMOGLOBIN 7.8 GM/dL (10.7-15.3); LYMPH % 14.1 % (8-40); MCH 22.4 pg (25.7-33.7); MCHC 31.3 g/dl (32.0-36.0); MEAN CELL VOLUME 71.7 fl (80-96); MEAN PLT VOLUME 7.7 fl (7.5-11.1); NEUT % 72.4 % (42.8-82.8); PLATELET COUNT 247 10^3/uL (134-434); RBC 3.48 M/mm3 (3.60-5.2); RDW 19.7 % (11.6-15.6); WHITE BLOOD COUNT 7.1 K/mm3 (4.0-10.0)
[2023-03-11 08:04] LABS: ALBUMIN 2.8 g/dl (3.4-5.0); BLOOD UREA NITROGEN 15.6 mg/dL (7-18); CALCIUM 9.3 mg/dL (8.5-10.1); MAGNESIUM 2.2 mg/dL (1.8-2.4)
[2023-03-11 08:06] LABS: CREATININE 1.2 mg/dL (0.55-1.3); PHOSPHOROUS 3.1 mg/dL (2.5-4.9)
[2023-03-11 08:09] LABS: BILIRUBIN,TOTAL 0.4 mg/dL (0.2-1); TOT PROT 6.8 g/dl (6.4-8.2)
[2023-03-11] MEDS: metoPROLOL SUCCINATE 25 MG TAB.SR.24H (FP) PO SCH (09:20)
[2023-03-11] MEDS: FOLIC ACID 1 MG TABLET (FP) PO SCH (09:20)
[2023-03-11] MEDS: FERROUS SO4 325 MG TABLET (FP) PO SCH ×4 (09:20→21:37)
[2023-03-11] MEDS: PANTOPRAZOLE 40 MG TABLET PO SCH (09:20)
[2023-03-11] MEDS: SERTRALINE HCL 50 MG TABLET (FP) PO SCH (09:20)
[2023-03-11] MEDS: APIXABAN 2.5 MG TABLET PO SCH ×3 (09:20→21:37)
[2023-03-11 10:45] LABS: RETICULOCYTES 2.16 % (0.5-1.5)
[2023-03-11] MEDS: METHOCARBAMOL 500 MG TABLET PO SCH ×2 (11:37→21:28)
[2023-03-11] MEDS ORDERED: ROSUVASTATIN CA 20 MG TABLET PO SCH (22:00)
[2023-03-12] MEDS: CARBIDOPA/LEVODOPA 25/100 TABLET (FP) PO SCH ×2 (06:16→15:14)
[2023-03-12 10:17] LABS: BASO % 0.4 % (0-2.0); EOS % 2.7 % (0-4.5); HEMATOCRIT 28.9 % (32.4-45.2); HEMOGLOBIN 9.3 GM/dL (10.7-15.3); LYMPH % 19.4 % (8-40); MCHC 32.4 g/dl (32.0-36.0); MEAN PLT VOLUME 7.8 fl (7.5-11.1); MONO % 8.7 % (3.8-10.2); NEUT % 68.8 % (42.8-82.8); PLATELET COUNT 293 10^3/uL (134-434); RBC 4.07 M/mm3 (3.60-5.2); RDW 19.1 % (11.6-15.6); WHITE BLOOD COUNT 6.5 K/mm3 (4.0-10.0)
[2023-03-12] MEDS: SERTRALINE HCL 50 MG TABLET (FP) PO SCH (10:32)
[2023-03-12] MEDS: FOLIC ACID 1 MG TABLET (FP) PO SCH (10:32)
[2023-03-12] MEDS: PANTOPRAZOLE 40 MG TABLET PO SCH (10:32)
[2023-03-12] MEDS: metoPROLOL SUCCINATE 25 MG TAB.SR.24H (FP) PO SCH (10:33)
[2023-03-12] MEDS: FERROUS SO4 325 MG TABLET (FP) PO SCH (10:33)
[2023-03-12] MEDS: APIXABAN 2.5 MG TABLET PO SCH (10:35)
[2023-03-12] MEDS: METHOCARBAMOL 500 MG TABLET PO SCH (10:36)
[2023-03-12 11:30] LABS: CALCIUM 10.2 mg/dL (8.5-10.1)
[2023-03-12 11:32] LABS: ALBUMIN 3.2 g/dl (3.4-5.0); BLOOD UREA NITROGEN 15.8 mg/dL (7-18); MAGNESIUM 2.3 mg/dL (1.8-2.4)
[2023-03-12 11:34] LABS: CREATININE 1.2 mg/dL (0.55-1.3); PHOSPHOROUS 2.4 mg/dL (2.5-4.9)
[2023-03-12 11:35] LABS: TOT PROT 7.5 g/dl (6.4-8.2)
[2023-03-12 11:36] LABS: BILIRUBIN,TOTAL 0.3 mg/dL (0.2-1)
[2023-03-12 11:38] VITALS: RESP 18
[2023-03-12 13:52] VITALS: BP 137/72; PULSE 75; TEMP 98.7
[2023-03-12] MEDS ORDERED: NAPH,MB-DB/K PH,MBDB POWDER PACKET PO ONE (14:45)
== END 2023-03-12 16:50 | disposition home health service (06) ==
LOC: JER 15:26 → JERBED 16:16 → J4W 21:18
PROVIDERS: ADMIT Internal Medicine; ATTEND Internal Medicine
PROC: 3E033NZ Introduction of Analgesics, Hypnotics, Sedatives into Peripheral Vein, Percutaneous Approach (ICD-10-PCS; principal; 2023-03-10)
PROC: 3E033GC Introduction of Other Therapeutic Substance into Peripheral Vein, Percutaneous Approach (ICD-10-PCS; 2023-03-10)
PROC: 3E0337Z Introduction of Electrolytic and Water Balance Substance into Peripheral Vein, Percutaneous Approach (ICD-10-PCS; 2023-03-10)
DX: R41.82 Altered mental status, unspecified (principal); I48.91 Unspecified atrial fibrillation; M06.9 Rheumatoid arthritis, unspecified; N17.9 Acute kidney failure, unspecified; Z29.8 Encounter for other specified prophylactic measures; I69.854 Hemiplegia and hemiparesis following other cerebrovascular disease affecting left non-dominant side; M48.00 Spinal stenosis, site unspecified; R94.31 Abnormal electrocardiogram [ECG] [EKG]; R10.9 Unspecified abdominal pain; D64.9 Anemia, unspecified
CPT/HCPCS: 0241U-QW; 36415; 71045-TC-FY; 80053; 81003; 82550; 82607; 82728; 82746; 82962; 83540; 83550; 83605; 83690; 83735; 84100; 84484; 85025; 85045; 85610; 85730; 93005; 93010; 93306-TC; 93880-TC; 96361; 96365; 96375; 97116-GP; 97162-GP; 99285-25; G0378

== ENCOUNTER 2023-06-29 17:08 | Inpatient (IN) | payer OTHER, BC ==
[2023-06-29] MEDS ORDERED: ACETAMINOPHEN 1000 MG/100 ML BAG IVPB ONE (17:30)
[2023-06-29 18:06] VITALS: BMI 25.8
[2023-06-29 19:04] LABS: HEMATOCRIT 28.1 % (32.4-45.2); HEMOGLOBIN 9.2 G/dL (10.7-15.3); INR 1.46 (0.83-1.09); MCH 23.9 pg (25.7-33.7); MCHC 32.7 g/dl (32.0-36.0); MEAN CELL VOLUME 73.2 fl (80-96); MEAN PLT VOLUME 8.8 fl (7.5-11.1); PLATELET COUNT 371.5 10^3/uL (134-434); PROTHROMBIN TIME (PATIENT) 16.9 SEC (9.7-13.0); RBC 3.84 10^6/uL (3.60-5.2); RDW 20.6 % (11.6-15.6); WHITE BLOOD COUNT 8.9 10^3/uL (4.0-10.8)
[2023-06-29 19:07] LABS: ACTIVATED PTT 36.4 SECONDS (25.2-36.5)
[2023-06-29 19:16] LABS: ALBUMIN 3.7 g/dl (3.4-5.0); BILIRUBIN,TOTAL 0.6 mg/dl (0.2-1); CREATININE 1.2 mg/dl (0.6-1.3); POTASSIUM 4.6 mmol/L (3.5-5.1); SGOT/AST 27.3 U/L (15-37); SGPT/ALT 15.5 U/L (7-52); TOT PROT 7.1 g/dl (6.4-8.2)
[2023-06-29] MEDS ORDERED: ACETAMINOPHEN INJECTION 100 ML IVPB ONE (20:46)
[2023-06-29 21:28] LABS: ANISOCYTOSIS 2+
[2023-06-29 21:29] LABS: PLATELET ESTIMATE ADEQUATE
[2023-06-29] MEDS: ENOXAPARIN NA (PORCINE) 80 MG/0.8 ML DISP.SYRIN SQ SCH (22:37)
[2023-06-29] MEDS: ROSUVASTATIN CA 20 MG TABLET PO SCH (22:38)
[2023-06-30] MEDS: CARBIDOPA/LEVODOPA 25/100 TABLET (FP) PO SCH ×3 (06:19→21:29)
[2023-06-30 07:41] LABS: MCH 21.2 pg (25.7-33.7); MCHC 29.7 g/dl (32.0-36.0); MEAN CELL VOLUME 71.5 fl (80-96); MEAN PLT VOLUME 6.7 fl (7.5-11.1); PLATELET COUNT 285.3 10^3/uL (134-434); RBC 3.77 10^6/uL (3.60-5.2); RDW 20.4 % (11.6-15.6); WHITE BLOOD COUNT 6.5 10^3/uL (4.0-10.8)
[2023-06-30 07:49] LABS: INR 1.36 (0.83-1.09); PROTHROMBIN TIME (PATIENT) 15.7 SEC (9.7-13.0)
[2023-06-30 08:09] LABS: BLOOD UREA NITROGEN 15.9 mg/dl (7-18); CALCIUM 9.4 mg/dl (8.5-10.1); CREATININE 1.2 mg/dl (0.6-1.3); POTASSIUM 4.3 mmol/L (3.5-5.1)
[2023-06-30] MEDS: PANTOPRAZOLE 40 MG TABLET PO SCH (09:40)
[2023-06-30] MEDS: metoPROLOL SUCCINATE 25 MG TAB.SR.24H (FP) PO SCH (09:41)
[2023-06-30] MEDS: SERTRALINE HCL 50 MG TABLET (FP) PO SCH (09:41)
[2023-06-30] MEDS: ENOXAPARIN NA (PORCINE) 80 MG/0.8 ML DISP.SYRIN SQ SCH ×2 (09:47→23:09)
[2023-06-30] MEDS ORDERED: METHOTREXATE 2.5 MG TABLET PO SCH (10:00)
[2023-06-30 16:14] LABS: N-TERMINAL BNP 1369.1 pg/ml (5-125)
[2023-06-30] MEDS: ROSUVASTATIN CA 20 MG TABLET PO SCH (21:29)
[2023-07-01] MEDS: CARBIDOPA/LEVODOPA 25/100 TABLET (FP) PO SCH ×3 (06:57→21:35)
[2023-07-01] MEDS ORDERED: BUPIVACAINE HCL/PF 2.5 MG/ML - 30 ML VIAL IJ ONE (09:23)
[2023-07-01] MEDS ORDERED: MIDAZOLAM HCL 2 MG/2 ML SINGLE DOSE VIAL ONE (09:38)
[2023-07-01] MEDS ORDERED: BUPIVACAINE LIPOSOME/PF (EXPAREL) 266 MG/20 ML VIAL ONE (09:38)
[2023-07-01] MEDS ORDERED: BUPIVACAINE HCL/PF 0.5% (5MG/ML) 10 ML VIAL ONE ×2 (09:38→09:43)
[2023-07-01] MEDS ORDERED: ceFAZolin SODIUM 1 GM VIAL ONE (09:48)
[2023-07-01] MEDS ORDERED: LIDOCAINE HCL/PF 2% SDV 5ML VIAL ONE (09:48)
[2023-07-01] MEDS ORDERED: PROPOFOL 20 ML ONE (09:49)
[2023-07-01] MEDS ORDERED: METHOTREXATE 2.5 MG TABLET PO SCH (10:00)
[2023-07-01] MEDS: ENOXAPARIN NA (PORCINE) 80 MG/0.8 ML DISP.SYRIN SQ SCH (10:07)
[2023-07-01] MEDS: PANTOPRAZOLE 40 MG TABLET PO SCH (10:25)
[2023-07-01] MEDS: SERTRALINE HCL 50 MG TABLET (FP) PO SCH (10:26)
[2023-07-01] MEDS: metoPROLOL SUCCINATE 25 MG TAB.SR.24H (FP) PO SCH (10:26)
[2023-07-01] MEDS ORDERED: ONDANSETRON 4 MG/2 ML VIAL IVPUSH PRN (11:19)
[2023-07-01] MEDS ORDERED: TRANEXAMIC ACID 1000 MG/10 ML VIAL ONE (12:22)
[2023-07-01] MEDS ORDERED: TRANEXAMIC ACID 1000 MG/10 ML VIAL IVPUSH ONE (12:28)
[2023-07-01] MEDS ORDERED: ACETAMINOPHEN INJECTION 100 ML IVPB ONE (15:06)
[2023-07-01] MEDS ORDERED: FAMOTIDINE 20 MG/50 ML IVPB 20 MG/50 ML MG IVPB ONE (15:17)
[2023-07-01 15:24] LABS: HEMATOCRIT 24.8 % (32.4-45.2); HEMOGLOBIN 7.7 G/dL (10.7-15.3); MCH 22.4 pg (25.7-33.7); MCHC 30.9 g/dl (32.0-36.0); MEAN CELL VOLUME 72.4 fl (80-96); MEAN PLT VOLUME 7.8 fl (7.5-11.1); PLATELET COUNT 341.2 10^3/uL (134-434); RBC 3.43 10^6/uL (3.60-5.2); WHITE BLOOD COUNT 11.7 10^3/uL (4.0-10.8)
[2023-07-01 17:03] LABS: PLATELET ESTIMATE ADEQUATE
[2023-07-01] MEDS: ACETAMINOPHEN 1000 MG/100 ML BAG IVPB SCH ×2 (21:35→22:36)
[2023-07-01] MEDS: CEFAZOLIN SODIUM 2 GM in DEXTROSE 5%-WATER 100 ML IVPB SCH (21:35)
[2023-07-01] MEDS: ROSUVASTATIN CA 20 MG TABLET PO SCH (21:35)
[2023-07-02] MEDS: ACETAMINOPHEN 1000 MG/100 ML BAG IVPB SCH ×2 (03:50→09:35)
[2023-07-02] MEDS: CEFAZOLIN SODIUM 2 GM in DEXTROSE 5%-WATER 100 ML IVPB SCH ×2 (03:50→11:41)
[2023-07-02] MEDS: CARBIDOPA/LEVODOPA 25/100 TABLET (FP) PO SCH ×3 (06:26→21:38)
[2023-07-02 09:01] LABS: BILIRUBIN,TOTAL 0.4 mg/dl (0.2-1); BLOOD UREA NITROGEN 21.7 mg/dl (7-18); CALCIUM 9.1 mg/dl (8.5-10.1); CREATININE 1.4 mg/dl (0.6-1.3); POTASSIUM 5.5 mmol/L (3.5-5.1); SGOT/AST 22.1 U/L (15-37); SGPT/ALT 2.1 U/L (7-52); TOT PROT 6.2 g/dl (6.4-8.2)
[2023-07-02] MEDS: metoPROLOL SUCCINATE 25 MG TAB.SR.24H (FP) PO SCH (09:35)
[2023-07-02] MEDS: PANTOPRAZOLE 40 MG TABLET PO SCH (09:37)
[2023-07-02] MEDS: SERTRALINE HCL 50 MG TABLET (FP) PO SCH (09:37)
[2023-07-02] MEDS ORDERED: SODIUM ZIRCONIUM CYCLOSILICATE (LOKELMA) 5 GM PACKET PO ONE (09:44)
[2023-07-02] MEDS ORDERED: APIXABAN 2.5 MG TABLET PO SCH (10:00)
[2023-07-02 11:54] LABS: HEMOGLOBIN 7.5 GM/dL (10.7-15.3); MCH 22.9 pg (25.7-33.7); MCHC 31.3 g/dl (32.0-36.0); MEAN CELL VOLUME 73.2 fl (80-96); MEAN PLT VOLUME 8.7 fl (7.5-11.1); PLATELET COUNT 282 10^3/uL (134-434); RBC 3.28 M/mm3 (3.60-5.2); WHITE BLOOD COUNT 11.3 K/mm3 (4.0-10.0)
[2023-07-02 12:31] LABS: ANISOCYTOSIS 3+; MACROCYTOSIS 0; OVALOCYTE 1+; TARGET CELLS 1+; TEAR DROP CELLS 1+
[2023-07-02] MEDS: oxyCODONE HCL 5 MG TABLET PO PRN (17:39)
[2023-07-02] MEDS: ROSUVASTATIN CA 20 MG TABLET PO SCH (21:38)
[2023-07-02] MEDS: ENOXAPARIN NA (PORCINE) 80 MG/0.8 ML DISP.SYRIN SQ SCH (21:38)
[2023-07-03] MEDS: oxyCODONE HCL 5 MG TABLET PO PRN ×2 (06:45→18:39)
[2023-07-03] MEDS: CARBIDOPA/LEVODOPA 25/100 TABLET (FP) PO SCH ×3 (06:45→21:49)
[2023-07-03 09:09] LABS: HEMATOCRIT 22.5 % (32.4-45.2); MCH 23.4 pg (25.7-33.7); MCHC 31.2 g/dl (32.0-36.0); MEAN CELL VOLUME 74.6 fl (80-96); MEAN PLT VOLUME 8.6 fl (7.5-11.1); PLATELET COUNT 285.9 10^3/uL (134-434); RBC 3.01 10^6/uL (3.60-5.2); RDW 19.3 % (11.6-15.6); WHITE BLOOD COUNT 9.4 10^3/uL (4.0-10.8)
[2023-07-03 09:45] LABS: ANISOCYTOSIS 2+; OVALOCYTE 1+; TEAR DROP CELLS 2+
[2023-07-03 10:07] LABS: BILIRUBIN,TOTAL 0.3 mg/dl (0.2-1); BLOOD UREA NITROGEN 15.8 mg/dl (7-18); CALCIUM 8.7 mg/dl (8.5-10.1); CREATININE 1.2 mg/dl (0.6-1.3); POTASSIUM 4.9 mmol/L (3.5-5.1); SGOT/AST 19.9 U/L (15-37); SGPT/ALT 3.5 U/L (7-52); TOT PROT 6.2 g/dl (6.4-8.2)
[2023-07-03] MEDS: ENOXAPARIN NA (PORCINE) 80 MG/0.8 ML DISP.SYRIN SQ SCH ×2 (10:37→21:49)
[2023-07-03] MEDS: PANTOPRAZOLE 40 MG TABLET PO SCH (10:38)
[2023-07-03] MEDS: metoPROLOL SUCCINATE 25 MG TAB.SR.24H (FP) PO SCH (10:38)
[2023-07-03] MEDS: SERTRALINE HCL 50 MG TABLET (FP) PO SCH (10:38)
[2023-07-03] MEDS: ROSUVASTATIN CA 20 MG TABLET PO SCH (21:49)
[2023-07-04] MEDS: CARBIDOPA/LEVODOPA 25/100 TABLET (FP) PO SCH ×3 (06:24→21:36)
[2023-07-04 07:59] LABS: HEMATOCRIT 26.4 % (32.4-45.2); HEMOGLOBIN 8.8 G/dL (10.7-15.3); MCHC 33.1 g/dl (32.0-36.0); MEAN CELL VOLUME 78.4 fl (80-96); MEAN PLT VOLUME 7.9 fl (7.5-11.1); PLATELET COUNT 261.3 10^3/uL (134-434); RBC 3.37 10^6/uL (3.60-5.2); RDW 19.4 % (11.6-15.6); WHITE BLOOD COUNT 8.8 10^3/uL (4.0-10.8)
[2023-07-04] MEDS: ENOXAPARIN NA (PORCINE) 80 MG/0.8 ML DISP.SYRIN SQ SCH (09:09)
[2023-07-04] MEDS: oxyCODONE HCL 5 MG TABLET PO PRN ×2 (09:10→22:13)
[2023-07-04] MEDS: metoPROLOL SUCCINATE 25 MG TAB.SR.24H (FP) PO SCH (09:11)
[2023-07-04] MEDS: PANTOPRAZOLE 40 MG TABLET PO SCH (09:13)
[2023-07-04] MEDS: SERTRALINE HCL 50 MG TABLET (FP) PO SCH (09:13)
[2023-07-04 09:14] LABS: ALBUMIN 2.8 g/dl (3.4-5.0); BLOOD UREA NITROGEN 13.2 mg/dl (7-18); CALCIUM 8.9 mg/dl (8.5-10.1); CREATININE 1.1 mg/dl (0.6-1.3); POTASSIUM 4.4 mmol/L (3.5-5.1); SGPT/ALT 2.7 U/L (7-52); TOT PROT 5.9 g/dl (6.4-8.2)
[2023-07-04 10:22] LABS: BILIRUBIN,TOTAL 0.4 mg/dl (0.2-1)
[2023-07-04] MEDS: DOCUSATE SODIUM 100 MG CAPSULE (FP) PO SCH ×3 (12:02→21:35)
[2023-07-04] MEDS: POLYETHYLENE GLYCOL (HEALTHYLAX) 3350 17 GM PACKET PO SCH ×2 (12:02→21:35)
[2023-07-04] MEDS: SENNOSIDES 8.6MG TABLET (FP) PO SCH ×2 (12:02→21:36)
[2023-07-04] MEDS: LACTATED RINGERS SOLUTION 1,000 ML IV SCH ×2 (12:02→15:20)
[2023-07-04] MEDS: ROSUVASTATIN CA 20 MG TABLET PO SCH (21:35)
[2023-07-04] MEDS: APIXABAN 2.5 MG TABLET PO SCH (21:35)
[2023-07-05] MEDS: CARBIDOPA/LEVODOPA 25/100 TABLET (FP) PO SCH ×2 (06:40→14:12)
[2023-07-05] MEDS: DOCUSATE SODIUM 100 MG CAPSULE (FP) PO SCH ×2 (06:40→15:43)
[2023-07-05] MEDS ORDERED: ACETAMINOPHEN 325 MG TABLET (FP) PO PRN (07:14)
[2023-07-05] MEDS ORDERED: oxyCODONE HCL 5 MG TABLET PO PRN (07:14)
[2023-07-05] MEDS: SENNOSIDES 8.6MG TABLET (FP) PO SCH (10:01)
[2023-07-05] MEDS: APIXABAN 2.5 MG TABLET PO SCH (10:01)
[2023-07-05] MEDS: PANTOPRAZOLE 40 MG TABLET PO SCH (10:01)
[2023-07-05] MEDS: SERTRALINE HCL 50 MG TABLET (FP) PO SCH (10:01)
[2023-07-05] MEDS: POLYETHYLENE GLYCOL (HEALTHYLAX) 3350 17 GM PACKET PO SCH (10:02)
[2023-07-05] MEDS: metoPROLOL SUCCINATE 25 MG TAB.SR.24H (FP) PO SCH (10:06)
[2023-07-05 12:29] VITALS: BP 111/84; PULSE 88; RESP 16; TEMP 98.4
[2023-07-05] MEDS ORDERED: SODIUM PHOSPHATE/NA BIPHOS 133 ML ENEMA RC ONE (14:55)
== END 2023-07-05 19:01 | DRG 493 ==
LOC: FER 17:08 → FM/S 19:03
PROVIDERS: ADMIT Internal Medicine; ATTEND Internal Medicine
PROC: 30233N1 Transfusion of Nonautologous Red Blood Cells into Peripheral Vein, Percutaneous Approach (ICD-10-PCS; 2023-07-01)
PROC: 0QSK04Z Reposition Left Fibula with Internal Fixation Device, Open Approach (ICD-10-PCS; principal; 2023-07-01 12:14)
DX: S82.62XA Displaced fracture of lateral malleolus of left fibula, initial encounter for closed fracture (principal); G81.91 Hemiplegia, unspecified affecting right dominant side; I47.1 Supraventricular tachycardia; I10 Essential (primary) hypertension; G20 Parkinson's disease; E78.5 Hyperlipidemia, unspecified; G89.29 Other chronic pain; I48.0 Paroxysmal atrial fibrillation; G25.81 Restless legs syndrome; G47.00 Insomnia, unspecified; D64.9 Anemia, unspecified; M48.00 Spinal stenosis, site unspecified; F41.8 Other specified anxiety disorders; K59.00 Constipation, unspecified; M06.9 Rheumatoid arthritis, unspecified; K59.03 Drug induced constipation; T40.605A Adverse effect of unspecified narcotics, initial encounter; W18.30XA Fall on same level, unspecified, initial encounter; Y93.89 Activity, other specified; Y92.89 Other specified places as the place of occurrence of the external cause
CPT/HCPCS: 36415; 36430; 73610-TC-LT-FY; 73630-TC-LT; 80048; 80053; 80061; 83880; 84443; 85027; 85610; 85730; 86850; 86900; 86901; 86922; 93005; 93306-TC; 93971-TC; 94760; 97116-GP; 97162-GP; 99285-25; C1713; J8610; P9058

== ENCOUNTER 2023-08-17 12:38 | Inpatient (IN) | payer OTHER, BC ==
[2023-08-17 14:56] LABS: INR 1.27 (0.83-1.09); PROTHROMBIN TIME (PATIENT) 14.7 SEC (9.7-13.0)
[2023-08-17 15:07] LABS: HEMATOCRIT 34.6 % (32.4-45.2); HEMOGLOBIN 10.8 G/dL (10.7-15.3); MCH 24.4 pg (25.7-33.7); MCHC 31.3 g/dl (32.0-36.0); MEAN CELL VOLUME 78.2 fl (80-96); MEAN PLT VOLUME 9.8 fl (7.5-11.1); PLATELET COUNT 341.9 10^3/uL (134-434); RBC 4.43 10^6/uL (3.60-5.2); RDW 21.1 % (11.6-15.6)
[2023-08-17 15:15] LABS: ALBUMIN 3.9 g/dl (3.4-5.0); BILIRUBIN,TOTAL 0.4 mg/dl (0.2-1); BLOOD UREA NITROGEN 13.4 mg/dl (7-18); CALCIUM 10.2 mg/dl (8.5-10.1); CREATININE 1.2 mg/dl (0.6-1.3); POTASSIUM 4.1 mmol/L (3.5-5.1); SGOT/AST 20.4 U/L (15-37); SGPT/ALT 5.9 U/L (7-52); TOT PROT 7.7 g/dl (6.4-8.2)
[2023-08-17 15:19] LABS: PLATELET ESTIMATE ADEQUATE
[2023-08-17] MEDS ORDERED: oxyCODONE HCL 5 MG TABLET PO PRN (15:31)
[2023-08-17] MEDS ORDERED: ACETAMINOPHEN 500 MG TABLET (FP) PO PRN (15:31)
[2023-08-17] MEDS: CARBIDOPA/LEVODOPA 25/100 TABLET (FP) PO SCH (21:12)
[2023-08-17] MEDS: POLYETHYLENE GLYCOL (HEALTHYLAX) 3350 17 GM PACKET PO SCH (21:12)
[2023-08-17] MEDS: ROSUVASTATIN CA 20 MG TABLET PO SCH (21:12)
[2023-08-17] MEDS: SENNOSIDES 8.6MG TABLET (FP) PO SCH (21:12)
[2023-08-17] MEDS: DOCUSATE SODIUM 100 MG CAPSULE (FP) PO SCH (21:12)
[2023-08-18] MEDS: DOCUSATE SODIUM 100 MG CAPSULE (FP) PO SCH ×3 (06:25→21:34)
[2023-08-18] MEDS: CARBIDOPA/LEVODOPA 25/100 TABLET (FP) PO SCH ×3 (06:26→21:33)
[2023-08-18] MEDS ORDERED: VANCOMYCIN 1,000 MG VIAL (RESTRICTED TO ID ONLY) ONE ×3 (07:12→08:00)
[2023-08-18] MEDS ORDERED: BUPIVACAINE HCL/PF 0.5% (5MG/ML) 10 ML VIAL ONE (07:13)
[2023-08-18] MEDS ORDERED: BUPIVACAINE HCL/PF 2.5 MG/ML - 30 ML VIAL IJ ONE (07:13)
[2023-08-18] MEDS ORDERED: SUCCINYLCHOLINE CHLORIDE 200 MG/10 ML SYRINGE ONE (07:24)
[2023-08-18] MEDS ORDERED: PROPOFOL 40 ML ONE (07:24)
[2023-08-18] MEDS ORDERED: LIDOCAINE HCL/PF 2% SDV 5ML VIAL ONE (07:41)
[2023-08-18] MEDS ORDERED: ETOMIDATE 20 MG/10 ML VIAL IVPUSH ONE (08:00)
[2023-08-18] MEDS ORDERED: DEXAMETHASONE SOD PHOSPHATE 4 MG/1 ML VIAL ONE (08:00)
[2023-08-18] MEDS ORDERED: ONDANSETRON 4 MG/2 ML VIAL ONE (08:00)
[2023-08-18] MEDS ORDERED: SODIUM CHLORIDE 1,000 ML IV SCH (08:00)
[2023-08-18] MEDS ORDERED: PIPERACILLIN/TAZOBACTAM 3.375 GM VIAL IVPB ONE (08:18)
[2023-08-18 09:09] LABS: INR 1.17 (0.83-1.09); PROTHROMBIN TIME (PATIENT) 13.6 SEC (9.7-13.0)
[2023-08-18] MEDS ORDERED: ONDANSETRON 4 MG/2 ML VIAL IVPUSH PRN (09:21)
[2023-08-18 09:24] LABS: BLOOD UREA NITROGEN 19.4 mg/dl (7-18); CALCIUM 9.7 mg/dl (8.5-10.1); CREATININE 1.5 mg/dl (0.6-1.3); POTASSIUM 5.2 mmol/L (3.5-5.1)
[2023-08-18] MEDS ORDERED: LACTATED RINGERS SOLUTION 1,000 ML IV SCH (09:30)
[2023-08-18 09:48] LABS: HEMATOCRIT 30.4 % (32.4-45.2); HEMOGLOBIN 9.4 G/dL (10.7-15.3); MCH 24.3 pg (25.7-33.7); MEAN CELL VOLUME 78.3 fl (80-96); MEAN PLT VOLUME 9.2 fl (7.5-11.1); PLATELET COUNT 276.8 10^3/uL (134-434); RBC 3.88 10^6/uL (3.60-5.2); RDW 20.4 % (11.6-15.6); WHITE BLOOD COUNT 4.4 10^3/uL (4.0-10.8)
[2023-08-18] MEDS ORDERED: metoPROLOL SUCCINATE 25 MG TAB.SR.24H (FP) PO SCH (10:00)
[2023-08-18] MEDS ORDERED: SERTRALINE HCL 50 MG TABLET (FP) PO SCH (10:00)
[2023-08-18] MEDS ORDERED: PANTOPRAZOLE 40 MG TABLET PO SCH (10:00)
[2023-08-18] MEDS: POLYETHYLENE GLYCOL (HEALTHYLAX) 3350 17 GM PACKET PO SCH ×2 (10:30→21:36)
[2023-08-18] MEDS ORDERED: PIPERACILLIN/TAZOB 3.375 GM 3.375 GM in DEXTROSE 5%-WATER - 50 ML IVPB ONE (15:00)
[2023-08-18] MEDS: PIPERACILLIN/TAZOB 4.5 GM 4.5 GM in DEXTROSE 5%-WATER 100 ML IVPB SCH (20:13)
[2023-08-18] MEDS: SENNOSIDES 8.6MG TABLET (FP) PO SCH (21:33)
[2023-08-18] MEDS: ROSUVASTATIN CA 20 MG TABLET PO SCH (21:34)
[2023-08-18] MEDS ORDERED: ACETAMINOPHEN 500 MG TABLET (FP) PO PRN (23:31)
[2023-08-18] MEDS ORDERED: oxyCODONE HCL 5 MG TABLET PO PRN (23:31)
[2023-08-19] MEDS: PIPERACILLIN/TAZOB 4.5 GM 4.5 GM in DEXTROSE 5%-WATER 100 ML IVPB SCH ×3 (01:58→17:12)
[2023-08-19] MEDS: SODIUM CHLORIDE 1,000 ML IV SCH ×2 (02:24→06:09)
[2023-08-19 04:15] VITALS: BMI 25.7
[2023-08-19] MEDS: DOCUSATE SODIUM 100 MG CAPSULE (FP) PO SCH ×3 (06:11→21:28)
[2023-08-19] MEDS: CARBIDOPA/LEVODOPA 25/100 TABLET (FP) PO SCH ×3 (06:11→21:29)
[2023-08-19 09:32] LABS: HEMATOCRIT 24.6 % (32.4-45.2); HEMOGLOBIN 7.8 GM/dL (10.7-15.3); MCHC 31.8 g/dl (32.0-36.0); MEAN CELL VOLUME 75.5 fl (80-96); MEAN PLT VOLUME 7.8 fl (7.5-11.1); PLATELET COUNT 228 10^3/uL (134-434); RBC 3.25 M/mm3 (3.60-5.2); RDW 20.5 % (11.6-15.6); WHITE BLOOD COUNT 7.2 K/mm3 (4.0-10.0)
[2023-08-19 09:48] LABS: POTASSIUM 4.6 mmol/L (3.5-5.1)
[2023-08-19 09:54] LABS: BLOOD UREA NITROGEN 17.9 mg/dL (7-18); CALCIUM 9.5 mg/dL (8.5-10.1); MAGNESIUM 1.8 mg/dL (1.8-2.4)
[2023-08-19 09:58] LABS: CREATININE 1.5 mg/dL (0.55-1.3); PHOSPHOROUS 2.6 mg/dL (2.5-4.9)
[2023-08-19] MEDS: metoPROLOL SUCCINATE 25 MG TAB.SR.24H (FP) PO SCH (09:58)
[2023-08-19] MEDS: SERTRALINE HCL 50 MG TABLET (FP) PO SCH (09:58)
[2023-08-19] MEDS: PANTOPRAZOLE 40 MG TABLET PO SCH (09:58)
[2023-08-19] MEDS: POLYETHYLENE GLYCOL (HEALTHYLAX) 3350 17 GM PACKET PO SCH ×2 (10:10→21:30)
[2023-08-19] MEDS ORDERED: APIXABAN 2.5 MG TABLET PO SCH (10:10)
[2023-08-19] MEDS ORDERED: VANCOMYCIN/WATER FOR INJ (PEG) 750 MG/150 ML BAG IVPB ONE (15:00)
[2023-08-19] MEDS: APIXABAN 2.5 MG TABLET PO SCH (21:28)
[2023-08-19] MEDS: SENNOSIDES 8.6MG TABLET (FP) PO SCH (21:28)
[2023-08-19] MEDS: ROSUVASTATIN CA 20 MG TABLET PO SCH (21:30)
[2023-08-20] MEDS: PIPERACILLIN/TAZOB 4.5 GM 4.5 GM in DEXTROSE 5%-WATER 100 ML IVPB SCH ×3 (03:02→18:31)
[2023-08-20] MEDS: CARBIDOPA/LEVODOPA 25/100 TABLET (FP) PO SCH ×3 (06:54→21:55)
[2023-08-20] MEDS: DOCUSATE SODIUM 100 MG CAPSULE (FP) PO SCH ×4 (06:54→22:18)
[2023-08-20] MEDS: SODIUM CHLORIDE 1,000 ML IV SCH (06:56)
[2023-08-20] MEDS: SERTRALINE HCL 50 MG TABLET (FP) PO SCH (09:53)
[2023-08-20] MEDS: PANTOPRAZOLE 40 MG TABLET PO SCH (09:53)
[2023-08-20] MEDS: metoPROLOL SUCCINATE 25 MG TAB.SR.24H (FP) PO SCH (09:53)
[2023-08-20] MEDS: POLYETHYLENE GLYCOL (HEALTHYLAX) 3350 17 GM PACKET PO SCH ×3 (09:53→22:18)
[2023-08-20] MEDS: APIXABAN 2.5 MG TABLET PO SCH ×2 (09:53→21:55)
[2023-08-20 13:00] LABS: HEMATOCRIT 26.5 % (32.4-45.2); HEMOGLOBIN 8.3 GM/dL (10.7-15.3); MCH 23.9 pg (25.7-33.7); MCHC 31.4 g/dl (32.0-36.0); MEAN CELL VOLUME 76.3 fl (80-96); MEAN PLT VOLUME 7.9 fl (7.5-11.1); PLATELET COUNT 256 10^3/uL (134-434); RBC 3.48 M/mm3 (3.60-5.2); RDW 21.1 % (11.6-15.6); WHITE BLOOD COUNT 9.6 K/mm3 (4.0-10.0)
[2023-08-20 13:20] LABS: POTASSIUM 4.4 mmol/L (3.5-5.1)
[2023-08-20 13:22] LABS: CALCIUM 9.1 mg/dL (8.5-10.1)
[2023-08-20 13:24] LABS: ALBUMIN 2.8 g/dl (3.4-5.0); BLOOD UREA NITROGEN 12.8 mg/dL (7-18)
[2023-08-20 13:26] LABS: CREATININE 1.3 mg/dL (0.55-1.3)
[2023-08-20 13:27] LABS: BILIRUBIN,TOTAL 0.2 mg/dL (0.2-1)
[2023-08-20] MEDS: MINERAL OIL/PET HY-PHL TOPICAL OINTMENT 454 GM JAR TP SCH (21:54)
[2023-08-20] MEDS: SENNOSIDES 8.6MG TABLET (FP) PO SCH (21:55)
[2023-08-20] MEDS: ROSUVASTATIN CA 20 MG TABLET PO SCH (21:55)
[2023-08-21] MEDS: CARBIDOPA/LEVODOPA 25/100 TABLET (FP) PO SCH ×3 (05:57→22:17)
[2023-08-21] MEDS: DOCUSATE SODIUM 100 MG CAPSULE (FP) PO SCH ×3 (05:57→22:17)
[2023-08-21] MEDS: SODIUM CHLORIDE 1,000 ML IV SCH (08:33)
[2023-08-21] MEDS: PANTOPRAZOLE 40 MG TABLET PO SCH (10:19)
[2023-08-21] MEDS: metoPROLOL SUCCINATE 25 MG TAB.SR.24H (FP) PO SCH (10:19)
[2023-08-21] MEDS: SERTRALINE HCL 50 MG TABLET (FP) PO SCH (10:19)
[2023-08-21] MEDS: ENOXAPARIN NA (PORCINE) 80 MG/0.8 ML DISP.SYRIN SQ SCH ×2 (10:19→22:17)
[2023-08-21] MEDS: POLYETHYLENE GLYCOL (HEALTHYLAX) 3350 17 GM PACKET PO SCH ×2 (10:20→22:17)
[2023-08-21] MEDS: MINERAL OIL/PET HY-PHL TOPICAL OINTMENT 454 GM JAR TP SCH (10:23)
[2023-08-21] MEDS ORDERED: VANCOMYCIN/WATER 1250 MG 1,250 MG/250 ML BAG IVPB SCH (15:00)
[2023-08-21] MEDS: ROSUVASTATIN CA 20 MG TABLET PO SCH (22:17)
[2023-08-21] MEDS: SENNOSIDES 8.6MG TABLET (FP) PO SCH (22:17)
[2023-08-22] MEDS: DOCUSATE SODIUM 100 MG CAPSULE (FP) PO SCH ×4 (06:40→21:29)
[2023-08-22] MEDS: CARBIDOPA/LEVODOPA 25/100 TABLET (FP) PO SCH ×3 (06:40→21:18)
[2023-08-22] MEDS: metoPROLOL SUCCINATE 25 MG TAB.SR.24H (FP) PO SCH (09:31)
[2023-08-22] MEDS: PANTOPRAZOLE 40 MG TABLET PO SCH (09:31)
[2023-08-22] MEDS: MINERAL OIL/PET HY-PHL TOPICAL OINTMENT 454 GM JAR TP SCH (09:31)
[2023-08-22] MEDS: SERTRALINE HCL 50 MG TABLET (FP) PO SCH (09:31)
[2023-08-22] MEDS: POLYETHYLENE GLYCOL (HEALTHYLAX) 3350 17 GM PACKET PO SCH ×3 (09:31→21:28)
[2023-08-22] MEDS: SODIUM CHLORIDE 1,000 ML IV SCH ×3 (09:35→23:58)
[2023-08-22 10:26] LABS: INR 1.22 (0.83-1.09); PROTHROMBIN TIME (PATIENT) 14.1 SEC (9.7-13.0)
[2023-08-22] MEDS: CEFAZOLIN SODIUM 2 GM in DEXTROSE 5%-WATER 100 ML IVPB SCH ×2 (15:30→17:19)
[2023-08-22] MEDS: SENNOSIDES 8.6MG TABLET (FP) PO SCH (21:18)
[2023-08-22] MEDS: ROSUVASTATIN CA 20 MG TABLET PO SCH (21:19)
[2023-08-23] MEDS ORDERED: BUPIVACAINE HCL/PF 0.5% (5MG/ML) 10 ML VIAL IJ ONE
[2023-08-23] MEDS ORDERED: LIDOCAINE 1%/EPI 1:100000 (20 ML MULTI DOSE VIAL) IJ ONE
[2023-08-23] MEDS: CEFAZOLIN SODIUM 2 GM in DEXTROSE 5%-WATER 100 ML IVPB SCH ×3 (02:07→18:44)
[2023-08-23] MEDS: SODIUM CHLORIDE 1,000 ML IV SCH ×2 (02:08→07:00)
[2023-08-23] MEDS: DOCUSATE SODIUM 100 MG CAPSULE (FP) PO SCH ×4 (05:58→21:47)
[2023-08-23] MEDS: CARBIDOPA/LEVODOPA 25/100 TABLET (FP) PO SCH ×3 (06:03→21:40)
[2023-08-23] MEDS: metoPROLOL SUCCINATE 25 MG TAB.SR.24H (FP) PO SCH (09:52)
[2023-08-23] MEDS: PANTOPRAZOLE 40 MG TABLET PO SCH (09:53)
[2023-08-23] MEDS: SERTRALINE HCL 50 MG TABLET (FP) PO SCH (09:53)
[2023-08-23] MEDS: APIXABAN 2.5 MG TABLET PO SCH (09:54)
[2023-08-23] MEDS: POLYETHYLENE GLYCOL (HEALTHYLAX) 3350 17 GM PACKET PO SCH ×2 (09:55→21:41)
[2023-08-23 10:06] LABS: BASO % 0.5 % (0-2.0); HEMATOCRIT 24.2 % (32.4-45.2); HEMOGLOBIN 7.5 GM/dL (10.7-15.3); LYMPH % 12.8 % (8-40); MCH 23.5 pg (25.7-33.7); MCHC 30.8 g/dl (32.0-36.0); MEAN CELL VOLUME 76.4 fl (80-96); MEAN PLT VOLUME 7.9 fl (7.5-11.1); MONO % 9.4 % (3.8-10.2); NEUT % 73.3 % (42.8-82.8); PLATELET COUNT 259 10^3/uL (134-434); RBC 3.17 M/mm3 (3.60-5.2); RDW 21.1 % (11.6-15.6); WHITE BLOOD COUNT 7.8 K/mm3 (4.0-10.0)
[2023-08-23 10:09] LABS: INR 1.13 (0.83-1.09); PROTHROMBIN TIME (PATIENT) 13.1 SEC (9.7-13.0)
[2023-08-23 10:30] LABS: POTASSIUM 4.4 mmol/L (3.5-5.1)
[2023-08-23 10:32] LABS: CALCIUM 8.8 mg/dL (8.5-10.1)
[2023-08-23 10:33] LABS: ALBUMIN 2.4 g/dl (3.4-5.0); BLOOD UREA NITROGEN 6.2 mg/dL (7-18); MAGNESIUM 1.6 mg/dL (1.8-2.4)
[2023-08-23 10:38] LABS: BILIRUBIN,TOTAL 0.2 mg/dL (0.2-1); TOT PROT 6.4 g/dl (6.4-8.2)
[2023-08-23 10:39] LABS: ANISOCYTOSIS 2+; MACROCYTOSIS 0
[2023-08-23] MEDS: MINERAL OIL/PET HY-PHL TOPICAL OINTMENT 454 GM JAR TP SCH (12:25)
[2023-08-23] MEDS ORDERED: MIDAZOLAM HCL 2 MG/2 ML SINGLE DOSE VIAL ONE (14:28)
[2023-08-23] MEDS ORDERED: LIDOCAINE HCL/PF 2% SDV 5ML VIAL ONE (14:28)
[2023-08-23] MEDS ORDERED: PROPOFOL 20 ML ONE (14:28)
[2023-08-23] MEDS ORDERED: GENTAMICIN SO4 80 MG/2 ML VIAL ONE (14:40)
[2023-08-23] MEDS ORDERED: DEXAMETHASONE SOD PHOSPHATE 4 MG/1 ML VIAL ONE (15:40)
[2023-08-23] MEDS ORDERED: ceFAZolin SODIUM 1 GM VIAL ONE (15:40)
[2023-08-23] MEDS ORDERED: ceFAZolin SODIUM 1 GM VIAL IVPB ONE (15:40)
[2023-08-23] MEDS ORDERED: GENTAMICIN SO4 80 MG/2 ML VIAL IVPB ONE (16:10)
[2023-08-23] MEDS ORDERED: ONDANSETRON 4 MG/2 ML VIAL IVPUSH PRN ×2 (18:03→18:46)
[2023-08-23] MEDS ORDERED: LACTATED RINGERS SOLUTION 1,000 ML IV SCH ×2 (18:15→18:46)
[2023-08-23] MEDS ORDERED: oxyCODONE HCL 5 MG TABLET PO PRN (18:41)
[2023-08-23] MEDS: ROSUVASTATIN CA 20 MG TABLET PO SCH (21:40)
[2023-08-23] MEDS: SENNOSIDES 8.6MG TABLET (FP) PO SCH (21:40)
[2023-08-23] MEDS ORDERED: ENOXAPARIN NA (PORCINE) 40 MG/0.4 ML DISP.SYRIN SQ ONE (23:59)
[2023-08-24] MEDS: CEFAZOLIN SODIUM 2 GM in DEXTROSE 5%-WATER 100 ML IVPB SCH ×3 (01:37→17:44)
[2023-08-24] MEDS: DOCUSATE SODIUM 100 MG CAPSULE (FP) PO SCH ×3 (05:16→21:23)
[2023-08-24] MEDS: CARBIDOPA/LEVODOPA 25/100 TABLET (FP) PO SCH ×3 (05:17→21:28)
[2023-08-24] MEDS ORDERED: MULTIVITAMINS (DAILY MVI) TABLET (FP) PO SCH (10:00)
[2023-08-24] MEDS: PANTOPRAZOLE 40 MG TABLET PO SCH (10:02)
[2023-08-24] MEDS: APIXABAN 2.5 MG TABLET PO SCH ×2 (10:03→21:27)
[2023-08-24] MEDS: SERTRALINE HCL 50 MG TABLET (FP) PO SCH (10:03)
[2023-08-24] MEDS: POLYETHYLENE GLYCOL (HEALTHYLAX) 3350 17 GM PACKET PO SCH ×2 (10:03→21:23)
[2023-08-24] MEDS: MULTIVITAMINS (DAILY MVI) TABLET (FP) PO SCH (10:03)
[2023-08-24] MEDS: metoPROLOL SUCCINATE 25 MG TAB.SR.24H (FP) PO SCH (10:03)
[2023-08-24] MEDS: MINERAL OIL/PET HY-PHL TOPICAL OINTMENT 454 GM JAR TP SCH (10:10)
[2023-08-24 10:55] LABS: BASO % 0.4 % (0-2.0); HEMATOCRIT 24.2 % (32.4-45.2); HEMOGLOBIN 7.6 GM/dL (10.7-15.3); LYMPH % 9.7 % (8-40); MCH 23.9 pg (25.7-33.7); MCHC 31.3 g/dl (32.0-36.0); MEAN CELL VOLUME 76.4 fl (80-96); NEUT % 82.9 % (42.8-82.8); PLATELET COUNT 257 10^3/uL (134-434); RBC 3.17 M/mm3 (3.60-5.2); RDW 20.6 % (11.6-15.6); WHITE BLOOD COUNT 9.9 K/mm3 (4.0-10.0)
[2023-08-24 11:21] LABS: POTASSIUM 4.1 mmol/L (3.5-5.1)
[2023-08-24 11:22] LABS: ALBUMIN 2.5 g/dl (3.4-5.0)
[2023-08-24 11:23] LABS: BLOOD UREA NITROGEN 7.8 mg/dL (7-18); MAGNESIUM 1.6 mg/dL (1.8-2.4)
[2023-08-24 11:26] LABS: CREATININE 1.1 mg/dL (0.55-1.3)
[2023-08-24 11:27] LABS: BILIRUBIN,TOTAL 0.1 mg/dL (0.2-1); TOT PROT 6.5 g/dl (6.4-8.2)
[2023-08-24] MEDS: oxyCODONE HCL 5 MG TABLET PO PRN (18:58)
[2023-08-24] MEDS: SENNOSIDES 8.6MG TABLET (FP) PO SCH (21:23)
[2023-08-24] MEDS: ROSUVASTATIN CA 20 MG TABLET PO SCH (21:28)
[2023-08-25] MEDS: CEFAZOLIN SODIUM 2 GM in DEXTROSE 5%-WATER 100 ML IVPB SCH ×3 (01:40→17:30)
[2023-08-25] MEDS: DOCUSATE SODIUM 100 MG CAPSULE (FP) PO SCH ×3 (05:31→21:36)
[2023-08-25] MEDS: CARBIDOPA/LEVODOPA 25/100 TABLET (FP) PO SCH ×3 (05:35→21:35)
[2023-08-25 09:12] LABS: BASO % 0.4 % (0-2.0); EOS % 1.4 % (0-4.5); HEMATOCRIT 22.8 % (32.4-45.2); HEMOGLOBIN 7.2 GM/dL (10.7-15.3); LYMPH % 21.6 % (8-40); MCH 24.2 pg (25.7-33.7); MCHC 31.7 g/dl (32.0-36.0); MEAN CELL VOLUME 76.4 fl (80-96); MONO % 10.6 % (3.8-10.2); PLATELET COUNT 274 10^3/uL (134-434); RBC 2.98 M/mm3 (3.60-5.2); RDW 20.6 % (11.6-15.6); WHITE BLOOD COUNT 7.3 K/mm3 (4.0-10.0)
[2023-08-25 09:56] LABS: POTASSIUM 4.5 mmol/L (3.5-5.1)
[2023-08-25 10:08] LABS: CALCIUM 8.8 mg/dL (8.5-10.1)
[2023-08-25 10:09] LABS: ALBUMIN 2.5 g/dl (3.4-5.0); MAGNESIUM 1.6 mg/dL (1.8-2.4)
[2023-08-25 10:12] LABS: CREATININE 1.2 mg/dL (0.55-1.3)
[2023-08-25 10:13] LABS: BILIRUBIN,TOTAL 0.2 mg/dL (0.2-1)
[2023-08-25 10:14] LABS: TOT PROT 6.3 g/dl (6.4-8.2)
[2023-08-25] MEDS: POLYETHYLENE GLYCOL (HEALTHYLAX) 3350 17 GM PACKET PO SCH ×2 (10:59→21:37)
[2023-08-25] MEDS: PANTOPRAZOLE 40 MG TABLET PO SCH (10:59)
[2023-08-25] MEDS: MULTIVITAMINS (DAILY MVI) TABLET (FP) PO SCH (10:59)
[2023-08-25] MEDS: APIXABAN 2.5 MG TABLET PO SCH ×2 (10:59→21:36)
[2023-08-25] MEDS: metoPROLOL SUCCINATE 25 MG TAB.SR.24H (FP) PO SCH (10:59)
[2023-08-25] MEDS: SERTRALINE HCL 50 MG TABLET (FP) PO SCH (10:59)
[2023-08-25] MEDS ORDERED: MAGNESIUM OXIDE 400 MG TABLET (FP) PO ONE (11:06)
[2023-08-25] MEDS: MINERAL OIL/PET HY-PHL TOPICAL OINTMENT 454 GM JAR TP SCH (11:42)
[2023-08-25] MEDS: oxyCODONE HCL 5 MG TABLET PO PRN (17:10)
[2023-08-25] MEDS: ROSUVASTATIN CA 20 MG TABLET PO SCH (21:36)
[2023-08-25] MEDS: SENNOSIDES 8.6MG TABLET (FP) PO SCH (21:37)
[2023-08-26] MEDS: CEFAZOLIN SODIUM 2 GM in DEXTROSE 5%-WATER 100 ML IVPB SCH ×3 (02:36→17:32)
[2023-08-26] MEDS: DOCUSATE SODIUM 100 MG CAPSULE (FP) PO SCH ×3 (05:13→21:21)
[2023-08-26] MEDS: CARBIDOPA/LEVODOPA 25/100 TABLET (FP) PO SCH ×3 (05:14→22:01)
[2023-08-26 09:50] LABS: BASO % 0.5 % (0-2.0); EOS % 4.4 % (0-4.5); HEMATOCRIT 28.9 % (32.4-45.2); HEMOGLOBIN 9.3 GM/dL (10.7-15.3); LYMPH % 13.4 % (8-40); MCH 25.5 pg (25.7-33.7); MCHC 32.2 g/dl (32.0-36.0); MEAN CELL VOLUME 79.3 fl (80-96); MONO % 10.2 % (3.8-10.2); NEUT % 71.5 % (42.8-82.8); PLATELET COUNT 281 10^3/uL (134-434); RBC 3.64 M/mm3 (3.60-5.2); RDW 19.9 % (11.6-15.6); WHITE BLOOD COUNT 7.9 K/mm3 (4.0-10.0)
[2023-08-26 10:08] LABS: CHLORIDE 103 mmol/L (98-107); POTASSIUM 4.8 mmol/L (3.5-5.1); SODIUM 138 mmol/L (136-145)
[2023-08-26] MEDS: metoPROLOL SUCCINATE 25 MG TAB.SR.24H (FP) PO SCH (10:19)
[2023-08-26] MEDS: MULTIVITAMINS (DAILY MVI) TABLET (FP) PO SCH (10:19)
[2023-08-26] MEDS: CYANOCOBALAMIN (VITAMIN B-12) 100 MCG TABLET PO SCH (10:19)
[2023-08-26] MEDS: APIXABAN 2.5 MG TABLET PO SCH ×2 (10:19→22:01)
[2023-08-26] MEDS: POLYETHYLENE GLYCOL (HEALTHYLAX) 3350 17 GM PACKET PO SCH ×2 (10:19→21:21)
[2023-08-26] MEDS: PANTOPRAZOLE 40 MG TABLET PO SCH (10:19)
[2023-08-26] MEDS: SERTRALINE HCL 50 MG TABLET (FP) PO SCH (10:19)
[2023-08-26] MEDS: FOLIC ACID 1 MG TABLET (FP) PO SCH (10:19)
[2023-08-26] MEDS: MINERAL OIL/PET HY-PHL TOPICAL OINTMENT 454 GM JAR TP SCH (10:20)
[2023-08-26 10:21] LABS: SGOT/AST 14 U/L (15-37); SGPT/ALT < 6 U/L (13-61)
[2023-08-26 10:22] LABS: ANION GAP 4 MMOL/L (8-16); BLOOD UREA NITROGEN 11.4 mg/dL (7-18); CO2 31 mmol/L (21-32); GLUCOSE,RANDOM 90 mg/dL (74-106); TOT PROT 6.4 g/dl (6.4-8.2)
[2023-08-26 10:23] LABS: ALBUMIN 2.5 g/dl (3.4-5.0); BILIRUBIN,TOTAL 0.2 mg/dL (0.2-1); CALCIUM 9.4 mg/dL (8.5-10.1)
[2023-08-26 10:24] LABS: ALK PHOS 102 U/L (45-117); MAGNESIUM 1.7 mg/dL (1.8-2.4)
[2023-08-26 11:29] LABS: LDH 200 U/L (84-246)
[2023-08-26] MEDS: SENNOSIDES 8.6MG TABLET (FP) PO SCH (21:21)
[2023-08-26] MEDS: ROSUVASTATIN CA 20 MG TABLET PO SCH (22:01)
[2023-08-27] MEDS: CEFAZOLIN SODIUM 2 GM in DEXTROSE 5%-WATER 100 ML IVPB SCH ×3 (01:46→17:56)
[2023-08-27] MEDS: DOCUSATE SODIUM 100 MG CAPSULE (FP) PO SCH ×3 (06:03→21:59)
[2023-08-27] MEDS: CARBIDOPA/LEVODOPA 25/100 TABLET (FP) PO SCH ×3 (06:04→21:58)
[2023-08-27 09:33] LABS: BASO % 0.3 % (0-2.0); EOS % 4.5 % (0-4.5); HEMATOCRIT 29.8 % (32.4-45.2); HEMOGLOBIN 9.6 GM/dL (10.7-15.3); LYMPH % 17.1 % (8-40); MCH 25.6 pg (25.7-33.7); MCHC 32.3 g/dl (32.0-36.0); MEAN CELL VOLUME 79.2 fl (80-96); MEAN PLT VOLUME 8.2 fl (7.5-11.1); MONO % 9.6 % (3.8-10.2); NEUT % 68.5 % (42.8-82.8); PLATELET COUNT 297 10^3/uL (134-434); RBC 3.76 M/mm3 (3.60-5.2); RDW 20.6 % (11.6-15.6); WHITE BLOOD COUNT 8.4 K/mm3 (4.0-10.0)
[2023-08-27 09:46] LABS: CHLORIDE 103 mmol/L (98-107); POTASSIUM 4.4 mmol/L (3.5-5.1); SODIUM 138 mmol/L (136-145)
[2023-08-27 09:51] LABS: BLOOD UREA NITROGEN 12.4 mg/dL (7-18)
[2023-08-27 09:52] LABS: ALBUMIN 2.6 g/dl (3.4-5.0); ANION GAP 6 MMOL/L (8-16); CALCIUM 9.7 mg/dL (8.5-10.1); CO2 29 mmol/L (21-32); GLUCOSE,RANDOM 92 mg/dL (74-106)
[2023-08-27 09:55] LABS: SGOT/AST 22 U/L (15-37); SGPT/ALT < 6 U/L (13-61)
[2023-08-27 09:56] LABS: BILIRUBIN,TOTAL 0.2 mg/dL (0.2-1); TOT PROT 6.8 g/dl (6.4-8.2)
[2023-08-27 09:58] LABS: ALK PHOS 102 U/L (45-117)
[2023-08-27] MEDS: POLYETHYLENE GLYCOL (HEALTHYLAX) 3350 17 GM PACKET PO SCH ×2 (10:11→21:59)
[2023-08-27] MEDS: PANTOPRAZOLE 40 MG TABLET PO SCH (10:11)
[2023-08-27] MEDS: FOLIC ACID 1 MG TABLET (FP) PO SCH (10:11)
[2023-08-27] MEDS: SERTRALINE HCL 50 MG TABLET (FP) PO SCH (10:11)
[2023-08-27] MEDS: MULTIVITAMINS (DAILY MVI) TABLET (FP) PO SCH (10:11)
[2023-08-27] MEDS: APIXABAN 2.5 MG TABLET PO SCH ×2 (10:12→21:58)
[2023-08-27] MEDS: metoPROLOL SUCCINATE 25 MG TAB.SR.24H (FP) PO SCH (10:12)
[2023-08-27] MEDS: CYANOCOBALAMIN (VITAMIN B-12) 100 MCG TABLET PO SCH (10:12)
[2023-08-27] MEDS: MINERAL OIL/PET HY-PHL TOPICAL OINTMENT 454 GM JAR TP SCH (10:14)
[2023-08-27 10:19] LABS: ANISOCYTOSIS 2+; MACROCYTOSIS 0; OVALOCYTE 1+; TEAR DROP CELLS 1+
[2023-08-27] MEDS: ROSUVASTATIN CA 20 MG TABLET PO SCH (21:58)
[2023-08-27] MEDS: SENNOSIDES 8.6MG TABLET (FP) PO SCH (21:59)
[2023-08-28] MEDS: CEFAZOLIN SODIUM 2 GM in DEXTROSE 5%-WATER 100 ML IVPB SCH ×3 (02:06→19:10)
[2023-08-28] MEDS: DOCUSATE SODIUM 100 MG CAPSULE (FP) PO SCH ×3 (05:20→21:10)
[2023-08-28] MEDS: CARBIDOPA/LEVODOPA 25/100 TABLET (FP) PO SCH ×3 (05:21→21:10)
[2023-08-28] MEDS: APIXABAN 2.5 MG TABLET PO SCH ×2 (09:18→21:10)
[2023-08-28] MEDS: SERTRALINE HCL 50 MG TABLET (FP) PO SCH (09:18)
[2023-08-28] MEDS: MULTIVITAMINS (DAILY MVI) TABLET (FP) PO SCH (09:18)
[2023-08-28] MEDS: PANTOPRAZOLE 40 MG TABLET PO SCH (09:18)
[2023-08-28] MEDS: FOLIC ACID 1 MG TABLET (FP) PO SCH (09:18)
[2023-08-28] MEDS: metoPROLOL SUCCINATE 25 MG TAB.SR.24H (FP) PO SCH (09:18)
[2023-08-28] MEDS: POLYETHYLENE GLYCOL (HEALTHYLAX) 3350 17 GM PACKET PO SCH ×2 (09:21→21:11)
[2023-08-28] MEDS: MINERAL OIL/PET HY-PHL TOPICAL OINTMENT 454 GM JAR TP SCH (09:21)
[2023-08-28 09:31] LABS: BASO % 1.1 % (0-2.0); EOS % 3.5 % (0-4.5); HEMATOCRIT 33.5 % (32.4-45.2); HEMOGLOBIN 10.7 GM/dL (10.7-15.3); LYMPH % 13.4 % (8-40); MCH 25.5 pg (25.7-33.7); MCHC 32.1 g/dl (32.0-36.0); MEAN CELL VOLUME 79.3 fl (80-96); MEAN PLT VOLUME 8.1 fl (7.5-11.1); MONO % 9.7 % (3.8-10.2); NEUT % 72.3 % (42.8-82.8); PLATELET COUNT 317 10^3/uL (134-434); RBC 4.22 M/mm3 (3.60-5.2); RDW 21.2 % (11.6-15.6); WHITE BLOOD COUNT 10.6 K/mm3 (4.0-10.0)
[2023-08-28] MEDS: CYANOCOBALAMIN (VITAMIN B-12) 100 MCG TABLET PO SCH (09:48)
[2023-08-28 09:49] LABS: POTASSIUM 4.3 mmol/L (3.5-5.1)
[2023-08-28 10:05] LABS: CALCIUM 9.8 mg/dL (8.5-10.1)
[2023-08-28 10:06] LABS: BILIRUBIN,TOTAL 0.3 mg/dL (0.2-1); TOT PROT 7.7 g/dl (6.4-8.2)
[2023-08-28] MEDS: ROSUVASTATIN CA 20 MG TABLET PO SCH (21:10)
[2023-08-28] MEDS: SENNOSIDES 8.6MG TABLET (FP) PO SCH (21:11)
[2023-08-29] MEDS: CEFAZOLIN SODIUM 2 GM in DEXTROSE 5%-WATER 100 ML IVPB SCH ×3 (01:11→18:13)
[2023-08-29] MEDS: CARBIDOPA/LEVODOPA 25/100 TABLET (FP) PO SCH ×4 (05:43→22:17)
[2023-08-29] MEDS: DOCUSATE SODIUM 100 MG CAPSULE (FP) PO SCH ×3 (07:42→22:00)
[2023-08-29 09:49] LABS: BASO % 0.5 % (0-2.0); EOS % 2.8 % (0-4.5); HEMATOCRIT 31.7 % (32.4-45.2); HEMOGLOBIN 9.8 GM/dL (10.7-15.3); LYMPH % 14.6 % (8-40); MCH 24.8 pg (25.7-33.7); MCHC 30.9 g/dl (32.0-36.0); MEAN CELL VOLUME 80.1 fl (80-96); MEAN PLT VOLUME 8.1 fl (7.5-11.1); MONO % 10.6 % (3.8-10.2); NEUT % 71.5 % (42.8-82.8); PLATELET COUNT 302 10^3/uL (134-434); RBC 3.95 M/mm3 (3.60-5.2); RDW 21.5 % (11.6-15.6); WHITE BLOOD COUNT 8.5 K/mm3 (4.0-10.0)
[2023-08-29 10:17] LABS: POTASSIUM 4.5 mmol/L (3.5-5.1)
[2023-08-29] MEDS: FOLIC ACID 1 MG TABLET (FP) PO SCH (10:17)
[2023-08-29] MEDS: SERTRALINE HCL 50 MG TABLET (FP) PO SCH (10:17)
[2023-08-29] MEDS: metoPROLOL SUCCINATE 25 MG TAB.SR.24H (FP) PO SCH (10:17)
[2023-08-29] MEDS: MULTIVITAMINS (DAILY MVI) TABLET (FP) PO SCH (10:17)
[2023-08-29] MEDS: PANTOPRAZOLE 40 MG TABLET PO SCH (10:17)
[2023-08-29] MEDS: CYANOCOBALAMIN (VITAMIN B-12) 100 MCG TABLET PO SCH (10:18)
[2023-08-29] MEDS: POLYETHYLENE GLYCOL (HEALTHYLAX) 3350 17 GM PACKET PO SCH ×2 (10:18→22:00)
[2023-08-29 10:22] LABS: ALBUMIN 2.6 g/dl (3.4-5.0)
[2023-08-29 10:23] LABS: CALCIUM 9.4 mg/dL (8.5-10.1)
[2023-08-29 10:24] LABS: BLOOD UREA NITROGEN 10.8 mg/dL (7-18); MAGNESIUM 2.1 mg/dL (1.8-2.4)
[2023-08-29 10:27] LABS: BILIRUBIN,TOTAL 0.3 mg/dL (0.2-1); TOT PROT 6.8 g/dl (6.4-8.2)
[2023-08-29] MEDS: MINERAL OIL/PET HY-PHL TOPICAL OINTMENT 454 GM JAR TP SCH (10:53)
[2023-08-29] MEDS: ROSUVASTATIN CA 20 MG TABLET PO SCH ×2 (22:00→22:17)
[2023-08-29] MEDS: SENNOSIDES 8.6MG TABLET (FP) PO SCH (22:00)
[2023-08-30] MEDS: CEFAZOLIN SODIUM 2 GM in DEXTROSE 5%-WATER 100 ML IVPB SCH ×3 (01:29→17:27)
[2023-08-30] MEDS: CARBIDOPA/LEVODOPA 25/100 TABLET (FP) PO SCH ×3 (06:10→21:15)
[2023-08-30] MEDS: DOCUSATE SODIUM 100 MG CAPSULE (FP) PO SCH ×3 (06:10→21:16)
[2023-08-30] MEDS: APIXABAN 2.5 MG TABLET PO SCH (10:33)
[2023-08-30] MEDS: POLYETHYLENE GLYCOL (HEALTHYLAX) 3350 17 GM PACKET PO SCH ×2 (10:33→21:16)
[2023-08-30] MEDS: FOLIC ACID 1 MG TABLET (FP) PO SCH (10:33)
[2023-08-30] MEDS: PANTOPRAZOLE 40 MG TABLET PO SCH (10:34)
[2023-08-30] MEDS: CYANOCOBALAMIN (VITAMIN B-12) 100 MCG TABLET PO SCH (10:34)
[2023-08-30] MEDS: metoPROLOL SUCCINATE 25 MG TAB.SR.24H (FP) PO SCH (10:34)
[2023-08-30] MEDS: SERTRALINE HCL 50 MG TABLET (FP) PO SCH (10:34)
[2023-08-30] MEDS: MULTIVITAMINS (DAILY MVI) TABLET (FP) PO SCH (10:34)
[2023-08-30] MEDS: MINERAL OIL/PET HY-PHL TOPICAL OINTMENT 454 GM JAR TP SCH ×2 (10:35→18:36)
[2023-08-30 10:39] LABS: BASO % 0.8 % (0-2.0); EOS % 3.3 % (0-4.5); HEMATOCRIT 31.5 % (32.4-45.2); HEMOGLOBIN 10.1 GM/dL (10.7-15.3); LYMPH % 13.5 % (8-40); MCH 25.5 pg (25.7-33.7); MCHC 32.2 g/dl (32.0-36.0); MEAN CELL VOLUME 79.3 fl (80-96); MEAN PLT VOLUME 8.1 fl (7.5-11.1); MONO % 9.5 % (3.8-10.2); NEUT % 72.9 % (42.8-82.8); PLATELET COUNT 312 10^3/uL (134-434); RBC 3.97 M/mm3 (3.60-5.2); RDW 21.3 % (11.6-15.6); WHITE BLOOD COUNT 9.1 K/mm3 (4.0-10.0)
[2023-08-30 11:04] LABS: ANISOCYTOSIS 2+; MACROCYTOSIS 1+
[2023-08-30 11:11] LABS: POTASSIUM 4.4 mmol/L (3.5-5.1)
[2023-08-30] MEDS: oxyCODONE HCL 5 MG TABLET PO PRN (16:45)
[2023-08-30] MEDS: ENOXAPARIN NA (PORCINE) 80 MG/0.8 ML DISP.SYRIN SQ SCH (17:28)
[2023-08-30 18:09] LABS: FREE KAPPA,SERUM 77.5 mg/L (3.3-19.4)
[2023-08-30 18:54] LABS: CALCIUM 9.6 mg/dL (8.5-10.1)
[2023-08-30 18:55] LABS: ALBUMIN 2.8 g/dl (3.4-5.0); BLOOD UREA NITROGEN 16.1 mg/dL (7-18); MAGNESIUM 2.1 mg/dL (1.8-2.4)
[2023-08-30 18:57] LABS: CREATININE 1.1 mg/dL (0.55-1.3)
[2023-08-30 18:58] LABS: TOT PROT 7.2 g/dl (6.4-8.2)
[2023-08-30 18:59] LABS: BILIRUBIN,TOTAL 0.2 mg/dL (0.2-1)
[2023-08-30] MEDS: ROSUVASTATIN CA 20 MG TABLET PO SCH (21:15)
[2023-08-30] MEDS: SENNOSIDES 8.6MG TABLET (FP) PO SCH (21:16)
[2023-08-31] MEDS: CEFAZOLIN SODIUM 2 GM in DEXTROSE 5%-WATER 100 ML IVPB SCH ×3 (01:46→18:52)
[2023-08-31] MEDS: DOCUSATE SODIUM 100 MG CAPSULE (FP) PO SCH ×3 (06:30→22:06)
[2023-08-31] MEDS: CARBIDOPA/LEVODOPA 25/100 TABLET (FP) PO SCH ×3 (06:30→21:58)
[2023-08-31] MEDS: ENOXAPARIN NA (PORCINE) 80 MG/0.8 ML DISP.SYRIN SQ SCH ×2 (06:30→18:53)
[2023-08-31 09:52] LABS: INR 1.18 (0.83-1.09); PROTHROMBIN TIME (PATIENT) 13.7 SEC (9.7-13.0)
[2023-08-31 09:56] LABS: BASO % 0.7 % (0-2.0); EOS % 3.6 % (0-4.5); HEMATOCRIT 30.6 % (32.4-45.2); HEMOGLOBIN 9.7 GM/dL (10.7-15.3); LYMPH % 13.9 % (8-40); MCH 25.1 pg (25.7-33.7); MCHC 31.6 g/dl (32.0-36.0); MEAN CELL VOLUME 79.4 fl (80-96); MEAN PLT VOLUME 8.3 fl (7.5-11.1); MONO % 11.3 % (3.8-10.2); NEUT % 70.5 % (42.8-82.8); PLATELET COUNT 290 10^3/uL (134-434); RBC 3.86 M/mm3 (3.60-5.2); RDW 20.8 % (11.6-15.6); WHITE BLOOD COUNT 8.6 K/mm3 (4.0-10.0)
[2023-08-31 10:06] LABS: CHLORIDE 103 mmol/L (98-107); POTASSIUM 4.1 mmol/L (3.5-5.1); SODIUM 137 mmol/L (136-145)
[2023-08-31 10:08] LABS: ALBUMIN 2.8 g/dl (3.4-5.0); CALCIUM 9.4 mg/dL (8.5-10.1)
[2023-08-31 10:09] LABS: ANION GAP 5 MMOL/L (8-16); BLOOD UREA NITROGEN 15.9 mg/dL (7-18); CO2 28 mmol/L (21-32); GLUCOSE,RANDOM 92 mg/dL (74-106); MAGNESIUM 2.1 mg/dL (1.8-2.4)
[2023-08-31 10:12] LABS: SGPT/ALT < 6 U/L (13-61)
[2023-08-31 10:13] LABS: CREATININE 1.1 mg/dL (0.55-1.3); SGOT/AST 18 U/L (15-37)
[2023-08-31 10:14] LABS: ALK PHOS 104 U/L (45-117); BILIRUBIN,TOTAL 0.3 mg/dL (0.2-1); TOT PROT 7.1 g/dl (6.4-8.2)
[2023-08-31] MEDS: FOLIC ACID 1 MG TABLET (FP) PO SCH (10:51)
[2023-08-31] MEDS: metoPROLOL SUCCINATE 25 MG TAB.SR.24H (FP) PO SCH (10:51)
[2023-08-31] MEDS: PANTOPRAZOLE 40 MG TABLET PO SCH (10:51)
[2023-08-31] MEDS: SERTRALINE HCL 50 MG TABLET (FP) PO SCH (10:51)
[2023-08-31] MEDS: POLYETHYLENE GLYCOL (HEALTHYLAX) 3350 17 GM PACKET PO SCH ×2 (10:52→22:06)
[2023-08-31] MEDS: MULTIVITAMINS (DAILY MVI) TABLET (FP) PO SCH (10:52)
[2023-08-31] MEDS: CYANOCOBALAMIN (VITAMIN B-12) 100 MCG TABLET PO SCH (10:52)
[2023-08-31] MEDS: MINERAL OIL/PET HY-PHL TOPICAL OINTMENT 454 GM JAR TP SCH (11:18)
[2023-08-31] MEDS: oxyCODONE HCL 5 MG TABLET PO PRN (17:05)
[2023-08-31] MEDS: ROSUVASTATIN CA 20 MG TABLET PO SCH (21:58)
[2023-08-31] MEDS: SENNOSIDES 8.6MG TABLET (FP) PO SCH (22:07)
[2023-09-01] MEDS: CEFAZOLIN SODIUM 2 GM in DEXTROSE 5%-WATER 100 ML IVPB SCH ×4 (01:25→17:57)
[2023-09-01] MEDS: DOCUSATE SODIUM 100 MG CAPSULE (FP) PO SCH ×3 (05:38→21:40)
[2023-09-01] MEDS: ENOXAPARIN NA (PORCINE) 80 MG/0.8 ML DISP.SYRIN SQ SCH ×3 (05:41→19:52)
[2023-09-01] MEDS: CARBIDOPA/LEVODOPA 25/100 TABLET (FP) PO SCH ×3 (05:41→21:40)
[2023-09-01] MEDS: FOLIC ACID 1 MG TABLET (FP) PO SCH (09:21)
[2023-09-01] MEDS: PANTOPRAZOLE 40 MG TABLET PO SCH (09:21)
[2023-09-01] MEDS: POLYETHYLENE GLYCOL (HEALTHYLAX) 3350 17 GM PACKET PO SCH ×2 (09:22→21:40)
[2023-09-01] MEDS: CYANOCOBALAMIN (VITAMIN B-12) 100 MCG TABLET PO SCH (09:22)
[2023-09-01] MEDS: metoPROLOL SUCCINATE 25 MG TAB.SR.24H (FP) PO SCH (09:22)
[2023-09-01] MEDS: MULTIVITAMINS (DAILY MVI) TABLET (FP) PO SCH (09:22)
[2023-09-01] MEDS: SERTRALINE HCL 50 MG TABLET (FP) PO SCH (09:22)
[2023-09-01] MEDS: MINERAL OIL/PET HY-PHL TOPICAL OINTMENT 454 GM JAR TP SCH (10:53)
[2023-09-01 11:00] LABS: BASO % 0.8 % (0-2.0); EOS % 3.6 % (0-4.5); HEMATOCRIT 31.1 % (32.4-45.2); HEMOGLOBIN 10.2 GM/dL (10.7-15.3); LYMPH % 15.4 % (8-40); MCHC 32.8 g/dl (32.0-36.0); MEAN CELL VOLUME 79.2 fl (80-96); MEAN PLT VOLUME 8.5 fl (7.5-11.1); NEUT % 72.2 % (42.8-82.8); PLATELET COUNT 272 10^3/uL (134-434); RBC 3.93 M/mm3 (3.60-5.2); RDW 20.4 % (11.6-15.6); WHITE BLOOD COUNT 8.1 K/mm3 (4.0-10.0)
[2023-09-01 11:02] LABS: INR 1.17 (0.83-1.09); PROTHROMBIN TIME (PATIENT) 13.5 SEC (9.7-13.0)
[2023-09-01 11:26] LABS: CHLORIDE 104 mmol/L (98-107); POTASSIUM 4.8 mmol/L (3.5-5.1); SODIUM 136 mmol/L (136-145)
[2023-09-01 11:28] LABS: ALBUMIN 2.8 g/dl (3.4-5.0); ANION GAP 4 MMOL/L (8-16); CALCIUM 9.6 mg/dL (8.5-10.1); CO2 28 mmol/L (21-32)
[2023-09-01 11:29] LABS: BLOOD UREA NITROGEN 16.1 mg/dL (7-18); GLUCOSE,RANDOM 113 mg/dL (74-106); MAGNESIUM 2.1 mg/dL (1.8-2.4)
[2023-09-01 11:31] LABS: CREATININE 1.3 mg/dL (0.55-1.3)
[2023-09-01 11:32] LABS: SGOT/AST 20 U/L (15-37); SGPT/ALT < 6 U/L (13-61)
[2023-09-01 11:33] LABS: BILIRUBIN,TOTAL 0.3 mg/dL (0.2-1); TOT PROT 7.2 g/dl (6.4-8.2)
[2023-09-01 11:34] LABS: ALK PHOS 110 U/L (45-117)
[2023-09-01] MEDS: ACETAMINOPHEN 500 MG TABLET (FP) PO PRN (19:04)
[2023-09-01] MEDS: ROSUVASTATIN CA 20 MG TABLET PO SCH (21:40)
[2023-09-01] MEDS: SENNOSIDES 8.6MG TABLET (FP) PO SCH (21:40)
[2023-09-02] MEDS: CEFAZOLIN SODIUM 2 GM in DEXTROSE 5%-WATER 100 ML IVPB SCH ×3 (01:23→17:41)
[2023-09-02] MEDS: DOCUSATE SODIUM 100 MG CAPSULE (FP) PO SCH ×3 (06:08→22:11)
[2023-09-02] MEDS: CARBIDOPA/LEVODOPA 25/100 TABLET (FP) PO SCH ×3 (06:09→22:10)
[2023-09-02] MEDS: ENOXAPARIN NA (PORCINE) 80 MG/0.8 ML DISP.SYRIN SQ SCH (06:09)
[2023-09-02] MEDS: PANTOPRAZOLE 40 MG TABLET PO SCH (10:07)
[2023-09-02] MEDS: metoPROLOL SUCCINATE 25 MG TAB.SR.24H (FP) PO SCH (10:07)
[2023-09-02] MEDS: MULTIVITAMINS (DAILY MVI) TABLET (FP) PO SCH (10:07)
[2023-09-02] MEDS: POLYETHYLENE GLYCOL (HEALTHYLAX) 3350 17 GM PACKET PO SCH ×2 (10:08→22:11)
[2023-09-02] MEDS: FOLIC ACID 1 MG TABLET (FP) PO SCH (10:08)
[2023-09-02] MEDS: SERTRALINE HCL 50 MG TABLET (FP) PO SCH (10:08)
[2023-09-02] MEDS: MINERAL OIL/PET HY-PHL TOPICAL OINTMENT 454 GM JAR TP SCH (10:13)
[2023-09-02] MEDS: CYANOCOBALAMIN (VITAMIN B-12) 100 MCG TABLET PO SCH (11:02)
[2023-09-02 11:15] LABS: BASO % 0.5 % (0-2.0); EOS % 4.5 % (0-4.5); HEMATOCRIT 32.5 % (32.4-45.2); HEMOGLOBIN 10.1 GM/dL (10.7-15.3); INR 1.14 (0.83-1.09); LYMPH % 14.4 % (8-40); MCH 24.9 pg (25.7-33.7); MCHC 31.1 g/dl (32.0-36.0); MEAN CELL VOLUME 80.1 fl (80-96); MEAN PLT VOLUME 8.3 fl (7.5-11.1); MONO % 7.9 % (3.8-10.2); NEUT % 72.7 % (42.8-82.8); PLATELET COUNT 280 10^3/uL (134-434); PROTHROMBIN TIME (PATIENT) 13.2 SEC (9.7-13.0); RBC 4.05 M/mm3 (3.60-5.2); RDW 20.5 % (11.6-15.6); WHITE BLOOD COUNT 7.5 K/mm3 (4.0-10.0)
[2023-09-02 11:35] LABS: POTASSIUM 4.5 mmol/L (3.5-5.1)
[2023-09-02 11:47] LABS: ALBUMIN 2.7 g/dl (3.4-5.0); BLOOD UREA NITROGEN 10.4 mg/dL (7-18); CALCIUM 9.5 mg/dL (8.5-10.1)
[2023-09-02 11:48] LABS: BILIRUBIN,TOTAL 0.2 mg/dL (0.2-1); MAGNESIUM 2.2 mg/dL (1.8-2.4); TOT PROT 7.4 g/dl (6.4-8.2)
[2023-09-02 14:28] LABS: ANISOCYTOSIS 2+; MACROCYTOSIS 0; OVALOCYTE 1+
[2023-09-02] MEDS: ACETAMINOPHEN 500 MG TABLET (FP) PO PRN (15:25)
[2023-09-02] MEDS: ROSUVASTATIN CA 20 MG TABLET PO SCH (22:10)
[2023-09-02] MEDS: SENNOSIDES 8.6MG TABLET (FP) PO SCH (22:11)
[2023-09-02] MEDS: MUPIROCIN 2% TOPICAL OINTMENT 22 GM TUBE TP SCH (22:12)
[2023-09-03] MEDS: CEFAZOLIN SODIUM 2 GM in DEXTROSE 5%-WATER 100 ML IVPB SCH ×3 (02:26→18:14)
[2023-09-03] MEDS: CARBIDOPA/LEVODOPA 25/100 TABLET (FP) PO SCH ×3 (05:35→21:26)
[2023-09-03] MEDS: DOCUSATE SODIUM 100 MG CAPSULE (FP) PO SCH ×3 (05:35→21:27)
[2023-09-03 09:22] LABS: BASO % 0.6 % (0-2.0); EOS % 3.4 % (0-4.5); HEMATOCRIT 27.1 % (32.4-45.2); HEMOGLOBIN 8.6 GM/dL (10.7-15.3); LYMPH % 13.4 % (8-40); MCH 25.1 pg (25.7-33.7); MCHC 31.7 g/dl (32.0-36.0); MEAN CELL VOLUME 79.2 fl (80-96); MEAN PLT VOLUME 8.4 fl (7.5-11.1); MONO % 8.8 % (3.8-10.2); NEUT % 73.8 % (42.8-82.8); PLATELET COUNT 241 10^3/uL (134-434); RBC 3.43 M/mm3 (3.60-5.2); RDW 20.1 % (11.6-15.6); WHITE BLOOD COUNT 7.7 K/mm3 (4.0-10.0)
[2023-09-03 09:41] LABS: CHLORIDE 106 mmol/L (98-107); POTASSIUM 5.2 mmol/L (3.5-5.1); SODIUM 139 mmol/L (136-145)
[2023-09-03 09:55] LABS: CALCIUM 9.2 mg/dL (8.5-10.1)
[2023-09-03 09:56] LABS: ALBUMIN 2.5 g/dl (3.4-5.0); ANION GAP 4 MMOL/L (8-16); BLOOD UREA NITROGEN 10.9 mg/dL (7-18); CO2 29 mmol/L (21-32); GLUCOSE,RANDOM 89 mg/dL (74-106); MAGNESIUM 2.1 mg/dL (1.8-2.4)
[2023-09-03 09:57] LABS: BILIRUBIN,TOTAL 0.2 mg/dL (0.2-1); TOT PROT 6.7 g/dl (6.4-8.2)
[2023-09-03 09:58] LABS: ALK PHOS 101 U/L (45-117); SGOT/AST 16 U/L (15-37)
[2023-09-03 09:59] LABS: SGPT/ALT < 6 U/L (13-61)
[2023-09-03] MEDS: metoPROLOL SUCCINATE 25 MG TAB.SR.24H (FP) PO SCH (10:06)
[2023-09-03] MEDS: MULTIVITAMINS (DAILY MVI) TABLET (FP) PO SCH (10:06)
[2023-09-03] MEDS: SERTRALINE HCL 50 MG TABLET (FP) PO SCH (10:06)
[2023-09-03] MEDS: FOLIC ACID 1 MG TABLET (FP) PO SCH (10:06)
[2023-09-03] MEDS: CYANOCOBALAMIN (VITAMIN B-12) 100 MCG TABLET PO SCH (10:11)
[2023-09-03] MEDS: PANTOPRAZOLE 40 MG TABLET PO SCH (10:12)
[2023-09-03] MEDS: MINERAL OIL/PET HY-PHL TOPICAL OINTMENT 454 GM JAR TP SCH (11:08)
[2023-09-03] MEDS: MUPIROCIN 2% TOPICAL OINTMENT 22 GM TUBE TP SCH ×2 (11:08→21:26)
[2023-09-03] MEDS: POLYETHYLENE GLYCOL (HEALTHYLAX) 3350 17 GM PACKET PO SCH ×2 (11:12→21:27)
[2023-09-03] MEDS: ACETAMINOPHEN 500 MG TABLET (FP) PO PRN (18:14)
[2023-09-03] MEDS: APIXABAN 2.5 MG TABLET PO SCH (21:26)
[2023-09-03] MEDS: ROSUVASTATIN CA 20 MG TABLET PO SCH (21:26)
[2023-09-03] MEDS: SENNOSIDES 8.6MG TABLET (FP) PO SCH (21:27)
[2023-09-04] MEDS: CEFAZOLIN SODIUM 2 GM in DEXTROSE 5%-WATER 100 ML IVPB SCH ×3 (01:46→17:39)
[2023-09-04] MEDS: DOCUSATE SODIUM 100 MG CAPSULE (FP) PO SCH ×3 (05:22→21:37)
[2023-09-04] MEDS: CARBIDOPA/LEVODOPA 25/100 TABLET (FP) PO SCH ×3 (05:22→21:36)
[2023-09-04 09:15] LABS: BASO % 0.5 % (0-2.0); EOS % 3.4 % (0-4.5); HEMATOCRIT 31.3 % (32.4-45.2); HEMOGLOBIN 9.8 GM/dL (10.7-15.3); LYMPH % 18.9 % (8-40); MCH 24.9 pg (25.7-33.7); MCHC 31.2 g/dl (32.0-36.0); MEAN CELL VOLUME 79.8 fl (80-96); MEAN PLT VOLUME 8.3 fl (7.5-11.1); MONO % 10.1 % (3.8-10.2); NEUT % 67.1 % (42.8-82.8); PLATELET COUNT 257 10^3/uL (134-434); RBC 3.93 M/mm3 (3.60-5.2); RDW 20.2 % (11.6-15.6); WHITE BLOOD COUNT 8.5 K/mm3 (4.0-10.0)
[2023-09-04 09:33] LABS: CHLORIDE 104 mmol/L (98-107); POTASSIUM 5.2 mmol/L (3.5-5.1); SODIUM 137 mmol/L (136-145)
[2023-09-04 09:41] LABS: ALBUMIN 2.7 g/dl (3.4-5.0); ANION GAP 6 MMOL/L (8-16); BLOOD UREA NITROGEN 13.6 mg/dL (7-18); CALCIUM 9.5 mg/dL (8.5-10.1); CO2 27 mmol/L (21-32); GLUCOSE,RANDOM 90 mg/dL (74-106)
[2023-09-04 09:44] LABS: CREATININE 1.1 mg/dL (0.55-1.3); SGOT/AST 16 U/L (15-37); SGPT/ALT < 6 U/L (13-61)
[2023-09-04 09:46] LABS: BILIRUBIN,TOTAL 0.5 mg/dL (0.2-1); TOT PROT 7.3 g/dl (6.4-8.2)
[2023-09-04 09:47] LABS: ALK PHOS 104 U/L (45-117)
[2023-09-04] MEDS: POLYETHYLENE GLYCOL (HEALTHYLAX) 3350 17 GM PACKET PO SCH ×2 (10:56→21:37)
[2023-09-04] MEDS: APIXABAN 2.5 MG TABLET PO SCH ×2 (10:56→21:36)
[2023-09-04] MEDS: FOLIC ACID 1 MG TABLET (FP) PO SCH (10:56)
[2023-09-04] MEDS: MULTIVITAMINS (DAILY MVI) TABLET (FP) PO SCH (10:56)
[2023-09-04] MEDS: PANTOPRAZOLE 40 MG TABLET PO SCH (10:56)
[2023-09-04] MEDS: metoPROLOL SUCCINATE 25 MG TAB.SR.24H (FP) PO SCH (10:56)
[2023-09-04] MEDS: MINERAL OIL/PET HY-PHL TOPICAL OINTMENT 454 GM JAR TP SCH (10:57)
[2023-09-04] MEDS: MUPIROCIN 2% TOPICAL OINTMENT 22 GM TUBE TP SCH ×2 (10:59→21:37)
[2023-09-04] MEDS: CYANOCOBALAMIN (VITAMIN B-12) 100 MCG TABLET PO SCH (11:01)
[2023-09-04] MEDS: SERTRALINE HCL 50 MG TABLET (FP) PO SCH (11:01)
[2023-09-04] MEDS: SODIUM ZIRCONIUM CYCLOSILICATE (LOKELMA) 5 GM PACKET PO SCH (11:03)
[2023-09-04] MEDS: ROSUVASTATIN CA 20 MG TABLET PO SCH (21:36)
[2023-09-04] MEDS: SENNOSIDES 8.6MG TABLET (FP) PO SCH (21:37)
[2023-09-05] MEDS: CEFAZOLIN SODIUM 2 GM in DEXTROSE 5%-WATER 100 ML IVPB SCH ×3 (01:42→17:35)
[2023-09-05] MEDS: CARBIDOPA/LEVODOPA 25/100 TABLET (FP) PO SCH ×3 (05:41→21:30)
[2023-09-05] MEDS: DOCUSATE SODIUM 100 MG CAPSULE (FP) PO SCH ×3 (05:41→21:30)
[2023-09-05 09:22] LABS: BASO % 0.7 % (0-2.0); HEMATOCRIT 27.4 % (32.4-45.2); HEMOGLOBIN 8.7 GM/dL (10.7-15.3); LYMPH % 12.7 % (8-40); MCHC 31.9 g/dl (32.0-36.0); MEAN CELL VOLUME 78.5 fl (80-96); MEAN PLT VOLUME 8.6 fl (7.5-11.1); MONO % 8.4 % (3.8-10.2); NEUT % 75.2 % (42.8-82.8); PLATELET COUNT 250 10^3/uL (134-434); RBC 3.49 M/mm3 (3.60-5.2); RDW 20.7 % (11.6-15.6); WHITE BLOOD COUNT 9.3 K/mm3 (4.0-10.0)
[2023-09-05 09:44] LABS: CHLORIDE 103 mmol/L (98-107); POTASSIUM 4.7 mmol/L (3.5-5.1); SODIUM 138 mmol/L (136-145)
[2023-09-05] MEDS: POLYETHYLENE GLYCOL (HEALTHYLAX) 3350 17 GM PACKET PO SCH ×2 (09:45→21:30)
[2023-09-05] MEDS: metoPROLOL SUCCINATE 25 MG TAB.SR.24H (FP) PO SCH (09:46)
[2023-09-05] MEDS: FOLIC ACID 1 MG TABLET (FP) PO SCH (09:46)
[2023-09-05] MEDS: SERTRALINE HCL 50 MG TABLET (FP) PO SCH (09:46)
[2023-09-05] MEDS: APIXABAN 2.5 MG TABLET PO SCH ×2 (09:46→21:30)
[2023-09-05] MEDS: PANTOPRAZOLE 40 MG TABLET PO SCH (09:46)
[2023-09-05] MEDS: MULTIVITAMINS (DAILY MVI) TABLET (FP) PO SCH (09:46)
[2023-09-05] MEDS: CYANOCOBALAMIN (VITAMIN B-12) 100 MCG TABLET PO SCH (09:47)
[2023-09-05 09:51] LABS: ALBUMIN 2.6 g/dl (3.4-5.0); ANION GAP 6 MMOL/L (8-16); BLOOD UREA NITROGEN 13.4 mg/dL (7-18); CO2 29 mmol/L (21-32)
[2023-09-05 09:52] LABS: CALCIUM 9.5 mg/dL (8.5-10.1); GLUCOSE,RANDOM 90 mg/dL (74-106); MAGNESIUM 1.9 mg/dL (1.8-2.4)
[2023-09-05 09:55] LABS: CREATININE 1.1 mg/dL (0.55-1.3); SGOT/AST 17 U/L (15-37); SGPT/ALT < 6 U/L (13-61)
[2023-09-05 09:56] LABS: BILIRUBIN,TOTAL 0.4 mg/dL (0.2-1)
[2023-09-05] MEDS: SODIUM ZIRCONIUM CYCLOSILICATE (LOKELMA) 5 GM PACKET PO SCH (09:57)
[2023-09-05 09:58] LABS: ALK PHOS 93 U/L (45-117)
[2023-09-05] MEDS: MUPIROCIN 2% TOPICAL OINTMENT 22 GM TUBE TP SCH ×2 (10:18→21:31)
[2023-09-05] MEDS: MINERAL OIL/PET HY-PHL TOPICAL OINTMENT 454 GM JAR TP SCH (10:18)
[2023-09-05] MEDS: SENNOSIDES 8.6MG TABLET (FP) PO SCH (21:30)
[2023-09-05] MEDS: ROSUVASTATIN CA 20 MG TABLET PO SCH (21:30)
[2023-09-06] MEDS: CEFAZOLIN SODIUM 2 GM in DEXTROSE 5%-WATER 100 ML IVPB SCH ×4 (01:27→18:19)
[2023-09-06] MEDS: CARBIDOPA/LEVODOPA 25/100 TABLET (FP) PO SCH ×3 (05:36→21:24)
[2023-09-06] MEDS: DOCUSATE SODIUM 100 MG CAPSULE (FP) PO SCH ×3 (05:37→21:25)
[2023-09-06] MEDS: APIXABAN 2.5 MG TABLET PO SCH ×2 (09:18→21:24)
[2023-09-06] MEDS: SERTRALINE HCL 50 MG TABLET (FP) PO SCH (09:18)
[2023-09-06] MEDS: CYANOCOBALAMIN (VITAMIN B-12) 100 MCG TABLET PO SCH (09:18)
[2023-09-06] MEDS: metoPROLOL SUCCINATE 25 MG TAB.SR.24H (FP) PO SCH (09:18)
[2023-09-06] MEDS: FOLIC ACID 1 MG TABLET (FP) PO SCH (09:18)
[2023-09-06] MEDS: MULTIVITAMINS (DAILY MVI) TABLET (FP) PO SCH (09:18)
[2023-09-06] MEDS: PANTOPRAZOLE 40 MG TABLET PO SCH (09:18)
[2023-09-06] MEDS: POLYETHYLENE GLYCOL (HEALTHYLAX) 3350 17 GM PACKET PO SCH ×2 (09:19→21:24)
[2023-09-06] MEDS: MUPIROCIN 2% TOPICAL OINTMENT 22 GM TUBE TP SCH ×2 (09:19→21:25)
[2023-09-06] MEDS: MINERAL OIL/PET HY-PHL TOPICAL OINTMENT 454 GM JAR TP SCH (09:19)
[2023-09-06 10:14] LABS: BASO % 0.4 % (0-2.0); EOS % 2.6 % (0-4.5); HEMATOCRIT 27.5 % (32.4-45.2); HEMOGLOBIN 8.8 GM/dL (10.7-15.3); LYMPH % 13.6 % (8-40); MCH 25.2 pg (25.7-33.7); MEAN CELL VOLUME 78.7 fl (80-96); MEAN PLT VOLUME 8.8 fl (7.5-11.1); MONO % 7.2 % (3.8-10.2); NEUT % 76.2 % (42.8-82.8); PLATELET COUNT 242 10^3/uL (134-434); WHITE BLOOD COUNT 10.6 K/mm3 (4.0-10.0)
[2023-09-06 10:41] LABS: POTASSIUM 4.7 mmol/L (3.5-5.1)
[2023-09-06 10:45] LABS: CALCIUM 9.7 mg/dL (8.5-10.1)
[2023-09-06 10:47] LABS: ALBUMIN 2.7 g/dl (3.4-5.0); BLOOD UREA NITROGEN 17.8 mg/dL (7-18); MAGNESIUM 2.1 mg/dL (1.8-2.4)
[2023-09-06 10:50] LABS: CREATININE 1.2 mg/dL (0.55-1.3)
[2023-09-06 10:52] LABS: BILIRUBIN,TOTAL 0.3 mg/dL (0.2-1); TOT PROT 7.3 g/dl (6.4-8.2)
[2023-09-06] MEDS: AMINO ACIDS/PROTEIN HYDROLYS 30 ML LIQUID.PKT PO SCH (18:18)
[2023-09-06] MEDS: SENNOSIDES 8.6MG TABLET (FP) PO SCH (21:24)
[2023-09-06] MEDS: ROSUVASTATIN CA 20 MG TABLET PO SCH (21:24)
[2023-09-07] MEDS: CEFAZOLIN SODIUM 2 GM in DEXTROSE 5%-WATER 100 ML IVPB SCH ×3 (01:19→18:52)
[2023-09-07] MEDS: ACETAMINOPHEN 500 MG TABLET (FP) PO PRN ×2 (01:26→19:41)
[2023-09-07] MEDS: DOCUSATE SODIUM 100 MG CAPSULE (FP) PO SCH ×3 (05:26→21:45)
[2023-09-07] MEDS: CARBIDOPA/LEVODOPA 25/100 TABLET (FP) PO SCH ×3 (05:26→21:46)
[2023-09-07] MEDS: POLYETHYLENE GLYCOL (HEALTHYLAX) 3350 17 GM PACKET PO SCH ×2 (09:35→21:47)
[2023-09-07] MEDS: MULTIVITAMINS (DAILY MVI) TABLET (FP) PO SCH (09:35)
[2023-09-07] MEDS: SERTRALINE HCL 50 MG TABLET (FP) PO SCH (09:35)
[2023-09-07] MEDS: AMINO ACIDS/PROTEIN HYDROLYS 30 ML LIQUID.PKT PO SCH ×2 (09:35→18:21)
[2023-09-07] MEDS: PANTOPRAZOLE 40 MG TABLET PO SCH (09:35)
[2023-09-07] MEDS: CYANOCOBALAMIN (VITAMIN B-12) 100 MCG TABLET PO SCH (09:36)
[2023-09-07] MEDS: APIXABAN 2.5 MG TABLET PO SCH ×2 (09:36→21:45)
[2023-09-07] MEDS: FOLIC ACID 1 MG TABLET (FP) PO SCH (09:36)
[2023-09-07 09:46] LABS: BASO % 0.4 % (0-2.0); EOS % 2.6 % (0-4.5); HEMATOCRIT 28.7 % (32.4-45.2); HEMOGLOBIN 8.9 GM/dL (10.7-15.3); LYMPH % 12.7 % (8-40); MCH 24.5 pg (25.7-33.7); MCHC 31.1 g/dl (32.0-36.0); MEAN PLT VOLUME 8.7 fl (7.5-11.1); MONO % 8.5 % (3.8-10.2); NEUT % 75.8 % (42.8-82.8); PLATELET COUNT 241 10^3/uL (134-434); RBC 3.64 M/mm3 (3.60-5.2); RDW 19.8 % (11.6-15.6); WHITE BLOOD COUNT 9.3 K/mm3 (4.0-10.0)
[2023-09-07 10:10] LABS: CHLORIDE 104 mmol/L (98-107); SODIUM 139 mmol/L (136-145)
[2023-09-07 10:13] LABS: ALBUMIN 2.7 g/dl (3.4-5.0); ANION GAP 5 MMOL/L (8-16); BLOOD UREA NITROGEN 21.7 mg/dL (7-18); CALCIUM 9.8 mg/dL (8.5-10.1); CO2 29 mmol/L (21-32); GLUCOSE,RANDOM 96 mg/dL (74-106)
[2023-09-07 10:15] LABS: CREATININE 1.2 mg/dL (0.55-1.3); MAGNESIUM 2.2 mg/dL (1.8-2.4); SGOT/AST 17 U/L (15-37); SGPT/ALT < 6 U/L (13-61)
[2023-09-07 10:17] LABS: BILIRUBIN,TOTAL 0.2 mg/dL (0.2-1); TOT PROT 7.4 g/dl (6.4-8.2)
[2023-09-07 10:19] LABS: ALK PHOS 99 U/L (45-117)
[2023-09-07] MEDS: metoPROLOL SUCCINATE 25 MG TAB.SR.24H (FP) PO SCH (12:19)
[2023-09-07] MEDS: MINERAL OIL/PET HY-PHL TOPICAL OINTMENT 454 GM JAR TP SCH (12:19)
[2023-09-07] MEDS: MUPIROCIN 2% TOPICAL OINTMENT 22 GM TUBE TP SCH ×2 (12:20→21:45)
[2023-09-07] MEDS: ROSUVASTATIN CA 20 MG TABLET PO SCH (21:45)
[2023-09-07] MEDS: SENNOSIDES 8.6MG TABLET (FP) PO SCH (21:46)
[2023-09-08] MEDS: CEFAZOLIN SODIUM 2 GM in DEXTROSE 5%-WATER 100 ML IVPB SCH ×3 (01:10→17:37)
[2023-09-08] MEDS: CARBIDOPA/LEVODOPA 25/100 TABLET (FP) PO SCH ×3 (05:30→21:56)
[2023-09-08] MEDS: DOCUSATE SODIUM 100 MG CAPSULE (FP) PO SCH ×3 (05:30→21:56)
[2023-09-08] MEDS: AMINO ACIDS/PROTEIN HYDROLYS 30 ML LIQUID.PKT PO SCH ×2 (08:56→17:37)
[2023-09-08] MEDS: ACETAMINOPHEN 500 MG TABLET (FP) PO PRN (08:59)
[2023-09-08] MEDS: SERTRALINE HCL 50 MG TABLET (FP) PO SCH (08:59)
[2023-09-08] MEDS: MULTIVITAMINS (DAILY MVI) TABLET (FP) PO SCH (09:02)
[2023-09-08] MEDS: metoPROLOL SUCCINATE 25 MG TAB.SR.24H (FP) PO SCH (09:02)
[2023-09-08] MEDS: CYANOCOBALAMIN (VITAMIN B-12) 100 MCG TABLET PO SCH (09:02)
[2023-09-08] MEDS: FOLIC ACID 1 MG TABLET (FP) PO SCH (09:02)
[2023-09-08] MEDS: APIXABAN 2.5 MG TABLET PO SCH ×2 (09:02→21:56)
[2023-09-08 10:48] LABS: BASO % 0.4 % (0-2.0); EOS % 3.6 % (0-4.5); HEMATOCRIT 29.1 % (32.4-45.2); HEMOGLOBIN 9.1 GM/dL (10.7-15.3); LYMPH % 13.1 % (8-40); MCH 24.8 pg (25.7-33.7); MCHC 31.2 g/dl (32.0-36.0); MEAN CELL VOLUME 79.5 fl (80-96); MONO % 4.8 % (3.8-10.2); NEUT % 78.1 % (42.8-82.8); PLATELET COUNT 253 10^3/uL (134-434); RBC 3.66 M/mm3 (3.60-5.2); RDW 20.4 % (11.6-15.6); WHITE BLOOD COUNT 9.1 K/mm3 (4.0-10.0)
[2023-09-08 11:41] LABS: ALBUMIN 2.8 g/dl (3.4-5.0); BLOOD UREA NITROGEN 23.3 mg/dL (7-18); CALCIUM 9.3 mg/dL (8.5-10.1); MAGNESIUM 2.3 mg/dL (1.8-2.4)
[2023-09-08 11:44] LABS: CREATININE 1.2 mg/dL (0.55-1.3)
[2023-09-08 11:45] LABS: BILIRUBIN,TOTAL 0.2 mg/dL (0.2-1); TOT PROT 7.6 g/dl (6.4-8.2)
[2023-09-08 11:54] LABS: POTASSIUM 4.6 mmol/L (3.5-5.1)
[2023-09-08] MEDS: PANTOPRAZOLE 40 MG TABLET PO SCH (14:38)
[2023-09-08] MEDS: POLYETHYLENE GLYCOL (HEALTHYLAX) 3350 17 GM PACKET PO SCH ×2 (14:38→21:56)
[2023-09-08] MEDS: MINERAL OIL/PET HY-PHL TOPICAL OINTMENT 454 GM JAR TP SCH (14:55)
[2023-09-08] MEDS: MUPIROCIN 2% TOPICAL OINTMENT 22 GM TUBE TP SCH ×2 (14:56→21:57)
[2023-09-08] MEDS ORDERED: oxyCODONE HCL 5 MG TABLET PO PRN (16:04)
[2023-09-08] MEDS ORDERED: traMADol HCL 50 MG TABLET PO PRN (16:58)
[2023-09-08] MEDS: ROSUVASTATIN CA 20 MG TABLET PO SCH (21:56)
[2023-09-08] MEDS: SENNOSIDES 8.6MG TABLET (FP) PO SCH (21:56)
[2023-09-09] MEDS: CEFAZOLIN SODIUM 2 GM in DEXTROSE 5%-WATER 100 ML IVPB SCH ×3 (02:22→18:38)
[2023-09-09 05:10] LABS: KAPPA/LAMBDA RATIO, UR 11.71 (1.83-14.26)
[2023-09-09] MEDS: DOCUSATE SODIUM 100 MG CAPSULE (FP) PO SCH ×3 (06:03→21:56)
[2023-09-09] MEDS: CARBIDOPA/LEVODOPA 25/100 TABLET (FP) PO SCH ×3 (06:05→21:55)
[2023-09-09 09:24] LABS: BASO % 0.4 % (0-2.0); EOS % 4.1 % (0-4.5); HEMATOCRIT 28.7 % (32.4-45.2); LYMPH % 11.6 % (8-40); MCH 24.8 pg (25.7-33.7); MCHC 31.4 g/dl (32.0-36.0); MEAN CELL VOLUME 78.8 fl (80-96); MEAN PLT VOLUME 8.8 fl (7.5-11.1); MONO % 10.2 % (3.8-10.2); NEUT % 73.7 % (42.8-82.8); PLATELET COUNT 242 10^3/uL (134-434); RBC 3.64 M/mm3 (3.60-5.2); RDW 19.8 % (11.6-15.6); WHITE BLOOD COUNT 9.2 K/mm3 (4.0-10.0)
[2023-09-09 09:41] LABS: CHLORIDE 104 mmol/L (98-107); SODIUM 137 mmol/L (136-145)
[2023-09-09] MEDS: POLYETHYLENE GLYCOL (HEALTHYLAX) 3350 17 GM PACKET PO SCH ×2 (09:53→21:57)
[2023-09-09] MEDS: FOLIC ACID 1 MG TABLET (FP) PO SCH (09:53)
[2023-09-09] MEDS: SERTRALINE HCL 50 MG TABLET (FP) PO SCH (09:53)
[2023-09-09] MEDS: metoPROLOL SUCCINATE 25 MG TAB.SR.24H (FP) PO SCH (09:53)
[2023-09-09] MEDS: APIXABAN 2.5 MG TABLET PO SCH ×2 (09:53→21:56)
[2023-09-09] MEDS: MULTIVITAMINS (DAILY MVI) TABLET (FP) PO SCH (09:53)
[2023-09-09] MEDS: PANTOPRAZOLE 40 MG TABLET PO SCH (09:53)
[2023-09-09] MEDS: AMINO ACIDS/PROTEIN HYDROLYS 30 ML LIQUID.PKT PO SCH ×2 (09:53→18:37)
[2023-09-09] MEDS: CYANOCOBALAMIN (VITAMIN B-12) 100 MCG TABLET PO SCH (09:53)
[2023-09-09 09:54] LABS: ALBUMIN 2.8 g/dl (3.4-5.0); ALK PHOS 102 U/L (45-117); CREATININE 1.1 mg/dL (0.55-1.3); GLUCOSE,RANDOM 86 mg/dL (74-106); TOT PROT 7.6 g/dl (6.4-8.2)
[2023-09-09] MEDS: MINERAL OIL/PET HY-PHL TOPICAL OINTMENT 454 GM JAR TP SCH (09:54)
[2023-09-09] MEDS: MUPIROCIN 2% TOPICAL OINTMENT 22 GM TUBE TP SCH ×2 (09:54→21:57)
[2023-09-09 09:56] LABS: ANION GAP 2 MMOL/L (8-16); BILIRUBIN,TOTAL 0.2 mg/dL (0.2-1); CALCIUM 9.6 mg/dL (8.5-10.1); CO2 31 mmol/L (21-32); MAGNESIUM 2.2 mg/dL (1.8-2.4); SGOT/AST 21 U/L (15-37)
[2023-09-09 09:58] LABS: SGPT/ALT < 6 U/L (13-61)
[2023-09-09 15:07] LABS: ALBUMIN % 29.8 % (.); ALPHA-1 FOR UPE 4.5 % (.); TOTAL PROTEIN, URINE 50.9 mg/dL (Not Estab.)
[2023-09-09] MEDS ORDERED: CEFAZOLIN SODIUM 2 GM VIAL ONE (18:34)
[2023-09-09] MEDS: ROSUVASTATIN CA 20 MG TABLET PO SCH (21:55)
[2023-09-09] MEDS: SENNOSIDES 8.6MG TABLET (FP) PO SCH (21:56)
[2023-09-09 23:49] VITALS: RESP 20
[2023-09-10 02:16] VITALS: BP 113/68; PULSE 92; TEMP 99
== END 2023-09-10 00:40 | DRG 902 ==
LOC: FOR 12:38 → FM/S 13:49 → INTOOBSV 13:49 → UNDOADMOB 13:49 → FM/S 15:23 → OBSVTOIN 08-18 08:29 → J8W 08-18 22:06
PROVIDERS: ADMIT Internal Medicine; ATTEND Nurse Practitioner Family
PROC: 0QBM0ZX Excision of Left Tarsal, Open Approach, Diagnostic (ICD-10-PCS; 2023-08-18)
PROC: 0JDR0ZZ Extraction of Left Foot Subcutaneous Tissue and Fascia, Open Approach (ICD-10-PCS; 2023-08-18)
PROC: 0JBR0ZX Excision of Left Foot Subcutaneous Tissue and Fascia, Open Approach, Diagnostic (ICD-10-PCS; 2023-08-18)
PROC: 3E10X8Z Irrigation of Skin and Mucous Membranes using Irrigating Substance (ICD-10-PCS; 2023-08-18)
PROC: 2W1TX6Z Compression of Left Foot using Pressure Dressing (ICD-10-PCS; 2023-08-18)
PROC: 0J9R0ZZ Drainage of Left Foot Subcutaneous Tissue and Fascia, Open Approach (ICD-10-PCS; 2023-08-18)
PROC: 0JBR0ZZ Excision of Left Foot Subcutaneous Tissue and Fascia, Open Approach (ICD-10-PCS; principal; 2023-08-18 08:01)
PROC: 0SP Lower Joints, Removal (ICD-10-PCS; 2023-08-18 08:01)
PROC: 0JBR0ZZ Excision of Left Foot Subcutaneous Tissue and Fascia, Open Approach (ICD-10-PCS; 2023-08-23)
PROC: 0JBP0ZZ Excision of Left Lower Leg Subcutaneous Tissue and Fascia, Open Approach (ICD-10-PCS; 2023-08-23)
PROC: 0HRJX74 Replacement of Left Upper Leg Skin with Autologous Tissue Substitute, Partial Thickness, External Approach (ICD-10-PCS; 2023-08-23)
PROC: 2W1TX6Z Compression of Left Foot using Pressure Dressing (ICD-10-PCS; 2023-08-23)
PROC: 30233N1 Transfusion of Nonautologous Red Blood Cells into Peripheral Vein, Percutaneous Approach (ICD-10-PCS; 2023-08-25)
PROC: 5A05121 Extracorporeal Hyperbaric Oxygenation, Intermittent (ICD-10-PCS; 2023-09-01)
PROC: 02HV33Z Insertion of Infusion Device into Superior Vena Cava, Percutaneous Approach (ICD-10-PCS; 2023-09-02)
PROC: B518ZZA Fluoroscopy of Superior Vena Cava, Guidance (ICD-10-PCS; 2023-09-02)
PROC: 5A05121 Extracorporeal Hyperbaric Oxygenation, Intermittent (ICD-10-PCS; 2023-09-06)
PROC: 5A05121 Extracorporeal Hyperbaric Oxygenation, Intermittent (ICD-10-PCS; 2023-09-07)
DX: T81.31XA Disruption of external operation (surgical) wound, not elsewhere classified, initial encounter (principal); D62 Acute posthemorrhagic anemia; T84.59XA Infection and inflammatory reaction due to other internal joint prosthesis, initial encounter; G81.91 Hemiplegia, unspecified affecting right dominant side; L02.416 Cutaneous abscess of left lower limb; N17.9 Acute kidney failure, unspecified; M86.8X7 Other osteomyelitis, ankle and foot; G20 Parkinson's disease; M06.9 Rheumatoid arthritis, unspecified; I48.91 Unspecified atrial fibrillation; G25.81 Restless legs syndrome; E86.0 Dehydration; M48.00 Spinal stenosis, site unspecified; R76.8 Other specified abnormal immunological findings in serum; G47.00 Insomnia, unspecified; K21.9 Gastro-esophageal reflux disease without esophagitis; K59.09 Other constipation; F41.8 Other specified anxiety disorders; B95.7 Other staphylococcus as the cause of diseases classified elsewhere; E78.5 Hyperlipidemia, unspecified; Z86.718 Personal history of other venous thrombosis and embolism; Y83.8 Other surgical procedures as the cause of abnormal reaction of the patient, or of later complication, without mention of misadventure at the time of the procedure
CPT/HCPCS: 36415; 36430; 36569; 71045-TC-FY; 73610-TC-LT-FY; 73630-TC-LT; 77001-TC-FY; 80048; 80053; 82272; 82607; 82728; 82746; 82784; 82962; 83010; 83540; 83550; 83615; 83735; 83883; 84100; 84155; 84156; 84165; 84166; 84443; 85025; 85027; 85045; 85610; 86850; 86900; 86901; 86922; 87070; 87075; 87186; 87205; 87635; 88300-TC; 94010; 94760; 97116-GP; 97161-GP; 99285-25; C1751; G0277; G0378; G0480; P9038; P9058

== ENCOUNTER 2024-02-01 19:40 | Emergency (ER) | payer OTHER, BC ==
[2024-02-01 19:54] VITALS: BP 128/71; PULSE 81; RESP 17; TEMP 98.1; BMI 25.0
== END 2024-02-01 22:43 | disposition home or self-care (01) ==
LOC: JER 19:40
DX: R04.0 Epistaxis (principal)
CPT/HCPCS: 99282-25

== ENCOUNTER 2024-06-26 07:13 | Inpatient (IN) | payer OTHER, BC ==
[2024-06-26] MEDS ORDERED: VANCOMYCIN 1,000 MG VIAL (RESTRICTED TO ID ONLY) ONE (07:59)
[2024-06-26] MEDS ORDERED: BUPIVACAINE HCL/PF 2.5 MG/ML - 30 ML VIAL IJ ONE (10:02)
[2024-06-26] MEDS ORDERED: MIDAZOLAM HCL 2 MG/2 ML SINGLE DOSE VIAL ONE (10:02)
[2024-06-26] MEDS ORDERED: ACETAMINOPHEN INJECTION 100 ML IVPB ONE ×2 (10:02)
[2024-06-26] MEDS ORDERED: ROCURONIUM BROMIDE 50 MG/5 ML SYRINGE ONE (10:11)
[2024-06-26] MEDS ORDERED: ETOMIDATE 20 MG/10 ML VIAL IVPUSH ONE (10:11)
[2024-06-26] MEDS ORDERED: SUCCINYLCHOLINE CHLORIDE 200 MG/10 ML SYRINGE ONE (10:11)
[2024-06-26] MEDS ORDERED: PROPOFOL 20 ML ONE (10:11)
[2024-06-26] MEDS ORDERED: BUPIVICAINE 0.25%/MORPH PF/KETOROLAC - 51ML DISP.SYRINGE IA ONE (10:26)
[2024-06-26] MEDS ORDERED: SUGAMMADEX SODIUM 200 MG/2 ML VIAL ONE (13:25)
[2024-06-26] MEDS ORDERED: PHENYLEPHRINE HCL 10 MG/1 ML SINGLE DOSE VIAL ONE (13:48)
[2024-06-26] MEDS ORDERED: MAG HYDROX/AL HYDROX/SIMETH 30 ML UNIT-DOSE CUP PO PRN (14:04)
[2024-06-26] MEDS ORDERED: ONDANSETRON 4 MG/2 ML VIAL IVPUSH PRN ×2 (14:04→14:06)
[2024-06-26] MEDS ORDERED: MAGNESIUM HYDROX 2400MG/30ML ORAL SUSPENSION 30 ML CUP PO PRN (14:04)
[2024-06-26] MEDS ORDERED: oxyCODONE HCL 5 MG TABLET PO PRN (14:06)
[2024-06-26 14:40] LABS: HEMATOCRIT 28.5 % (32.4-45.2); HEMOGLOBIN 8.5 G/dL (10.7-15.3); MCH 22.8 pg (25.7-33.7); MCHC 29.6 g/dl (32.0-36.0); MEAN CELL VOLUME 76.7 fl (80-96); MEAN PLT VOLUME 8.5 fl (7.5-11.1); PLATELET COUNT 231.2 10^3/uL (134-434); RBC 3.71 10^6/uL (3.60-5.2); RDW 19.4 % (11.6-15.6); WHITE BLOOD COUNT 8.2 10^3/uL (4.0-10.8)
[2024-06-26] MEDS: LACTATED RINGERS SOLUTION 1,000 ML IV SCH ×2 (17:13→19:39)
[2024-06-26] MEDS: CEFAZOLIN SODIUM 2 GM in DEXTROSE 5%-WATER 100 ML IVPB SCH (18:03)
[2024-06-26 20:21] LABS: HEMATOCRIT 29.1 % (32.4-45.2); HEMOGLOBIN 8.9 G/dL (10.7-15.3); MCH 23.5 pg (25.7-33.7); MCHC 30.6 g/dl (32.0-36.0); MEAN CELL VOLUME 76.9 fl (80-96); MEAN PLT VOLUME 8.9 fl (7.5-11.1); PLATELET COUNT 230.7 10^3/uL (134-434); RBC 3.78 10^6/uL (3.60-5.2); RDW 19.8 % (11.6-15.6); WHITE BLOOD COUNT 11.8 10^3/uL (4.0-10.8)
[2024-06-26] MEDS: SENNOSIDES/DOCUSATE COMBO (SENNA PLUS) TABLET (UD) PO SCH (21:14)
[2024-06-26] MEDS ORDERED: APIXABAN 2.5 MG TABLET PO SCH (22:00)
[2024-06-26] MEDS: APIXABAN 5 MG TABLET PO SCH (23:12)
[2024-06-27] MEDS: PANTOPRAZOLE 40 MG TABLET PO SCH (09:15)
[2024-06-27] MEDS: MULTIVITAMINS (DAILY MVI) TABLET (FP) PO SCH (09:15)
[2024-06-27 09:50] LABS: ALBUMIN 3.3 g/dl (3.4-5.0); BILIRUBIN,TOTAL 0.4 mg/dl (0.2-1); CALCIUM 9.2 mg/dl (8.5-10.1); CREATININE 1.3 mg/dl (0.6-1.3); POTASSIUM 4.4 mmol/L (3.5-5.1); TOT PROT 6.4 g/dl (6.4-8.2)
[2024-06-27 10:38] LABS: BASO % 0.5 % (0-2.0); EOS % 2.3 % (0-4.5); HEMATOCRIT 24.4 % (32.4-45.2); HEMOGLOBIN 7.8 GM/dL (10.7-15.3); LYMPH % 8.3 % (8-40); MEAN CELL VOLUME 71.9 fl (80-96); MEAN PLT VOLUME 8.5 fl (7.5-11.1); MONO % 5.1 % (3.8-10.2); NEUT % 83.8 % (42.8-82.8); PLATELET COUNT 230 10^3/uL (134-434); RBC 3.39 M/mm3 (3.60-5.2); RDW 18.5 % (11.6-15.6); WHITE BLOOD COUNT 7.2 K/mm3 (4.0-10.0)
[2024-06-27] MEDS ORDERED: ACETAMINOPHEN 1000 MG/100 ML BAG IVPB PRN (10:52)
[2024-06-27] MEDS: ACETAMINOPHEN 1000 MG/100 ML BAG IVPB PRN (12:19)
[2024-06-27] MEDS: oxyCODONE HCL 5 MG TABLET PO PRN (15:48)
[2024-06-27] MEDS: ENOXAPARIN NA (PORCINE) 80 MG/0.8 ML DISP.SYRIN SQ SCH (22:29)
[2024-06-27 23:34] LABS: HEMATOCRIT 26.6 % (32.4-45.2); HEMOGLOBIN 8.4 G/dL (10.7-15.3); MCH 24.8 pg (25.7-33.7); MCHC 31.7 g/dl (32.0-36.0); MEAN CELL VOLUME 78.1 fl (80-96); RDW 19.7 % (11.6-15.6); WHITE BLOOD COUNT 7.9 10^3/uL (4.0-10.8)
[2024-06-27 23:35] LABS: MEAN PLT VOLUME 8.8 fl (7.5-11.1); PLATELET COUNT 151 10^3/uL (134-434)
[2024-06-28 08:23] LABS: BILIRUBIN,TOTAL 0.6 mg/dl (0.2-1); CALCIUM 8.8 mg/dl (8.5-10.1); CREATININE 1.4 mg/dl (0.6-1.3); POTASSIUM 4.2 mmol/L (3.5-5.1); TOT PROT 5.9 g/dl (6.4-8.2)
[2024-06-28 09:25] LABS: EOS % 1.7 % (0-4.5); HEMATOCRIT 23.7 % (32.4-45.2); HEMOGLOBIN 7.8 GM/dL (10.7-15.3); MCHC 32.9 g/dl (32.0-36.0); MEAN CELL VOLUME 75.8 fl (80-96); MEAN PLT VOLUME 8.7 fl (7.5-11.1); MONO % 10.1 % (3.8-10.2); NEUT % 78.2 % (42.8-82.8); PLATELET COUNT 177 10^3/uL (134-434); RBC 3.13 M/mm3 (3.60-5.2); RDW 19.1 % (11.6-15.6); WHITE BLOOD COUNT 8.8 K/mm3 (4.0-10.0)
[2024-06-28] MEDS: PANTOPRAZOLE SODIUM 40 MG VIAL IVPUSH SCH ×2 (09:31→21:39)
[2024-06-28] MEDS ORDERED: ENOXAPARIN NA (PORCINE) 40 MG/0.4 ML DISP.SYRIN SQ SCH (10:00)
[2024-06-28] MEDS ORDERED: oxyCODONE HCL 5 MG TABLET PO PRN ×2 (12:00)
[2024-06-28] MEDS: ACETAMINOPHEN 1000 MG/100 ML BAG IVPB PRN (16:50)
[2024-06-28] MEDS: FUROSEMIDE 40 MG/4 ML INJECTABLE VIAL IVPUSH ONE (16:53)
[2024-06-29 11:27] LABS: HEMATOCRIT 8.2 % (32.4-45.2); MCH 25.3 pg (25.7-33.7); MCHC 32.3 g/dl (32.0-36.0); MEAN CELL VOLUME 78.2 fl (80-96); MEAN PLT VOLUME 8.2 fl (7.5-11.1); PLATELET COUNT 74 10^3/uL (134-434); RBC 1.05 M/mm3 (3.60-5.2); WHITE BLOOD COUNT 5.7 K/mm3 (4.0-10.0)
[2024-06-29 11:33] LABS: HEMOGLOBIN 2.7 GM/dL (10.7-15.3); INR 1.52 (0.83-1.09)
[2024-06-29 11:35] LABS: ACTIVATED PTT 40.6 SECONDS (25.2-36.5)
[2024-06-29 12:22] LABS: ANISOCYTOSIS 3+; MACROCYTOSIS 0; OVALOCYTE 2+; TEAR DROP CELLS 1+
[2024-06-29 12:35] LABS: BASO % 0.1 % (0-2.0); EOS % 0.2 % (0-4.5); HEMATOCRIT 19.2 % (32.4-45.2); LYMPH % 6.7 % (8-40); MCH 23.9 pg (25.7-33.7); MCHC 32.2 g/dl (32.0-36.0); MEAN CELL VOLUME 74.3 fl (80-96); MEAN PLT VOLUME 8.5 fl (7.5-11.1); MONO % 9.6 % (3.8-10.2); NEUT % 83.4 % (42.8-82.8); PLATELET COUNT 192 10^3/uL (134-434); RBC 2.58 M/mm3 (3.60-5.2); RDW 18.4 % (11.6-15.6); WHITE BLOOD COUNT 14.3 K/mm3 (4.0-10.0)
[2024-06-29 12:40] LABS: HEMOGLOBIN 6.2 GM/dL (10.7-15.3)
[2024-06-29] MEDS: SODIUM CHLORIDE 250 ML IV STA (13:13)
[2024-06-29 16:02] LABS: CHLORIDE 101 mmol/L (98-107); POTASSIUM 4.7 mmol/L (3.5-5.1); SODIUM 134 mmol/L (136-145)
[2024-06-29 16:04] LABS: CALCIUM 8.9 mg/dL (8.5-10.1)
[2024-06-29 16:05] LABS: ANION GAP 9 mmol/L (4-13); BLOOD UREA NITROGEN 29.2 mg/dL (7-18); CO2 23 mmol/L (21-32); GLUCOSE,RANDOM 109 mg/dL (74-106)
[2024-06-29 16:08] LABS: CREATININE 1.7 mg/dL (0.55-1.3); SGOT/AST 39 U/L (15-37)
[2024-06-29 16:09] LABS: BILIRUBIN,TOTAL 0.8 mg/dL (0.2-1)
[2024-06-29 16:15] LABS: ALBUMIN 2.2 g/dl (3.4-5.0); ALK PHOS 65 U/L (45-117); SGPT/ALT < 6 U/L (13-61); TOT PROT 5.8 g/dl (6.4-8.2)
[2024-06-29] MEDS: LACTATED RINGERS SOLUTION 1,000 ML/1,000 ML INFUS.BAG IV SCH (20:00)
[2024-06-29 20:40] LABS: BASO % 0.3 % (0-2.0); EOS % 0.7 % (0-4.5); HEMATOCRIT 27.1 % (32.4-45.2); HEMOGLOBIN 9.1 GM/dL (10.7-15.3); LYMPH % 14.1 % (8-40); MCH 27.8 pg (25.7-33.7); MCHC 33.7 g/dl (32.0-36.0); MEAN CELL VOLUME 82.4 fl (80-96); MEAN PLT VOLUME 8.2 fl (7.5-11.1); MONO % 10.7 % (3.8-10.2); NEUT % 74.2 % (42.8-82.8); PLATELET COUNT 143 10^3/uL (134-434); RBC 3.29 M/mm3 (3.60-5.2); RDW 20.3 % (11.6-15.6); WHITE BLOOD COUNT 13.6 K/mm3 (4.0-10.0)
[2024-06-29] MEDS: MUPIROCIN 2% TOPICAL OINTMENT FOR DECOLONIZATION NS SCH (21:38)
[2024-06-29] MEDS: CHLORHEXIDINE GLUCONATE 4% CLEANSER FOR DECOLONIZATION TP SCH (21:38)
[2024-06-30] MEDS ORDERED: MAGNESIUM HYDROX 2400MG/30ML ORAL SUSPENSION 30 ML CUP PO PRN (04:01)
[2024-06-30] MEDS ORDERED: MAG HYDROX/AL HYDROX/SIMETH 30 ML UNIT-DOSE CUP PO PRN (04:01)
[2024-06-30] MEDS ORDERED: oxyCODONE HCL 5 MG TABLET PO PRN ×2 (04:01)
[2024-06-30] MEDS: ACETAMINOPHEN 1000 MG/100 ML BAG IVPB ONE ×2 (04:17→05:05)
[2024-06-30 07:01] LABS: BASO % 0.1 % (0-2.0); EOS % 2.5 % (0-4.5); HEMATOCRIT 23.6 % (32.4-45.2); HEMOGLOBIN 8.1 GM/dL (10.7-15.3); LYMPH % 17.4 % (8-40); MCH 28.5 pg (25.7-33.7); MCHC 34.3 g/dl (32.0-36.0); MEAN CELL VOLUME 83.1 fl (80-96); MEAN PLT VOLUME 8.1 fl (7.5-11.1); MONO % 9.4 % (3.8-10.2); NEUT % 70.6 % (42.8-82.8); PLATELET COUNT 136 10^3/uL (134-434); RBC 2.84 M/mm3 (3.60-5.2); RDW 19.7 % (11.6-15.6)
[2024-06-30 07:25] LABS: POTASSIUM 4.2 mmol/L (3.5-5.1)
[2024-06-30 07:27] LABS: CALCIUM 8.6 mg/dL (8.5-10.1)
[2024-06-30 07:28] LABS: BLOOD UREA NITROGEN 27.1 mg/dL (7-18); MAGNESIUM 1.8 mg/dL (1.8-2.4)
[2024-06-30 07:29] LABS: ALBUMIN 1.9 g/dl (3.4-5.0)
[2024-06-30 07:30] LABS: CREATININE 1.4 mg/dL (0.55-1.3)
[2024-06-30 07:31] LABS: PHOSPHOROUS 2.4 mg/dL (2.5-4.9)
[2024-06-30 07:32] LABS: BILIRUBIN,TOTAL 0.9 mg/dL (0.2-1)
[2024-06-30 09:07] LABS: BASO % 0.2 % (0-2.0); EOS % 2.4 % (0-4.5); HEMATOCRIT 23.7 % (32.4-45.2); HEMOGLOBIN 8.1 GM/dL (10.7-15.3); LYMPH % 6.5 % (8-40); MCH 27.6 pg (25.7-33.7); MCHC 34.1 g/dl (32.0-36.0); MEAN CELL VOLUME 80.9 fl (80-96); MEAN PLT VOLUME 7.3 fl (7.5-11.1); MONO % 11.2 % (3.8-10.2); NEUT % 79.7 % (42.8-82.8); PLATELET COUNT 138 10^3/uL (134-434); RBC 2.93 M/mm3 (3.60-5.2); RDW 19.8 % (11.6-15.6); WHITE BLOOD COUNT 9.3 K/mm3 (4.0-10.0)
[2024-06-30] MEDS: MAGNESIUM OXIDE 400 MG TABLET (FP) PO ONE (10:07)
[2024-06-30] MEDS: SENNOSIDES/DOCUSATE COMBO (SENNA PLUS) TABLET (UD) PO SCH (10:08)
[2024-06-30] MEDS: PANTOPRAZOLE SODIUM 40 MG VIAL IVPUSH SCH (10:08)
[2024-06-30] MEDS: MULTIVITAMINS (DAILY MVI) TABLET (FP) PO SCH (10:08)
[2024-06-30] MEDS: MUPIROCIN 2% TOPICAL OINTMENT FOR DECOLONIZATION NS SCH (10:10)
[2024-06-30] MEDS ORDERED: SODIUM CHLORIDE 1,000 ML IV SCH (12:00)
[2024-06-30] MEDS ORDERED: METOPROLOL TARTRATE 5 MG/5 ML VIAL ONE (12:24)
[2024-06-30] MEDS: METOPROLOL TARTRATE 5 MG/5 ML VIAL IVPUSH PRN (12:30)
[2024-06-30 15:03] LABS: BASO % 0.1 % (0-2.0); EOS % 1.4 % (0-4.5); HEMATOCRIT 24.5 % (32.4-45.2); HEMOGLOBIN 8.1 GM/dL (10.7-15.3); MCH 27.4 pg (25.7-33.7); MCHC 33.2 g/dl (32.0-36.0); MEAN CELL VOLUME 82.4 fl (80-96); MEAN PLT VOLUME 7.7 fl (7.5-11.1); MONO % 8.2 % (3.8-10.2); NEUT % 75.3 % (42.8-82.8); PLATELET COUNT 148 10^3/uL (134-434); RBC 2.97 M/mm3 (3.60-5.2); RDW 19.8 % (11.6-15.6); WHITE BLOOD COUNT 11.1 K/mm3 (4.0-10.0)
[2024-06-30 15:21] LABS: POTASSIUM 4.5 mmol/L (3.5-5.1)
[2024-06-30 15:24] LABS: CALCIUM 8.7 mg/dL (8.5-10.1)
[2024-06-30 15:25] LABS: BLOOD UREA NITROGEN 24.1 mg/dL (7-18)
[2024-06-30 15:28] LABS: CREATININE 1.3 mg/dL (0.55-1.3)
[2024-06-30 15:30] LABS: TOT PROT 5.4 g/dl (6.4-8.2)
[2024-06-30] MEDS: LACTATED RINGERS SOLUTION 1,000 ML/1,000 ML INFUS.BAG IV SCH (15:49)
[2024-06-30] MEDS: NAPH,MB-DB/K PH,MBDB POWDER PACKET PO SCH (15:49)
[2024-06-30] MEDS: ACETAMINOPHEN 1000 MG/100 ML BAG IVPB PRN (17:09)
[2024-06-30 21:27] LABS: BASO % 0.3 % (0-2.0); EOS % 2.5 % (0-4.5); HEMATOCRIT 22.7 % (32.4-45.2); HEMOGLOBIN 7.5 GM/dL (10.7-15.3); LYMPH % 12.8 % (8-40); MCH 27.1 pg (25.7-33.7); MCHC 33.2 g/dl (32.0-36.0); MEAN CELL VOLUME 81.6 fl (80-96); MEAN PLT VOLUME 7.2 fl (7.5-11.1); MONO % 10.3 % (3.8-10.2); NEUT % 74.1 % (42.8-82.8); PLATELET COUNT 142 10^3/uL (134-434); RBC 2.79 M/mm3 (3.60-5.2); RDW 20.1 % (11.6-15.6); WHITE BLOOD COUNT 8.9 K/mm3 (4.0-10.0)
[2024-06-30] MEDS: ATORVASTATIN CA 20 MG TABLET (FP) PO SCH (21:49)
[2024-06-30] MEDS: FOLIC ACID 1 MG TABLET (FP) PO SCH (21:49)
[2024-06-30] MEDS: CHLORHEXIDINE GLUCONATE 4% CLEANSER FOR DECOLONIZATION TP SCH (21:50)
[2024-07-01 02:08] LABS: BASO % 0.2 % (0-2.0); EOS % 3.2 % (0-4.5); HEMATOCRIT 24.8 % (32.4-45.2); HEMOGLOBIN 8.4 GM/dL (10.7-15.3); LYMPH % 13.1 % (8-40); MCH 28.4 pg (25.7-33.7); MCHC 33.8 g/dl (32.0-36.0); MEAN CELL VOLUME 84.1 fl (80-96); MEAN PLT VOLUME 7.3 fl (7.5-11.1); MONO % 11.9 % (3.8-10.2); NEUT % 71.6 % (42.8-82.8); PLATELET COUNT 124 10^3/uL (134-434); RBC 2.95 M/mm3 (3.60-5.2); WHITE BLOOD COUNT 7.3 K/mm3 (4.0-10.0)
[2024-07-01 06:21] LABS: RBC 3.11 M/mm3 (3.60-5.2); WHITE BLOOD COUNT 7.5 K/mm3 (4.0-10.0)
[2024-07-01 06:22] LABS: BASO % 0.2 % (0-2.0); EOS % 3.1 % (0-4.5); HEMATOCRIT 26.5 % (32.4-45.2); MCH 29.1 pg (25.7-33.7); MCHC 34.1 g/dl (32.0-36.0); MEAN CELL VOLUME 85.2 fl (80-96); MEAN PLT VOLUME 7.6 fl (7.5-11.1); MONO % 9.9 % (3.8-10.2); NEUT % 68.8 % (42.8-82.8); PLATELET COUNT 133 10^3/uL (134-434); RDW 18.4 % (11.6-15.6)
[2024-07-01] MEDS: SERTRALINE HCL 25 MG TABLET (FP) PO SCH (09:01)
[2024-07-01 13:26] LABS: BASO % 0.1 % (0-2.0); HEMATOCRIT 27.9 % (32.4-45.2); HEMOGLOBIN 9.5 GM/dL (10.7-15.3); LYMPH % 14.7 % (8-40); MCH 28.8 pg (25.7-33.7); MCHC 34.1 g/dl (32.0-36.0); MEAN CELL VOLUME 84.5 fl (80-96); MEAN PLT VOLUME 7.7 fl (7.5-11.1); MONO % 10.1 % (3.8-10.2); NEUT % 72.1 % (42.8-82.8); PLATELET COUNT 142 10^3/uL (134-434); RDW 18.7 % (11.6-15.6); WHITE BLOOD COUNT 8.4 K/mm3 (4.0-10.0)
[2024-07-01 13:44] LABS: POTASSIUM 4.7 mmol/L (3.5-5.1)
[2024-07-01 13:45] LABS: CALCIUM 8.9 mg/dL (8.5-10.1)
[2024-07-01 13:46] LABS: ALBUMIN 2.2 g/dl (3.4-5.0); BLOOD UREA NITROGEN 17.2 mg/dL (7-18); MAGNESIUM 1.8 mg/dL (1.8-2.4)
[2024-07-01 13:49] LABS: CREATININE 0.9 mg/dL (0.55-1.3)
[2024-07-01 13:51] LABS: TOT PROT 5.7 g/dl (6.4-8.2)
[2024-07-01] MEDS: ACETAMINOPHEN 1000 MG/100 ML BAG IVPB PRN (18:35)
[2024-07-02 07:51] LABS: BASO % 0.6 % (0-2.0); EOS % 3.7 % (0-4.5); HEMATOCRIT 24.9 % (32.4-45.2); HEMOGLOBIN 8.4 GM/dL (10.7-15.3); LYMPH % 17.3 % (8-40); MCH 29.5 pg (25.7-33.7); MCHC 33.7 g/dl (32.0-36.0); MEAN CELL VOLUME 87.5 fl (80-96); MEAN PLT VOLUME 7.9 fl (7.5-11.1); MONO % 10.1 % (3.8-10.2); NEUT % 68.3 % (42.8-82.8); PLATELET COUNT 133 10^3/uL (134-434); RBC 2.85 M/mm3 (3.60-5.2); RDW 18.8 % (11.6-15.6)
[2024-07-02 08:05] LABS: POTASSIUM 4.4 mmol/L (3.5-5.1)
[2024-07-02 08:09] LABS: ALBUMIN 1.8 g/dl (3.4-5.0); CALCIUM 8.7 mg/dL (8.5-10.1); MAGNESIUM 1.7 mg/dL (1.8-2.4)
[2024-07-02 08:14] LABS: BILIRUBIN,TOTAL 0.8 mg/dL (0.2-1); TOT PROT 4.9 g/dl (6.4-8.2)
[2024-07-02 08:18] VITALS: BMI 25.0
[2024-07-02] MEDS: APIXABAN 2.5 MG TABLET PO SCH (21:11)
[2024-07-03] MEDS ORDERED: MAG HYDROX/AL HYDROX/SIMETH 30 ML UNIT-DOSE CUP PO PRN (07:19)
[2024-07-03] MEDS ORDERED: MAGNESIUM HYDROX 2400MG/30ML ORAL SUSPENSION 30 ML CUP PO PRN (07:19)
[2024-07-03] MEDS ORDERED: METOPROLOL TARTRATE 5 MG/5 ML VIAL IVPUSH PRN (07:19)
[2024-07-03 07:47] LABS: BASO % 0.3 % (0-2.0); EOS % 2.8 % (0-4.5); HEMOGLOBIN 9.6 GM/dL (10.7-15.3); LYMPH % 12.2 % (8-40); MCH 28.7 pg (25.7-33.7); MCHC 33.2 g/dl (32.0-36.0); MEAN CELL VOLUME 86.6 fl (80-96); MONO % 9.3 % (3.8-10.2); NEUT % 75.4 % (42.8-82.8); PLATELET COUNT 178 10^3/uL (134-434); RBC 3.35 M/mm3 (3.60-5.2); RDW 19.3 % (11.6-15.6); WHITE BLOOD COUNT 10.2 K/mm3 (4.0-10.0)
[2024-07-03 08:21] LABS: POTASSIUM 4.4 mmol/L (3.5-5.1)
[2024-07-03 08:27] LABS: CALCIUM 9.3 mg/dL (8.5-10.1)
[2024-07-03 08:28] LABS: ALBUMIN 2.1 g/dl (3.4-5.0); MAGNESIUM 1.9 mg/dL (1.8-2.4)
[2024-07-03 08:31] LABS: BILIRUBIN,TOTAL 0.9 mg/dL (0.2-1)
[2024-07-03] MEDS: MULTIVITAMINS (DAILY MVI) TABLET (FP) PO SCH (09:24)
[2024-07-03] MEDS: PANTOPRAZOLE 40 MG TABLET PO SCH (09:24)
[2024-07-03] MEDS: SENNOSIDES/DOCUSATE COMBO (SENNA PLUS) TABLET (UD) PO SCH (09:24)
[2024-07-03] MEDS: MUPIROCIN 2% TOPICAL OINTMENT FOR DECOLONIZATION NS SCH (09:24)
[2024-07-03] MEDS: MAGNESIUM OXIDE 400 MG TABLET (FP) PO ONE (09:24)
[2024-07-03] MEDS: SERTRALINE HCL 25 MG TABLET (FP) PO SCH (09:24)
[2024-07-03] MEDS ORDERED: PANTOPRAZOLE SODIUM 40 MG VIAL IVPUSH SCH (10:00)
[2024-07-03 15:45] LABS: BASO % 0.5 % (0-2.0); EOS % 2.3 % (0-4.5); HEMATOCRIT 31.3 % (32.4-45.2); HEMOGLOBIN 10.2 GM/dL (10.7-15.3); LYMPH % 6.4 % (8-40); MCH 27.7 pg (25.7-33.7); MCHC 32.7 g/dl (32.0-36.0); MEAN CELL VOLUME 84.7 fl (80-96); MEAN PLT VOLUME 7.8 fl (7.5-11.1); NEUT % 81.8 % (42.8-82.8); PLATELET COUNT 212 10^3/uL (134-434); WHITE BLOOD COUNT 11.7 K/mm3 (4.0-10.0)
[2024-07-03] MEDS: ACETAMINOPHEN 500 MG TABLET (FP) PO PRN (16:54)
[2024-07-03] MEDS: FOLIC ACID 1 MG TABLET (FP) PO SCH (21:33)
[2024-07-03] MEDS: CHLORHEXIDINE GLUCONATE 4% CLEANSER FOR DECOLONIZATION TP SCH (21:33)
[2024-07-03] MEDS: ATORVASTATIN CA 20 MG TABLET (FP) PO SCH (21:33)
[2024-07-04] MEDS ORDERED: MAG HYDROX/AL HYDROX/SIMETH 30 ML UNIT-DOSE CUP PO PRN (01:04)
[2024-07-04] MEDS ORDERED: MAGNESIUM HYDROX 2400MG/30ML ORAL SUSPENSION 30 ML CUP PO PRN (01:04)
[2024-07-04 08:42] LABS: BASO % 0.5 % (0-2.0); EOS % 2.9 % (0-4.5); HEMATOCRIT 29.1 % (32.4-45.2); HEMOGLOBIN 9.9 GM/dL (10.7-15.3); LYMPH % 10.7 % (8-40); MCH 28.9 pg (25.7-33.7); MCHC 34.1 g/dl (32.0-36.0); MEAN CELL VOLUME 84.8 fl (80-96); MEAN PLT VOLUME 7.9 fl (7.5-11.1); MONO % 9.5 % (3.8-10.2); NEUT % 76.4 % (42.8-82.8); PLATELET COUNT 220 10^3/uL (134-434); RBC 3.43 M/mm3 (3.60-5.2); RDW 19.1 % (11.6-15.6); WHITE BLOOD COUNT 10.7 K/mm3 (4.0-10.0)
[2024-07-04] MEDS: APIXABAN 2.5 MG TABLET PO SCH (10:23)
[2024-07-04] MEDS: SERTRALINE HCL 25 MG TABLET (FP) PO SCH (10:23)
[2024-07-04] MEDS: MULTIVITAMINS (DAILY MVI) TABLET (FP) PO SCH (10:23)
[2024-07-04] MEDS: SENNOSIDES/DOCUSATE COMBO (SENNA PLUS) TABLET (UD) PO SCH (10:23)
[2024-07-04] MEDS: PANTOPRAZOLE 40 MG TABLET PO SCH (10:24)
[2024-07-04] MEDS: FOLIC ACID 1 MG TABLET (FP) PO SCH (22:32)
[2024-07-04] MEDS: ATORVASTATIN CA 20 MG TABLET (FP) PO SCH (22:33)
[2024-07-05 06:17] VITALS: RESP 18
[2024-07-05 10:52] VITALS: BP 128/68; PULSE 84; TEMP 97.9
== END 2024-07-05 11:07 | DRG 470 ==
LOC: FASU 07:13 → FM/S 15:22 → FASU 19:03 → J4W 06-28 17:53 → JICU 06-29 12:09 → J8W 07-04 00:30
PROVIDERS: ATTEND Internal Medicine
PROC: 0SRB0JZ Replacement of Left Hip Joint with Synthetic Substitute, Open Approach (ICD-10-PCS; principal; 2024-06-26 11:16)
PROC: 30233N1 Transfusion of Nonautologous Red Blood Cells into Peripheral Vein, Percutaneous Approach (ICD-10-PCS; 2024-06-27)
PROC: 05HM33Z Insertion of Infusion Device into Right Internal Jugular Vein, Percutaneous Approach (ICD-10-PCS; 2024-06-29)
PROC: B543ZZA Ultrasonography of Right Jugular Veins, Guidance (ICD-10-PCS; 2024-06-29)
DX: M16.12 Unilateral primary osteoarthritis, left hip (principal); M87.9 Osteonecrosis, unspecified; D62 Acute posthemorrhagic anemia; I48.91 Unspecified atrial fibrillation; I10 Essential (primary) hypertension; N18.9 Chronic kidney disease, unspecified; E78.5 Hyperlipidemia, unspecified
CPT/HCPCS: 36415; 36430; 71045-TC-FY; 73502-TC-LT-FY; 74176-TC; 75635-TC; 80053; 82272; 82607; 83010; 83735; 83880; 84100; 85025; 85027; 85045; 85384; 85610; 85730; 86140; 86850; 86900; 86901; 86922; 87635; 88305-TC; 88311-TC; 93005; 93010; 93306-TC; 93970-TC; 94760; 97010-GP; 97116-GP; 97162-GP; C1776; C1889; J0131; P9038; P9058; Q9967

== ENCOUNTER 2024-07-31 11:40 | Inpatient (IN) | payer OTHER, BC ==
[2024-07-31 13:13] LABS: URINE APPEARANCE CLEAR; URINE BILIRUBIN NEGATIVE (NEGATIVE); URINE COLOR YELLOW; URINE GLUCOSE (UA) NEGATIVE (NEGATIVE); URINE KETONE NEGATIVE (NEGATIVE); URINE LEUK ESTERASE NEGATIVE (NEGATIVE); URINE NITRITE NEGATIVE (NEGATIVE); URINE PROTEIN NEGATIVE (NEGATIVE); URINE UROBILINOGEN 0.2 mg/dL (0.2-1.0)
[2024-07-31 13:14] VITALS: BMI 26.6
[2024-07-31 13:27] LABS: BASO % 0.4 % (0-2.0); EOS % 2.2 % (0-4.5); HEMATOCRIT 34.5 % (32.4-45.2); HEMOGLOBIN 11.2 GM/dL (10.7-15.3); LYMPH % 12.6 % (8-40); MCH 27.1 pg (25.7-33.7); MCHC 32.6 g/dl (32.0-36.0); MEAN CELL VOLUME 83.2 fl (80-96); MEAN PLT VOLUME 7.9 fl (7.5-11.1); MONO % 5.8 % (3.8-10.2); PLATELET COUNT 235 10^3/uL (134-434); RBC 4.14 M/mm3 (3.60-5.2); RDW 17.8 % (11.6-15.6); WHITE BLOOD COUNT 7.4 K/mm3 (4.0-10.0)
[2024-07-31 13:34] LABS: INR 1.32 (0.83-1.09); PROTHROMBIN TIME (PATIENT) 14.8 SEC (9.7-13.0)
[2024-07-31 13:36] LABS: ACTIVATED PTT 33.5 SECONDS (25.2-36.5)
[2024-07-31 13:59] LABS: POTASSIUM 5.1 mmol/L (3.5-5.1)
[2024-07-31 14:01] LABS: ALBUMIN 3.3 g/dl (3.4-5.0); BLOOD UREA NITROGEN 27.6 mg/dL (7-18); CALCIUM 9.8 mg/dL (8.5-10.1)
[2024-07-31 14:05] LABS: CREATININE 1.7 mg/dL (0.55-1.3)
[2024-07-31 14:06] LABS: BILIRUBIN,TOTAL 0.4 mg/dL (0.2-1); TOT PROT 8.6 g/dl (6.4-8.2)
[2024-07-31] MEDS: SENNOSIDES/DOCUSATE COMBO (SENNA PLUS) TABLET (UD) PO SCH (22:17)
[2024-07-31] MEDS: ATORVASTATIN CA 20 MG TABLET (FP) PO SCH (22:22)
[2024-08-01] MEDS: PANTOPRAZOLE 40 MG TABLET PO SCH (10:35)
[2024-08-01] MEDS: SERTRALINE HCL 50 MG TABLET (FP) PO SCH (10:35)
[2024-08-01] MEDS ORDERED: PROPOFOL 40 ML ONE (12:10)
[2024-08-01] MEDS ORDERED: ceFAZolin SODIUM 1 GM VIAL ONE (12:10)
[2024-08-01] MEDS ORDERED: MIDAZOLAM HCL 2 MG/2 ML SINGLE DOSE VIAL ONE ×2 (12:10→14:34)
[2024-08-01] MEDS ORDERED: SODIUM CHLORIDE 1,000 ML IV SCH (12:45)
[2024-08-01] MEDS ORDERED: GENTAMICIN SO4 80 MG/2 ML VIAL ONE (13:48)
[2024-08-01] MEDS ORDERED: PROPOFOL 20 ML ONE ×2 (13:55)
[2024-08-01] MEDS: ceFAZolin SODIUM 1 GM VIAL IVPB ONE (14:40)
[2024-08-01] MEDS: GENTAMICIN SO4 80 MG/2 ML VIAL IVPB ONE (15:00)
[2024-08-01] MEDS: CEFTRIAXONE 2 GM in DEXTROSE 5%-WATER 100 ML IVPB ONE (15:00)
[2024-08-01] MEDS ORDERED: BUPIVACAINE HCL/PF 0.5% (5MG/ML) 10 ML VIAL ONE (15:23)
[2024-08-01] MEDS ORDERED: LIDOCAINE 1%/EPI 1:100000 (20 ML MULTI DOSE VIAL) ONE (15:23)
[2024-08-01] MEDS: LIDOCAINE 1%/EPI 1:100000 (20 ML MULTI DOSE VIAL) IJ ONE (15:28)
[2024-08-01] MEDS: BUPIVACAINE HCL/PF 0.5% (5 MG/ML) 30 ML VIAL IJ ONE (15:28)
[2024-08-01] MEDS ORDERED: BACITRACIN ZINC 15 GM TUBE TOPICAL OINTMENT ONE (15:37)
[2024-08-01] MEDS ORDERED: ONDANSETRON 4 MG/2 ML VIAL IVPUSH PRN ×2 (15:58→16:44)
[2024-08-01] MEDS: LACTATED RINGERS SOLUTION 1,000 ML IV SCH (16:10)
[2024-08-01] MEDS ORDERED: LACTATED RINGERS SOLUTION 1,000 ML IV SCH (16:44)
[2024-08-01] MEDS: SODIUM CHLORIDE 1,000 ML IV SCH (16:48)
[2024-08-01] MEDS ORDERED: oxyCODONE HCL 5 MG TABLET PO PRN (17:00)
[2024-08-01] MEDS: ATORVASTATIN CA 20 MG TABLET (FP) PO SCH (22:27)
[2024-08-01] MEDS: SENNOSIDES/DOCUSATE COMBO (SENNA PLUS) TABLET (UD) PO SCH (22:28)
[2024-08-02 08:41] LABS: BASO % 0.3 % (0-2.0); EOS % 2.8 % (0-4.5); HEMATOCRIT 31.2 % (32.4-45.2); MCH 26.8 pg (25.7-33.7); MCHC 31.9 g/dl (32.0-36.0); MEAN PLT VOLUME 8.1 fl (7.5-11.1); NEUT % 64.9 % (42.8-82.8); PLATELET COUNT 206 10^3/uL (134-434); RBC 3.71 M/mm3 (3.60-5.2); RDW 17.3 % (11.6-15.6); WHITE BLOOD COUNT 4.7 K/mm3 (4.0-10.0)
[2024-08-02 09:04] LABS: POTASSIUM 5.1 mmol/L (3.5-5.1)
[2024-08-02 09:11] LABS: ALBUMIN 2.8 g/dl (3.4-5.0); CALCIUM 9.6 mg/dL (8.5-10.1)
[2024-08-02 09:12] LABS: BLOOD UREA NITROGEN 23.3 mg/dL (7-18)
[2024-08-02 09:15] LABS: CREATININE 1.5 mg/dL (0.55-1.3)
[2024-08-02 09:16] LABS: BILIRUBIN,TOTAL 0.6 mg/dL (0.2-1); TOT PROT 7.2 g/dl (6.4-8.2)
[2024-08-02] MEDS: SERTRALINE HCL 25 MG TABLET (FP) PO SCH (11:15)
[2024-08-02] MEDS: PANTOPRAZOLE 40 MG TABLET PO SCH (11:15)
[2024-08-02] MEDS: CEFTRIAXONE 1 GM in DEXTROSE 5%-WATER - 50 ML IVPB SCH (11:16)
[2024-08-02] MEDS: ACETAMINOPHEN 325 MG TABLET (FP) PO PRN (20:10)
[2024-08-02] MEDS: APIXABAN 2.5 MG TABLET PO SCH (21:47)
[2024-08-03] MEDS: CEFTRIAXONE 2 GM in DEXTROSE 5%-WATER 100 ML IVPB SCH (09:17)
[2024-08-03 10:26] LABS: BASO % 0.2 % (0-2.0); EOS % 1.8 % (0-4.5); HEMATOCRIT 34.3 % (32.4-45.2); HEMOGLOBIN 11.2 GM/dL (10.7-15.3); LYMPH % 12.6 % (8-40); MCH 27.1 pg (25.7-33.7); MCHC 32.7 g/dl (32.0-36.0); MONO % 8.6 % (3.8-10.2); NEUT % 76.8 % (42.8-82.8); PLATELET COUNT 241 10^3/uL (134-434); RBC 4.13 M/mm3 (3.60-5.2); RDW 17.6 % (11.6-15.6); WHITE BLOOD COUNT 6.3 K/mm3 (4.0-10.0)
[2024-08-03 10:50] LABS: POTASSIUM 4.8 mmol/L (3.5-5.1)
[2024-08-03 10:53] LABS: ALBUMIN 3.1 g/dl (3.4-5.0); BLOOD UREA NITROGEN 20.2 mg/dL (7-18); CALCIUM 9.9 mg/dL (8.5-10.1)
[2024-08-03 10:57] LABS: CREATININE 1.5 mg/dL (0.55-1.3)
[2024-08-03 10:58] LABS: BILIRUBIN,TOTAL 0.4 mg/dL (0.2-1)
[2024-08-05] MEDS: diphenhydrAMINE HCL 25 MG CAPSULE (FP) PO ONE ×2 (06:37→06:38)
[2024-08-05 16:25] LABS: POTASSIUM 4.8 mmol/L (3.5-5.1)
[2024-08-05 16:26] LABS: CALCIUM 9.9 mg/dL (8.5-10.1)
[2024-08-05 16:27] LABS: BLOOD UREA NITROGEN 13.1 mg/dL (7-18)
[2024-08-05 16:30] LABS: CREATININE 1.3 mg/dL (0.55-1.3)
[2024-08-06 10:17] LABS: BASO % 0.4 % (0-2.0); HEMATOCRIT 36.8 % (32.4-45.2); LYMPH % 15.7 % (8-40); MCH 27.3 pg (25.7-33.7); MCHC 32.6 g/dl (32.0-36.0); MEAN CELL VOLUME 83.7 fl (80-96); MONO % 9.9 % (3.8-10.2); PLATELET COUNT 277 10^3/uL (134-434); RDW 17.2 % (11.6-15.6); WHITE BLOOD COUNT 6.5 K/mm3 (4.0-10.0)
[2024-08-06 10:24] LABS: POTASSIUM 4.7 mmol/L (3.5-5.1)
[2024-08-06 10:26] LABS: CALCIUM 9.9 mg/dL (8.5-10.1)
[2024-08-06 10:27] LABS: ALBUMIN 3.1 g/dl (3.4-5.0)
[2024-08-06 10:30] LABS: CREATININE 1.2 mg/dL (0.55-1.3)
[2024-08-06 10:31] LABS: BILIRUBIN,TOTAL 0.6 mg/dL (0.2-1); TOT PROT 8.1 g/dl (6.4-8.2)
[2024-08-06 14:49] VITALS: RESP 18
[2024-08-06 16:10] VITALS: BP 113/71; PULSE 76; TEMP 98.1
== END 2024-08-06 18:10 | DRG 902 ==
LOC: JER 11:40 → JERBED 15:03 → J6S 18:42
PROVIDERS: ADMIT Internal Medicine; ATTEND Internal Medicine
PROC: 0JQM0ZZ Repair Left Upper Leg Subcutaneous Tissue and Fascia, Open Approach (ICD-10-PCS; 2024-08-01)
PROC: 0J9M0ZZ Drainage of Left Upper Leg Subcutaneous Tissue and Fascia, Open Approach (ICD-10-PCS; 2024-08-01)
PROC: 3E10X8Z Irrigation of Skin and Mucous Membranes using Irrigating Substance (ICD-10-PCS; 2024-08-01)
PROC: 0JBM0ZZ Excision of Left Upper Leg Subcutaneous Tissue and Fascia, Open Approach (ICD-10-PCS; principal; 2024-08-01 12:30)
PROC: 02HV33Z Insertion of Infusion Device into Superior Vena Cava, Percutaneous Approach (ICD-10-PCS; 2024-08-06)
PROC: B518ZZA Fluoroscopy of Superior Vena Cava, Guidance (ICD-10-PCS; 2024-08-06)
DX: M96.840 Postprocedural hematoma of a musculoskeletal structure following a musculoskeletal system procedure (principal); I69.354 Hemiplegia and hemiparesis following cerebral infarction affecting left non-dominant side; N17.9 Acute kidney failure, unspecified; M87.852 Other osteonecrosis, left femur; I48.91 Unspecified atrial fibrillation; G20.A1 Parkinson's disease without dyskinesia, without mention of fluctuations; L08.89 Other specified local infections of the skin and subcutaneous tissue; B96.4 Proteus (mirabilis) (morganii) as the cause of diseases classified elsewhere; I12.9 Hypertensive chronic kidney disease with stage 1 through stage 4 chronic kidney disease, or unspecified chronic kidney disease; N18.9 Chronic kidney disease, unspecified; M48.00 Spinal stenosis, site unspecified; M06.9 Rheumatoid arthritis, unspecified; K21.9 Gastro-esophageal reflux disease without esophagitis; F41.9 Anxiety disorder, unspecified; Y83.8 Other surgical procedures as the cause of abnormal reaction of the patient, or of later complication, without mention of misadventure at the time of the procedure; Z96.643 Presence of artificial hip joint, bilateral; Z96.642 Presence of left artificial hip joint
CPT/HCPCS: 11042; 36415; 36569; 71046-TC-FY; 76775-TC; 80048; 80053; 81003; 82570; 83735; 84300; 85025; 85610; 85730; 86850; 86900; 86901; 87070; 87186; 87205; 88304-TC; 93005; 93010; 94760; 97116-GP; 97162-GP; 99285-25

== ENCOUNTER 2024-10-18 04:10 | Day surgery (SDC) | payer OTHER, BC ==
[2024-10-17 10:47] VITALS: BMI 25.8
[2024-10-18] MEDS ORDERED: ACETAMINOPHEN 500 MG TABLET (FP) PO PRN (09:14)
[2024-10-18 14:33] VITALS: RESP 18
[2024-10-18] MEDS: LIDOCAINE HCL 1% PRESERVATIVE FREE - 30ML VIAL IJ ONE (15:34)
[2024-10-18] MEDS: IOHEXOL 180 MG/1 ML ML IJ ONE (15:36)
[2024-10-18] MEDS: BUPIVACAINE HCL/PF 0.5% (5MG/ML) 10 ML VIAL IJ ONE (15:36)
[2024-10-18] MEDS: TRIAMCINOLONE ACET 40MG/1ML VIAL IJ ONE (15:36)
[2024-10-18 16:47] VITALS: BP 133/64; PULSE 74; TEMP 97.7
== END 2024-10-18 16:35 | disposition home or self-care (01) ==
LOC: JASU-SURG 04:10
PROVIDERS: ATTEND Pain Medicine Pain Medicine
PROC: 3E0U3BZ Introduction of Anesthetic Agent into Joints, Percutaneous Approach (ICD-10-PCS; 2024-10-18)
PROC: 3E0U33Z Introduction of Anti-inflammatory into Joints, Percutaneous Approach (ICD-10-PCS; principal; 2024-10-18 15:28)
DX: M53.3 Sacrococcygeal disorders, not elsewhere classified (principal)
CPT/HCPCS: 76000-TC-FY

== ENCOUNTER 2024-12-06 04:49 | Day surgery (SDC) | payer OTHER, BC ==
[2024-12-05 11:16] VITALS: BMI 25.8
[2024-12-06] MEDS ORDERED: ACETAMINOPHEN 500 MG TABLET (FP) PO PRN (08:42)
[2024-12-06 13:59] VITALS: PULSE 68
[2024-12-06 15:45] VITALS: BP 126/80; RESP 16; TEMP 97.1
== END 2024-12-06 16:20 | disposition home or self-care (01) ==
LOC: JASU-SURG 04:49
PROVIDERS: ATTEND Pain Medicine Pain Medicine
PROC: 3E0R3BZ Introduction of Anesthetic Agent into Spinal Canal, Percutaneous Approach (ICD-10-PCS; 2024-12-06)
PROC: 3E0R33Z Introduction of Anti-inflammatory into Spinal Canal, Percutaneous Approach (ICD-10-PCS; principal; 2024-12-06 14:15)
DX: M48.061 Spinal stenosis, lumbar region without neurogenic claudication (principal); M54.16 Radiculopathy, lumbar region
CPT/HCPCS: 76000-TC-FY

== ENCOUNTER 2025-03-01 06:34 | Day surgery (SDC) | payer OTHER, BC ==
[2025-02-27 12:47] VITALS: BMI 26.6
[2025-03-01] MEDS ORDERED: ACETAMINOPHEN 500 MG TABLET (FP) PO PRN (08:51)
[2025-03-01 11:28] VITALS: RESP 16
[2025-03-01] MEDS: LIDOCAINE HCL 1% PRESERVATIVE FREE - 30ML VIAL IJ ONE ×2 (12:36)
[2025-03-01 13:14] VITALS: BP 138/75; PULSE 78; TEMP 97.2
== END 2025-03-01 13:45 | disposition home or self-care (01) ==
LOC: JASU-SURG 06:34
PROVIDERS: ATTEND Pain Medicine Pain Medicine
PROC: 01HY3MZ Insertion of Neurostimulator Lead into Peripheral Nerve, Percutaneous Approach (ICD-10-PCS; principal; 2025-03-01 11:45)
DX: G89.4 Chronic pain syndrome (principal)
CPT/HCPCS: 64555; C1778; 76000-TC-FY